=== PATIENT | female | born 1950 | race Caucasian/White ===

== ENCOUNTER 2016-07-05 11:31 | Emergency (ER) | payer MEDICARE, OTHER ==
[~2016-07-05] VITALS: Ht 172.7 cm; Wt 133.4 kg
[~2016-07-05 11:31] MED LIST: ALLO300T PO; AMIT50TA PO; ASPI325T8 PO; BUDE10.2 IH; COLE1TAB2 PO; DICL100G18 TP; DIPH25CA58 PO; DULO60CA6 PO; ESCI20TA PO; FLUT16SP21 NS; FLUT1DIS IH; FURO40TA4 PO; GLIM1TAB2 PO; HYDR-2758 PO; INDO25CA PO; IPRA4AER IH; LISI10TA2 PO; LOPE1TAB4 PO; OMEG1CAP65 PO; OMEP40CA5 PO; OXYC-328 PO; TOPI50TA8 PO; UBID100C26 PO
--- NOTE | 2016-07-05 11:42 | PHYS DOC ---
General Chief Complaint: hip pain Stated Complaint: LEFT HIP PAIN Time Seen by MD: 11:35 Source: patient, old records Exam Limitations: no limitations Problems: History of Present Illness Initial Comments Pt is 65/F to ED with family c/o left hip pain. Pt states she awoke yesterday morning with left hip pain, pt points to L buttock (piriformis) described as 10/10 sharp/stabby with post leg radiation to foot. No new trauma/strenuous, pt has chronic back pain with prior surgeries x 4. No new numbness/weakness/tingling, home percocet didn't help. Onset: yesterday Severity: severe Pain/Injury Location: left hip Method of Injury: unknown Modifying Factors: worse with jarring, worse with movement, improves with pain medication Allergies: Coded Allergies: adhesive (Verified Allergy, Unknown, 05/23/15) iodine (Unverified Allergy, Unknown, Shortness of Air, 01/28/14) Past Medical History Medical History: other (DM, DM neuropathy, IBS, chronic back pain, osteoarthritis) Surgical History: other (back x 3, b/l TKR) Social History Smoker: non-smoker Alcohol: none Drugs: none Review of Systems Constitutional: denies chills, denies fever Respiratory: denies cough, denies shortness of breath Cardiovascular: denies chest pain, denies palpitations Gastrointestinal: denies diarrhea, denies nausea, denies vomiting Genitourinary: denies dysuria, denies frequency, denies hematuria Musculoskeletal: see HPI Psychiatric/Neurological: see HPI Physical Exam General Appearance: mild distress, obese Neck: non-tender, supple Cardiovascular/Respiratory: normal peripheral pulses, no respiratory distress Back: no CVA tenderness, no vertebral tenderness Hips: left hip other (no bony TTP, point tenderness left gluteal/piriformis, no swell/ecchy pelvis stable) Neurologic/Tendon: normal sensation, normal motor functions, normal tendon functions, responds to pain, no evidence tendon injury, other (neg SLR b/l) Psychiatric: alert, oriented x 3 Skin: normal color, warm/dry Orders, Labs, Meds PATIENT: CLYDE AGUILAR ACCOUNT: [id number] : 1950 LOCATION: ER AGE: 65 SEX: F EXAM STATUS: REG ER ORD. PHYSICIAN: MERARY WELLINGTON DO REASON: L hip pain PROCEDURE: HIP LEFT 2V WITH PELVIS EXAM: Pelvis and left hip, 3 views. HISTORY: Pain. COMPARISON: 07/18/2015. FINDINGS: A frontal view of the pelvis and frontal and frog-leg views of the left hip are obtained. There is no fracture, dislocation or subluxation. There is instrumented fusion at the lower lumbar levels. There is severe degenerative endplate remodeling with disc space narrowing at the lumbosacral junction.. IMPRESSION: 1. No acute osseous finding 2. Postoperative and degenerative changes involving the lower lumbar spine. DICTATED AND SIGNED BY: ACACIA PERALTA MD DATE: 07/05/16 1221 CC: VERÓNICA FRANCO; MERARY WELLINGTON DO ~ I discussed tx plan pt expressed agreement/understanding. Departure Time of Disposition: 12:33 Disposition: 01 HOME, SELF-CARE Diagnosis: piriformis syndrome left, chronic pain Condition: GOOD Patient Instructions: Chronic Back Pain, Piriformis Syndrome Additional Instructions: Continue current meds. Activity as tolerated. Heating pad 20 minutes 4-6 times daily followed by gentle stretching. Rx: prednisone 20 #6, percocet 7.5mg #15 Take meds with food. Follow up with your doctor Thursday. Return to ED as needed. MERARY WELLINGTON DO July 05, 2016 11:42
[2016-07-05 11:45] VITALS: BP 155/79
--- NOTE | 2016-07-05 12:25 | RAD ---
EXAM: Pelvis and left hip, 3 views. HISTORY: Pain. COMPARISON: 07/18/2015. FINDINGS: A frontal view of the pelvis and frontal and frog-leg views of the left hip are obtained. There is no fracture, dislocation or subluxation. There is instrumented fusion at the lower lumbar levels. There is severe degenerative endplate remodeling with disc space narrowing at the lumbosacral junction.. IMPRESSION: 1. No acute osseous finding 2. Postoperative and degenerative changes involving the lower lumbar spine.
[2016-07-05] MEDS ORDERED: OXYC-327 PO (12:36)
[2016-07-05] MEDS ORDERED: PRED20TA PO (12:36)
[2016-07-05] MEDS ORDERED: MORPHINE SULFATE 10 MG/ML SYRINGE. SQ ONE (13:00)
== END 2016-07-05 13:05 | disposition home or self-care (01) ==
LOC: ER 11:31
DX: G57.02 Lesion of sciatic nerve, left lower limb (principal); G89.29 Other chronic pain; E11.40 Type 2 diabetes mellitus with diabetic neuropathy, unspecified; K58.9 Irritable bowel syndrome, unspecified; M19.90 Unspecified osteoarthritis, unspecified site; Z88.8 Allergy status to other drugs, medicaments and biological substances; Z91.041 Radiographic dye allergy status
CPT/HCPCS: 73502; 96372; 99284; J2270

== ENCOUNTER 2016-07-13 18:06 | Emergency (ER) | payer MEDICARE, OTHER ==
[~2016-07-13] VITALS: Ht 172.7 cm; Wt 144.0 kg
[~2016-07-13 18:06] MED LIST changes: +OXYC-327 PO; +PRED20TA PO
[2016-07-13 18:10] VITALS: BP 166/80
--- NOTE | 2016-07-13 18:16 | ED.ADGEN ---
Past History Past Medical History: Arthritis, Asthma, Cancer, Constipation, Diabetes, GERD, Hypertension, IBS, Seizure Past Surgical History: Cholecystectomy, Tonsillectomy, Other Alcohol Use: None Drug Use: None Adult General Chief Complaint Chief Complaint Back pain [facility] HPI Patient is a 65 year old should female who presents with back pain. She was seen here on Thursday and was diagnosed with back pain and sent home with prednisone and Percocet. On Thursday she saw [facility] and had a CT scan and an MRI and was diagnosed with sciatica. She is scheduled to go tomorrow for any injection at the pain clinic. She ran out of her Percocet tonight at 4:00 and states that she's taking 1 every 4-6 hours. She states the pains exact same pain that she is slightly worse now. She denies any fevers chills nausea or vomiting. He states the pains in her left hip and radiates down the back of her leg. Made worse with movement and is better when she has her pain meds. She denies any numbness tingling in her legs or weakness, she denies any saddle anesthesia. Review of Systems Review of Systems Constitutional: Denies fever or chills [] Eyes: Denies change in visual acuity, redness, or eye pain [] HENT: Denies nasal congestion or sore throat [] Respiratory: Denies cough or shortness of breath [] Cardiovascular: No additional information not addressed in HPI [] GI: Denies abdominal pain, nausea, vomiting, bloody stools or diarrhea [] : Denies dysuria or hematuria [] Musculoskeletal: Denies back pain or joint pain [] Integument: Denies rash or skin lesions [] Neurologic: Denies headache, focal weakness or sensory changes [] Endocrine: Denies polyuria or polydipsia [] Current Medications Current Medications Current Medications Medications (Trade) Dose Ordered Sig/Jeison Start Time Stop Time Status Last Admin Dose Admin Morphine Sulfate (Morphine 5mg Syringe) 10 mg 1X ONCE 07/13/16 19:00 07/13/16 19:02 DC 07/13/16 19:00 10 MG Allergies Allergies Allergies Coded Allergies Type Severity Reaction Last Updated Verified adhesive Allergy Unknown 05/23/15 Yes iodine Allergy Unknown Shortness of Air 01/28/14 No Physical Exam Physical Exam Constitutional: Well developed, well nourished, no acute distress, non-toxic appearance. [] HENT: Normocephalic, atraumatic, bilateral external ears normal, oropharynx moist, no oral exudates, nose normal. [] Eyes: PERRLA, EOMI, conjunctiva normal, no discharge. [] Neck: Normal range of motion, no tenderness, supple, no stridor. [] Cardiovascular:Heart rate regular rhythm, no murmur [] Lungs & Thorax: Bilateral breath sounds clear to auscultation [] Abdomen: Bowel sounds normal, soft, no tenderness, no masses, no pulsatile masses. [] Skin: Warm, dry, no erythema, no rash. [] Back: No tenderness, no CVA tenderness. Straight leg test positive on the left Extremities: No tenderness, no cyanosis, no clubbing, ROM intact, no edema. [] Neurologic: Alert and oriented X 3, normal motor function, normal sensory function, no focal deficits noted. [] Psychologic: Affect normal, judgement normal, mood normal. [] Current Patient Data Vital Signs Vital Signs Date Time Temp Pulse Resp B/P (MAP) Pulse Ox O2 Delivery O2 Flow Rate FiO2 07/13/16 18:10 98.0 94 20 96 EKG EKG [] Radiology/Procedures Radiology/Procedures [] Course & Med Decision Making Course & Med Decision Making Pertinent Labs and Imaging studies reviewed. (See chart for details) Long conversation was decided that her morphine shot she received last time helped so she was given 10 mg IM morphine she's being discharged with 10 mg Percocets and she is to follow-up tomorrow with her pain management physician. Return precautions given for weakness, numbness, saddle anesthesia or other concerns. She is agreeable Plan B discharged in stable condition. Final Impression Final Impression Chronic back pain Problems: Dragon Disclaimer Dragon Disclaimer This electronic medical record was generated, in whole or in part, using a voice recognition dictation system. GORDO BECKFORD MD Jul 13, 2016 18:15
[2016-07-13] MEDS ORDERED: MORPHINE SULFATE 5 MG/ML SYRINGE. IM ONE (19:00)
[2016-07-13] MEDS ORDERED: OXYC-328 PO (19:17)
== END 2016-07-13 19:22 | disposition home or self-care (01) ==
LOC: ER 18:06
DX: G89.29 Other chronic pain (principal); M54.89 Other dorsalgia; K21.9 Gastro-esophageal reflux disease without esophagitis; K58.9 Irritable bowel syndrome, unspecified; J45.909 Unspecified asthma, uncomplicated; I10 Essential (primary) hypertension; E11.9 Type 2 diabetes mellitus without complications; M19.90 Unspecified osteoarthritis, unspecified site; Z88.8 Allergy status to other drugs, medicaments and biological substances; Z91.041 Radiographic dye allergy status
CPT/HCPCS: 96372; 99283; J2270

== ENCOUNTER → 2016-07-21 | Outpatient (CLI) | payer MEDICARE, OTHER ==
[2016-07-13 18:10] VITALS: BP 166/80
--- NOTE | 2016-07-21 15:42 | RAD ---
Ultrasound of the left breast 07/21/2016 Clinical history: Left breast pain for 3 weeks at the 9:00 position. History of left breast cancer and lumpectomy post radiation therapy in 2016. Technique: A real-time ultrasound examination of the left breast from the 6 to 9:00 position in the area of the patient's pain was performed. Multiple images were obtained. Findings: Comparison is made to the patient's preoperative mammograms from [facility] dated 11/13/2015. Within the left breast at the 9:00 position a slightly complex cyst is seen which measures 4 mm in greatest diameter. No solid mass is seen. Impression: 4 mm slightly complex cyst is seen in the left breast at the 9:00 position. No solid mass is seen. This is considered a BI-RADS Category 2 finding. Clinical correlation is recommended in regards to mammographic follow-up of the patient's known treated breast cancer. At the very least the patient would be due for screening mammography on 11/12/2016.
== END | disposition home or self-care (01) ==
LOC: US 14:27
PROVIDERS: ATTEND Internal Medicine Hematology & Oncology
DX: C50.412 Malignant neoplasm of upper-outer quadrant of left female breast (principal); Z85.3 Personal history of malignant neoplasm of breast
CPT/HCPCS: 76641

== ENCOUNTER 2016-12-06 00:36 | Inpatient (IN) | payer MEDICARE, OTHER ==
[~2016-12-06] VITALS: Ht 172.7 cm; Wt 133.9 kg
[~2016-12-06 00:36] MED LIST changes: -ESCI20TA PO; +ESCITALOPRAM OX20 MG PO
[2016-12-06] MEDS ORDERED: 0.9 % SODIUM CHLORIDE 10 ML DISP.SYRIN. IV PRN (00:45)
[2016-12-06] MEDS ORDERED: HYDROmorphone PF 1 MG/ML DISP.SYRIN IV/SQ PRN (00:45)
--- NOTE | 2016-12-06 00:56 | PHYS DOC ---
Past History Past Medical History: Arthritis, Asthma, Cancer, Constipation, Diabetes, GERD, Hypertension, IBS, Seizure Past Surgical History: Other Alcohol Use: None Drug Use: None Adult General Chief Complaint Chief Complaint: abdominal pain, diarrhea and near syncope [facility] HPI He is a pleasant 66-year-old female with history of diabetes, irritable bowel syndrome, chronic lower back pain who presents with a near-syncopal episode tonight after having multiple episodes of diarrhea for last week. Patient is any history of mucoid nonbloody stool for the last week which she's had multiple episodes over the course of each day with progressive weakness and tiredness. Patient met she's had this problem in the past she's been in the care of her primary care physician who she last saw last week she's not been on any recent antibiotics, she denies any chest pain, shortness of breath when she is having left lower quadrant abdominal pain. It is dull and achy without radiation. It is not worsened by position or movement or bowel movements. She denies any UTI symptoms vaginal bleeding or discharge. She was home alone and tonight she was walking across a room which became increasingly lightheaded and tired and she nearly syncopized sitting on the floor having a bowel movement. Patient was found to her family 20-30 minutes later she was incontinent of stool but denied any neck pain or headache loss of consciousness. Patient's pain is localized in the left lower quadrant described as moderate. Patient denies any sick contacts, travel or recent antibiotics. Review of Systems Review of Systems Constitutional: Subjective fevers and chills Eyes: Denies change in visual acuity, redness, or eye pain [] HENT: Denies nasal congestion or sore throat [] Respiratory: Denies cough or shortness of breath [] Cardiovascular: No additional information not addressed in HPI [] GI: He does have abdominal pain the left lower quadrant with nausea but no vomiting she has diarrhea without blood. : Denies dysuria or hematuria [] Musculoskeletal: sHe complains of chronic lower back pain Integument: Denies rash or skin lesions [] Neurologic: Denies headache, focal weakness or sensory changes does complain of chronic weakness and progressive fatigue[] Endocrine: Denies polyuria or polydipsia [] Allergies Allergies Allergies Coded Allergies Type Severity Reaction Last Updated Verified adhesive Allergy Unknown 05/23/15 Yes iodine Allergy Unknown Shortness of Air 01/28/14 No Physical Exam Physical Exam Constitutional: Well developed, well nourished, no acute distress, non-toxic appearance. [] HENT: Normocephalic, atraumatic, bilateral external ears normal, oropharynx moist, no oral exudates, nose normal. [] Eyes: PERRLA, EOMI, conjunctiva normal, no discharge. [] Neck: Normal range of motion, no tenderness, supple, no stridor. [] Cardiovascular:Heart rate regular rhythm, no murmur [] Lungs & Thorax: Bilateral breath sounds clear to auscultation [] Abdomen: Bowel sounds normal, soft, no tenderness, no masses, no pulsatile masses. [] Skin: Warm, dry, no erythema, no rash. [] Back: No tenderness, no CVA tenderness. [] Extremities: No tenderness, no cyanosis, no clubbing, ROM intact, no edema. [] Neurologic: Alert and oriented X 3, normal motor function, normal sensory function, no focal deficits noted. [] Psychologic: Affect normal, judgement normal, mood normal. [] EKG EKG EKG timed 1:13 AM and 28/09/2016 demonstrates a heart rate of 112 there is a pediatric care as this is sinus tachycardia. There is a normal TN interval 156 wrist with a QTC of 460 WHICH is normal there are no ST segment or T-wave changes consistent with acute coronary ischemia. Radiology/Procedures Radiology/Procedures [] [place] [address] IMAGING REPORT Signed PATIENT: CLYDE AGUILAR ACCOUNT: [id number] : 1950 LOCATION: ER AGE: 66 SEX: F EXAM STATUS: REG ER ORD. PHYSICIAN: YANELY NGUYEN MD REASON: left lower quadrant abdominal pain PROCEDURE: CT ABDOMEN PELVIS WO CONTRAST CT ABDOMEN PELVIS WO CONTRAST dated 12/06/2016 1:05 AM Indication: Abdominal pain, radiating to lower backLLQ abdominal pain radiating to lower back. No prior exams for comparison. Comparison: No comparison is available. Technique: Contiguous axial imaging of the abdomen and pelvis performed without the administration of IV or oral contrast. One or more of the following individualized dose reduction techniques were utilized for this examination: 1. Automated exposure control 2. Adjustment of the mA and/or kV according to patient size 3. Use of iterative reconstruction technique Findings: 3 mm calcific stone at the left UVJ with mild proximal dilation of the left ureter and left pelvicalyceal system. Asymmetric inflammatory stranding in the left perinephric fat. No calcific stone within the substance of either kidney. No right ureteral stone or right hydronephrosis. Liver and spleen are homogeneous. Pancreas unremarkable. Possible small myelolipoma versus lipoma at the right adrenal gland. Gallbladder is surgically absent. Mild prominence of the common bile duct measuring 9 mm diameter. No intrahepatic ductal dilatation. No filling defect is seen. Unopacified GI tract is normal in caliber and contour. No focal bowel wall thickening. No inflammatory stranding in the mesentery. No ascites or lymphadenopathy. Images of pelvis show nondistended urinary bladder. Uterus and adnexa are unremarkable. No free fluid or lymphadenopathy. Bone windows show no acute findings. Multilevel spondylosis. Limited images of lung bases are clear. Heart size within normal limits. No pleural or pericardial effusion. IMPRESSION: 3 mm calcific stone at the left UVJ with mild obstructive uropathy. Mild prominence of the common bile duct without evidence of filling defect or intrahepatic ductal dilatation. This is likely related to age and postcholecystectomy state. Electronically signed by: Ronal Barillas MD (12/06/2016 1:30 AM) [facility] DICTATED AND SIGNED BY: RONAL BARILLAS MD DATE: 12/06/16 0124 CC: YANELY NGUYEN MD; VERÓNICA FRANCO DO ~ Course & Med Decision Making Course & Med Decision Making Pertinent Labs and Imaging studies reviewed. (See chart for details)My syncope differential includes but not limited to: Neurally mediated vasovagal syncope, situational syncope, cardiac sinus syncope , orthostatic hypertension, medications, psychiatric interventions, neurologic syncope, cardiogenic syncopal B, to include organic heart disease congestive heart failure, cardiac dysrhythmia, seizure disorder, stroke or transient ischemic attack, bradycardia dysrhythmias, tachycardia dysrhythmias, PT, V. fib V. fib, cardiac abnormalities like first degree secondary third-degree AV blocks , prolonged QT, hypertrophic Murray myopathy, severe pulmonic stenosis, pulmonary arterial hypertension, atrial myxomas, aortic stenosis, valvular failure, alcohol consumption, adrenal insufficiency, drug effects from things like antidepressants, antihypertensive agents like beta blockers, vasodilators including calcium channel blockers and nitrates, autonomic insufficiency. Impression demonstrates increasing abdominal pain with nausea diarrhea and syncope at home. My concern is this patient's stability and history of diabetes she may be suffering from either irritable bowel or possibly an abscess from diverticulitis. She also mentions a remote history of kidney stones. Patient denies any UTI symptoms vaginal bleeding or discharge but has had urinary issues in the past. Upon arrival she is tachycardic she is physically dry and physical exam she looks. Dehydrated Time is now 1:25 AM patient's tachycardia is improved with fluids still waiting blood work at this time. Time is now 1:[address] scan revealed by me demonstrates evidence of kidney stone in the left ureterovesicular junction. There is some [place] and inflammatory changes around the ureter itself. Patient's pain is improved tachycardia is continue improves well with fluids and concerned given the fact she has diabetes and that she is home alone and she is syncopized home given her debility and dehydration I thought it prudent to admit her to the hospital for the sake of close observation fluid management and a possible testing for stool for infectious etiologies. Entertainment Director note: Dr. Mark Entertainment Director called at of the service 2:00 am Consult called back at Discussed the case I presented and they agreed with admission. Time of acceptance 2:01 [] Dragon Disclaimer Dragon Disclaimer This chart was dictated in whole or in part using Voice Recognition software in a busy, high-work load, and often noisy Emergency Department environment. It may contain unintended and wholly unrecognized errors or omissions. Departure Departure: Impression: Primary Impression: Diarrhea Additional Impressions: Syncope Dehydration Kidney stone on left side Disposition: ADMITTED INPATIENT Admitting Physician: Charmaine Mark Condition: IMPROVED Referrals: VERÓNICA FRANCO DO (PCP) Problem Qualifiers YANELY NGUYEN MD Dec 06, 2016 00:56
[2016-12-06] MEDS ORDERED: IV NORMAL SALINE 1,000ML 1,000 ML IV SCH ×3 (01:00→05:00)
[2016-12-06] MEDS ORDERED: FAMOTIDINE 20 MG/2 ML VIAL IVP ONE (01:15)
[2016-12-06] MEDS ORDERED: ONDANSETRON PF 4 MG/2 ML VIAL. IV ONE (01:15)
[2016-12-06] MEDS ORDERED: LORazepam 2 MG/ML VIAL IV ONE (01:15)
--- NOTE | 2016-12-06 01:34 | RAD ---
CT ABDOMEN PELVIS WO CONTRAST dated 12/06/2016 1:05 AM Indication: Abdominal pain, radiating to lower backLLQ abdominal pain radiating to lower back. No prior exams for comparison. Comparison: No comparison is available. Technique: Contiguous axial imaging of the abdomen and pelvis performed without the administration of IV or oral contrast. One or more of the following individualized dose reduction techniques were utilized for this examination: 1. Automated exposure control 2. Adjustment of the mA and/or kV according to patient size 3. Use of iterative reconstruction technique Findings: 3 mm calcific stone at the left UVJ with mild proximal dilation of the left ureter and left pelvicalyceal system. Asymmetric inflammatory stranding in the left perinephric fat. No calcific stone within the substance of either kidney. No right ureteral stone or right hydronephrosis. Liver and spleen are homogeneous. Pancreas unremarkable. Possible small myelolipoma versus lipoma at the right adrenal gland. Gallbladder is surgically absent. Mild prominence of the common bile duct measuring 9 mm diameter. No intrahepatic ductal dilatation. No filling defect is seen. Unopacified GI tract is normal in caliber and contour. No focal bowel wall thickening. No inflammatory stranding in the mesentery. No ascites or lymphadenopathy. Images of pelvis show nondistended urinary bladder. Uterus and adnexa are unremarkable. No free fluid or lymphadenopathy. Bone windows show no acute findings. Multilevel spondylosis. Limited images of lung bases are clear. Heart size within normal limits. No pleural or pericardial effusion. IMPRESSION: 3 mm calcific stone at the left UVJ with mild obstructive uropathy. Mild prominence of the common bile duct without evidence of filling defect or intrahepatic ductal dilatation. This is likely related to age and postcholecystectomy state. Electronically signed by: Ronal Barillas MD (12/06/2016 1:30 AM) [facility]
[2016-12-06] MEDS ORDERED: HYDROmorphone PF 2 MG/ML VIAL ONE (01:44)
[2016-12-06 02:03] LABS: BASO # 0.1 x10^3/uL (0.0-0.2); BASO % 0 % (0-3); EOS # 0.1 x10^3/uL (0.0-0.7); EOS % 0 % (0-3); HEMATOCRIT 38.7 % (36.0-47.0); HEMOGLOBIN 12.7 g/dL (12.0-15.5); LYMPH # 0.8 x10^3/uL (1.0-4.8); LYMPH % 2 % (24-48); MEAN CORPUSCULAR HEMOGLOBIN 29 pg (25-35); MEAN CORPUSCULAR HGB CONC 33 g/dL (31-37); MEAN CORPUSCULAR VOLUME 90 fL (79-100); MONO # 2.1 x10^3/uL (0.0-1.1); MONO % 6 % (0-9); NEUT # 31.8 x10^3uL (1.8-7.7); NEUT % 91 % (31-73); PLATELET COUNT 298 x10^3/uL (140-400); RED BLOOD COUNT 4.33 x10^6/uL (3.50-5.40)
--- NOTE | 2016-12-06 02:05 | EKG ---
[address] [address] Test Date: 2016-12-06 Test Time: 01:13:28 Pat Name: CLYDE AGUILAR Department: Room: Gender: F [employer] Officer: SANDEEP : 1950 Requested By: YANELY NGUYEN Order Number: [id number] Reading MD: Solo Hutton Measurements Intervals [place] Rate: 112 P: 41 CO: 156 QRS: 56 QRSD: 80 T: 39 QT: 338 QTc: 463 Interpretive Statements SINUS TACHYCARDIA NON-SPECIFIC ST/T CHANGES Electronically Signed On 12-10-2016 8:20:26 CDT by Solo Hutton
[2016-12-06] MEDS ORDERED: ACETAMINOPHEN 325 MG TABLET PO PRN (02:15)
[2016-12-06] MEDS ORDERED: ONDANSETRON PF 4 MG/2 ML VIAL. IV PRN (02:15)
[2016-12-06 02:16] LABS: ALBUMIN 3.3 g/dL (3.4-5.0); CALCIUM 9.4 mg/dL (8.5-10.1); CREATININE 2.3 mg/dL (0.6-1.0); DIRECT BILIRUBIN 0.1 mg/dL (0.0-0.2); GFR 21.2; MAGNESIUM 1.8 mg/dL (1.8-2.4); POTASSIUM 3.6 mmol/L (3.5-5.1); TOTAL BILIRUBIN 0.5 mg/dL (0.2-1.0); TOTAL PROTEIN 7.7 g/dL (6.4-8.2)
[2016-12-06 02:25] LABS: % BANDS 6 % (0-9); % LYMPHS 1 % (24-48); % MONOS 3 % (0-10); % SEGS 90 % (35-66); ANISOCYTOSIS SLIGHT; HYPOCHROMIA SLIGHT; MICROCYTOSIS SLIGHT; PLT ESTIMATE ADEQUATE (ADEQUATE)
[2016-12-06] MEDS ORDERED: CIPROFLOXACIN 400MG PREMIX 200 ML IV ONE (02:30)
[2016-12-06 02:42] LABS: BILIRUBIN,URINE NEG (NEG); CLARITY,URINE HAZY; COLOR,URINE YELLOW; GLUCOSE,URINE NEG (NEG)
[2016-12-06 02:43] LABS: BACTERIA,URINE MANY /HPF (0-FEW); NITRITE,URINE NEG (NEG); SQUAMOUS EPITHELIAL CELL,UR FEW /LPF; UROBILINOGEN,URINE 0.2 mg/dL (0.2 mg/dL)
[2016-12-06 03:50] VITALS: BP 101/67
--- NOTE | 2016-12-06 03:50 | NUR ---
The patient, CLYDE AGUILAR, 66 y/o, F admitted by DAVID DANIEL MD, was given written information regarding hospital policies, unit procedures and contact persons. Patient diagnosis of dehydration, UTI, Kidney stone, and diarrhea. Patient assessed and orders noted. Valuables were checked and left with patient.
[2016-12-06] MEDS ORDERED: IV NORMAL SALINE 1,000ML 1,000 ML IV ONE (04:15)
--- NOTE | 2016-12-06 04:32 | NUR ---
Called Dr. Mark regarding patients positive Severe Sepsis screen. He gave me new orders. Patient placed on Tele. Nursing webbing supervisor aware of positive sepsis screen. Patient stable and resting at this time. Will continue to monitor. Repeat lactic ordered for 0610 AM which is 4 hours after initial 3.7 reading.
[2016-12-06] MEDS ORDERED: DICLOFENAC SODIUM 1% TOPICAL GEL 100GM TUBE. TP PRN (05:00)
[2016-12-06] MEDS ORDERED: FLUTICASONE 50MCG/NASAL SPRAY 16GM BOTTLE. NS PRN (05:00)
[2016-12-06] MEDS ORDERED: ANAS1TAB PO (05:01)
[2016-12-06] MEDS ORDERED: LISI1TAB3 PO (05:01)
[2016-12-06] MEDS ORDERED: LOPERAMIDE 2 MG CAPSULE PO PRN (05:15)
[2016-12-06] MEDS: COLESTIPOL HCL 1 GM TABLET PO SCH (05:38)
[2016-12-06 05:42] VITALS: BP 92/59
[2016-12-06] MEDS: ALBUTEROL SULFATE 2.5 MG/3 ML NEBU. NEB SCH ×4 (05:59→19:38)
[2016-12-06] MEDS: HYDROmorphone PF 2 MG/ML VIAL IV PRN ×2 (06:26→17:30)
--- NOTE | 2016-12-06 06:35 | NUR ---
Put in leonard cath per Dr. Mark's orders for retention and accurate I and O's. Patient tolerated well. Call light within reach.
[2016-12-06] MEDS: IV NORMAL SALINE 1,000ML 1,000 ML IV SCH ×3 (07:00→18:22)
[2016-12-06] MEDS ORDERED: NON FORMULARY ITEM (Budesonide/Formoterol Fumarate (Symbicort 160-4.5 Mcg Inhaler) 1 PUFF) IH SCH (09:00)
[2016-12-06] MEDS: DULoxetine HCL 60 MG CAPSULE.DR PO SCH (09:21)
[2016-12-06] MEDS: PANTOPRAZOLE 40 MG TABLET. PO SCH (09:21)
[2016-12-06] MEDS: TOPIRAMATE 25 MG TABLET. PO SCH ×2 (09:21→20:31)
[2016-12-06] MEDS: BUDESONIDE 0.5 MG/2 ML NEBU NEB SCH ×2 (09:35→19:38)
[2016-12-06] MEDS: UBIDECARENONE 50 MG CAPSULE. PO SCH (10:06)
[2016-12-06 10:51] VITALS: BP 90/60
[2016-12-06 15:15] VITALS: BP 101/67
[2016-12-06] MEDS: CIPROFLOXACIN 200MG PREMIX 100 ML IV SCH (18:22)
--- NOTE | 2016-12-06 18:36 | HP ---
ADMIT DATE: 12/06/2016 HISTORY OF PRESENT ILLNESS: This is a 66-year-old female patient who came to the Emergency Room with a near syncopal episode last night after having multiple episodes of diarrhea for the last 1 week. She apparently has had diarrhea for almost a week now and with multiple episodes over the course of each day with progressive weakness and tiredness. She yesterday started having nausea and vomited multiple times. However, she denied having any recent antibiotic therapy. Denied any chest pain or shortness of breath. She did have left lower quadrant abdominal pain, dull and aching without radiation. She has also chronic low back pain. She was home alone and she was walking across the room when she became increasingly lightheaded and tired, she nearly fell down, sitting on the floor having a bowel movement. The patient was found by her family 20-30 minutes later. She was incontinent of stool, but denied any neck pain, headache, or loss of consciousness. Her pain is mostly localized to her left lower quadrant. Denied any sick contact, travel, or recent antibiotics. She was extensively investigated in the Emergency Room and was found to have marked leukocytosis. Her lactic acid was high at 3.7 and she was also dehydrated. BUN of 41, creatinine 2.3 compared to creatinine about a year ago which was about 1.3. Her urinalysis showed the urine was yellow, hazy with a pH of 5, specific gravity 1.015. There was a trace of protein. Negative for glucose, ketones, blood, nitrite. There was moderate amount of leukocyte esterase with 3-5 rbc's, 11-20 wbc's, many bacteria. Given her diarrhea and pain, she has had a CT scan of the abdomen and pelvis without contrast and it shows that the patient has a 3 mm calcific stone at the left ureterovesical junction with mild proximal dilatation of the left ureter and left pelvicalyceal system, asymmetric inflammatory stranding of the left perinephric fat. No calcific stone within the substance of either kidney. No right ureteral stone, no right hydronephrosis. The liver and spleen are homogeneous. Pancreas is unremarkable, possible small myelolipoma versus lipoma at the right adrenal gland. Gallbladder is surgically absent. Mild prominence of the common bile duct measuring 9 mm. No intrahepatic ductal dilatation, no filling defect is seen. Unopacified GI tract is normal in caliber and contour. No focal bowel wall thickening. No inflammatory stranding in the mesentery. No ascites or lymphadenopathy. Images of the pelvis show nondisplaced urinary bladder. Uterus and adnexa are unremarkable. No free fluid or lymphadenopathy. Bone windows show no acute finding, multilevel spondylosis. She has a limited images of the lung. Lung bases are clear. Heart size is within normal limits. No pericardial effusion with the impressions that the patient has 3 mm calcific stone at the ureterovesical junction with mild obstructive uropathy, mild prominence of the common bile duct without evidence of filling defect or intrahepatic ductal dilatation is likely related to age and post-cholecystectomy state. The patient was started on IV fluid and started also on IV antibiotic as well as Flagyl. PAST MEDICAL HISTORY: Significant for type 2 diabetes, nephrolithiasis. She also has tumors in her throat that she has regular fiberoptic bronchoscopy, morbid obesity, obstructive sleep apnea, on CPAP. She has chronic back pain. She has breast cancer, generalized osteoarthritis, irritable bowel syndrome, seizure disorder. PAST SURGICAL HISTORY: Significant for bilateral total knee arthroplasty, 3 back surgeries, spinal epidural injection, the last one was in September of this year done at [facility]. She had a breast lumpectomy and lymphadenopathy. All the lymph nodes were negative for cancer. She had tonsillectomy, adenoidectomy, cholecystectomy, appendectomy. ALLERGIES: She is allergic to IODINE and ADHESIVE TAPE. She is also allergic to the local anesthetic and she is allergic to BARLEY and TOILET PAPER. MEDICATIONS: She is currently on the following medications: Allopurinol 300 mg 4 times a day, anastrozole 1 mg tablet daily. She is on Symbicort 160/4.5 mcg 1 puff daily, colestipol 1 gram daily, diclofenac sodium 100 mg gel applied topically 4 times a day, diphenhydramine 25 mg at bedtime, duloxetine 60 mg once a day, Flonase 1 spray to each nostril twice a day, glimepiride 1 mg daily, indomethacin 25 mg 3 times a day, lisinopril/hydrochlorothiazide 10/12.5 mg once a day, loperamide simethicone 1 tablet once a day, omeprazole 40 mg twice a day, oxycodone/acetaminophen 10/325 one tablet every 6 hours, topiramate 50 mg twice a day, CoQ10 100 mg once a day. FAMILY HISTORY: She has 1 brother and 5 sisters. Her oldest sister in a house fire. Her father in a motor vehicle accident. Mother of COPD. SOCIAL HISTORY: She is , has 1 daughter. She never smoked, does not drink alcohol, or use any recreational drugs. 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 REVIEW OF SYSTEMS: The patient is blind in her right eye and she has cataract in the left eye. She denied any earache, tinnitus, or sensorineural deafness. Denied any nosebleeds, stuffy nose, or postnasal drip. Denied any sore throat, sore tongue, toothache, hoarseness of voice, or difficulty swallowing. Did have some nausea and vomiting, but denied any hematemesis. She has diarrhea, but denied any melena or hematochezia. Denied any dysuria, frequency, or hematuria. Denied any chest pain, shortness of breath, orthopnea, or paroxysmal nocturnal dyspnea. Denied any cough, phlegm, or hemoptysis. Denied any chills, rigors, or fever. She did have what seemed to be a syncopal episode. PHYSICAL EXAMINATION: GENERAL: On arrival to the Emergency Room, she looked somewhat pale, but no jaundice, cyanosis, or thyromegaly. No jugular venous distention. No limb edema. VITAL SIGNS: Her heart rate was 115, blood pressure was 120/56, temperature was 98, respiratory rate was 20, and oxygen saturation was 95% on room air. HEAD, EYES, EARS, NOSE, AND THROAT: Showed normocephalic, atraumatic. NECK: Supple. HEART: Showed normal first and second heart sounds with no gallop, rub, or murmur. CHEST: Clear to auscultation. No crepitation or rhonchi. ABDOMEN: Distended, soft, nontender. No guarding or rigidity. No organomegaly. Hernial orifices intact. Bowel sounds normal. NEUROLOGIC: She was awake, alert, responding appropriately. All her cranial nerves intact. She moves extremities without difficulty. LABORATORY DATA: Her lab works on arrival showed serum sodium of 140, potassium 3.6, chloride 102, bicarbonate 24, anion gap of 14, BUN 41, creatinine 2.3. Estimated GFR was 21 mL per minute. Her glucose was 179. Calcium was 9.4, lactic acid was 3.7. Serum calcium was 9.4, magnesium was 1.8. Total bilirubin, AST, ALT, alkaline phosphatase were normal. Her total protein was 7.7, albumin 3.3. Her white cell count was 35,000, hemoglobin 12.7, hematocrit 38.7, MCV 90, and platelet count 298,000 with a manual differential showed 91% polymorphs, 2% lymphocytes, and 6% monocytes. Urinalysis showed the urine was yellow, hazy with a pH of 5, specific gravity of 1.015. There was trace of protein. Urine was negative for glucose, ketones, blood, nitrite, and leukocyte esterase. There was moderate amount of leukocyte esterase with 3-5 rbc's, 11-20 wbc's, and many bacteria. CT scan of the abdomen and pelvis without contrast showed that there is a 3 mm calcific stone in the left ureterovesical junction with mild obstructive uropathy, mild prominence of the common bile duct without evidence of filling defect. Intrahepatic ductal dilatation is likely related to age and post-cholecystectomy state. IMPRESSION: In summary, this is a 66-year-old female patient who was admitted with recurrent bouts of diarrhea and 3 episodes of vomiting yesterday. She has what seems to be [id number] kidney disease. She has a 3 mm stone at the left ureterovesical junction with mild proximal dilatation of the left ureter and left pelvicalyceal system. There is asymmetric inflammatory stranding in the left perinephric fat. No calcific stones within the substance of either kidney. There are no right ureteral stones with right hydronephrosis. The patient will be continued on IV fluid, IV antibiotic in the form of ciprofloxacin as well as Flagyl. Blood and urine was sent for culture and sensitivity as well as stool for culture and C. diff toxins. We will repeat all her lab works and perhaps tomorrow we will repeat her CT scan to make sure that the stone has passed and decide on further management accordingly. DAVID DANIEL MD DR: LACY/alberta JOB#: [id number] / [id number]
[2016-12-06 19:25] LABS: CALCIUM 7.6 mg/dL (8.5-10.1); CREATININE 2.2 mg/dL (0.6-1.0); GFR 22.3; POTASSIUM 3.4 mmol/L (3.5-5.1)
[2016-12-06 19:31] VITALS: BP 99/57
[2016-12-06] MEDS: diphenhydrAMINE HCL 25 MG CAPSULE PO SCH (20:31)
[2016-12-06] MEDS: LACTOBACILLUS ACIDOPH & BULGAR 1 TABLET. PO SCH (20:32)
[2016-12-06 22:47] VITALS: BP 120/62
[2016-12-07] MEDS: IV NORMAL SALINE 1,000ML 1,000 ML IV SCH ×3 (00:37→19:00)
[2016-12-07] MEDS: CIPROFLOXACIN 200MG PREMIX 100 ML IV SCH ×2 (05:15→18:33)
[2016-12-07] MEDS: COLESTIPOL HCL 1 GM TABLET PO SCH (05:15)
[2016-12-07 05:31] VITALS: BP 122/59
[2016-12-07] MEDS: ALBUTEROL SULFATE 2.5 MG/3 ML NEBU. NEB SCH ×4 (05:50→21:17)
[2016-12-07 07:33] LABS: BASO # 0.1 x10^3/uL (0.0-0.2); BASO % 0 % (0-3); EOS # 0.3 x10^3/uL (0.0-0.7); EOS % 2 % (0-3); HEMATOCRIT 31.4 % (36.0-47.0); HEMOGLOBIN 10.5 g/dL (12.0-15.5); LYMPH # 0.6 x10^3/uL (1.0-4.8); LYMPH % 4 % (24-48); MEAN CORPUSCULAR HEMOGLOBIN 30 pg (25-35); MEAN CORPUSCULAR HGB CONC 33 g/dL (31-37); MEAN CORPUSCULAR VOLUME 90 fL (79-100); MONO # 0.8 x10^3/uL (0.0-1.1); MONO % 5 % (0-9); NEUT # 12.7 x10^3uL (1.8-7.7); NEUT % 88 % (31-73); PLATELET COUNT 152 x10^3/uL (140-400); RED BLOOD COUNT 3.49 x10^6/uL (3.50-5.40); RED CELL DISTRIBUTION WIDTH 13.8 % (11.5-14.5); WHITE BLOOD COUNT 14.5 x10^3/uL (4.0-11.0)
[2016-12-07 07:45] LABS: ALBUMIN 2.3 g/dL (3.4-5.0); ALBUMIN/GLOBULIN RATIO 0.6 (1.0-1.7); CREATININE 1.9 mg/dL (0.6-1.0); GFR 26.4; POTASSIUM 3.5 mmol/L (3.5-5.1); TOTAL BILIRUBIN 0.3 mg/dL (0.2-1.0); TOTAL PROTEIN 6.2 g/dL (6.4-8.2); URIC ACID 7.7 mg/dL (2.6-6.0)
[2016-12-07] MEDS: PANTOPRAZOLE 40 MG TABLET. PO SCH (08:01)
[2016-12-07] MEDS: DULoxetine HCL 60 MG CAPSULE.DR PO SCH (08:22)
[2016-12-07] MEDS: ANASTROZOLE 1 MG TABLET PO SCH (08:22)
[2016-12-07] MEDS: ALLOPURINOL 300 MG TABLET. PO SCH (08:23)
[2016-12-07] MEDS: LACTOBACILLUS ACIDOPH & BULGAR 1 TABLET. PO SCH ×2 (08:23→20:32)
[2016-12-07] MEDS: TOPIRAMATE 25 MG TABLET. PO SCH ×2 (08:23→20:32)
[2016-12-07] MEDS: UBIDECARENONE 50 MG CAPSULE. PO SCH (08:24)
[2016-12-07] MEDS: HYDROmorphone PF 2 MG/ML VIAL IV PRN ×3 (09:06→18:59)
[2016-12-07] MEDS: BUDESONIDE 0.5 MG/2 ML NEBU NEB SCH ×2 (09:36→21:17)
[2016-12-07 10:20] VITALS: BP 133/54
--- NOTE | 2016-12-07 14:44 | NUR ---
Long IV inserted in PT. 2.25cm. Educated pt and nurse that will not be as easy to see s/s of infiltration. Can draw blood from device. James HART
[2016-12-07 14:56] VITALS: BP 143/74
--- NOTE | 2016-12-07 19:16 | RAD ---
EXAM: Abdomen and pelvis CT without intravenous contrast. HISTORY: Flank pain. TECHNIQUE: Computed tomographic images of the abdomen and pelvis were obtained without contrast. Multiplanar reformatting was performed. *One or more of the following individualized dose reduction techniques were utilized for this examination: 1. Automated exposure control. 2. Adjustment of the mA and/or kV according to patient size. 3. Use of iterative reconstruction technique. COMPARISON: 12/06/2016. FINDINGS: Evaluation of the lower thorax demonstrates increased left lower lobe atelectasis or infiltrate. There is a new trace left pleural effusion. There is right basilar atelectasis or pleural parenchymal scarring. The heart is upper normal in size. No hepatic lesion is seen. The gallbladder is surgically absent. There is biliary ductal dilatation, within limits for reservoir effect status post cholecystectomy. The pancreas, spleen and adrenal glands are unremarkable. There has been interval decrease in the recently demonstrated left obstructive uropathy. The previously demonstrated stone within the ureterovesical junction is no longer seen. There are multiple pelvic fluid levels within the pelvis. No solid or cystic renal lesion is seen. The bladder is empty. There is a Najera catheter and small amount of gas within the bladder due to recent catheterization. No abnormally thickened or dilated loop of bowel is seen. There is a small fat-containing supraumbilical hernia. The uterus and adnexal regions are unremarkable. There is no pathologically enlarged lymph node. There is instrumented posterior spinal fusion and laminectomy decompression at L3-L5. There is grade 1 anterolisthesis at the fused levels. There is slight retrolisthesis at scoliosis at the remainder of the lumbar levels. There is multilevel degenerative change. IMPRESSION: 1. Suspected interval passage of a previously demonstrated stone within the left UVJ, with associated resolution of prior obstructive uropathy. 2. Increase in left lower lobe atelectasis or infiltrate with trace pleural effusion. Electronically signed by: Mis Travis MD (12/07/2016 7:13 PM) [id number]
[2016-12-07 19:28] VITALS: BP 94/63
[2016-12-07] MEDS: diphenhydrAMINE HCL 25 MG CAPSULE PO SCH (20:32)
[2016-12-07 22:55] VITALS: BP 106/56
[2016-12-08] MEDS: COLESTIPOL HCL 1 GM TABLET PO SCH (05:20)
[2016-12-08] MEDS: IV NORMAL SALINE 1,000ML 1,000 ML IV SCH (05:20)
[2016-12-08] MEDS: ALBUTEROL SULFATE 2.5 MG/3 ML NEBU. NEB SCH (05:32)
[2016-12-08 05:45] VITALS: BP 139/75
[2016-12-08] MEDS: CIPROFLOXACIN 200MG PREMIX 100 ML IV SCH ×2 (06:15→18:17)
[2016-12-08 06:46] LABS: HEMATOCRIT 29.8 % (36.0-47.0); HEMOGLOBIN 9.9 g/dL (12.0-15.5); RED BLOOD COUNT 3.29 x10^6/uL (3.50-5.40); RED CELL DISTRIBUTION WIDTH 14.2 % (11.5-14.5); WHITE BLOOD COUNT 10.2 x10^3/uL (4.0-11.0)
--- NOTE | 2016-12-08 06:55 | PN ---
DATE: 12/07/2016 SUBJECTIVE: The patient is resting slightly propped up in bed, in no apparent distress. She is somewhat confused and lethargic. She was pale. No jaundice or cyanosis. No thyromegaly or jugular venous distension. No limb edema. OBJECTIVE: VITAL SIGNS: Her heart rate was 92, blood pressure 143/74, temperature was 98.1, respiratory rate 20, and oxygen saturation was 94% on 2 liters of oxygen by nasal cannula. HEAD, EYES, EARS, NOSE AND THROAT: Showed normocephalic, atraumatic. NECK: Supple. HEART: Showed normal first and second heart sounds with no gallop, rub or murmur. CHEST: Clear to auscultation. No crepitation or rhonchi. ABDOMEN: Distended, soft, nontender. No guarding or rigidity. No organomegaly. Hernial orifices intact. Bowel sounds normal. NEUROLOGIC: She is somewhat lethargic, but arousable, little bit confused, but all cranial nerves intact. She moves extremities without difficulty, although she is mostly bed bound. Her intake over the last 24 hours was 3175, output was . LABORATORY DATA: Showed stool for C. diff was negative. Her white cell count is down to 14,500, hemoglobin 10.5, hematocrit 31.4, MCV 90, and platelet count of 152,000. Her chemistry showed a serum sodium of 138, potassium 3.5, chloride 108, bicarbonate 21, anion gap of 9, BUN of 32, creatinine 1.9, estimated GFR was 26 mL per minute. Her glucose was 117. Uric acid was 7.7. Calcium was 8. Total bilirubin, AST, ALT, alkaline phosphatase were normal. Her magnesium was 1.8. Her total protein was 6.2, albumin 2.3. Urinalysis showed she has moderate amount of leukocyte esterase, 3-5 rbc's, 11-20 wbc's and too many bacteria. Her blood cultures showed growth of gram-negative rods in 1 out of 2 bottles, anaerobic. Her urine culture showed growth of more than 100,000 colony forming units per mL of gram-negative rods. The identification and sensitivity is still pending at the time of this dictation. ASSESSMENT: This is a 66-year-old female patient, who was admitted with recurrent bouts of diarrhea that has been going on for almost a week now. She apparently had syncopal episode and was found on the floor. Evaluation showed that she has: 1. Acute on chronic kidney disease. 2. She was found to have a 3 mm stone at the left ureterovesical junction with mild proximal dilatation of the left ureter and left pelvicalyceal system. There is also symmetric inflammatory stranding of the left perinephric fat, probably consistent with acute pyelonephritis. 3. Other medical problems include type 2 diabetes mellitus, previous history of nephrolithiasis. She said that she has tumor in her throat for which she gets regular fiberoptic bronchoscopy. She has morbid obesity; obstructive sleep apnea, on CPAP; chronic back pain, for which she receives spinal steroid epidural injection at [facility]; breast cancer, status post lumpectomy and lymphadenectomy. She has also generalized osteoarthritis and irritable bowel syndrome. PLAN: My plan is to continue with IV fluid, continue with IV Cipro and IV Levaquin as well as Flagyl and although her stool for C. diff was negative, obviously some other bacteria can cause infectious colitis. We will await the results of her identification and sensitivity of her urine and blood culture. I will repeat her CT scan of the abdomen without contrast to make sure that she passed the stone and decide on further management accordingly. DAVID DANIEL MD DR: LACY/alberta JOB#: [id number] / [id number]
[2016-12-08 07:07] LABS: ALBUMIN 2.2 g/dL (3.4-5.0); ALBUMIN/GLOBULIN RATIO 0.6 (1.0-1.7); CALCIUM 8.2 mg/dL (8.5-10.1); CREATININE 1.7 mg/dL (0.6-1.0); GFR 30.1; POTASSIUM 3.4 mmol/L (3.5-5.1); TOTAL BILIRUBIN 0.2 mg/dL (0.2-1.0); TOTAL PROTEIN 6.1 g/dL (6.4-8.2)
[2016-12-08] MEDS: HYDROmorphone PF 2 MG/ML VIAL IV PRN (09:04)
[2016-12-08] MEDS: TOPIRAMATE 25 MG TABLET. PO SCH ×2 (09:07→20:09)
[2016-12-08] MEDS: DULoxetine HCL 60 MG CAPSULE.DR PO SCH (09:07)
[2016-12-08] MEDS: ALLOPURINOL 300 MG TABLET. PO SCH (09:07)
[2016-12-08] MEDS: UBIDECARENONE 50 MG CAPSULE. PO SCH (09:08)
[2016-12-08] MEDS: LACTOBACILLUS ACIDOPH & BULGAR 1 TABLET. PO SCH ×2 (09:08→20:09)
[2016-12-08] MEDS: PANTOPRAZOLE 40 MG TABLET. PO SCH (09:08)
[2016-12-08] MEDS: ANASTROZOLE 1 MG TABLET PO SCH (09:09)
[2016-12-08] MEDS ORDERED: ALBUTEROL SULFATE 2.5 MG/3 ML NEBU. NEB PRN (10:00)
[2016-12-08 10:25] VITALS: BP 119/60
[2016-12-08] MEDS: IPRATRPIUM/ALBUTEROL 0.5/2.5MG 3 ML NEBU. NEB SCH ×3 (11:14→20:35)
[2016-12-08] MEDS: BUDESONIDE 0.5 MG/2 ML NEBU NEB SCH ×2 (11:14→20:35)
--- NOTE | 2016-12-08 11:50 | RAD ---
Chest, 2 views, 12/08/2016: History: Wheezing The heart size and pulmonary vascularity are normal. There is minimal linear scarring or atelectasis in the left lower chest. A small right suprahilar opacity is probably due to costochondral ossification at the end of the first rib. A small pulmonary nodule cannot be excluded. The lungs are otherwise clear. There is blunting of the posterior costophrenic angle on the left due to the patient's known small left pleural effusion. No right-sided pleural fluid is evident. There is mild spurring the spine. A right shoulder prosthesis is in place. There is a surgical plate and screws in the lower cervical spine. IMPRESSION: 1. Minimal left basilar linear atelectasis and/or scarring. 2. Tiny left pleural effusion. 3. A small right upper chest opacity is probably due to an overlying costochondral ossification. Radiographic follow-up is suggested to exclude an active pulmonary process.
[2016-12-08] MEDS: ENOXAPARIN 40 MG/0.4 ML DISP.SYRIN. SQ SCH ×2 (12:36→20:10)
[2016-12-08 15:01] VITALS: BP 131/77
[2016-12-08 19:12] VITALS: BP 146/81
[2016-12-08] MEDS: diphenhydrAMINE HCL 25 MG CAPSULE PO SCH (20:09)
[2016-12-08] MEDS: HYDROcodone/APAP 10/325 1 TAB TABLET PO PRN (20:09)
[2016-12-08 23:01] VITALS: BP 159/89
--- NOTE | 2016-12-09 03:43 | PN ---
DATE: 12/08/2016 PROBLEMS: 1. Acute on chronic kidney disease. 2. Acute kidney injury secondary to hypoperfusion. 3. Severe protein-calorie malnutrition in the face of morbid obesity. 4. Nephrolithiasis with left stone and has passed. 5. Chronic low back pain. 6. Previous history of chronic use of narcotics. 7. Type 2 diabetes. 8. Gram-negative urinary tract infection. 9. Gram-negative bacteremia in 1 anaerobic blood culture. 10. Morbid obesity. 11. Obstructive sleep apnea. 12. Vomiting and diarrhea, which has essentially resolved. C. diff was negative. 13. Acute gastroenteritis. The patient was seen in her room. She is doing better. She has been much adequately hydrated now, she has had over 7000 mL of fluid. She is receiving Dilaudid IV, had a long discussion with her about her pain. She was previously on Percocet, but has been off that for about 3 months, still having a lot of problems with back pain and she has been wheezing as well. OBJECTIVE: VITAL SIGNS: Blood pressure 139/75, pulse 91, temp 98.3, pulse ox 97% on 2 liters. Intake 1360, output 2325, weight is 297 pounds and that is up 6 pounds since admission. GENERAL: Her color is good. HEENT: Tongue is moist. NECK: Supple. LUNGS: With diffuse wheezes. CARDIOVASCULAR: Regular rhythm and rate. ABDOMEN: Large, obese, nontender. EXTREMITIES: Without pitting edema. LABORATORIES: White blood cell count now at 10.2, hemoglobin 9.9, hematocrit is 29.8 ____ potassium is 3.4, BUN 26, creatinine 1.7 that is improved significantly. Her albumin is 3.3. PLAN: Switch her to DuoNeb and I am going to check a chest x-ray. She needs to get up and get out of bed, PT/OT. Continue with the Cipro IV, discontinued the Flagyl, move toward discharge. JANIS MELTON DO DR: DERIK/alberta JOB#: [id number] / [id number]
[2016-12-09] MEDS: HYDROcodone/APAP 10/325 1 TAB TABLET PO PRN ×2 (04:49→20:19)
[2016-12-09] MEDS: IPRATRPIUM/ALBUTEROL 0.5/2.5MG 3 ML NEBU. NEB SCH ×4 (05:26→21:21)
[2016-12-09] MEDS: COLESTIPOL HCL 1 GM TABLET PO SCH (05:32)
[2016-12-09] MEDS: CIPROFLOXACIN 200MG PREMIX 100 ML IV SCH (05:32)
[2016-12-09 05:40] VITALS: BP 137/79
[2016-12-09 06:44] LABS: BASO # 0.1 x10^3/uL (0.0-0.2); BASO % 1 % (0-3); EOS # 0.7 x10^3/uL (0.0-0.7); EOS % 8 % (0-3); HEMATOCRIT 29.9 % (36.0-47.0); HEMOGLOBIN 9.9 g/dL (12.0-15.5); LYMPH # 1.1 x10^3/uL (1.0-4.8); LYMPH % 12 % (24-48); MEAN CORPUSCULAR HEMOGLOBIN 30 pg (25-35); MEAN CORPUSCULAR HGB CONC 33 g/dL (31-37); MEAN CORPUSCULAR VOLUME 90 fL (79-100); MONO % 11 % (0-9); NEUT # 6.1 x10^3uL (1.8-7.7); NEUT % 69 % (31-73); PLATELET COUNT 177 x10^3/uL (140-400); WHITE BLOOD COUNT 8.9 x10^3/uL (4.0-11.0)
[2016-12-09 06:59] LABS: ALBUMIN 2.3 g/dL (3.4-5.0); ALBUMIN/GLOBULIN RATIO 0.6 (1.0-1.7); CALCIUM 8.5 mg/dL (8.5-10.1); CREATININE 1.6 mg/dL (0.6-1.0); GFR 32.2; MAGNESIUM 1.9 mg/dL (1.8-2.4); POTASSIUM 3.7 mmol/L (3.5-5.1); TOTAL BILIRUBIN 0.2 mg/dL (0.2-1.0); TOTAL PROTEIN 6.3 g/dL (6.4-8.2)
[2016-12-09] MEDS: TOPIRAMATE 25 MG TABLET. PO SCH ×2 (08:15→20:17)
[2016-12-09] MEDS: DULoxetine HCL 60 MG CAPSULE.DR PO SCH (08:15)
[2016-12-09] MEDS: PANTOPRAZOLE 40 MG TABLET. PO SCH (08:16)
[2016-12-09] MEDS: ALLOPURINOL 300 MG TABLET. PO SCH (08:16)
[2016-12-09] MEDS: LACTOBACILLUS ACIDOPH & BULGAR 1 TABLET. PO SCH ×2 (08:16→20:17)
[2016-12-09] MEDS: ANASTROZOLE 1 MG TABLET PO SCH (08:29)
[2016-12-09] MEDS ORDERED: FUROSEMIDE 20 MG/2 ML VIAL IVP ONE ×2 (09:15→16:30)
[2016-12-09] MEDS ORDERED: methylPREDNISolone SOD SUCC PF 125 MG/2 ML VIAL. IV ONE (09:15)
[2016-12-09] MEDS: UBIDECARENONE 50 MG CAPSULE. PO SCH (09:24)
[2016-12-09] MEDS: BUDESONIDE 0.5 MG/2 ML NEBU NEB SCH ×2 (10:00→21:21)
[2016-12-09] MEDS: ENOXAPARIN 40 MG/0.4 ML DISP.SYRIN. SQ SCH ×2 (10:51→20:17)
[2016-12-09 10:59] VITALS: BP 139/65
--- NOTE | 2016-12-09 14:42 | RAD ---
AP and lateral views of the Chest 12/09/2016 11:02 AM Indication: increased wheezing, coughing up green sputum Comparison: Chest radiograph December 08, 2016 Findings: No pneumothorax or pleural effusion is identified. No acute appearing focal infiltrate is seen. The nodular opacity in the right upper chest is identified on prior chest radiograph appears to be the result of arthritis at the articulation of the first rib and sternum. Mild linear areas of scarring appear to be present in the lung bases. Heart size is normal. Lung volumes are normal. Postsurgical changes to the bilateral shoulders noted. Postsurgical changes to the cervical spine noted. An acute osseous abnormality is not identified. Impression: No evidence of acute cardiopulmonary process is identified.
[2016-12-09 15:50] VITALS: BP 173/79
[2016-12-09] MEDS ORDERED: methylPREDNISolone SOD SUCC PF 40 MG/ML VIAL. IV ONE (16:30)
[2016-12-09] MEDS: CIPROFLOXACIN HCL 250 MG TABLET PO SCH (20:17)
[2016-12-09] MEDS: diphenhydrAMINE HCL 25 MG CAPSULE PO SCH (20:17)
[2016-12-09 20:40] VITALS: BP 127/77
[2016-12-09 23:00] VITALS: BP 158/76
--- NOTE | 2016-12-10 03:31 | PN ---
DATE: PROBLEMS: 1. Acute on chronic kidney disease. 2. Acute kidney injury secondary to hypoperfusion. 3. Severe protein-calorie malnutrition with morbid obesity. 4. Nephrolithiasis, left stone has passed. 5. Chronic low back pain. 6. Previous history of chronic use of narcotics. 7. Type 2 diabetes. 8. Gram-negative Escherichia coli urinary tract infection. 9. Escherichia coli bacteremia. 10. Morbid obesity. 11. Obstructive sleep apnea. 12. Vomiting and diarrhea, which has resolved. C. diff negative. 13. Acute gastroenteritis. 14. Wheezing. 15. Deep venous thrombosis prophylaxis, on Lovenox. 16. Hypokalemia. SUBJECTIVE: The patient was seen in her room. She has been slightly short of breath and wheezing. She does have a history of asthma and uses an inhaler. She also reports that over the last month, she has been short of breath with exertion. She did receive some Lasix today because of the large amount of IV fluids she had. She has a blood culture growing out E. coli; however, she did get IV Cipro and it has been switched to p.o. She does not appear to be septic any longer. OBJECTIVE: VITAL SIGNS: Blood pressure is 139/65, pulse 105, respirations 20, pulse ox 94% on room air, varies from 95% on 1 liter. GENERAL: Color is good. HEENT: Her tongue is moist. NECK: Supple. LUNGS: With diffuse inspiratory and expiratory wheezes. CARDIOVASCULAR: Regular rhythm and rate. ABDOMEN: Large and obese. EXTREMITIES: With 1+ edema. LABORATORY DATA: Her BNP was 3370. Chest x-ray was negative. Her BUN is 25, creatinine is 1.6 that is still improving. ASSESSMENT: Fluid overload. PLAN: Give short dose of Lasix, replace her potassium, get an echocardiogram tomorrow. She is on DVT prophylaxis. JANIS MELTON DO DR: DERIK/alberta JOB#: [id number] / [id number]
[2016-12-10] MEDS: IPRATRPIUM/ALBUTEROL 0.5/2.5MG 3 ML NEBU. NEB SCH ×4 (05:00→20:30)
[2016-12-10] MEDS: BUDESONIDE 0.5 MG/2 ML NEBU NEB SCH ×2 (05:01→20:30)
[2016-12-10 05:26] VITALS: BP 163/91
[2016-12-10] MEDS: COLESTIPOL HCL 1 GM TABLET PO SCH (05:51)
[2016-12-10] MEDS: CIPROFLOXACIN HCL 250 MG TABLET PO SCH (05:51)
[2016-12-10 06:16] LABS: BASO % 0 % (0-3); EOS % 0 % (0-3); HEMATOCRIT 30.7 % (36.0-47.0); HEMOGLOBIN 10.3 g/dL (12.0-15.5); LYMPH # 0.8 x10^3/uL (1.0-4.8); LYMPH % 7 % (24-48); MEAN CORPUSCULAR HEMOGLOBIN 30 pg (25-35); MEAN CORPUSCULAR HGB CONC 33 g/dL (31-37); MEAN CORPUSCULAR VOLUME 90 fL (79-100); MONO # 0.6 x10^3/uL (0.0-1.1); MONO % 5 % (0-9); NEUT # 9.4 x10^3uL (1.8-7.7); NEUT % 87 % (31-73); PLATELET COUNT 205 x10^3/uL (140-400); WHITE BLOOD COUNT 10.7 x10^3/uL (4.0-11.0)
[2016-12-10 06:28] LABS: ALBUMIN 2.5 g/dL (3.4-5.0); ALBUMIN/GLOBULIN RATIO 0.6 (1.0-1.7); CALCIUM 8.7 mg/dL (8.5-10.1); CREATININE 1.7 mg/dL (0.6-1.0); GFR 30.1; POTASSIUM 3.8 mmol/L (3.5-5.1); TOTAL BILIRUBIN 0.2 mg/dL (0.2-1.0); TOTAL PROTEIN 6.7 g/dL (6.4-8.2)
[2016-12-10] MEDS: DULoxetine HCL 60 MG CAPSULE.DR PO SCH (08:56)
[2016-12-10] MEDS: LACTOBACILLUS ACIDOPH & BULGAR 1 TABLET. PO SCH ×2 (08:56→19:52)
[2016-12-10] MEDS: UBIDECARENONE 50 MG CAPSULE. PO SCH (08:56)
[2016-12-10] MEDS: ALLOPURINOL 300 MG TABLET. PO SCH (08:56)
[2016-12-10] MEDS: PANTOPRAZOLE 40 MG TABLET. PO SCH (08:56)
[2016-12-10] MEDS: TOPIRAMATE 25 MG TABLET. PO SCH ×2 (08:56→19:52)
[2016-12-10] MEDS: ENOXAPARIN 40 MG/0.4 ML DISP.SYRIN. SQ SCH (08:57)
[2016-12-10] MEDS: ANASTROZOLE 1 MG TABLET PO SCH (09:07)
[2016-12-10] MEDS ORDERED: CIPROFLOXACIN HCL 250 MG TABLET PO SCH (10:30)
[2016-12-10 10:59] VITALS: BP 143/84
[2016-12-10 15:14] VITALS: BP 129/78
[2016-12-10] MEDS ORDERED: CIPR500T94 PO (15:25)
--- NOTE | 2016-12-10 15:33 | PDOC3 ---
Discharge Summary Visit Information Date of Admission: Dec 06, 2016 Date of Discharge: Dec 10, 2016 Final Diagnosis Problems Medical Problems: (1) Dehydration Status: Acute (2) Diarrhea Status: Acute (3) Kidney stone on left side Status: Acute (4) Syncope Status: Acute ronic kidney disease. 2. Acute kidney injury secondary to hypoperfusion. 3. Severe protein-calorie malnutrition with morbid obesity. 4. Nephrolithiasis, left stone has passed. 5. Chronic low back pain. 6. Previous history of chronic use of narcotics. 7. Type 2 diabetes. 8. Gram-negative Escherichia coli urinary tract infection. 9. Escherichia coli bacteremia. 10. Morbid obesity. 11. Obstructive sleep apnea. 12. Vomiting and diarrhea, which has resolved. C. diff negative. 13. Acute gastroenteritis. 14. Wheezing. 15. Deep venous thrombosis prophylaxis, on Lovenox. 16. Hypokalemia Problems: Brief Hospital Course Allergies Allergies Coded Allergies Type Severity Reaction Last Updated Verified iodine Allergy Severe Shortness of Air 12/06/16 No adhesive Allergy Intermediate 12/06/16 Yes Vital Signs Vital Signs Date Time Temp Pulse Resp B/P (MAP) Pulse Ox O2 Delivery O2 Flow Rate FiO2 12/10/16 15:14 98.3 94 20 129/78 (95) 98 Room Air 12/10/16 05:02 1.0 Lab Results Laboratory Tests Test 12/08/16 16:26 12/08/16 21:19 12/09/16 06:06 12/09/16 07:11 Glucose (Fingerstick) 127 mg/dL (70-99) 109 mg/dL (70-99) 106 mg/dL (70-99) White Blood Count 8.9 x10^3/uL (4.0-11.0) Red Blood Count 3.30 x10^6/uL (3.50-5.40) Hemoglobin 9.9 g/dL (12.0-15.5) Hematocrit 29.9 % (36.0-47.0) Mean Corpuscular Volume 90 fL (79-100) Mean Corpuscular Hemoglobin 30 pg (25-35) Mean Corpuscular Hemoglobin Concent 33 g/dL (31-37) Red Cell Distribution Width 14.0 % (11.5-14.5) Platelet Count 177 x10^3/uL (140-400) Neutrophils (%) (Auto) 69 % (31-73) Lymphocytes (%) (Auto) 12 % (24-48) Monocytes (%) (Auto) 11 % (0-9) Eosinophils (%) (Auto) 8 % (0-3) Basophils (%) (Auto) 1 % (0-3) Neutrophils # (Auto) 6.1 x10^3uL (1.8-7.7) Lymphocytes # (Auto) 1.1 x10^3/uL (1.0-4.8) Monocytes # (Auto) 1.0 x10^3/uL (0.0-1.1) Eosinophils # (Auto) 0.7 x10^3/uL (0.0-0.7) Basophils # (Auto) 0.1 x10^3/uL (0.0-0.2) Sodium Level 144 mmol/L (136-145) Potassium Level 3.7 mmol/L (3.5-5.1) Chloride Level 111 mmol/L (98-107) Carbon Dioxide Level 25 mmol/L (21-32) Anion Gap 8 (6-14) Blood Urea Nitrogen 25 mg/dL (7-20) Creatinine 1.6 mg/dL (0.6-1.0) Estimated GFR (Cockcroft-Gault) 32.2 BUN/Creatinine Ratio 16 (6-20) Glucose Level 118 mg/dL (70-99) Calcium Level 8.5 mg/dL (8.5-10.1) Magnesium Level 1.9 mg/dL (1.8-2.4) Total Bilirubin 0.2 mg/dL (0.2-1.0) Aspartate Amino Transf (AST/SGOT) 12 U/L (15-37) Alanine Aminotransferase (ALT/SGPT) 13 U/L (14-59) Alkaline Phosphatase 71 U/L (46-116) JL-Axr-F-Type Natriuretic Peptide 3370 pg/mL (0-124) Total Protein 6.3 g/dL (6.4-8.2) Albumin 2.3 g/dL (3.4-5.0) Albumin/Globulin Ratio 0.6 (1.0-1.7) Test 12/09/16 11:16 12/09/16 16:40 12/09/16 21:29 11/1/17 05:40 Glucose (Fingerstick) 207 mg/dL (70-99) 237 mg/dL (70-99) 213 mg/dL (70-99) White Blood Count 10.7 x10^3/uL (4.0-11.0) Red Blood Count 3.40 x10^6/uL (3.50-5.40) Hemoglobin 10.3 g/dL (12.0-15.5) Hematocrit 30.7 % (36.0-47.0) Mean Corpuscular Volume 90 fL (79-100) Mean Corpuscular Hemoglobin 30 pg (25-35) Mean Corpuscular Hemoglobin Concent 33 g/dL (31-37) Red Cell Distribution Width 14.0 % (11.5-14.5) Platelet Count 205 x10^3/uL (140-400) Neutrophils (%) (Auto) 87 % (31-73) Lymphocytes (%) (Auto) 7 % (24-48) Monocytes (%) (Auto) 5 % (0-9) Eosinophils (%) (Auto) 0 % (0-3) Basophils (%) (Auto) 0 % (0-3) Neutrophils # (Auto) 9.4 x10^3uL (1.8-7.7) Lymphocytes # (Auto) 0.8 x10^3/uL (1.0-4.8) Monocytes # (Auto) 0.6 x10^3/uL (0.0-1.1) Eosinophils # (Auto) 0.0 x10^3/uL (0.0-0.7) Basophils # (Auto) 0.0 x10^3/uL (0.0-0.2) Sodium Level 144 mmol/L (136-145) Potassium Level 3.8 mmol/L (3.5-5.1) Chloride Level 108 mmol/L (98-107) Carbon Dioxide Level 25 mmol/L (21-32) Anion Gap 11 (6-14) Blood Urea Nitrogen 30 mg/dL (7-20) Creatinine 1.7 mg/dL (0.6-1.0) Estimated GFR (Cockcroft-Gault) 30.1 BUN/Creatinine Ratio 18 (6-20) Glucose Level 211 mg/dL (70-99) Calcium Level 8.7 mg/dL (8.5-10.1) Magnesium Level 2.0 mg/dL (1.8-2.4) Total Bilirubin 0.2 mg/dL (0.2-1.0) Aspartate Amino Transf (AST/SGOT) 9 U/L (15-37) Alanine Aminotransferase (ALT/SGPT) 14 U/L (14-59) Alkaline Phosphatase 71 U/L (46-116) Total Protein 6.7 g/dL (6.4-8.2) Albumin 2.5 g/dL (3.4-5.0) Albumin/Globulin Ratio 0.6 (1.0-1.7) Test 12/10/16 07:26 12/10/16 11:19 Glucose (Fingerstick) 180 mg/dL (70-99) 101 mg/dL (70-99) Brief Hospital Course Ms. Irizarry is a 66 old [sex] who presented with [ ] Room with a near syncopal episode last night after having multiple episodes of diarrhea for the last 1 week. She apparently has had diarrhea for almost a week now and with multiple episodes over the course of each day with progressive weakness and tiredness. She yesterday started having nausea and vomited multiple times. However, she denied having any recent antibiotic therapy. Denied any chest pain or shortness of breath. She did have left lower quadrant abdominal pain, dull and aching without radiation. She has also chronic low back pain. She was home alone and she was walking across the room when she became increasingly lightheaded and tired, she nearly fell down, sitting on the floor having a bowel movement. The patient was found by her family 20-30 minutes later. She was incontinent of stool, but denied any neck pain, headache, or loss of consciousness. Her pain is mostly localized to her left lower quadrant. Denied any sick contact, travel, or recent antibiotics. She was extensively investigated in the Emergency Room and was found to have marked leukocytosis. Her lactic acid was high at 3.7 and she was also dehydrated. BUN of 41, creatinine 2.3 compared to creatinine about a year ago which was about 1.3. Her urinalysis showed the urine was yellow, hazy with a pH of 5, specific gravity 1.015. There was a trace of protein. Negative for glucose, ketones, blood, nitrite. There was moderate amount of leukocyte esterase with 3-5 rbc's, 11-20 wbc's, many bacteria. Given her diarrhea and pain, she has had a CT scan of the abdomen and pelvis without contrast and it shows that the patient has a 3 mm calcific stone at the left ureterovesical junction with mild proximal dilatation of the left ureter and left pelvicalyceal system, asymmetric inflammatory stranding of the left perinephric fat. No calcific stone within the substance of either kidney. No right ureteral stone, no right hydronephrosis.SHE WAS TREATED WITH ANTIBIOTICS. SHE HAD A E.COLI UTI AND TWO BLOOD CULTURES POSITIVE FOR GM NEGATIVE BACTERIA. SHE IMPROVED STEADILYOVER THE COURSE OF SEVERAL DAYS BUT DID REQUIRE SOME LASIX FOR TOO MUCH FLUID. AN ECHOCARDIOGRAM WAS PENDING AT THE TIME OF DISCHARGE. Discharge Information Condition at Discharge: Improved Disposition/Orders: D/C to Home Dischare Medications Current Medications Hydromorphone HCl (Dilaudid) 1 mg PRN Q15MIN PRN IV/SQ PAIN GREATER THAN 3/10 Last administered on 12/06/16 02:10; Start 12/06/16 at 00:45; Stop 12/07/16 at 00:44; Status DC Sodium Chloride 1,000 ml @ 1,000 mls/hr Q1H IV Last administered on 02:08; Start 12/06/16 at 01:00; Stop 12/06/16 at 01:59; Status DC Sodium Chloride (Normal Saline Flush) 10 ml QSHIFT PRN IV AFTER MEDS AND BLOOD DRAWS; Start 12/06/16 at 00:45 Ondansetron HCl (Zofran) 4 mg 1X ONCE IV Last administered on 12/06/16 02:09 ; Start 12/06/16 at 01:15; Stop 12/06/16 at 01:16; Status DC Famotidine (Pepcid) 20 mg 1X ONCE IVP Last administered on 12/06/16 02:09; Start 12/06/16 at 01:15; Stop 12/06/16 at 01:16; Status DC Lorazepam (Ativan) 1 mg 1X ONCE IV Last administered on 12/06/16 02:09; Start 12/06/16 at 01:15; Stop 12/06/16 at 01:16; Status DC Hydromorphone HCl (Dilaudid) 2 mg STK-MED ONCE .ROUTE ; Start 12/06/16 at 01:44 ; Stop 12/06/16 at 01:45; Status DC Ondansetron HCl (Zofran) 4 mg PRN Q4HRS PRN IV NAUSEA/VOMITING; Start at 02:15; Stop 12/07/16 at 02:15; Status DC Sodium Chloride 1,000 ml @ 125 mls/hr Q8H IV Last administered on 12/06/16 03:22; Start 12/06/16 at 02:04; Stop 12/06/16 at 04:31; Status DC Acetaminophen (Tylenol) 650 mg PRN Q4HRS PRN PO FEVER Last administered on 10:41; Start 12/06/16 at 02:15; Stop 12/07/16 at 02:15; Status DC Hydromorphone HCl (Dilaudid) 1 mg PRN Q2HR PRN IV SEVERE PAIN Last administered on 12/06/16 17:30; Start 12/06/16 at 02:15; Stop 12/07/16 at 02 :15; Status DC Metronidazole 100 ml @ 200 mls/hr 1X ONCE IV Last administered on 12/06/16 02:30; Start 12/06/16 at 02:30; Stop 12/06/16 at 02:59; Status DC Ciprofloxacin Lactate 200 ml @ 200 mls/hr 1X ONCE IV Last administered on 03:56; Start 12/06/16 at 02:30; Stop 12/06/16 at 03:29; Status DC Sodium Chloride 1,000 ml @ 1,000 mls/hr 1X ONCE IV Last administered on 12/06 04:15; Start 12/06/16 at 04:15; Stop 12/06/16 at 05:15; Status DC Sodium Chloride 1,000 ml @ 500 mls/hr Q2H IV Last administered on 12/06/16 05:38; Start 12/06/16 at 05:00; Stop 12/06/16 at 06:59; Status DC Sodium Chloride 1,000 ml @ 100 mls/hr Q10H IV Last administered on 12/08/16 05:20; Start 12/06/16 at 07:00; Stop 12/08/16 at 09:55; Status DC Metronidazole 100 ml @ 100 mls/hr Q8HRS IV Last administered on 12/08/16 05: 19; Start 12/06/16 at 14:00; Stop 12/08/16 at 09:55; Status DC Ciprofloxacin Lactate 100 ml @ 100 mls/hr [id number] IV Last administered on 05:32; Start 12/06/16 at 18:00; Stop 12/09/16 at 10:58; Status DC Colestipol HCl (Colestid) 1 gm DAILY06 PO Last administered on 12/10/16 05:51 ; Start 12/06/16 at 06:00 Diclofenac Sodium (Voltaren) 1 leo PRN QID PRN TP MUSCLE PAIN; Start 12/06/16 at 05:00 Diphenhydramine HCl (Benadryl) 25 mg QHS PO Last administered on 12/09/16 20: 17; Start 12/06/16 at 21:00 Duloxetine HCl (Cymbalta) 60 mg DAILY PO Last administered on 12/10/16 08:56; Start 12/06/16 at 09:00 Fluticasone Propionate (Flonase) 2 spray PRN DAILY PRN NS ALLERGIES; Start at 05:00 Non-Formulary Medication 1 puff DAILY IH ; Start 12/06/16 at 09:00; Status UNV Loperamide HCl (Imodium) 2 mg 1X PRN PRN PO DIARRHEA; Start 12/06/16 at 05:15 Pantoprazole Sodium (Protonix) 40 mg DAILYAC PO Last administered on 12/10/16 08:56; Start 12/06/16 at 07:30 Topiramate (Topamax) 50 mg BID PO Last administered on 12/10/16 08:56; Start 12/06/16 at 09:00 Coenzyme Q10 (Coenzyme Q10) 100 mg DAILY PO Last administered on 12/10/16 08: 56; Start 12/06/16 at 09:00 Budesonide (Pulmicort) 0.5 mg RTBID NEB Last administered on 12/10/16 05:01; Start 12/06/16 at 08:00 Albuterol Sulfate (Ventolin) 2.5 mg RTQID NEB Last administered on 12/08/16 05:32; Start 12/06/16 at 08:00; Stop 12/08/16 at 09:57; Status DC Lactobacillus Acidophilus (Bacid, Caitlin-Bid) 1 tab BID PO Last administered on 12/10/16 08:56; Start 12/06/16 at 21:00 Allopurinol (Zyloprim) 300 mg DAILY PO Last administered on 12/10/16 08:56; Start 12/07/16 at 09:00 Anastrozole (Arimidex) 1 mg DAILY PO Last administered on 12/10/16 09:07; Start 12/07/16 at 09:00 Hydromorphone HCl (Dilaudid) 1 mg PRN Q2HR PRN IV PAIN Last administered on 09:04; Start 12/07/16 at 09:00 Albuterol Sulfate (Ventolin) 2.5 mg PRN QID PRN NEB WHEEZING; Start 12/08/16 at 10:00 Albuterol/ Ipratropium (Duoneb) 3 ml RTQID NEB Last administered on 12/10/16 11:26; Start 12/08/16 at 12:00 Enoxaparin Sodium (Lovenox) 40 mg Q12H SQ Last administered on 12/10/16 08:57 ; Start 12/08/16 at 10:15 Acetaminophen/ Hydrocodone Bitart (Lortab 10/325) 1 tab PRN Q6HRS PRN PO PAIN Last administered on 12/09/16 20:19; Start 12/08/16 at 13:45 Methylprednisolone Sodium Succinate (SOLU-Medrol 125MG VIAL) 125 mg 1X ONCE IV Last administered on 12/09/16 09:24; Start 12/09/16 at 09:15; Stop at 09:16; Status DC Furosemide (Lasix) 20 mg 1X ONCE IVP Last administered on 12/09/16 09:24; Start 12/09/16 at 09:15; Stop 12/09/16 at 09:16; Status DC Ciprofloxacin (Cipro) 250 mg [id number] PO Last administered on 12/10/16 05:51; Start 12/09/16 at 18:00; Stop 12/10/16 at 09:59; Status DC Furosemide (Lasix) 20 mg 1X ONCE IVP Last administered on 12/09/16 18:37; Start 12/09/16 at 16:30; Stop 12/09/16 at 16:31; Status DC Methylprednisolone Sodium Succinate (SOLU-Medrol 40MG VIAL) 40 mg 1X ONCE IV Last administered on 12/09/16 18:38; Start 12/09/16 at 16:30; Stop 12/09/16 at 16:31; Status DC Ciprofloxacin (Cipro) 500 mg Q12H PO ; Start 12/10/16 at 18:00 Ciprofloxacin (Cipro) 250 mg 1X PO ; Start 12/10/16 at 10:30 Active Scripts Active Percocet 10-325 Mg Tablet (Oxycodone Hcl/Acetaminophen) 1 Each Tablet 1 Tab PO Q6HRS PRN Reported Lisinopril-Hctz 10-12.5 Mg Tab (Lisinopril/Hydrochlorothiazide) 1 Each Tablet 1 Tab PO DAILY Anastrozole 1 Mg Tablet 1 Mg PO DAILY Indomethacin 25 Mg Capsule Unknown Dose PO TID Topiramate 50 Mg Tablet 1 Tab PO BID Cymbalta (Duloxetine Hcl) 60 Mg Capsule.dr 1 Cap PO DAILY Voltaren (Diclofenac Sodium) 100 Gm Gel..gram. 1 Gm TP QID PRN Fluticasone Propionate Nasal [place] (Fluticasone Propionate) 16 Gm [place].susp 2 Spr NS DAILY PRN Symbicort 160-4.5 Mcg Inhaler (Budesonide/Formoterol Fumarate) 10.2 Gm Hfa.aer.ad 1 Puff IH DAILY Coq-10 (Ubidecarenone) 100 Mg Capsule 100 Mg PO DAILY Colestipol Hcl 1 Gm Tablet 1 Gm PO DAILY Imodium Multi-Symptom Rel Cplt (Loperamide Hcl/Simethicone) 1 Each Tablet 1 Each PO 1X Omeprazole 40 Mg Capsule. 40 Mg PO BID Benadryl (Diphenhydramine Hcl) 25 Mg Capsule 25 Mg PO QHS Glimepiride 1 Mg Tablet 1 Mg PO DAILY Allopurinol 300 Mg Tablet 300 Mg PO QID Patient Instructions Patient Instuctions SEE DISCHARGE ON JANIS CELESTIN DO Dec 10, 2016 15:33
--- NOTE | 2016-12-10 17:35 | CARD ---
APPROVED REPORT EXAM: Two-dimensional and M-mode echocardiogram with Doppler and color Doppler. Other Information Quality : FairHR: 93bpm Rhythm : NSR INDICATION Dyspnea on excertion 2D DIMENSIONS Left Atrium(2D)4.2 (1.6-4.0cm)IVSd0.9 (0.7-1.1cm) Aortic Root(2D)2.5 (2.0-3.7cm)LVDd5.7 (3.9-5.9cm) LVOT Diameter2.3 (1.8-2.4cm)PWd0.9 (0.7-1.1cm) LVDs3.5 (2.5-4.0cm)FS (%) 38.6 % SV109.4 mlLVEF(%)68.2 (>50%) Aortic Valve AoV Peak Shaq.192.4cm/sAoV VTI45.2cm AO Peak GR.14.8mmHgLVOT Peak Shaq.142.3cm/s LVOT VTI 31.64cmAO Mean GR.10mmHg ROMERO (VMAX)2.26wv7YOG (VTI)2.83cm2 Mitral Valve MV E Ovdmvvhh466.5cm/sMV E Peak Gr.8mmHg MV DECEL [id number] A Ronutiuv669.4cm/s MV E Mean Gr.4mmHgE/A Ratio0.8 MV A [id number] Pulmonary Valve PV Peak Ywsavqkr080.0cm/sPV Peak Grad.9mmHg Tricuspid Valve TR P. Bugwuark853kx/sRAP TOYDDNRP0hoPa TR Peak Gr.31ibQuZVAG62xuGb Pulmonary Vein S1 Xvldiftc61.5cm/sD2 Fzwzuadb29.6cm/s LEFT VENTRICLE The left ventricle is normal size. There is normal left ventricular wall thickness. The left ventricu lar systolic function is normal and the ejection fraction is within normal range. EF 55% There is nor mal LV segmental wall motion. Tissue Doppler imaging reveals mild left ventricular diastolic dysfunct ion. RIGHT VENTRICLE The right ventricle is normal size. There is normal right ventricular wall thickness. The right ventr icular systolic function is normal. ATRIA The left atrium is mildly dilated. The right atrium size is normal. The interatrial septum is intact with no evidence for an atrial septal defect or patent foramen ovale as noted on 2-D or Doppler imagi ng. AORTIC VALVE Not well visualized. Doppler and Color Flow revealed trace aortic regurgitation. There is no signific ant aortic valvular stenosis. MITRAL VALVE The mitral valve is normal in structure and function. There is no evidence of mitral valve prolapse. There is no mitral valve stenosis. Doppler and Color-flow revealed mild mitral regurgitation. TRICUSPID VALVE The tricuspid valve is normal in structure and function. Doppler and Color Flow revealed mild tricusp id regurgitation. PAP 50mmHg There is no tricuspid valve prolapse or vegetation. There is no tricuspi d valve stenosis. PULMONIC VALVE Doppler and Color Flow revealed no pulmonic valvular regurgitation. There is no pulmonic valvular jacob nosis. GREAT VESSELS The aortic root is normal in size. The ascending aorta is normal in size. The IVC is normal in size a nd collapses >50% with inspiration. PERICARDIAL EFFUSION There is no evidence of significant pericardial effusion. Critical Notification Critical Value: No <Conclusion> The left ventricular systolic function is normal and the ejection fraction is within normal range. EF 55% There is normal LV segmental wall motion. Doppler and Color Flow revealed mild tricuspid regurgitation. PAP 50mmHg
[2016-12-10] MEDS ORDERED: CIPROFLOXACIN HCL 500 MG TABLET PO SCH (18:00)
[2016-12-10 19:23] VITALS: BP 166/74
[2016-12-10] MEDS: diphenhydrAMINE HCL 25 MG CAPSULE PO SCH (19:52)
--- NOTE | 2016-12-10 21:30 | NUR ---
Discharge Note: CLYDE AGIULAR [address] [place] [address] Discharge instructions and discharge home medications reviewed with Patient and a copy given. All questions have been answered and understanding verbalized. The following instructions and handouts were given: Cipro tablets Discontinued lines and drains: Peripheral IV, catheter tip intact. Dressing applied. Patient discharged to Home or Self Care with Family Member via Wheelchair.
== END 2016-12-10 21:30 | disposition home or self-care (01) | DRG 871 ==
LOC: ER 00:36 → 1 SOUTH 02:04
PROVIDERS: ADMIT Internal Medicine; ATTEND Internal Medicine
DX: A41.51 Sepsis due to Escherichia coli [E. coli] (principal); E43 Unspecified severe protein-calorie malnutrition; N17.9 Acute kidney failure, unspecified; E11.22 Type 2 diabetes mellitus with diabetic chronic kidney disease; E86.0 Dehydration; Z68.41 Body mass index [BMI] 40.0-44.9, adult; N39.0 Urinary tract infection, site not specified; N13.9 Obstructive and reflux uropathy, unspecified; B96.20 Unspecified Escherichia coli [E. coli] as the cause of diseases classified elsewhere; E66.01 Morbid (severe) obesity due to excess calories; Z88.8 Allergy status to other drugs, medicaments and biological substances; E87.6 Hypokalemia; E87.70 Fluid overload, unspecified; G40.909 Epilepsy, unspecified, not intractable, without status epilepticus; G47.33 Obstructive sleep apnea (adult) (pediatric); G89.29 Other chronic pain; I12.9 Hypertensive chronic kidney disease with stage 1 through stage 4 chronic kidney disease, or unspecified chronic kidney disease; J45.909 Unspecified asthma, uncomplicated; K21.9 Gastro-esophageal reflux disease without esophagitis; K52.9 Noninfective gastroenteritis and colitis, unspecified; Z96.653 Presence of artificial knee joint, bilateral; M19.90 Unspecified osteoarthritis, unspecified site; N18.9 Chronic kidney disease, unspecified; N20.0 Calculus of kidney; Z79.51 Long term (current) use of inhaled steroids; Z79.811 Long term (current) use of aromatase inhibitors; Z79.84 Long term (current) use of oral hypoglycemic drugs; Z79.891 Long term (current) use of opiate analgesic; Z79.899 Other long term (current) drug therapy; Z82.5 Family history of asthma and other chronic lower respiratory diseases; Z85.3 Personal history of malignant neoplasm of breast; Z87.442 Personal history of urinary calculi; Z90.49 Acquired absence of other specified parts of digestive tract; Z74.01 Bed confinement status
CPT/HCPCS: 36415; 51701; 71020; 74176; 80048; 80053; 80076; 81001; 82553; 82947; 83605; 83690; 83735; 83880; 84443; 84484; 84550; 85007; 85025; 85027; 87040; 87086; 87186; 87205; 87324; 93005; 93306; 94620; 94640; 94760; 96365; 96375; G0238; J0744; J1170; J1650; J2060; J2405; J2920; J2930; J3490; J7613; J7620; J7626; Q0163; S0028; 97110; 97530; 99285-25; J7030

== ENCOUNTER → 2016-12-15 | Outpatient (CLI) | payer MEDICARE, OTHER ==
[2016-12-10 19:23] VITALS: BP 166/74
[~2016-12-15] MED LIST changes: +ANAS1TAB PO; +CIPR500T94 PO; +LISI1TAB3 PO
--- NOTE | 2016-12-15 16:51 | RAD ---
CT of the chest without contrast 12/15/2016 Indication: Abnormal chest radiograph Comparison study: Chest radiograph 12/09/2016. Technique: Multidetector CT imaging of the chest was performed without contrast. Findings: There is no pneumothorax or pleural effusion. No acute appearing infiltrates are identified. No nodules or masses of concern are identified. Calcified granuloma noted in the right lower lobe. There is no nodule corresponding to the right upper chest opacity demonstrated on prior chest radiographs. This likely relates to hypertrophic changes at the articulation of the first rib and sternum. Heart size is normal. No significant pericardial effusion is identified. No mediastinal adenopathy is seen. Small calcified subcarinal and right hilar lymph nodes are seen suggesting prior granulomatous disease. There is a fat-containing lesion involving the right adrenal gland this measures approximately 2.3 cm in diameter and is consistent with an adrenal myelolipoma. No evidence of acute osseous abnormality is identified. Diffuse degenerative changes of the thoracic spine are noted. Impression: No evidence of acute cardiopulmonary process is identified.
== END | disposition home or self-care (01) ==
LOC: CT 13:18
PROVIDERS: ATTEND Internal Medicine
DX: J84.10 Pulmonary fibrosis, unspecified (principal); J98.4 Other disorders of lung; R93.8 Abnormal findings on diagnostic imaging of other specified body structures; M47.894 Other spondylosis, thoracic region; I89.8 Other specified noninfective disorders of lymphatic vessels and lymph nodes
CPT/HCPCS: 71250

== ENCOUNTER 2017-01-21 19:22 | Emergency (ER) | payer MEDICARE, OTHER ==
[~2017-01-21] VITALS: Ht 172.7 cm; Wt 115.7 kg
--- NOTE | 2017-01-21 19:47 | PHYS DOC ---
Past History Past Medical History: Arthritis, Asthma, Cancer, Constipation, Diabetes, Gallstones, GERD, High Cholesterol, Hypertension, IBS, Kidney Stones, Seizure Past Surgical History: Cholecystectomy, Knee Replacement, Other Alcohol Use: None Drug Use: None Adult General Chief Complaint Chief Complaint: HEADACHE HPI HPI Patient is a 66-year-old female presenting to the emergency department for evaluation of low back pain that is a chronic issue however she says it is worse today. She denies any trauma or overuse that she knows of. She can have sciatica going down either leg however today it is going down the left leg. She tried her home Percocet with no relief. She did not try any NSAIDs. She denies any unilateral weakness numbness tingling bowel or bladder incontinence. She was told that she had a kidney stone on the left side and she is worried that this is more of a kidney stone and sciatica. Review of Systems Review of Systems Constitutional: Denies fever or chills [] GI: Denies abdominal pain, nausea, vomiting, bloody stools or diarrhea [] : Denies dysuria or hematuria [] Musculoskeletal: + back pain. No joint pain [] Neurologic: Denies headache, focal weakness or sensory changes [] All other systems were reviewed and found to be within normal limits, except as documented in this note. Allergies Allergies Allergies Coded Allergies Type Severity Reaction Last Updated Verified iodine Allergy Severe Shortness of Air 12/06/16 No adhesive Allergy Intermediate 12/06/16 Yes Physical Exam Physical Exam Constitutional: Well developed, well nourished, no acute distress, non-toxic appearance. [] Cardiovascular:Heart rate regular rhythm, no murmur [] Lungs & Thorax: Bilateral breath sounds clear to auscultation [] Abdomen: Bowel sounds normal, soft, no tenderness, no masses, no pulsatile masses. [] Back: Positive midline and left paraspinal lumbar tenderness, no CVA tenderness. [] Extremities: No tenderness, no cyanosis, no clubbing, ROM intact, no edema. [] Neurologic: Alert and oriented X 3, normal motor function, normal sensory function, no focal deficits noted. [] EKG EKG [] Radiology/Procedures Radiology/Procedures Abdominal and Pelvis CT, Without Contrast: History: Left flank pain. Comparison: December 07, 2016. Procedure: Axial images are obtained of the abdomen and pelvis, without IV or oral contrast. CT Abdomen without Contrast: Findings: Evaluation of solid organs is limited without contrast. Evaluation of stomach and bowel is limited without oral contrast. Liver: Normal. There has been prior cholecystectomy. Prominence of the common bile duct was seen previously and is unchanged. Spleen: Normal. Pancreas: Normal. Adrenal Glands: Normal. Kidneys: Normal. There is no free air or free fluid. There is no lymphadenopathy. There is beam Uribe artifact due to hardware from prior L3-L5 fusion with posterior fusion rods and bilateral pedicle screws. Impression: Please see CT Pelvis without Contrast. End Impression. CT Pelvis without Contrast: Findings: The urinary bladder is collapsed and not well evaluated. There is no free fluid. There is no lymphadenopathy. There is no pericolonic inflammation identified. The appendix is not visualized. Impression: No evidence of urolithiasis or obstructive uropathy. No acute findings. End impression PQRS Compliance Statement: One or more of the following individualized dose reduction techniques were utilized for this examination: 1. Automated exposure control 2. Adjustment of the mA and/or kV according to patient size 3. Use of iterative reconstruction technique Electronically signed by: Verónica Rivera III, MD (01/21/2017 8:59 PM) [facility] DICTATED AND SIGNED BY: VERÓNICA RIVERA III, MD DATE: 01/21/172048 Course & Med Decision Making Course & Med Decision Making Patient with symptoms most consistent with lumbar radiculopathy in my opinion however patient was insisting on the setting a kidney stone. CT negative for acute process. No red flag signs or symptoms necessitating an emergent MRI. Patient was given Dilaudid and Valium and Toradol and her pain was much improved and she was able to ambulate with no difficulty. She has repeat normal neurologic exam and is asking to go home. Patient was told to follow with her primary care provider and/or neurosurgeon for further evaluation and pain control. She was told to take NSAIDs for pain and Percocet for breakthrough pain and come back to the ED with worsening pain weakness incontinence or other general concerns. Patient aware and agreeable with plan for discharge and verbalized understanding of the need for short-term follow-up and strict ED return precautions discussed as above. Dragon Disclaimer Dragon Disclaimer This electronic medical record was generated, in whole or in part, using a voice recognition dictation system. Departure Departure: Impression: Primary Impression: Back pain Additional Impression: Lumbar radiculopathy Disposition: HOME, SELF-CARE Condition: STABLE Referrals: VERÓNICA FRANCO DO (PCP) Patient Instructions: Sciatica Additional Instructions: TAKE 400MG OF IBUPROFEN EVERY 6 HOURS FOR PAIN AND THE PERCOCET FOR BREAKTHROUGH PAIN. YOU NEED TO FOLLOW WITH YOUR PCP FOR YOUR CHRONIC BACK PAIN. Scripts Oxycodone Hcl/Acetaminophen (PERCOCET 5-325 MG TABLET) 1 Each Tablet 1 EACH PO Q6-8HRS Y for PAIN, #10 TAB Prov: CHELITA MCGUIRE DO 01/21/17 Problem Qualifiers Primary Impression: Back pain Back pain location: low back pain Chronicity: acute Back pain laterality: bilateral Sciatica presence: with sciatica Sciatica laterality: sciatica of left side Qualified Codes: M54.42 - Lumbago with sciatica, left side CHELITA MCGUIRE DO Jan 21, 2017 19:47
[2017-01-21] MEDS ORDERED: HYDROmorphone PF 2 MG/ML VIAL IM ONE (20:15)
[2017-01-21] MEDS ORDERED: diazePAM 5 MG TABLET PO ONE (20:15)
[2017-01-21] MEDS ORDERED: DEXAMETHASONE SOD PHOS 10 MG/ML VIAL PO ONE (20:15)
[2017-01-21] MEDS ORDERED: KETOROLAC 60 MG/2 ML VIAL. IM ONE (20:15)
[2017-01-21] MEDS ORDERED: ONDANSETRON ODT 4 MG TAB.RAPDIS PO ONE (20:15)
[2017-01-21] MEDS ORDERED: DEXAMETHASONE 4 MG TABLET PO ONE (20:45)
--- NOTE | 2017-01-21 21:02 | RAD ---
Abdominal and Pelvis CT, Without Contrast: History: Left flank pain. Comparison: December 07, 2016. Procedure: Axial images are obtained of the abdomen and pelvis, without IV or oral contrast. CT Abdomen without Contrast: Findings: Evaluation of solid organs is limited without contrast. Evaluation of stomach and bowel is limited without oral contrast. Liver: Normal. There has been prior cholecystectomy. Prominence of the common bile duct was seen previously and is unchanged. Spleen: Normal. Pancreas: Normal. Adrenal Glands: Normal. Kidneys: Normal. There is no free air or free fluid. There is no lymphadenopathy. There is beam Uribe artifact due to hardware from prior L3-L5 fusion with posterior fusion rods and bilateral pedicle screws. Impression: Please see CT Pelvis without Contrast. End Impression. CT Pelvis without Contrast: Findings: The urinary bladder is collapsed and not well evaluated. There is no free fluid. There is no lymphadenopathy. There is no pericolonic inflammation identified. The appendix is not visualized. Impression: No evidence of urolithiasis or obstructive uropathy. No acute findings. End impression PQRS Compliance Statement: One or more of the following individualized dose reduction techniques were utilized for this examination: 1. Automated exposure control 2. Adjustment of the mA and/or kV according to patient size 3. Use of iterative reconstruction technique Electronically signed by: Elijah Koroma III, MD (01/21/2017 8:59 PM) [facility]
[2017-01-21 22:53] VITALS: BP 105/49
[2017-01-21] MEDS ORDERED: OXYC-323 PO (23:19)
== END 2017-01-21 23:35 | disposition home or self-care (01) ==
LOC: ER 19:22
DX: M54.42 Lumbago with sciatica, left side (principal); M54.16 Radiculopathy, lumbar region; E11.9 Type 2 diabetes mellitus without complications; E78.00 Pure hypercholesterolemia, unspecified; I10 Essential (primary) hypertension; J45.909 Unspecified asthma, uncomplicated; K21.9 Gastro-esophageal reflux disease without esophagitis; K58.9 Irritable bowel syndrome, unspecified; M19.90 Unspecified osteoarthritis, unspecified site; Z87.442 Personal history of urinary calculi; Z90.49 Acquired absence of other specified parts of digestive tract; Z88.8 Allergy status to other drugs, medicaments and biological substances; Z91.041 Radiographic dye allergy status
CPT/HCPCS: 74176; 96372; 99284; J1170; J1885; J8540; Q0162

== ENCOUNTER 2017-04-04 10:32 | Emergency (ER) | payer MEDICARE, OTHER ==
[~2017-04-04] VITALS: Ht 172.7 cm; Wt 123.0 kg
[~2017-04-04 10:32] MED LIST changes: +OXYC-323 PO
--- NOTE | 2017-04-04 11:31 | RAD ---
Pelvis and left hip radiograph 04/04/2019 18-05/29/2017 Indication: Fall with pelvic pain and left hip pain. Comparison: None available. Technique: Frontal view of the pelvis and 2 dedicated views of the left hip are provided. Findings: Posterior lumbar fusion hardware is identified from L3 to L5 with a crossmember at L3. Posterolateral fusion is present with bone graft material. The sacrum is intact. Sacral tony are normal in appearance. Mild degenerative changes of the sacroiliac joints are noted. Iliac bones are intact. Superior and inferior Srinivas rami are intact. The acetabulum appears intact. Left femur: There is mild joint space narrowing of the left femoral acetabular joint. Bone mineralization is within normal limits. There is no disruption of the trabecular meshwork to suggest an acute fracture. Greater and lesser trochanter appear intact. Proximal femur is intact. Impression: No acute fracture or dislocation involving the pelvis and left hip.
--- NOTE | 2017-04-04 12:14 | PHYS DOC ---
Past History Past Medical History: Arthritis, Asthma, Cancer, Constipation, Diabetes, Gallstones, GERD, High Cholesterol, Hypertension, IBS, Kidney Stones, Seizure Past Surgical History: Cholecystectomy, Knee Replacement, Other Alcohol Use: None Drug Use: None Adult General Chief Complaint Chief Complaint: HIP PAIN HPI HPI 66-year-old female patient states she had an accidental fall from a standing position yesterday at home while she was walking to the bathroom and landed on her left hip. Patient complaining of pain in left hip area and states she was intubated most the time since her fall but was able to walk to the bathroom. Patient rated her pain 8/10 and states she took Percocet as her usual home pain medication and doesn't want pain medicine in ER. Patient denies head injury, loss of consciousness, focal neuro deficit, other injuries. Review of Systems Review of Systems Constitutional: Denies fever or chills [] Eyes: Denies change in visual acuity, redness, or eye pain [] HENT: Denies nasal congestion or sore throat [] Respiratory: Denies cough or shortness of breath [] Cardiovascular: No additional information not addressed in HPI [] GI: Denies abdominal pain, nausea, vomiting, bloody stools or diarrhea [] : Denies dysuria or hematuria [] Musculoskeletal: Reports joint pain [] Integument: Denies rash or skin lesions [] Neurologic: Denies headache, focal weakness or sensory changes [] Endocrine: Denies polyuria or polydipsia [] All other systems were reviewed and found to be within normal limits, except as documented in this note. Allergies Allergies Allergies Coded Allergies Type Severity Reaction Last Updated Verified iodine Allergy Severe Shortness of Air 12/06/16 No adhesive Allergy Intermediate 12/06/16 Yes Physical Exam Physical Exam Constitutional: Well developed, well nourished, mild distress, non-toxic appearance, morbidly obese. [] HENT: Normocephalic, atraumatic, bilateral external ears normal, oropharynx moist, no oral exudates, nose normal. [] Eyes: PERRLA, EOMI, conjunctiva normal, no discharge. [] Neck: Normal range of motion, no tenderness, supple, no stridor. [] Cardiovascular:Heart rate regular rhythm, no murmur [] Lungs & Thorax: Bilateral breath sounds clear to auscultation [] Abdomen: Bowel sounds normal, soft, no tenderness, no masses, no pulsatile masses. [] Skin: Warm, dry, no erythema, no rash. [] Back: No tenderness, no CVA tenderness. [] Extremities: Painful range of motion of left hip without deformity or bone tenderness, no cyanosis, no clubbing, ROM intact, no edema. [] Neurologic: Alert and oriented X 3, normal motor function, normal sensory function, no focal deficits noted. [] Psychologic: Affect normal, judgement normal, mood normal. [] EKG EKG [] Radiology/Procedures Radiology/Procedures [] [address] [address] IMAGING REPORT Signed PATIENT: CLYDE AGUILAR ACCOUNT: [id number] : 1950 LOCATION: ER AGE: 66 SEX: F EXAM STATUS: PRE ER ORD. PHYSICIAN: CHANDLER ARTHUR MD REASON: fall PROCEDURE: HIP LEFT 2V WITH PELVIS Pelvis and left hip radiograph 04/04/2019-05/29/2017 Indication: Fall with pelvic pain and left hip pain. Comparison: None available. Technique: Frontal view of the pelvis and 2 dedicated views of the left hip are provided. Findings: Posterior lumbar fusion hardware is identified from L3 to L5 with a crossmember at L3. Posterolateral fusion is present with bone graft material. The sacrum is intact. Sacral tony are normal in appearance. Mild degenerative changes of the sacroiliac joints are noted. Iliac bones are intact. Superior and inferior Srinivas rami are intact. The acetabulum appears intact. Left femur: There is mild joint space narrowing of the left femoral acetabular joint. Bone mineralization is within normal limits. There is no disruption of the trabecular meshwork to suggest an acute fracture. Greater and lesser trochanter appear intact. Proximal femur is intact. Impression: No acute fracture or dislocation involving the pelvis and left hip. Course & Med Decision Making Course & Med Decision Making Pertinent Imaging studies reviewed. (See chart for details) Evaluation of patient in ER showed 66-year-old female patient with a fall yesterday and complaining of pain in left hip area. Patient had no deformity hip area and 6 x-ray was unremarkable. Patient has pain medication at home. Patient instructed to apply ice on the affected area. discharge: I've spoken with the patient and/or caregivers. I've explained the patient's condition, diagnosis and treatment plan based on information available to me at this time. I've answered the patient's and/or caregivers questions and addressed any concerns. The patient and/or caregivers have a good understanding the patient's diagnosis, condition and treatment plan as can be expected at this point. Vital signs have been stabilized. The patient's condition is stable for discharge from the emergency department. The patient will pursue further outpatient evaluation with her primary care provider or other designated consulting physician as outlined in the discharge instructions. Patient and/or caregivers are agreeable to this plan of care and follow-up instructions have been explained in detail. The patient and/or caregivers have received these instructions in written format and expressed understanding of these discharge instructions. The patient and her caregivers are aware that if any significant change in condition or worsening of symptoms should prompt him to immediately return to this of the closest emergency department. If an emergent department is not readily available I would encourage him to call 911. Dragon Disclaimer Dragon Disclaimer This electronic medical record was generated, in whole or in part, using a voice recognition dictation system. Departure Departure: Impression: Primary Impression: Muscle strain of left hip Additional Impression: Fall at home Disposition: HOME, SELF-CARE (At 1236) Condition: STABLE Referrals: VERÓNICA FRANCO DO (PCP) Patient Instructions: Fall Prevention and Home Safety, Muscle Strain Additional Instructions: Continue current pain medication Apply ice on the affected area Follow-up with your primary care physician in 3-5 days Return to ER if not getting better Problem Qualifiers CHANDLER ARTHUR MD Apr 04, 2017 12:14
[2017-04-04 14:40] VITALS: BP 125/56
== END 2017-04-04 14:40 | disposition home or self-care (01) ==
LOC: ER 10:32
DX: S76.012A Strain of muscle, fascia and tendon of left hip, initial encounter (principal); E11.9 Type 2 diabetes mellitus without complications; J45.909 Unspecified asthma, uncomplicated; K21.9 Gastro-esophageal reflux disease without esophagitis; E78.00 Pure hypercholesterolemia, unspecified; I10 Essential (primary) hypertension; K58.9 Irritable bowel syndrome, unspecified; Z87.442 Personal history of urinary calculi; Z88.8 Allergy status to other drugs, medicaments and biological substances; Z91.041 Radiographic dye allergy status; W19.XXXA Unspecified fall, initial encounter; Y93.01 Activity, walking, marching and hiking; Y99.8 Other external cause status; Y92.098 Other place in other non-institutional residence as the place of occurrence of the external cause
CPT/HCPCS: 73502; 99284

== ENCOUNTER 2017-11-05 09:08 | Emergency (ER) | payer MEDICARE, OTHER ==
[~2017-11-05] VITALS: Ht 172.7 cm; Wt 126.1 kg
[~2017-11-05 09:08] MED LIST changes: -INDO25CA PO; +INDO25CA5 PO
[2017-11-05 09:35] VITALS: BP 137/64
[2017-11-05] MEDS ORDERED: HYDROcodone/APAP 10/325 1 TAB TABLET PO ONE (10:00)
--- NOTE | 2017-11-05 10:09 | RAD ---
Examination: 2 views of the right hip with pelvis HISTORY: History of right hip pain, fall COMPARISON: 04/04/2017 FINDINGS: The bilateral femoral head is within the acetabulum. There is moderate joint space loss identified in the bilateral hip joint likely degeneration. There is no obvious acute fracture or dislocation visualized. Lower lumbar hardware identified. IMPRESSION: 1. No acute osseous findings. 2. Moderate degenerative changes bilateral hip joints. Electronically signed by: Enrike Buckley MD (11/05/2017 10:05 AM) [id number]
[2017-11-05] MEDS ORDERED: TRAM50TA PO (10:14)
--- NOTE | 2017-11-05 14:12 | ED.ADGEN ---
Past History Past Medical History: CAD, Cancer, Diabetes, GERD, High Cholesterol, Hypertension Past Surgical History: Cancer Surgery Alcohol Use: None Drug Use: None Adult General Chief Complaint Chief Complaint Right hip pain, tenderness HPI HPI Patient is a 67-year-old female who presents with right hip pain, tenderness after twisting back yesterday. No midline back pain, tenderness swelling. No motor weakness or loss of sensation. No other acute symptoms. [] Review of Systems Review of Systems Review symptoms symptoms as per history of present illness All other systems were reviewed and found to be within normal limits, except as documented in this note. Current Medications Current Medications Current Medications Medications (Trade) Dose Ordered Sig/Jeison Start Time Stop Time Status Last Admin Dose Admin Acetaminophen/ Hydrocodone Bitart (Lortab 10) 1 tab 1X ONCE 11/05/17 10:00 11/05/17 10:01 DC 11/05/17 09:46 1 TAB Allergies Allergies Allergies Coded Allergies Type Severity Reaction Last Updated Verified iodine Allergy Severe Shortness of Air 12/06/16 No adhesive Allergy Intermediate 12/06/16 Yes Physical Exam Physical Exam Constitutional: Well developed, well nourished, no acute distress, non-toxic appearance. [] HENT: Normocephalic, atraumatic, bilateral external ears normal, oropharynx moist, no oral exudates, nose normal. [] Eyes: PERRLA, EOMI, conjunctiva normal, no discharge. [] Neck: Normal range of motion, no tenderness, supple, no stridor. [] Cardiovascular:Heart rate regular rhythm, no murmur [] Lungs & Thorax: Bilateral breath sounds clear to auscultation [] Abdomen: Bowel sounds normal, soft, no tenderness. [] Skin: Warm, dry, no erythema, no rash. [] Back: No tenderness. [] Extremities: Right lower extremity/hip, lateral hip pain pain, tenderness no shortening or rotation or deformity.. [] Neurologic: Alert and oriented, normal motor function, normal sensory function, no focal deficits noted. [] Psychologic: Affect normal, judgement normal, mood normal. [] Current Patient Data Vital Signs Vital Signs Date Time Temp Pulse Resp B/P (MAP) Pulse Ox O2 Delivery O2 Flow Rate FiO2 11/05/17 09:46 16 99 11/05/17 09:35 96 EKG EKG [] Radiology/Procedures Radiology/Procedures [Pelvis/right hip: No acute findings per radiology.] Course & Med Decision Making Course & Med Decision Making Pertinent Labs and Imaging studies reviewed. (See chart for details) [Right hip pain/tenderness.] Final Impression Final Impression [1. Right hip injury Dragon Disclaimer Dragon Disclaimer This electronic medical record was generated, in whole or in part, using a voice recognition dictation system. KEYONA NINO DO Nov 05, 2017 14:12
== END 2017-11-05 10:34 | disposition home or self-care (01) ==
LOC: ER 09:08
DX: S79.911A Unspecified injury of right hip, initial encounter (principal); I25.10 Atherosclerotic heart disease of native coronary artery without angina pectoris; E11.9 Type 2 diabetes mellitus without complications; K21.9 Gastro-esophageal reflux disease without esophagitis; E78.00 Pure hypercholesterolemia, unspecified; I10 Essential (primary) hypertension; Z91.041 Radiographic dye allergy status; Z88.8 Allergy status to other drugs, medicaments and biological substances; X50.1XXA Overexertion from prolonged static or awkward postures, initial encounter; Y93.89 Activity, other specified; Y92.89 Other specified places as the place of occurrence of the external cause; Y99.8 Other external cause status
CPT/HCPCS: 73502; 99284

== ENCOUNTER 2018-02-24 14:50 | Inpatient (IN) | payer MEDICARE, OTHER ==
[~2018-02-24] VITALS: Ht 172.7 cm; Wt 131.1 kg
[~2018-02-24 14:50] MED LIST changes: +HYDR-2155 PO; -HYDR-2758 PO; -OXYC-323 PO; -OXYC-327 PO; -OXYC-328 PO; +OXYC1TAB15 PO; +OXYC1TAB19 PO; +OXYC1TAB22 PO; +TRAM50TA PO
--- NOTE | 2018-02-24 15:11 | EKG ---
[address] [address] Test Date: 2018-02-24 Test Time: 15:03:42 Pat Name: CLYDE AGUILAR Department: Room: Gender: F [employer]: : 1950 Requested By: KEYONA MELENDEZ Order Number: [id number] Reading MD: Measurements Intervals [place] Rate: 95 P: 90 PA: 170 QRS: 55 QRSD: 76 T: 38 QT: 330 QTc: 418 Interpretive Statements SINUS RHYTHM QRS(T) CONTOUR ABNORMALITY CONSIDER ANTEROSEPTAL MYOCARDIAL DAMAGE POSSIBLY ABNORMAL ECG RI6.01 Unconfirmed report No previous ECG available for comparison
--- NOTE | 2018-02-24 15:27 | RAD ---
CT HEAD INDICATION: HYPOTENSION. SLURRED SPEECH TIMES 15 MINUTES, COMPARISON: 05/23/2015 Exposure: One or more of the following individualized dose reduction techniques were utilized for this examination: 1. Automated exposure control 2. Adjustment of the mA and/or kV according to patient size 3. Use of iterative reconstruction technique TECHNIQUE: 5 mm contiguous axial images were obtained from the skull base to the vertex in both bone and soft tissue algorithm. FINDINGS: No abnormal attenuation within the brain parenchyma. No evidence of acute intracranial hemorrhage. No extra-axial fluid collections. No mass effect or midline shift. Ventricular size is appropriate. Basal cisterns are patent. No fractures identified.St-white differentiation is preserved.Globes and orbits are within normal limits. Paranasal sinuses and mastoid air cells are clear. IMPRESSION: No acute intracranial findings. Electronically signed by: Enrike Buckley MD (02/24/2018 3:23 PM) [id number]
--- NOTE | 2018-02-24 15:29 | RAD ---
Chest, PA and Lateral: Technique: PA and lateral views of the chest were obtained. History: Hypotension, slurred speech. Comparison: 12/09/2016. Findings: The heart and pulmonary vasculature appear within normal limits. The lungs are clear. The pleural margins are clear. Anterior cervical fusion hardware identified. Bilateral shoulder prosthesis is identified. Impression: No acute chest process is seen. Electronically signed by: Enrike Buckley MD (02/24/2018 3:25 PM) [facility]
[2018-02-24 15:39] LABS: BASO % 0 % (0-3); EOS # 0.5 x10^3/uL (0.0-0.7); EOS % 3 % (0-3); HEMATOCRIT 39.4 % (36.0-47.0); HEMOGLOBIN 12.9 g/dL (12.0-15.5); LYMPH % 20 % (24-48); MEAN CORPUSCULAR HEMOGLOBIN 28 pg (25-35); MEAN CORPUSCULAR HGB CONC 33 g/dL (31-37); MEAN CORPUSCULAR VOLUME 87 fL (79-100); MONO # 1.1 x10^3/uL (0.0-1.1); MONO % 7 % (0-9); NEUT # 10.1 x10^3uL (1.8-7.7); NEUT % 69 % (31-73); PLATELET COUNT 372 x10^3/uL (140-400); RED BLOOD COUNT 4.55 x10^6/uL (3.50-5.40); RED CELL DISTRIBUTION WIDTH 15.7 % (11.5-14.5); WHITE BLOOD COUNT 14.7 x10^3/uL (4.0-11.0)
[2018-02-24 15:54] LABS: ALBUMIN 3.6 g/dL (3.4-5.0); ALBUMIN/GLOBULIN RATIO 0.9 (1.0-1.7); CALCIUM 9.1 mg/dL (8.5-10.1); GFR 24.9; POTASSIUM 4.2 mmol/L (3.5-5.1); TOTAL BILIRUBIN 0.2 mg/dL (0.2-1.0); TOTAL PROTEIN 7.6 g/dL (6.4-8.2)
[2018-02-24 15:56] LABS: BARBITURATES NEG (NEG); BENZODIAZEPINES NEG (NEG); CANNABINOIDS NEG (NEG); COCAINE NEG (NEG); METHADONE NEG (NEG); OPIATES NEG (NEG); PHENCYCLIDINE NEG (NEG)
[2018-02-24 15:58] LABS: AMPHETAMINE/METHAMPHETAMINE NEG (NEG)
[2018-02-24 16:01] LABS: BILIRUBIN,URINE NEG (NEG); CLARITY,URINE CLOUDY; COLOR,URINE YELLOW; GLUCOSE,URINE NEG (NEG); NITRITE,URINE NEG (NEG); RBC,URINE 0 /HPF (0-2); UROBILINOGEN,URINE 0.2 mg/dL (0.2 mg/dL)
[2018-02-24 16:02] LABS: BACTERIA,URINE MANY /HPF (0-FEW); SQUAMOUS EPITHELIAL CELL,UR MANY /LPF; WBC,URINE 20-40 /HPF (0-4)
--- NOTE | 2018-02-24 16:18 | PHYS DOC ---
Past History Past Medical History: Arthritis, Asthma, CAD, Cancer, Diabetes, GERD, High Cholesterol, Hypertension Past Surgical History: Appendectomy, Cancer Surgery, Cholecystectomy, Tonsillectomy, Other Alcohol Use: None Drug Use: None Adult General Chief Complaint Chief Complaint: HYPOTENSION HPI HPI 67-year-old female presents with episode of inability to speak and uncontrolled right arm movements. The patient was home around 2:15 PM when she began to have sporadic right arm movements. Her arm wanted to abduct and she was not attempting to lift it. This was quickly followed by inability to express words she kept saying "Mar" over and over again while she was attempting to [place]. Her daughter came back and room and noticed both of these things. She called 911 immediately. The patient was still having this episode when paramedics arrived the episode spontaneously resolved while she was in transport to Hospital total times thought to be less than 30 minutes the patient has not had an episode like this in the past. She is currently feeling completely normal. She denies recent illness, fever, or chills. 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 This was a few years ago. Review of Systems Review of Systems Constitutional: Denies fever or chills [] Eyes: Denies change in visual acuity, redness, or eye pain [] HENT: Denies nasal congestion or sore throat [] Respiratory: Denies cough or shortness of breath [] Cardiovascular: No additional information not addressed in HPI [] GI: Denies abdominal pain, nausea, vomiting, bloody stools or diarrhea [] : Denies dysuria or hematuria [] Musculoskeletal: Denies back pain or joint pain [] Integument: Denies rash or skin lesions [] Neurologic: Involuntary movements, speech difficulty[] Endocrine: Denies polyuria or polydipsia [] All other systems were reviewed and found to be within normal limits, except as documented in this note. Allergies Allergies Allergies Coded Allergies Type Severity Reaction Last Updated Verified iodine Allergy Severe Shortness of Air 02/24/18 No adhesive Allergy Intermediate 02/24/18 Yes Uncoded Allergies Type Severity Reaction Last Updated Verified IV DYE Allergy Unknown 02/24/18 Physical Exam Physical Exam Constitutional: Well developed, obese, well nourished, no acute distress, non- toxic appearance. [] HENT: Normocephalic, atraumatic, bilateral external ears normal, oropharynx moist, no oral exudates, nose normal. [] Eyes: Right pupil 2 mm, left pupil 4 mm. Patient states this is chronic from previous aneurysm., EOMI, conjunctiva normal, no discharge. [] Neck: Normal range of motion, no tenderness, supple, no stridor. [] Cardiovascular:Heart rate regular rhythm, no murmur [] Lungs & Thorax: Bilateral breath sounds clear to auscultation [] Abdomen: Bowel sounds normal, soft, no tenderness, no masses, no pulsatile masses. [] Skin: Warm, dry, no erythema, no rash. [] Back: No tenderness, no CVA tenderness. [] Extremities: No tenderness, no cyanosis, no clubbing, ROM intact, no edema. [] Neurologic: Alert and oriented X 3, normal motor function, normal sensory function, no focal deficits noted. [] Psychologic: Affect normal, judgement normal, mood normal. [] Current Patient Data Vital Signs Vital Signs Date Time Temp Pulse Resp B/P (MAP) Pulse Ox O2 Delivery O2 Flow Rate FiO2 02/24/18 15:54 93 18 134/55 (81) 94 Room Air 02/24/18 14:50 98.1 Lab Results Laboratory Tests Test 02/24/18 15:24 02/24/18 15:31 White Blood Count 14.7 x10^3/uL (4.0-11.0) H Red Blood Count 4.55 x10^6/uL (3.50-5.40) Hemoglobin 12.9 g/dL (12.0-15.5) Hematocrit 39.4 % (36.0-47.0) Mean Corpuscular Volume 87 fL (79-100) Mean Corpuscular Hemoglobin 28 pg (25-35) Mean Corpuscular Hemoglobin Concent 33 g/dL (31-37) Red Cell Distribution Width 15.7 % (11.5-14.5) H Platelet Count 372 x10^3/uL (140-400) Neutrophils (%) (Auto) 69 % (31-73) Lymphocytes (%) (Auto) 20 % (24-48) L Monocytes (%) (Auto) 7 % (0-9) Eosinophils (%) (Auto) 3 % (0-3) Basophils (%) (Auto) 0 % (0-3) Neutrophils # (Auto) 10.1 x10^3uL (1.8-7.7) H Lymphocytes # (Auto) 3.0 x10^3/uL (1.0-4.8) Monocytes # (Auto) 1.1 x10^3/uL (0.0-1.1) Eosinophils # (Auto) 0.5 x10^3/uL (0.0-0.7) Basophils # (Auto) 0.0 x10^3/uL (0.0-0.2) Sodium Level 142 mmol/L (136-145) Potassium Level 4.2 mmol/L (3.5-5.1) Chloride Level 105 mmol/L (98-107) Carbon Dioxide Level 26 mmol/L (21-32) Anion Gap 11 (6-14) Blood Urea Nitrogen 39 mg/dL (7-20) H Creatinine 2.0 mg/dL (0.6-1.0) H Estimated GFR (Cockcroft-Gault) 24.9 BUN/Creatinine Ratio 20 (6-20) Glucose Level 114 mg/dL (70-99) H Calcium Level 9.1 mg/dL (8.5-10.1) Total Bilirubin 0.2 mg/dL (0.2-1.0) Aspartate Amino Transferase (AST) 15 U/L (15-37) Alanine Aminotransferase (ALT) 18 U/L (14-59) Alkaline Phosphatase 113 U/L (46-116) Troponin I Quantitative < 0.017 ng/mL (0-0.055) Total Protein 7.6 g/dL (6.4-8.2) Albumin 3.6 g/dL (3.4-5.0) Albumin/Globulin Ratio 0.9 (1.0-1.7) L Urine Collection Type Unknown Urine Color Yellow Urine Clarity Cloudy Urine pH 5.0 Urine Specific [place] 1.025 Urine Protein Neg (NEG-TRACE) Urine Glucose (UA) Neg mg/dL (NEG) Urine Ketones (Stick) Trace mg/dL (NEG) Urine Blood Neg (NEG) Urine Nitrite Neg (NEG) Urine Bilirubin Neg (NEG) Urine Urobilinogen Dipstick 0.2 mg/dL (0.2 mg/dL) Urine Leukocyte Esterase Mod (NEG) Urine RBC 0 /HPF (0-2) Urine WBC 20-40 /HPF (0-4) Urine Squamous Epithelial Cells Many /LPF Urine Bacteria Many /HPF (0-FEW) Urine Mucus Slight /LPF Urine Opiates Screen Neg (NEG) Urine Methadone Screen Neg (NEG) Urine Barbiturates Neg (NEG) Urine Phencyclidine Screen Neg (NEG) Urine Amphetamine/Methamphetamine Neg (NEG) Urine Benzodiazepines Screen Neg (NEG) Urine Cocaine Screen Neg (NEG) Urine Cannabinoids Screen Neg (NEG) Urine Ethyl Alcohol Neg (NEG) EKG EKG Sinus rhythm, rate 95, normal axis, no ST elevations or depressions.[] Radiology/Procedures Radiology/Procedures [] Impressions: CT HEAD INDICATION: HYPOTENSION. SLURRED SPEECH TIMES 15 MINUTES, COMPARISON: 05/23/2015 Exposure: One or more of the following individualized dose reduction techniques were utilized for this examination: 1. Automated exposure control 2. Adjustment of the mA and/or kV according to patient size 3. Use of iterative reconstruction technique TECHNIQUE: 5 mm contiguous axial images were obtained from the skull base to the vertex in both bone and soft tissue algorithm. FINDINGS: No abnormal attenuation within the brain parenchyma. No evidence of acute intracranial hemorrhage. No extra-axial fluid collections. No mass effect or midline shift. Ventricular size is appropriate. Basal cisterns are patent. No fractures identified.St-white differentiation is preserved.Globes and orbits are within normal limits. Paranasal sinuses and mastoid air cells are clear. IMPRESSION: No acute intracranial findings. Electronically signed by: Enrike Hahn MD (02/24/2018 3:23 PM) [place] [id number] Chest, PA and Lateral: Technique: PA and lateral views of the chest were obtained. History: Hypotension, slurred speech. Comparison: 12/09/2016. Findings: The heart and pulmonary vasculature appear within normal limits. The lungs are clear. The pleural margins are clear. Anterior cervical fusion hardware identified. Bilateral shoulder prosthesis is identified. Impression: No acute chest process is seen. Electronically signed by: Enrike Hahn MD (02/24/2018 3:25 PM) [place] [id number] DICTATED AND SIGNED BY: ENRIKE HAHN MD DATE: 02/24/18 1523 CC: KEYONA MELENDEZ DO; WENDI ROBISON MD Course & Med Decision Making Course & Med Decision Making Pertinent Labs and Imaging studies reviewed. (See chart for details) The patient first arrived her blood pressure was all over the place. She had readings that were normal. Reading that was hypotensive at 76/52. Since that time, she has had several blood pressures in the normal range. The patient's head CT is negative for acute findings. Her chest x-rays negative. Her EKG is unremarkable. The patient's labs are significant for a creatinine of 2.0. Review of her history shows creatinine from 1.7-2.3. She has slight elevated white count of 14. The patient does have evidence of UTI. I will treat this with Rocephin. Her episode of difficulty with speech and uncontrolled arm movement appears to be a TIA. I discussed the case with hospitalist, Dr. Mark and he has accepted the patient for admission. The patient has agreed with admission. [] Dragon Disclaimer Dragon Disclaimer This electronic medical record was generated, in whole or in part, using a voice recognition dictation system. Departure Departure: Impression: Primary Impression: TIA (transient ischemic attack) Additional Impression: UTI (urinary tract infection) Disposition: ADMITTED INPATIENT Admitting Physician: Charmaine Mark Condition: STABLE Referrals: WENDI ROBISON MD (PCP) Problem Qualifiers Additional Impression: UTI (urinary tract infection) Urinary tract infection type: acute cystitis Hematuria presence: without hematuria Qualified Codes: N30.00 - Acute cystitis without hematuria KEYONA MELENDEZ DO Feb 24, 2018 16:18
[2018-02-24] MEDS ORDERED: IV NORMAL SALINE 100ML 100 ML ONE (16:32)
[2018-02-24 17:29] VITALS: BP 98/63
[2018-02-24] MEDS ORDERED: ATOR40TA59 PO (17:42)
[2018-02-24] MEDS ORDERED: GABA600T2 PO (17:44)
[2018-02-24] MEDS ORDERED: CALC500T54 PO (17:45)
[2018-02-24] MEDS ORDERED: FEXO60TA25 PO (17:45)
[2018-02-24] MEDS ORDERED: LORazepam 2 MG/ML VIAL ONE (18:21)
[2018-02-24 19:46] VITALS: BP 99/58
[2018-02-24 23:47] VITALS: BP 101/65
[2018-02-25] MEDS ORDERED: traMADol 50 MG TABLET PO PRN (00:30)
[2018-02-25 05:56] VITALS: BP 144/63
[2018-02-25] MEDS ORDERED: CIPROFLOXACIN HCL 500 MG PO SCH (10:30)
[2018-02-25] MEDS ORDERED: oxyCODONE/APAP 10/325 1 TAB TABLET PO PRN (10:30)
[2018-02-25] MEDS ORDERED: DICLOFENAC SODIUM 1% TOPICAL GEL 100GM TUBE. TP PRN (10:30)
[2018-02-25] MEDS ORDERED: oxyCODONE/APAP 5/325 1 TAB TABLET PO PRN (10:45)
[2018-02-25 10:49] VITALS: BP 115/62
[2018-02-25] MEDS: ALBUTEROL SULFATE 2.5 MG/3 ML NEBU. NEB SCH ×3 (12:00→20:18)
[2018-02-25] MEDS: UBIDECARENONE 50 MG CAPSULE. PO SCH (12:55)
[2018-02-25] MEDS: COLESTIPOL HCL 1 GM TABLET PO SCH (12:55)
[2018-02-25] MEDS: TOPIRAMATE 25 MG TABLET. PO SCH ×2 (14:00→21:31)
--- NOTE | 2018-02-25 15:41 | CONS ---
DATE OF CONSULTATION: 02/25/2018 NEUROLOGY CONSULTATION REFERRING PHYSICIAN: Dr. Mark. REASON FOR CONSULTATION: Rule out seizure. HISTORY OF PRESENT ILLNESS: This is a 67-year-old right-handed female who was admitted through Emergency Room after she presented with a sudden onset of recurrent episodes described as not feeling good and having uncontrolled movement of the right arm with difficulty speaking. According to her daughter, the patient was in her daughter's office when she had the first episode. She described a sudden onset of "not feeling well and strange feeling of the right upper extremity associated with confusion and difficulty to speak." The patient continued to have difficulty to form words and she was unable to pronounce the daughter's name. Instead of saying Paulina, she said Mar. She was somewhat confused. The episode lasted between 30-60 minutes. Subsequently, EMS was activated and transferred the patient to Emergency Room when she was found to be alert and have no difficulty speaking. The daughter stated the patient did have jerking movements of the right upper extremity during the episode and sometimes jerks over the left upper extremity as well. She did not bite her tongue nor did she have bowel or bladder incontinence. The patient stated she had possible seizure-like activities 6 years ago where she was evaluated in the Emergency Room at [facility]. Subsequently, she was transferred to [facility] for further evaluation where brain MRI and EEG were performed, but they were nonconclusive except for possible TIA or stroke in the right eye. According to the patient, she started experiencing impaired vision of the right eye, required 2 surgeries and subsequently she lost her vision completely. Currently, the patient denies headaches. Since admission, the patient had another episode on the floor described as a sudden onset of jerking movements of the right upper extremity that lasted 2 minutes followed by jerking movements of the entire bodies. The patient was slightly confused, but she recalled the events. Dr. Mark was called and a loading dose of generic Keppra of 1 mg was given intravenously. Since yesterday, the patient has not had any recurrent jerking movements or seizure-like activities. She was maintained on Keppra 500 mg twice daily. She was maintained on Keppra 500 mg p.o. twice daily. Currently, the patient complains of intermittent numbness and paresthesia of the feet and she related that to the diabetic neuropathy and sometimes she complains of intermittent numbness and paresthesia of the left fourth and fifth fingers and she related that to previous left ulnar nerve decompression in the forearm. She denies chest pain, shortness of breath or palpitation, dysarthria, dysphagia, or vertigo. Initial nonenhanced head CT scan revealed no evidence of acute intracranial process. PAST MEDICAL HISTORY: Significant for gout, chronic radicular lower back pain, bilateral shoulder pain, bilateral numbness and paresthesia of the hands, hypertension, hyperlipidemia, neck pain, asthma, COPD, irritable bowel syndrome, sleep apnea, GERD, urinary incontinence, arthritis, diabetes mellitus, cataract, peripheral neuropathy, skin cancer, breast cancer and kidney stone. PAST SURGICAL HISTORY: Significant for tonsillectomy, adenoidectomy, lumpectomy, multiple lumbosacral spine surgeries, bilateral shoulder surgery for rotator cuff repair, left ulnar nerve decompression in the forearm, bilateral carpal tunnel release, and cataract extraction. SOCIAL HISTORY: The patient is single. She lives at home independently. She denies smoking, alcohol drinking, or illicit drug use. FAMILY HISTORY: Noncontributory. CURRENT MEDICATIONS: Microzide 12.5 mg daily, lisinopril 10 mg p.o. daily, Amaryl 1 mg p.o. daily, Flonase 2 nasal spray daily, Zyrtec 10 mg p.o. daily, Cymbalta 60 mg p.o. daily, Arimidex 1 mg daily, allopurinol 300 mg p.o. daily, Os-Francis with calcium 750 mg p.o. daily, Protonix 40 mg p.o. daily, gabapentin 300 mg b.i.d., Lipitor 40 mg at bedtime, Benadryl 25 mg at bedtime, Pulmicort 0.5 nebulizer b.i.d., topiramate 50 mg t.i.d., albuterol inhaler, Colestid 1 gram daily, oxycodone/acetaminophen 10/325 mg 1 tablet p.o. q.6 hours p.r.n. for pain, Voltaren gel q.i.d., levetiracetam 500 mg b.i.d., tramadol 50 mg q.6 hours p.r.n. for pain. ALLERGIES: IODINATED CONTRAST, IV DYE, ADHESIVE, and IODINE. REVIEW OF SYSTEMS: A 10-point review of system was performed and as mentioned above in the history of present illness. PHYSICAL EXAMINATION: GENERAL: Obese white female, not in acute distress. She weighs 285.4 pounds. VITAL SIGNS: Blood pressure 115/62, respiratory rate 20, pulse is 88 and regular, temperature is 98, oxygen saturation is 92% on room air. HEENT: Normocephalic, atraumatic, otherwise unremarkable. NECK: Supple. Negative for carotid bruit, lymphadenopathy, JVD, or thyromegaly. LUNGS: Diminished breath sounds, but no rales or wheezing. CARDIOVASCULAR: Regular rate and rhythm, normal S1, S2. ABDOMEN: Soft. Bowel sounds positive. EXTREMITIES: Negative for cyanosis, clubbing or pitting edema. NEUROLOGIC: 1. MENTAL STATUS: The patient is alert and oriented x 3. The speech is fluent. There is no language dysfunction. Memory, judgment, and abstract thinking are normal. The patient denies hallucination or delusion. 2. CRANIAL NERVES: Visual trujillo are full. The pupils are reactive to light and accommodation. The extraocular movements are intact. The patient has complete vision loss on the right side. There is no facial motor or sensory deficit. Hearing is intact bilaterally. The palate is elevated symmetrically. Sternocleidomastoid muscles are powerful bilaterally. The patient shrugs her shoulders symmetrically, protrudes her tongue in the midline without fasciculation or atrophy. 3. MOTOR EXAMINATION: No focal muscle bulk was seen. The tone is normal. The strength is 4/5 throughout. 4. SENSORY EXAMINATION: Revealed diminished pinprick and light touch senses in the stocking distributions and diminished pinprick and light touch senses in patchy distributions in distal upper extremities. Deep tendon reflexes were symmetric and hypoactive with absent Achilles responses. Gait not tested. LABORATORY DATA: CBC revealed white blood cells of 14.7 thousand, hemoglobin 12.9, hematocrit 39.4, platelet count 372,000. Chemistry revealed sodium of 142, potassium 4.2, chloride 105, CO2 26, BUN 39, creatinine 2, glucose is 114, calcium 9.1. Liver enzymes are normal. Troponin level is normal. Urinalysis is consistent with urinary tract infections with moderate urinary leukocyte esterase with white blood cells of 20-40 and many bacteria. Urine drug screen is negative - nursing. Chest x-ray revealed no evidence of acute cardiopulmonary process. A nonenhanced head CT scan revealed no acute intracranial findings. IMPRESSION: 1. 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 - subsided by Ativan and Keppra. 2. Multiple medical problems include diabetes mellitus, hypertension, hyperlipidemia, gastroesophageal reflux disease, coronary artery disease, chronic lower back pain, renal insufficiency, and peripheral neuropathy and urinary tract infections. RECOMMENDATIONS: 1. Continue with Keppra 500 mg b.i.d. 2. Electroencephalogram. If necessary, the test can be done on an outpatient basis. 3. Continue with current home medication and current management initiated by Dr. Mark. 4. Physical therapy evaluation. 5. We will obtain the result of brain MRI done at [place]. M Gene LOBO MD DR: CLIFTON/alberta JOB#: [id number] / [id number]
[2018-02-25 15:45] VITALS: BP 142/60
--- NOTE | 2018-02-25 15:53 | RAD ---
VQ Scan: Clinical History: shortness of breath. Technique: 20 mCi i of xenon-133 was administered as an aerosol and spot views were obtained on a gamma camera for a Nuclear Medicine ventilation examination. 5.5 mCi of Tc 99m MAA was administered intravenously and spot views were obtained on the gamma camera for a Nuclear Medicine perfusion examination. Static images were reviewed as a V/Q scan in order to exclude pulmonary embolism. Findings: There is mild retention of the radiotracer in the bilateral lungs on the washout phase images of the ventilation scan. Perfusion images demonstrate no evidence of fall ventilation perfusion mismatch. There is some diffuse nonsegmental decreased perfusion identified in the posterior left lung but no segmental mismatches identified.. IMPRESSION: Low probability for pulmonary embolism. If clinical suspicion persists , consider ultrasound bilateral lower extremity venous duplex. Electronically signed by: Enrike Buckley MD (02/25/2018 3:49 PM) [facility]
[2018-02-25 19:40] VITALS: BP 114/73
[2018-02-25] MEDS: BUDESONIDE 0.5 MG/2 ML NEBU NEB SCH (20:18)
[2018-02-25] MEDS ORDERED: ATORVASTATIN CALCIUM 20 MG TABLET PO SCH (21:00)
[2018-02-25] MEDS ORDERED: diphenhydrAMINE HCL 25 MG CAPSULE PO SCH (21:00)
[2018-02-25] MEDS: PANTOPRAZOLE 40 MG TABLET. PO SCH (21:30)
[2018-02-25] MEDS: GABAPENTIN 300 MG CAPSULE. PO SCH (21:30)
--- NOTE | 2018-02-25 23:27 | HP ---
ADMIT DATE: 02/24/2018 HISTORY OF PRESENT ILLNESS: A 67-year-old female came in through the Emergency Room. The patient was having trouble with speech, sporadic right arm movement, unable to move it in any meaningful or definitive way. The patient was brought in through the Emergency Room for possibly having a TIA or stroke in evolution. The patient apparently while here in the Emergency Room began to have a grand mal seizure. She was treated appropriately there and stabilized there as well. The patient was admitted for this TIA as well as the new onset of seizure activity for a neuro consult and make further evaluation on her on these matters. PAST MEDICAL HISTORY: Tonsillectomy, adenoidectomy, seizures, peripheral neuropathy, coronary artery disease, hypertension, COPD, asthma, sleep apnea, irritable bowel, GERD, breast cancer, lumpectomy; left breast, kidney stones, incontinence, degenerative arthritis, back pain, diabetes, anemia. PAST SURGICAL HISTORY: She has had left shoulder repair for rotator cuff surgeries. 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 FAMILY HISTORY: Basically noncontributory. SOCIAL HISTORY: The patient denies smoking, alcohol or drug abuse. MEDICATIONS: Lisinopril/HCTZ 10/12.5 daily, glimepiride 1 mg daily, Prilosec 40, Symbicort inhaler, topiramate 50, anastrozole 1 mg daily, gabapentin 300 mg 1 cap b.i.d., atorvastatin 40 mg a day, Cymbalta 60 mg a day, calcium, indomethacin 25 t.i.d. p.r.n., Dinah-D. ALLERGIES: IODINE, POSSIBLE ISOPROPYL ALCOHOL, MONISTAT AND VERY SENSITIVE TO ADHESIVES. REVIEW OF SYSTEMS: The patient presently denies any headaches, visual changes, blurred vision, double vision, pretty much her speech has recovered by the time she was reexamined. She denies abdominal pain, nausea, vomiting, hematochezia or hematemesis and neurologically intact at the present time. PHYSICAL EXAMINATION: VITAL SIGNS: Blood pressure 140/60, respiratory rate 20, afebrile. NEUROLOGIC: The patient is alert and oriented. Speech is fluent, spontaneous. The patient is able to move all extremities well. Normal reflexes, somewhat brisk. Negative Babinski. LUNGS: Diminished, but clear. CARDIOVASCULAR: Regular sinus rhythm, S1, S2. ABDOMEN: Soft, nontender. No rebounding, no guarding. Positive bowel sounds. No hepatosplenomegaly. EXTREMITIES: No clubbing, cyanosis or edema. NEUROLOGICAL: The patient was in a good mood and actually recovered from her seizure activity when first initialized. The patient will be reviewed by Dr. Bucio, Neurology. IMPRESSION: Right focal motor seizure disorder, type 2 diabetes, hypertension, hyperlipidemia, urinary tract infection, gastroesophageal reflux disease, coronary artery disease, chronic lower back pain, renal insufficiency, peripheral neuropathy. We will continue on home medications. She has been started on anti-seizure medication of Keppra. PLAN: Continue to monitor the patient, accordingly make further evaluation on her as indicated per those results. WENDI ROBISON MD DR: FAUZIA/alberta JOB#: [id number] / [id number]
[2018-02-26] MEDS: ALBUTEROL SULFATE 2.5 MG/3 ML NEBU. NEB SCH ×2 (05:07→09:31)
[2018-02-26 05:11] VITALS: BP 120/66
[2018-02-26 06:40] LABS: BASO # 0.1 x10^3/uL (0.0-0.2); BASO % 1 % (0-3); EOS # 0.6 x10^3/uL (0.0-0.7); EOS % 6 % (0-3); HEMATOCRIT 35.6 % (36.0-47.0); HEMOGLOBIN 11.5 g/dL (12.0-15.5); LYMPH # 3.4 x10^3/uL (1.0-4.8); LYMPH % 34 % (24-48); MEAN CORPUSCULAR HEMOGLOBIN 28 pg (25-35); MEAN CORPUSCULAR HGB CONC 32 g/dL (31-37); MEAN CORPUSCULAR VOLUME 87 fL (79-100); MONO # 0.8 x10^3/uL (0.0-1.1); MONO % 8 % (0-9); NEUT # 5.2 x10^3uL (1.8-7.7); NEUT % 51 % (31-73); PLATELET COUNT 286 x10^3/uL (140-400); RED BLOOD COUNT 4.09 x10^6/uL (3.50-5.40); RED CELL DISTRIBUTION WIDTH 15.6 % (11.5-14.5); WHITE BLOOD COUNT 10.2 x10^3/uL (4.0-11.0)
[2018-02-26 06:48] LABS: CREATININE 1.5 mg/dL (0.6-1.0); GFR 34.6
[2018-02-26] MEDS: BUDESONIDE 0.5 MG/2 ML NEBU NEB SCH (08:00)
[2018-02-26] MEDS ORDERED: CALCIUM CARBONATE 500 MG TABLET PO SCH (08:00)
[2018-02-26] MEDS ORDERED: ANASTROZOLE 1 MG TABLET PO SCH (09:00)
[2018-02-26] MEDS ORDERED: DULoxetine HCL 60 MG CAPSULE.DR PO SCH (09:00)
[2018-02-26] MEDS ORDERED: CETIRIZINE HCL 10 MG TABLET PO SCH (09:00)
[2018-02-26] MEDS ORDERED: ALLOPURINOL 300 MG TABLET. PO SCH (09:00)
[2018-02-26] MEDS ORDERED: FLUTICASONE 50MCG/NASAL SPRAY 16GM BOTTLE. NS SCH (09:00)
[2018-02-26] MEDS ORDERED: GLIMEPIRIDE 2 MG TABLET PO SCH (09:00)
[2018-02-26] MEDS ORDERED: NON FORMULARY ITEM (Budesonide/Formoterol Fumarate (Symbicort 160-4.5 Mcg Inhaler) 1 PUFF) IH SCH (09:00)
[2018-02-26] MEDS ORDERED: LISINOPRIL 10 MG TABLET PO SCH (09:00)
[2018-02-26] MEDS ORDERED: hydroCHLOROthiazide 12.5 MG CAPSULE PO SCH (09:00)
[2018-02-26] MEDS: UBIDECARENONE 50 MG CAPSULE. PO SCH (10:20)
[2018-02-26] MEDS: TOPIRAMATE 25 MG TABLET. PO SCH (10:20)
[2018-02-26] MEDS: COLESTIPOL HCL 1 GM TABLET PO SCH (10:20)
[2018-02-26] MEDS: GABAPENTIN 300 MG CAPSULE. PO SCH (10:22)
[2018-02-26] MEDS: PANTOPRAZOLE 40 MG TABLET. PO SCH (10:26)
[2018-02-26 10:29] VITALS: BP 103/64
--- NOTE | 2018-02-26 11:06 | PN ---
DATE: SUBJECTIVE: A 67-year-old female in with new onset of seizure activity as well as possible TIA. The patient's V/Q negative for pulmonary emboli. The patient's white count down to 10 from 14; hemoglobin slightly low, and blood sugars are under better control. The patient had looks like a urinary stenosis, otherwise she continue to make good progress. Creatinine is down. Final culture reports on urine pending. OBJECTIVE: VITAL SIGNS: Blood pressure 120/66, respiratory rate 20, pulse 84 and afebrile. GENERAL: The patient is alert and oriented. Speech fluent and spontaneous, appropriate. Cranial nerves 2-12 grossly intact. LUNGS: Clear. CARDIOVASCULAR: Regular sinus rhythm, S1, S2. ABDOMEN: Soft, nontender. EXTREMITIES: No clubbing, cyanosis or edema. IMPRESSION: Right foot focal motor seizure disorder, new onset, type 2 diabetes, hypertension, hyperlipidemia, urinary tract infection, and peripheral neuropathy. The patient continues on Keppra. Dr. Bucio to review the patient. WENDI ROBISON MD DR: FAUZIA/alberta JOB#: [id number] / [id number]
--- NOTE | 2018-02-26 11:08 | PN ---
DATE: 02/26/2018 SUBJECTIVE: The patient denies any new medical or neurological complaints. She denies headaches, chest pain, shortness of breath or palpitation, dysarthria or dysphagia. OBJECTIVE: GENERAL: Obese female, not in acute distress. VITAL SIGNS: Blood pressure 120/66, respiratory rate 20, pulse is 84 and regular, temperature 97.8, oxygen saturation is 95% on room air. HEENT: Normocephalic, atraumatic, otherwise unremarkable. NECK: Supple. Negative for carotid bruit, lymphadenopathy or thyromegaly. LUNGS: Clear to A and P. CARDIOVASCULAR: Regular rhythm. Normal S1, S2. There is no S3, S4, or murmurs. ABDOMEN: Soft. Bowel sounds positive. EXTREMITIES: Negative for cyanosis, clubbing, or pitting edema. NEUROLOGICAL EXAM: Normal mental status. She denies hallucination or delusion. Cranial nerves are intact except for right vision loss. Motor Examination: No focal muscle bulk was seen. The tone is normal. The strength is 4/5 throughout. Sensory examination revealed diminished pinprick and light touch senses in stocking distributions bilaterally. Deep tendon reflexes were symmetric and hypoactive with absent Achilles responses. Gait not tested. LABORATORY DATA: CBC revealed white blood cells of 10.2 thousand, hemoglobin 11.5, hematocrit 35.6, platelet count 286,000. Chemistry revealed sodium of 142, potassium 4, chloride 106, CO2 of 28, BUN 31, creatinine 1.5, glucose 130, calcium is 9. IMPRESSION: 1. Recurrent right focal motor seizure activities - no recurrence on Keppra. 2. Complete right vision loss. 3. Multiple medical problems includes hypertension, hyperlipidemia, diabetes mellitus, gastroesophageal reflux disease, coronary artery disease, chronic low back pain, peripheral neuropathy, renal insufficiency, and urinary tract infections. RECOMMENDATIONS: 1. Continue with Keppra b.i.d. 2. We will obtain CT angio of the neck and head. 3. Physical therapy as tolerated. M Gene LOBO MD DR: CLIFTON/alberta JOB#: [id number] / [id number]
[2018-02-26] MEDS ORDERED: LEVE100S18 PEG ×2 (12:09→12:15)
[2018-02-26] MEDS ORDERED: NITR100C62 PO (12:09)
--- NOTE | 2018-02-26 12:45 | RAD ---
Carotid ultrasound, 02/26/2018: HISTORY: Syncope Duplex evaluation of the carotid arteries and neck was performed including grayscale, color-flow and spectral Doppler analysis. There is mild calcific plaquing at the left carotid bifurcation. The peak systolic velocity in the left internal carotid artery is 152 cm/s with an end-diastolic velocity of 40 cm/s and an internal carotid to common carotid artery ratio of 1.7. The peak systolic velocity suggests narrowing in the 50-70 percent diameter range while the internal carotid to common carotid artery ratio suggest a lesser degree of narrowing. Correlation with the color images suggests that the narrowing is in the 0-50 percent diameter range. There is mild intimal thickening and smooth plaquing at the right carotid bifurcation. The peak systolic velocity in the right internal carotid artery is 138 cm/s with an end-diastolic velocity of 41 cm/s and an internal carotid to common carotid artery ratio of 1.6. The color images do not suggest high-grade stenosis. Antegrade flow is present in both vertebral arteries in the neck. IMPRESSION: Mild atherosclerotic plaquing at both carotid bifurcations with underlying luminal narrowing in the 0-50 percent diameter range bilaterally. Note: Stenosis calculations for CT, MRA and conventional angiography are based upon determination of the distal ICA diameter in accordance with the NASCET methodology. Stenosis calculations for Doppler studies are derived from validated velocity criteria which are known to correlate with NASCET methodology of determining stenosis. Electronically signed by: Desmond Pérez MD (02/26/2018 12:41 PM) [facility]
[2018-02-26] MEDS ORDERED: LACTOBACILLUS RHAMNOSUS GG 1 CAPSULE. PO SCH (21:00)
--- NOTE | 2018-03-03 18:45 | DS ---
DATE OF DISCHARGE: 02/26/2018 HOSPITAL COURSE: The patient is a 67-year-old female, who came in through the Emergency Room. She was having some change in mental status as well as problems with her speech. She also had some discomfort going down her right arm and of movement. As a result of this, the patient was admitted to the hospital. She was seen by Dr. Bucio. She was having a right focal motor seizure disorder. She also had a history of type 2 diabetes, morbid obesity. The patient was started on Keppra. She made good progress during the rest of her hospitalization. She was stabilized. Her initial white count was over 14,000 came down to range. Hemoglobin and hematocrit are slightly low at 11.5 and 35. Blood sugars were also a little bit on the high side as well and showed some tubular stasis. In any case, the patient received PT, OT. She was discharged home. See EMRAD. She will be on a diabetic-low carb diet. IMPRESSION: Right focal motor seizure disorder, type 2 diabetes, hypertension, hyperlipidemia, obesity, urinary tract infection, gastroesophageal reflux disease, coronary artery disease, chronic lower back pain, renal insufficiency, chronic kidney disease stage 3, tubular stasis, peripheral neuropathy. DISCHARGE INSTRUCTIONS: The patient to continue Keppra as an outpatient. Continue to monitor her blood sugars and she will return to clinic for followup as indicated. WENDI ROBISON MD DR: FAUZIA/alberta JOB#: [id number] / [id number]
== END 2018-02-26 13:24 | disposition home health service (06) | DRG 100 ==
LOC: ER 14:54 → 1 SOUTH 16:30
PROVIDERS: ADMIT Family Medicine; ATTEND Family Medicine
DX: G40.409 Other generalized epilepsy and epileptic syndromes, not intractable, without status epilepticus (principal); N17.0 Acute kidney failure with tubular necrosis; G45.9 Transient cerebral ischemic attack, unspecified; N39.0 Urinary tract infection, site not specified; E11.42 Type 2 diabetes mellitus with diabetic polyneuropathy; E78.00 Pure hypercholesterolemia, unspecified; E78.5 Hyperlipidemia, unspecified; G47.30 Sleep apnea, unspecified; G89.29 Other chronic pain; H54.61 Unqualified visual loss, right eye, normal vision left eye; I10 Essential (primary) hypertension; I25.10 Atherosclerotic heart disease of native coronary artery without angina pectoris; J44.9 Chronic obstructive pulmonary disease, unspecified; Z96.611 Presence of right artificial shoulder joint; K21.9 Gastro-esophageal reflux disease without esophagitis; M19.90 Unspecified osteoarthritis, unspecified site; K58.9 Irritable bowel syndrome, unspecified; Z96.612 Presence of left artificial shoulder joint; M1A.9XX0 Chronic gout, unspecified, without tophus (tophi); N28.9 Disorder of kidney and ureter, unspecified; Z85.3 Personal history of malignant neoplasm of breast; Z85.828 Personal history of other malignant neoplasm of skin; Z87.442 Personal history of urinary calculi; Z90.49 Acquired absence of other specified parts of digestive tract; N18.3 Chronic kidney disease, stage 3 (moderate); I12.9 Hypertensive chronic kidney disease with stage 1 through stage 4 chronic kidney disease, or unspecified chronic kidney disease; E11.22 Type 2 diabetes mellitus with diabetic chronic kidney disease; E66.9 Obesity, unspecified; M54.5 Low back pain
CPT/HCPCS: 36415; 70450; 71046; 78582; 80048; 80053; 80307; 81001; 82947; 84484; 85025; 85379; 87086; 93005; 93880; 94640; 96365; 96374; A9540; A9558; J0696; J1953; J2060; J7613; J7626; Q0163; 97116; 99285-25

== ENCOUNTER 2018-02-28 11:07 | Inpatient (IN) | payer MEDICARE, OTHER ==
[~2018-02-28] VITALS: Ht 172.7 cm; Wt 129.5 kg
[~2018-02-28 11:07] MED LIST changes: +ATOR40TA59 PO; +CALC500T54 PO; +FEXO60TA25 PO; +GABA600T2 PO; +LEVE100S18 PEG; +NITR100C62 PO
[2018-02-28 11:45] LABS: BASO # 0.1 x10^3/uL (0.0-0.2); BASO % 1 % (0-3); EOS # 0.6 x10^3/uL (0.0-0.7); EOS % 6 % (0-3); HEMATOCRIT 39.8 % (36.0-47.0); HEMOGLOBIN 12.6 g/dL (12.0-15.5); LYMPH # 2.2 x10^3/uL (1.0-4.8); LYMPH % 20 % (24-48); MEAN CORPUSCULAR HEMOGLOBIN 28 pg (25-35); MEAN CORPUSCULAR HGB CONC 32 g/dL (31-37); MEAN CORPUSCULAR VOLUME 88 fL (79-100); MONO # 0.6 x10^3/uL (0.0-1.1); MONO % 6 % (0-9); NEUT # 7.5 x10^3uL (1.8-7.7); NEUT % 68 % (31-73); PLATELET COUNT 336 x10^3/uL (140-400); RED BLOOD COUNT 4.52 x10^6/uL (3.50-5.40)
[2018-02-28] MEDS ORDERED: IV NORMAL SALINE 1,000ML 1,000 ML IV ONE (11:45)
--- NOTE | 2018-02-28 11:47 | PHYS DOC ---
Past History Past Medical History: Arthritis, Asthma, CAD, Cancer, Diabetes, GERD, High Cholesterol, Hypertension Past Surgical History: Appendectomy, Cancer Surgery, Cholecystectomy, Tonsillectomy, Other Alcohol Use: None Drug Use: None Adult General Chief Complaint Chief Complaint: HEADACHE HPI HPI 67-year-old female returns emergency room with headache and altered mental status. The patient states that earlier today she was confused about which day it was. She ended up taking her nighttime medications instead of her morning medications. When she realized that she took her morning medications and forgot to take out the duplicate medicines. She is more alert at this time and states that she took a double dose of her omeprazole and her antibiotic. The patient was recently discharged from this facility 2 days ago for TIA and UTI. Patient states that she was feeling well yesterday, but woke up this morning with a frontal headache and this altered mental status. She tells me that she felt like she was wobbly walking around. She denies fever or chills. Review of Systems Review of Systems Constitutional: Denies fever or chills [] Eyes: Denies change in visual acuity, redness, or eye pain [] HENT: Denies nasal congestion or sore throat [] Respiratory: Denies cough or shortness of breath [] Cardiovascular: No additional information not addressed in HPI [] GI: Denies abdominal pain, nausea, vomiting, bloody stools or diarrhea [] : Denies dysuria or hematuria [] Musculoskeletal: Denies back pain or joint pain [] Integument: Denies rash or skin lesions [] Neurologic: Frontal headache. Denies focal weakness or sensory changes [] Endocrine: Denies polyuria or polydipsia [] All other systems were reviewed and found to be within normal limits, except as documented in this note. Current Medications Current Medications Current Medications Medications (Trade) Dose Ordered Sig/Jeison Start Time Stop Time Status Last Admin Dose Admin Sodium Chloride 1,000 ml @ 1,000 mls/hr 1X ONCE 02/28/18 11:45 02/28/18 12:44 Allergies Allergies Allergies Coded Allergies Type Severity Reaction Last Updated Verified Iodinated Contrast- Oral and IV Dye Allergy Severe 02/28/18 Yes iodine Allergy Severe Shortness of Air 02/28/18 No adhesive Allergy Intermediate 02/28/18 Yes Physical Exam Physical Exam Constitutional: Well developed, obese, well nourished, no acute distress, non- toxic appearance. [] HENT: Normocephalic, atraumatic, bilateral external ears normal, oropharynx moist, no oral exudates, nose normal. [] Eyes: Uneven pupils at baseline due to right eye blindness, EOMI, conjunctiva normal, no discharge. [] Neck: Normal range of motion, no tenderness, supple, no stridor. [] Cardiovascular:Heart rate regular rhythm, no murmur [] Lungs & Thorax: Bilateral breath sounds clear to auscultation [] Abdomen: Bowel sounds normal, soft, no tenderness, no masses, no pulsatile masses. [] Skin: Warm, dry, no erythema, no rash. [] Back: No tenderness, no CVA tenderness. [] Extremities: No tenderness, no cyanosis, no clubbing, ROM intact, no edema. [] Neurologic: Alert and oriented X 3, normal motor function, normal sensory function, no focal deficits noted. [] Psychologic: Affect normal, judgement normal, mood normal. [] Current Patient Data Vital Signs Vital Signs Date Time Temp Pulse Resp B/P (MAP) Pulse Ox O2 Delivery O2 Flow Rate FiO2 02/28/18 11:08 97.9 91 24 98 Room Air EKG EKG [] Radiology/Procedures Radiology/Procedures [] Impressions: Exam performed: CT scan of the head without contrast. Date of Service: 02/28/2018. Comparison: CT head without contrast from 02/24/2018. Clinical History: Altered mental status, headache and light sensitivity. Technique: Helical acquisitions are obtained from the foramen magnum to the vertex without intravenous administration of contrast. Findings: The ventricles are midline without evidence of dilatation. Normal merchant-white differentiation is maintained. There is no extra axial fluid collection, intraparenchymal hemorrhage or mass lesion. The visualized portions of the orbits, paranasal sinuses and the mastoid air cells appear clear. The calvarium is intact. Impression: 1. No acute intracranial process detected. RS Compliance Statement: One or more of the following individualized dose reduction techniques were utilized for this examination: 1. Automated exposure control 2. Adjustment of the mA and/or kV according to patient size 3. Use of iterative reconstruction technique Electronically signed by: Kylie Lang MD (02/28/2018 12:04 PM) [facility] DICTATED AND SIGNED BY: KYLIE LANG MD DATE: 02/28/18 1202 CC: KEYONA MELENDEZ DO; WENDI ROBISON MD Course & Med Decision Making Course & Med Decision Making Pertinent Labs and Imaging studies reviewed. (See chart for details) The patient's daughter also accompanies her and confirms that when she went over to ache some food to her mother this morning she was acting unusual and didn't seem to be confused about things such as the day of the week and was not she take her medications. She was complaining of headache at that time also. The patient did call her PCP, Dr. Robison and he recommended she come to the emergency room. The patient's head CT is negative for acute findings. Her labs are significant for an elevated BUN and creatinine, but this appears to be consistent with her previous records. Urinalysis is pending. Urinalysis still shows small leukocyte esterase, few bacteria. The patient had a further episode in the emergency room where she had some right arm twitching and was not responsive to questions. This lasted about 2 minutes. When the patient became responsive, she appeared disoriented and confused for a few minutes similar to a post ictal state. Her episode ceased prior to the administration of Ativan. We did not give it because she appeared to be improving rapidly. I discussed the patient with Dr. Bucio and he requested a Keppra level. I discussed the patient with Dr. Robison and he has accepted the patient for admission and further management. The patient is in agreement with admission. [] Dragon Disclaimer Dragon Disclaimer This electronic medical record was generated, in whole or in part, using a voice recognition dictation system. Departure Departure: Impression: Primary Impression: Seizure Additional Impression: Altered mental status, unspecified Disposition: 09 ADMITTED INPATIENT Admitting Physician: Wendi Robison Condition: STABLE Referrals: WENDI ROBISON MD (PCP) Problem Qualifiers Additional Impression: Altered mental status, unspecified Altered mental status type: disorientation Qualified Codes: R41.0 - Disorientation, unspecified KEYONA MELENDEZ DO Feb 28, 2018 11:47
[2018-02-28 11:51] LABS: ALBUMIN 3.5 g/dL (3.4-5.0); ALBUMIN/GLOBULIN RATIO 0.7 (1.0-1.7); CALCIUM 9.2 mg/dL (8.5-10.1); CREATININE 1.7 mg/dL (0.6-1.0); POTASSIUM 3.9 mmol/L (3.5-5.1); TOTAL BILIRUBIN 0.3 mg/dL (0.2-1.0); TOTAL PROTEIN 8.3 g/dL (6.4-8.2)
--- NOTE | 2018-02-28 12:08 | RAD ---
Exam performed: CT scan of the head without contrast. Date of Service: 02/28/2018. Comparison: CT head without contrast from 02/24/2018. Clinical History: Altered mental status, headache and light sensitivity. Technique: Helical acquisitions are obtained from the foramen magnum to the vertex without intravenous administration of contrast. Findings: The ventricles are midline without evidence of dilatation. Normal merchant-white differentiation is maintained. There is no extra axial fluid collection, intraparenchymal hemorrhage or mass lesion. The visualized portions of the orbits, paranasal sinuses and the mastoid air cells appear clear. The calvarium is intact. Impression: 1. No acute intracranial process detected. PQRS Compliance Statement: One or more of the following individualized dose reduction techniques were utilized for this examination: 1. Automated exposure control 2. Adjustment of the mA and/or kV according to patient size 3. Use of iterative reconstruction technique Electronically signed by: Kylie Lang MD (02/28/2018 12:04 PM) [facility]
[2018-02-28 13:43] LABS: BACTERIA,URINE FEW /HPF (0-FEW); BILIRUBIN,URINE NEG (NEG); CLARITY,URINE HAZY; COLOR,URINE YELLOW; GLUCOSE,URINE NEG (NEG); NITRITE,URINE NEG (NEG); RBC,URINE 0 /HPF (0-2); SQUAMOUS EPITHELIAL CELL,UR MANY /LPF; UROBILINOGEN,URINE 0.2 mg/dL (0.2 mg/dL)
[2018-02-28] MEDS ORDERED: LORazepam 2 MG/ML VIAL IV ONE (14:00)
[2018-02-28] MEDS ORDERED: ONDANSETRON PF 4 MG/2 ML VIAL. IV PRN (14:45)
[2018-02-28 15:57] VITALS: BP 162/77
[2018-02-28] MEDS ORDERED: DICLOFENAC SODIUM 1% TOPICAL GEL 100GM TUBE. TP PRN (18:00)
[2018-02-28] MEDS ORDERED: oxyCODONE/APAP 10/325 1 TAB TABLET PO PRN (18:00)
[2018-02-28] MEDS ORDERED: oxyCODONE/APAP 5/325 1 TAB TABLET PO PRN (18:00)
[2018-02-28] MEDS ORDERED: FLUTICASONE 50MCG/NASAL SPRAY 16GM BOTTLE. NS PRN (19:00)
[2018-02-28 20:01] VITALS: BP 123/71
[2018-02-28] MEDS: TOPIRAMATE 25 MG TABLET. PO SCH (20:03)
[2018-02-28] MEDS: GABAPENTIN 300 MG CAPSULE. PO SCH (20:03)
[2018-02-28] MEDS: diphenhydrAMINE HCL 25 MG CAPSULE PO SCH (20:03)
[2018-02-28] MEDS: levETIRAcetam 500 MG TABLET PO SCH (20:03)
[2018-02-28] MEDS: NITROFURANTOIN MONOHYD/M-CRYST 100 MG CAPSULE. PO SCH (20:03)
[2018-02-28] MEDS: traMADol 50 MG TABLET PO PRN (20:07)
[2018-02-28] MEDS: ALBUTEROL SULFATE 2.5 MG/3 ML NEBU. NEB SCH (20:29)
[2018-02-28] MEDS: BUDESONIDE 0.5 MG/2 ML NEBU NEB SCH (20:29)
[2018-02-28 22:46] VITALS: BP 111/54
[2018-03-01 05:19] VITALS: BP 119/72
[2018-03-01] MEDS: ALBUTEROL SULFATE 2.5 MG/3 ML NEBU. NEB SCH ×4 (05:38→20:14)
[2018-03-01] MEDS: levETIRAcetam 500 MG TABLET PO SCH ×2 (09:07→22:05)
[2018-03-01] MEDS: NITROFURANTOIN MONOHYD/M-CRYST 100 MG CAPSULE. PO SCH ×2 (09:07→22:05)
[2018-03-01] MEDS: PANTOPRAZOLE 40 MG TABLET. PO SCH (09:07)
[2018-03-01] MEDS: GABAPENTIN 300 MG CAPSULE. PO SCH ×2 (09:07→22:05)
[2018-03-01] MEDS: ANASTROZOLE 1 MG TABLET PO SCH (09:08)
[2018-03-01] MEDS: TOPIRAMATE 25 MG TABLET. PO SCH ×3 (09:08→22:05)
[2018-03-01] MEDS: COLESTIPOL HCL 1 GM TABLET PO SCH (09:08)
[2018-03-01] MEDS: UBIDECARENONE 50 MG CAPSULE. PO SCH (09:08)
[2018-03-01] MEDS: CALCIUM CARBONATE 500 MG TABLET PO SCH (09:14)
[2018-03-01] MEDS: GLIMEPIRIDE 2 MG TABLET PO SCH (09:14)
[2018-03-01] MEDS: ATORVASTATIN CALCIUM 20 MG TABLET PO SCH (09:14)
[2018-03-01] MEDS: ALLOPURINOL 300 MG TABLET. PO SCH (09:15)
[2018-03-01] MEDS: DULoxetine HCL 60 MG CAPSULE.DR PO SCH (09:15)
[2018-03-01] MEDS: LISINOPRIL 10 MG TABLET PO SCH (09:15)
[2018-03-01] MEDS: CETIRIZINE HCL 10 MG TABLET PO SCH (09:15)
[2018-03-01] MEDS: hydroCHLOROthiazide 12.5 MG CAPSULE PO SCH (09:15)
[2018-03-01] MEDS: BUDESONIDE 0.5 MG/2 ML NEBU NEB SCH ×2 (09:30→20:14)
--- NOTE | 2018-03-01 10:34 | HP ---
ADMIT DATE: 02/28/2018 HISTORY OF PRESENT ILLNESS: A 67-year-old female came in through the Emergency Room. The daughter noted the patient has been having altered mental status, confusion and apparently kind of loses temporary consciousness. The patient was noted that when she came into the Emergency Room, she was stable. While she was there, actually had one of these episodes, where she came markedly confused and disoriented. The patient has recently had possible TIAs and UTIs. She was feeling well day before yesterday, but woke up this morning with a frontal headache and feeling wobbly and markedly confused and disoriented. PAST MEDICAL HISTORY: Cataracts, tonsillectomy, adenoidectomy, neurological surgeries, sleep apnea, irritable bowel syndrome, GERD, lumpectomy, kidney stones, incontinence, arthritis, diabetes, anemia, skin cancer. IMMUNIZATIONS: Influenza and pneumococcal vaccinations are up-to-date. FAMILY HISTORY: No pertinent family history. ALLERGIES: IODINE CONTRAST, ORAL AND IVP DYE, ADHESIVES. MEDICATIONS: See MRAD in the chart, been fully demonstrated there. SOCIAL HISTORY: The patient denies any smoking, alcohol or drug use. REVIEW OF SYSTEMS: The patient denies chest pain, shortness of breath, has these intermittent spells where she becomes markedly confused, disoriented, but presently is feeling fairly good at the present time. PHYSICAL EXAMINATION: GENERAL: Alert and oriented, presently 120/70. VITAL SIGNS: Respiratory rate 20, pulse 80, afebrile. HEENT: The patient's head was atraumatic, normocephalic. Eyes: PERRLA without jaundice. Mouth and throat were normal. NECK: Supple, without JVD or thyromegaly. LUNGS: Clear to auscultation. CARDIOVASCULAR: Regular sinus rhythm. ABDOMEN: Soft, nontender, no rebound or guarding. Positive bowel sounds, no hepatosplenomegaly was noted. EXTREMITIES: No clubbing, cyanosis or edema. NEUROLOGIC: The patient was alert and oriented x 3 at the present time, moving all extremities well. No neurological deficits noted anywhere. LABORATORY DATA: Basically stable on her CBC. Chemistries were stable except for chronic kidney disease at 1.7 and her blood sugars slightly elevated. PLAN: We will continue to monitor the patient accordingly and make further evaluation on her as indicated. IMPRESSION: Possible petit mal or absence mal seizures. We will have Dr. Bucio, neurologist consulted and make further evaluation on her as indicated. WENDI ROBISON MD DR: FAUZIA/alberta JOB#: [id number] / [id number]
[2018-03-01 11:20] VITALS: BP 119/72
[2018-03-01 15:15] VITALS: BP 121/73
[2018-03-01 19:51] VITALS: BP 109/61
[2018-03-01] MEDS: diphenhydrAMINE HCL 25 MG CAPSULE PO SCH (22:05)
[2018-03-01 23:14] VITALS: BP 126/65
[2018-03-02 05:10] VITALS: BP 121/75
[2018-03-02] MEDS: ALBUTEROL SULFATE 2.5 MG/3 ML NEBU. NEB SCH ×4 (05:35→19:42)
[2018-03-02] MEDS: LISINOPRIL 10 MG TABLET PO SCH (07:34)
[2018-03-02] MEDS: NITROFURANTOIN MONOHYD/M-CRYST 100 MG CAPSULE. PO SCH ×2 (07:35→20:36)
[2018-03-02] MEDS: GLIMEPIRIDE 2 MG TABLET PO SCH (07:35)
[2018-03-02] MEDS: ATORVASTATIN CALCIUM 20 MG TABLET PO SCH (07:35)
[2018-03-02] MEDS: hydroCHLOROthiazide 12.5 MG CAPSULE PO SCH (07:35)
[2018-03-02] MEDS: TOPIRAMATE 25 MG TABLET. PO SCH ×3 (07:35→20:36)
[2018-03-02] MEDS: CALCIUM CARBONATE 500 MG TABLET PO SCH (07:36)
[2018-03-02] MEDS: ALLOPURINOL 300 MG TABLET. PO SCH (07:36)
[2018-03-02] MEDS: levETIRAcetam 500 MG TABLET PO SCH ×2 (07:36→20:37)
[2018-03-02] MEDS: GABAPENTIN 300 MG CAPSULE. PO SCH ×2 (07:36→20:36)
[2018-03-02] MEDS: DULoxetine HCL 60 MG CAPSULE.DR PO SCH (07:36)
[2018-03-02] MEDS: CETIRIZINE HCL 10 MG TABLET PO SCH (07:36)
[2018-03-02] MEDS: PANTOPRAZOLE 40 MG TABLET. PO SCH (07:36)
[2018-03-02] MEDS: UBIDECARENONE 50 MG CAPSULE. PO SCH (07:37)
[2018-03-02] MEDS: ANASTROZOLE 1 MG TABLET PO SCH (07:42)
[2018-03-02] MEDS: BUDESONIDE 0.5 MG/2 ML NEBU NEB SCH ×3 (08:00→19:42)
[2018-03-02] MEDS: COLESTIPOL HCL 1 GM TABLET PO SCH (08:43)
[2018-03-02 11:07] VITALS: BP 110/69
[2018-03-02 16:00] VITALS: BP 90/55
[2018-03-02] MEDS: diphenhydrAMINE HCL 25 MG CAPSULE PO SCH (20:36)
[2018-03-02] MEDS: traMADol 50 MG TABLET PO PRN (20:37)
[2018-03-02 21:07] VITALS: BP 97/60
--- NOTE | 2018-03-02 21:49 | PN ---
DATE: 03/02/2018 SUBJECTIVE: The patient is a 67-year-old female who came in with a change in mental status, possible seizure activity. The patient is being evaluated and monitored for this and we will make further evaluation on her as indicated. Having Neurology reviewed the patient, we are still waiting for her drug level for her Keppra before making other final decisions on her as indicated. OBJECTIVE: VITAL SIGNS: The patient's blood pressures 100/55, respiration 18, pulse 83, afebrile. GENERAL: The patient is alert and oriented. LUNGS: Diminished, but clear. CARDIOVASCULAR: Stable. ABDOMEN: Soft. NEUROLOGIC: Intact. IMPRESSION: Therefore, petit mal or possible absent mal small seizures. Waiting for the Keppra level to be evaluated for further evaluation on her. WENDI ROBISON MD DR: FAUZIA/alberta JOB#: [id number] / [id number]
[2018-03-02 23:12] VITALS: BP 105/67
[2018-03-03] MEDS: ALBUTEROL SULFATE 2.5 MG/3 ML NEBU. NEB SCH ×4 (05:17→20:06)
[2018-03-03 05:36] VITALS: BP 117/75
[2018-03-03] MEDS: LISINOPRIL 10 MG TABLET PO SCH (08:59)
[2018-03-03] MEDS: hydroCHLOROthiazide 12.5 MG CAPSULE PO SCH (08:59)
[2018-03-03] MEDS: CALCIUM CARBONATE 500 MG TABLET PO SCH (09:00)
[2018-03-03] MEDS: DULoxetine HCL 60 MG CAPSULE.DR PO SCH (09:00)
[2018-03-03] MEDS: levETIRAcetam 500 MG TABLET PO SCH ×2 (09:00→20:14)
[2018-03-03] MEDS: GABAPENTIN 300 MG CAPSULE. PO SCH ×2 (09:00→20:14)
[2018-03-03] MEDS: ALLOPURINOL 300 MG TABLET. PO SCH (09:00)
[2018-03-03] MEDS: ATORVASTATIN CALCIUM 20 MG TABLET PO SCH (09:00)
[2018-03-03] MEDS: GLIMEPIRIDE 2 MG TABLET PO SCH (09:00)
[2018-03-03] MEDS: PANTOPRAZOLE 40 MG TABLET. PO SCH (09:00)
[2018-03-03] MEDS: NITROFURANTOIN MONOHYD/M-CRYST 100 MG CAPSULE. PO SCH ×2 (09:00→20:14)
[2018-03-03] MEDS: CETIRIZINE HCL 10 MG TABLET PO SCH (09:00)
[2018-03-03] MEDS: TOPIRAMATE 25 MG TABLET. PO SCH ×3 (09:01→20:14)
[2018-03-03] MEDS: UBIDECARENONE 50 MG CAPSULE. PO SCH (09:01)
[2018-03-03] MEDS: ANASTROZOLE 1 MG TABLET PO SCH (09:08)
[2018-03-03] MEDS: COLESTIPOL HCL 1 GM TABLET PO SCH (09:12)
[2018-03-03] MEDS ORDERED: levETIRAcetam 500 MG TABLET PO ONE (10:15)
[2018-03-03 11:00] VITALS: BP 131/78
[2018-03-03 14:00] VITALS: BP 110/65
[2018-03-03] MEDS: traMADol 50 MG TABLET PO PRN ×2 (14:13→20:15)
[2018-03-03 19:41] VITALS: BP 121/73
--- NOTE | 2018-03-03 20:01 | PN ---
DATE: 03/02/2018 SUBJECTIVE: The patient denies any new medical or neurological complaints. She has not had any recurrent seizures since admission. OBJECTIVE: GENERAL: Obese female, not in acute distress. VITAL SIGNS: Blood pressure is 97/60, respiratory rate 22, pulse is 88 and regular, temperature 98.1, oxygen saturation 91% on room air. HEENT: Normocephalic, atraumatic, otherwise unremarkable. NECK: Supple. Negative for carotid bruit, lymphadenopathy or thyromegaly. LUNGS: Clear to A and P. CARDIOVASCULAR: Regular rate and rhythm. Normal S1, S2. ABDOMEN: Soft. Bowel sounds positive. EXTREMITIES: Negative for cyanosis, clubbing or pitting edema. NEUROLOGIC: Mental status: 1. The patient is alert and oriented x 3. Speech is fluent. There is no language dysfunction, otherwise unremarkable. 2. Cranial nerves are intact except for complete right vision loss. No focal motor or sensory deficit. 3. Deep tendon reflexes are symmetric and hypoactive with absent Achilles responses. Gait not tested. The coordination is normal. IMPRESSION: 1. Recurrent episode of brief confusion, rule out seizure. However, the patient has not had any episodes since admission. 2. Multiple medical problems include hypertension, coronary artery disease, hyperlipidemia, diabetes mellitus, obesity, obstructive sleep apnea, gastroesophageal reflux disease, renal insufficiency and urinary tract infections. RECOMMENDATIONS: 1. Await for Keppra level. 2. Should the patient have another seizure-like activity we will increase Keppra to 1000 twice daily. Otherwise, continue with current management initiated by Dr. Tejada. M Gene LOBO MD DR: CLIFTON/[place]ta JOB#: [id number] / [id number]
--- NOTE | 2018-03-03 20:04 | PN ---
DATE: 03/03/2018 SUBJECTIVE: The patient had a brief episode of seizure activity, described as generalized tonic-clonic, involving the upper extremities, lasted approximately 45 seconds. The patient did not recall the event, but she was confused postictally. She denies tongue biting or urinary or bowel incontinence. Currently, she denies any other neuro or medical complaints. OBJECTIVE: GENERAL: Obese female, not in acute distress. VITAL SIGNS: Afebrile, blood pressure 117/75, respiratory rate 22, pulse is 79, temperature 97.5, oxygen saturation 94% on room air. HEENT: Normocephalic, atraumatic, otherwise unremarkable. NECK: Supple. Negative for carotid bruit, lymphadenopathy or thyromegaly. LUNGS: Clear to A and P. CARDIOVASCULAR: Regular rate and rhythm. Normal S1, S2. ABDOMEN: Soft. Bowel sounds positive. EXTREMITIES: Negative for cyanosis, clubbing or pitting edema. NEUROLOGIC: Mental Status: The patient is alert and oriented x 3. Speech is fluent. There is no language dysfunction. Cranial nerves are intact except for the right complete vision loss. Motor Examination: No focal muscle bulk was seen. The tone is normal. The strength is 5/5 throughout. Sensory examination revealed diminished pinprick and light touch senses in patchy distributions in the lower extremities. Deep tendon reflexes were symmetric and hypoactive with absent Achilles responses. Gait not tested. IMPRESSION: 1. Breakthrough seizure of unknown etiology. 2. Multiple medical problems that include coronary artery disease, hypertension, hyperlipidemia, diabetes mellitus, gastroesophageal reflux disease, peripheral neuropathy in the lower extremities and urinary tract infections, chronic lower back pain. RECOMMENDATIONS: 1. Increase Keppra to 1000 mg b.i.d. 2. Follow up on an outpatient basis with EEG. 3. Continue with current management initiated by Dr. Tejada. M Gene LOBO MD DR: CLIFTON/alberta JOB#: [id number] / [id number]
[2018-03-03] MEDS: BUDESONIDE 0.5 MG/2 ML NEBU NEB SCH (20:06)
[2018-03-03] MEDS: diphenhydrAMINE HCL 25 MG CAPSULE PO SCH (20:14)
--- NOTE | 2018-03-03 20:24 | CONS ---
DATE OF CONSULTATION: 03/01/2018 NEUROLOGY CONSULTATION REASON FOR CONSULTATION: Mental status changes. HISTORY OF PRESENT ILLNESS: This is a 67-year-old right-handed female, who was admitted through Emergency Room after she presented with recurrent episodes of ''mental status changes and confusion.'' Apparently, the patient stated that she did have a brief loss of consciousness. She did not recall the event. In the Emergency Room, the patient was stable, but she was noted to have one episode of brief confusion and over there, she became confused and disoriented. The ER physician called me and discussed the case. It was recommended to admit the patient for observation. The patient has been discharged recently from [facility] and she was diagnosed with possible right focal seizure activities. She was placed on Keppra 500 mg twice a day and she did not have any seizure afterwards. Workup for TIA was also performed and the patient had a carotid Doppler study, which did not show significant stenosis of internal carotid arteries. The patient was placed on aspirin 81 mg daily. I was called by ER physicians on admission on 02/28/2018 and recommended to admit the patient for observation and check Keppra level. During interview, the patient denies any headaches, visual disturbances, nausea, vomiting, chest pain, shortness of breath or palpitation. She stated she is back to normal baseline. PAST MEDICAL HISTORY: Past medical history is significant for diabetes mellitus, peripheral neuropathy in the lower extremities, arthritis, kidney stones, gastroesophageal reflux disease, irritable bowel syndrome, obstructive sleep apnea, urinary tract infections, chronic lower back pain, skin cancer, history of asthma, chronic obstructive pulmonary disease, breast cancer and kidney stone, complete right vision loss. PAST SURGICAL HISTORY: Past surgical history is significant for tonsillectomy, adenoidectomy, lumpectomy, bilateral shoulder surgeries for rotator cuff repair, decompression of the left ulnar nerve in the forearm and bilateral carpal tunnel release and cataract extraction, right eye surgeries. SOCIAL HISTORY: The patient lives at home independently. She denies smoking, alcohol drinking or illicit drug use. CURRENT MEDICATIONS: See MRD. ALLERGIES: IODINATED CONTRAST, ORAL IV DYE, ADHESIVE and IODINE. REVIEW OF SYSTEMS: A 10-point review of system was performed as mentioned above in the history of present illness. PHYSICAL EXAMINATION: GENERAL: Obese female, not in acute distress. VITAL SIGNS: Blood pressure 126/65, respiratory rate 18, pulse is 81, temperature is 98.3, oxygen saturation 93% on room air. HEENT: Normocephalic, atraumatic, otherwise unremarkable. NECK: Supple. Negative for carotid bruit, lymphadenopathy or thyromegaly. LUNGS: Clear to A and P. CARDIOVASCULAR: Regular rate and rhythm. Normal S1, S2. There is no S3, S4 or murmur. ABDOMEN: Soft. Bowel sounds positive. No palpable mass, organomegaly or tenderness. EXTREMITIES: Negative for cyanosis, clubbing, pitting edema. NEUROLOGICAL EXAM: MENTAL STATUS: The patient is alert and oriented x 3. The speech is fluent. There is no language dysfunction. Memory, judgment, and abstracting thinking are normal. The patient denies hallucination or delusion. CRANIAL NERVES: The pupils are equal and reactive to light. The extraocular movements are intact. There is no nystagmus. Complete loss of vision of the right eye. There is no facial motor or sensory deficit. Hearing is intact bilaterally. The palate is elevated symmetrically. Sternocleidomastoid muscles are powerful bilaterally. The patient shrugs her shoulders symmetrically and protrudes her tongue in the midline without fasciculation or atrophy. MOTOR EXAMINATION: No focal muscle bulk was seen. The tone is normal. The strength is 5/5 throughout. SENSORY EXAMINATION: Revealed diminished pinprick on light touch senses in patchy distributions in bilateral lower extremities. Deep tendon reflexes were symmetric and hypoactive with absent Achilles responses. Gait not tested at this time. LABORATORY DATA: From 02/28/2018 revealed CBC of 11,000, hemoglobin 12.6, hematocrit 39.8, platelet count 336,000. Chemistry: Glucose of 123. Urinalysis from 02/28/2018 revealed small urinary leukocyte esterase with white blood cells of 5-10 and few bacteria. IMPRESSION: 1. Recurrent spells of rule out seizure; however, the patient has been on Keppra 500 mg twice daily. 2. Multiple medical problems include diabetes mellitus, hypertension, hyperlipidemia, gastroesophageal reflux disease, coronary artery disease, chronic low back pain, renal insufficiency, peripheral neuropathy and urinary tract infections. RECOMMENDATION: 1. Continue with Keppra 500 mg twice a day. If she has a witnessed seizure reyes while she is in the hospital, we will increase Keppra to 500 mg twice daily. However, we are waiting for Keppra level since admission. 2. Continue with current management initiated by Dr. Tejada along with home medications. 3. The patient has been scheduled for an EEG to be done on outpatient basis. M Gene LOBO MD DR: CLIFTON/alberta JOB#: [id number] / [id number]
--- NOTE | 2018-03-03 22:13 | PN ---
DATE: SUBJECTIVE: The patient had another seizure this morning that was witnessed, I believe, by Dr. Bucio who increased her Keppra levels and will continue to be monitored carefully on that increase. OBJECTIVE: VITAL SIGNS: Blood pressure 130/78, respiratory rate 22, pulse 87, afebrile. GENERAL: The patient is alert and oriented. LUNGS: Diminished, but clear. CARDIOVASCULAR: Regular sinus rhythm. ABDOMEN: Soft, nontender, no rebound or guarding. Positive bowel sounds. IMPRESSION: New onset of seizure activity. Controlling medications are being adjusted accordingly. WENDI ROBISON MD DR: FAUZIA/[place] JOB#: [id number] / [id number]
[2018-03-03 23:47] VITALS: BP 113/69
[2018-03-04] MEDS: ALBUTEROL SULFATE 2.5 MG/3 ML NEBU. NEB SCH ×2 (04:59→09:21)
[2018-03-04 05:59] VITALS: BP 122/75
[2018-03-04] MEDS: hydroCHLOROthiazide 12.5 MG CAPSULE PO SCH (08:33)
[2018-03-04] MEDS: LISINOPRIL 10 MG TABLET PO SCH (08:33)
[2018-03-04] MEDS: ALLOPURINOL 300 MG TABLET. PO SCH (08:34)
[2018-03-04] MEDS: COLESTIPOL HCL 1 GM TABLET PO SCH (08:34)
[2018-03-04] MEDS: DULoxetine HCL 60 MG CAPSULE.DR PO SCH (08:34)
[2018-03-04] MEDS: CETIRIZINE HCL 10 MG TABLET PO SCH (08:34)
[2018-03-04] MEDS: TOPIRAMATE 25 MG TABLET. PO SCH (08:34)
[2018-03-04] MEDS: levETIRAcetam 500 MG TABLET PO SCH (08:35)
[2018-03-04] MEDS: ATORVASTATIN CALCIUM 20 MG TABLET PO SCH (08:35)
[2018-03-04] MEDS: CALCIUM CARBONATE 500 MG TABLET PO SCH (08:36)
[2018-03-04] MEDS: GABAPENTIN 300 MG CAPSULE. PO SCH (08:36)
[2018-03-04] MEDS: GLIMEPIRIDE 2 MG TABLET PO SCH (08:36)
[2018-03-04] MEDS: PANTOPRAZOLE 40 MG TABLET. PO SCH (08:37)
[2018-03-04] MEDS: UBIDECARENONE 50 MG CAPSULE. PO SCH (08:37)
[2018-03-04] MEDS: ANASTROZOLE 1 MG TABLET PO SCH (08:38)
[2018-03-04] MEDS: NITROFURANTOIN MONOHYD/M-CRYST 100 MG CAPSULE. PO SCH (08:41)
[2018-03-04] MEDS: BUDESONIDE 0.5 MG/2 ML NEBU NEB SCH (09:21)
[2018-03-04] MEDS ORDERED: LEVE500T56 PO (10:38)
[2018-03-04 11:18] VITALS: BP 114/64
--- NOTE | 2018-03-04 11:38 | PN ---
DATE: 03/04/2018 REFERRING PHYSICIAN: Dr. Jose Raul Tejada. SUBJECTIVE: The patient denies any new medical or neurological complaints. She has not had any seizures since increase in her Keppra to 1000 twice a day. OBJECTIVE: GENERAL: Obese female, not in acute distress. VITAL SIGNS: Blood pressure 122/75, respiratory rate 18, pulse is 83 and regular, temperature 97.6, oxygen saturation 93% on room air. HEENT: Normocephalic, atraumatic, otherwise unremarkable. NECK: Supple. Negative for carotid bruit, lymphadenopathy or thyromegaly. LUNGS: Clear to A and P. CARDIOVASCULAR: Regular rhythm, normal S1, S2. There is no S3, S4 or murmur. ABDOMEN: Soft. Bowel sounds positive. EXTREMITIES: Negative for cyanosis, clubbing or pitting edema. NEUROLOGICAL EXAM: Mental Status: The patient is alert and oriented x 3. Speech is fluent. There is no language dysfunction. Cranial nerves are intact except for the right complete vision loss. Motor Examination: No focal muscle bulk was seen. The tone is normal. The strength is 5/5 throughout. Sensory examination revealed diminished pinprick and light touch senses in the patchy distribution in both distal lower extremities. Deep tendon reflexes were symmetric and hypoactive with absent Achilles responses. Gait not tested. IMPRESSION: 1. Breakthrough seizure, no recurrence since increase in Keppra to 1000 b.i.d. etiology is uncertain. 2. Multiple medical problems that include obesity, obstructive sleep apnea, coronary artery disease, diabetes mellitus, peripheral neuropathy in the lower extremities, chronic lower back pain, GERD and urinary tract infections. RECOMMENDATIONS: 1. Continue with current management as initiated by Dr. Tejada. 2. We will continue with Keppra 1000 mg twice daily. 3. We will arrange for EEG tomorrow on an outpatient basis if the patient is going to be discharged today. M Gene LOBO MD DR: CLIFTON/alberta JOB#: [id number] / [id number]
== END 2018-03-04 11:40 | disposition home health service (06) | DRG 101 ==
LOC: ER 11:07 → 1 SOUTH 15:00
PROVIDERS: ADMIT Family Medicine; ATTEND Family Medicine
DX: G40.409 Other generalized epilepsy and epileptic syndromes, not intractable, without status epilepticus (principal); Z68.41 Body mass index [BMI] 40.0-44.9, adult; E11.42 Type 2 diabetes mellitus with diabetic polyneuropathy; E66.9 Obesity, unspecified; E78.00 Pure hypercholesterolemia, unspecified; E78.5 Hyperlipidemia, unspecified; G47.33 Obstructive sleep apnea (adult) (pediatric); G89.29 Other chronic pain; I10 Essential (primary) hypertension; I25.10 Atherosclerotic heart disease of native coronary artery without angina pectoris; J44.9 Chronic obstructive pulmonary disease, unspecified; K21.9 Gastro-esophageal reflux disease without esophagitis; K58.9 Irritable bowel syndrome, unspecified; N28.9 Disorder of kidney and ureter, unspecified; Z85.828 Personal history of other malignant neoplasm of skin; Z86.73 Personal history of transient ischemic attack (TIA), and cerebral infarction without residual deficits; Z87.442 Personal history of urinary calculi; Z90.49 Acquired absence of other specified parts of digestive tract; M19.90 Unspecified osteoarthritis, unspecified site
CPT/HCPCS: 36415; 70450; 80053; 80177; 81001; 82947; 85025; 87086; 94640; 96360; 96361; J7613; J7626; Q0163; 99285-25; J7030

== ENCOUNTER 2018-07-15 13:26 | Inpatient (IN) | payer MEDICARE, OTHER ==
[~2018-07-15] VITALS: Ht 172.7 cm; Wt 127.9 kg
[~2018-07-15 13:26] MED LIST changes: -GABA600T2 PO; +GABA600T7 PO; +LEVE500T56 PO
[2018-07-15] MEDS ORDERED: IV NORMAL SALINE 1,000ML 1,000 ML IV SCH (13:37)
--- NOTE | 2018-07-15 13:43 | PHYS DOC ---
Past History Past Medical History: Arthritis, Asthma, CAD, Cancer, Diabetes, GERD, High Cholesterol, Hypertension Past Surgical History: Appendectomy, Cancer Surgery, Cholecystectomy, Tonsillectomy, Other Alcohol Use: None Drug Use: None NIH Stroke Scale: NIH Stroke Scale Response (Comments) Value Level of Consciousness: 0 Alert/Responsive 0 LOC Questions: 0 Answers both correctly 0 LOC Commands: 0 Performs both tasks 0 Best Gaze: 0 Normal 0 Visual: 0 No visual loss 0 Facial Palsy: 0 Normal, symmetrical 0 Motor - Left Arm 0 No drift 0 Motor - Right Arm 0 No drift 0 Motor - Left Leg 1 Drift but can hold 1 Motor: Right Leg 1 Drift but can hold 1 Limb Ataxia: 0 Absent 0 Sensory: 1 Mid to moderate loss (chroinc, not new finding) 1 Best Language: 0 Normal 0 Dysathria: 0 Normal 0 Extinction and Inattention: 0 Normal 0 Total 3 Adult General Chief Complaint Chief Complaint: NEURO SYMPTOMS/DEFICITS HPI HPI Patient is a 67-year-old female, with numerous past medical problems, who presents to the emergency department for evaluation. The patient states that she began feeling somewhat off balance yesterday, and her daughter noticed that she had some mild confusion yesterday which seemed more pronounced today. The patient was also noticed by family members to be off balance, and appeared to be walking towards the left when she attempted to ambulate. The patient's daughter also thought that her speech was slightly slurred, and she had a right lower mouth droop, although this is not obviously apparent on exam. 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 She also denies any new sensory changes, but does have a history of peripheral neuropathy and decreased peripheral sensation. There are no alleviating or exacerbating factors to the patient's symptoms otherwise. Review of Systems Review of Systems Constitutional: Denies fever or chills [] Eyes: Denies change in visual acuity, redness, or eye pain [] HENT: Denies nasal congestion or sore throat [] Respiratory: Denies cough or shortness of breath [] Cardiovascular: The patient denies any shortness of breath, chest pain, palpitations, or orthopnea [] GI: Denies abdominal pain, nausea, vomiting, bloody stools or diarrhea [] : Denies dysuria or hematuria [] Musculoskeletal: Denies back pain or joint pain [] Integument: Denies rash or skin lesions [] Neurologic: Denies headache, sensory changes. Denies dizziness but reports being off balance with ambulation. No recent seizures. [] Endocrine: Denies polyuria or polydipsia [] All other systems were reviewed and found to be within normal limits, except as documented in this note. Allergies Allergies Allergies Coded Allergies Type Severity Reaction Last Updated Verified Iodinated Contrast- Oral and IV Dye Allergy Severe 02/28/18 Yes iodine Allergy Severe Shortness of Air 02/28/18 No adhesive Allergy Intermediate 02/28/18 Yes Physical Exam Physical Exam PHYSICAL EXAM: CONSTITUTIONAL: Well developed, well nourished HEAD: normocephalic, atraumatic EENT: PRRL, EOMI. there is decreased vision sensation in the right eye, visual trujillo on the left eye are intact by confrontation, the right eye is untestable due to blindness, Conjunctivae normal color, sclerae non-icteric; moist mucous membranes. NECK: Supple, non-tender; no meningismus. LUNGS: Lungs CTA, breathing even and unlabored. Normal air movement. HEART: Regular rate and rhythm, no murmur CHEST: No deformity; non-tender ABDOMEN: The abdomen is soft, and non-tender, no masses or bruits. EXTREM: Normal ROM; no deformity, no calf tenderness. Normal pulses palpable in all extremities. There is no pedal edema. SKIN: No rash; no diaphoresis NEURO: Alert; normal speech and cognition; CN's grossly intact; [id number]-[id number] and heel beltrán testing are normal. There is weakness of the lower extremities bilaterally, symmetrical, without focal weakness. There is a baseline tremor at rest with the upper extremities held in extension. There is no obvious speech deficit, there is no obvious facial droop on exam that I am aware of although the patient's daughter thinks there might be a right lower facial droop. BACK: No CVA TTP. Current Patient Data Vital Signs Vital Signs Date Time Temp Pulse Resp B/P (MAP) Pulse Ox O2 Delivery O2 Flow Rate FiO2 07/15/18 13:38 97.8 94 18 118/75 (89) 94 Room Air EKG EKG [] Radiology/Procedures Radiology/Procedures [PROCEDURE: CT HEAD WO CONTRAST EXAM: CT HEAD WITHOUT CONTRAST. HISTORY: Altered mental status, speech difficulty. TECHNIQUE: Computed tomography of the head was performed without intravenous contrast. COMPARISON: 02/28/2018. FINDINGS: There is no intracranial hemorrhage. Hypoattenuation within the periventricular white matter indicates mild chronic microangiopathic change. The ventricles are normal in size and position. The visualized paranasal sinuses appear clear. There are changes of right cataract surgery. The temporal bones are unremarkable. The calvarium reveals no suspicious lesions. Note is made of hyperostosis frontalis interna. IMPRESSION: 1. No acute intracranial findings. MRI is more sensitive for acute ischemia if there is persistent concern. ] PROCEDURE: PORTABLE CHEST 1V EXAM: CHEST 1 VIEW. HISTORY: Right weakness, altered mental status. COMPARISON: 02/24/2018. FINDINGS: A frontal view of the chest is obtained. There are no confluent infiltrates. There is no pneumothorax or pleural effusion. The heart is not enlarged. Bilateral reverse total shoulder arthroplasties are noted. There are surgical clips in the left axilla or breast. Anterior cervical discectomy and fusion changes are partially visualized. IMPRESSION: 1. No confluent infiltrates. Course & Med Decision Making Course & Med Decision Making Pertinent Labs and Imaging studies reviewed. (See chart for details) []3:55 PM: The patient's condition remains stable. I spoke with the hospitalist, who accepted the patient to the hospital for further evaluation and treatment. I have been spending the past hour trying to get a hold of the patient's neurologist, whom she saw today prior to coming to the emergency department, but have been unable to receive a call back. The exact etiology of the patient's symptoms is not clear at this time. Also a small ischemic stroke was on the differential, this is not felt to be highly likely, but given the time course of symptoms, beginning yesterday, the patient is not a candidate for any intervention at this time, other than medication adjustment, and further risk factor modification Dragon Disclaimer Dragon Disclaimer This electronic medical record was generated, in whole or in part, using a voice recognition dictation system. Departure Departure: Impression: Primary Impression: Dizziness Additional Impressions: Gait instability Difficulty with speech Disposition: ADMITTED INPATIENT Admitting Physician: Jose Raul Robison Condition: STABLE Referrals: JOSE RAUL ROBISON MD (PCP) Problem Qualifiers CHELITA LOPEZ MD Jul 15, 2018 13:43
[2018-07-15 14:12] LABS: BASO # 0.1 x10^3/uL (0.0-0.2); BASO % 1 % (0-3); EOS # 0.8 x10^3/uL (0.0-0.7); EOS % 6 % (0-3); HEMATOCRIT 36.4 % (36.0-47.0); HEMOGLOBIN 11.7 g/dL (12.0-15.5); LYMPH # 2.9 x10^3/uL (1.0-4.8); LYMPH % 22 % (24-48); MEAN CORPUSCULAR HEMOGLOBIN 29 pg (25-35); MEAN CORPUSCULAR HGB CONC 32 g/dL (31-37); MEAN CORPUSCULAR VOLUME 89 fL (79-100); MONO # 1.1 x10^3/uL (0.0-1.1); MONO % 8 % (0-9); NEUT # 8.1 x10^3uL (1.8-7.7); NEUT % 62 % (31-73); PLATELET COUNT 269 x10^3/uL (140-400); RED BLOOD COUNT 4.09 x10^6/uL (3.50-5.40); RED CELL DISTRIBUTION WIDTH 15.5 % (11.5-14.5); WHITE BLOOD COUNT 12.9 x10^3/uL (4.0-11.0)
[2018-07-15 14:33] LABS: ALBUMIN 3.6 g/dL (3.4-5.0); ALBUMIN/GLOBULIN RATIO 0.9 (1.0-1.7); CALCIUM 9.2 mg/dL (8.5-10.1); CREATININE 1.7 mg/dL (0.6-1.0); POTASSIUM 3.9 mmol/L (3.5-5.1); TOTAL BILIRUBIN 0.3 mg/dL (0.2-1.0); TOTAL PROTEIN 7.5 g/dL (6.4-8.2)
--- NOTE | 2018-07-15 14:48 | RAD ---
EXAM: CHEST 1 VIEW. HISTORY: Right weakness, altered mental status. COMPARISON: 02/24/2018. FINDINGS: A frontal view of the chest is obtained. There are no confluent infiltrates. There is no pneumothorax or pleural effusion. The heart is not enlarged. Bilateral reverse total shoulder arthroplasties are noted. There are surgical clips in the left axilla or breast. Anterior cervical discectomy and fusion changes are partially visualized. IMPRESSION: 1. No confluent infiltrates. Electronically signed by: Deangelo Regalado MD (07/15/2018 2:45 PM) [facility]
--- NOTE | 2018-07-15 14:50 | RAD ---
EXAM: CT HEAD WITHOUT CONTRAST. HISTORY: Altered mental status, speech difficulty. TECHNIQUE: Computed tomography of the head was performed without intravenous contrast. COMPARISON: 02/28/2018. FINDINGS: There is no intracranial hemorrhage. Hypoattenuation within the periventricular white matter indicates mild chronic microangiopathic change. The ventricles are normal in size and position. The visualized paranasal sinuses appear clear. There are changes of right cataract surgery. The temporal bones are unremarkable. The calvarium reveals no suspicious lesions. Note is made of hyperostosis frontalis interna. IMPRESSION: 1. No acute intracranial findings. MRI is more sensitive for acute ischemia if there is persistent concern. *One or more of the following individualized dose reduction techniques were utilized for this examination: 1. Automated exposure control. 2. Adjustment of the mA and/or kV according to patient size. 3. Use of iterative reconstruction technique. Electronically signed by: Deangelo Regalado MD (07/15/2018 2:47 PM) [facility]
[2018-07-15] MEDS ORDERED: ASPI-630 PO (17:12)
[2018-07-15] MEDS ORDERED: COLE1TAB2 PO (17:12)
[2018-07-15] MEDS ORDERED: CYCL-331 PO (17:12)
[2018-07-15] MEDS ORDERED: NAPR-514 PO (17:12)
[2018-07-15] MEDS ORDERED: PRED5DRO16 EACHEYE (17:12)
[2018-07-15 17:36] VITALS: BP 141/83
[2018-07-15] MEDS ORDERED: oxyCODONE/APAP 10/325 1 TAB TABLET PO PRN (18:15)
--- NOTE | 2018-07-15 18:20 | NUR ---
NURSING NOTE ADMIT PT DIRECT ADMIT FROM ED VIA EMS AT 1745 TO ROOM 109 FOR DX OF GAIT INSTABILITY, DIFF SPEECH, DIZZINESS. PT DAUGHTER STATES THIS AM WAS GOING TO GO SEE DR LOBO, PT WAS LEANING TO THE RIGHT, RIGHT SIDE OF LIP WAS DROOPING, AND NOTICED SOME SLURRED SPEECH. DR LOBO INFORMED THEM TO GO TO ER. UPON ASSESSMENT, NO DIFF SWALLOWING PER MASSAY SWALLOW EVAL, PT TOLERATED DINNER FINE, NO COUGHING, NO CHOKING, PT STATES NO DIFFICULTY. PT SMILE SYMMETRICAL, TEST DRILLER SYMMETRICAL. PT BLIND IN RIGHT EYE, NO PUPIL ACTIVITY NOTED WHEN ASSESSING. PT HAS YEAST UNDER LEFT LOWER ABD SKIN FOLD. HAILEY BOSS.
--- NOTE | 2018-07-15 18:23 | NUR ---
NURSING NOTE CONSULT NEUROLOGY PAGED DR LOBO [id number]. WAITING FOR RETURN CALL. HAILEY BOSS.
[2018-07-15] MEDS ORDERED: ALLO300T PO (18:32)
[2018-07-15] MEDS: ALBUTEROL SULFATE 2.5 MG/3 ML NEBU. NEB SCH (19:33)
[2018-07-15] MEDS: BUDESONIDE 0.5 MG/2 ML NEBU NEB SCH (19:33)
[2018-07-15] MEDS: prednisoLONE ACETATE 1% OPHTH SUSPENSION 5ML BOTTLE. OU SCH (20:41)
[2018-07-15] MEDS: TOPIRAMATE 25 MG TABLET. PO SCH (20:42)
[2018-07-15] MEDS: NYSTATIN TOPICAL POWDER 15GM BOTTLE. TP SCH (20:42)
[2018-07-15] MEDS: levETIRAcetam 500 MG TABLET PO SCH (20:43)
[2018-07-15] MEDS: PANTOPRAZOLE 40 MG TABLET. PO SCH (20:43)
[2018-07-15] MEDS: CYCLOBENZAPRINE 10 MG TABLET. PO SCH (20:43)
[2018-07-15] MEDS: diphenhydrAMINE HCL 25 MG CAPSULE PO SCH (20:43)
[2018-07-15] MEDS ORDERED: GABA-586 PO (20:47)
[2018-07-15] MEDS: GABAPENTIN 300 MG CAPSULE. PO SCH (20:59)
[2018-07-15] MEDS ORDERED: LEVETIRACETAM 500 MG PEG SCH (21:00)
[2018-07-15] MEDS ORDERED: NON FORMULARY ITEM (Naproxen 1 TAB) PO SCH (21:00)
[2018-07-15] MEDS ORDERED: GABAPENTIN 300 MG CAPSULE. PO SCH (21:00)
[2018-07-15 21:55] LABS: BILIRUBIN,URINE NEG (NEG); CLARITY,URINE HAZY; COLOR,URINE YELLOW; GLUCOSE,URINE NEG (NEG)
[2018-07-15 21:56] LABS: BACTERIA,URINE 0 /HPF (0-FEW); NITRITE,URINE NEG (NEG); RBC,URINE 0 /HPF (0-2); SQUAMOUS EPITHELIAL CELL,UR OCC /LPF; UROBILINOGEN,URINE 0.2 mg/dL (0.2 mg/dL)
[2018-07-15 23:27] VITALS: BP 116/73
[2018-07-16] MEDS: ALBUTEROL SULFATE 2.5 MG/3 ML NEBU. NEB SCH ×4 (04:52→20:51)
[2018-07-16 05:16] VITALS: BP 99/65
[2018-07-16] MEDS: prednisoLONE ACETATE 1% OPHTH SUSPENSION 5ML BOTTLE. OU SCH ×4 (08:51→21:00)
[2018-07-16] MEDS: FLUTICASONE 50MCG/NASAL SPRAY 16GM BOTTLE. NS PRN (08:51)
[2018-07-16] MEDS: ANASTROZOLE 1 MG TABLET PO SCH (08:52)
[2018-07-16] MEDS: DULoxetine HCL 60 MG CAPSULE.DR PO SCH (08:53)
[2018-07-16] MEDS: ASPIRIN 81 MG TAB.CHEW PO SCH (08:53)
[2018-07-16] MEDS: ATORVASTATIN CALCIUM 20 MG TABLET PO SCH (08:53)
[2018-07-16] MEDS: levETIRAcetam 500 MG TABLET PO SCH ×2 (08:53→21:02)
[2018-07-16] MEDS: CYCLOBENZAPRINE 10 MG TABLET. PO SCH ×3 (08:53→21:01)
[2018-07-16] MEDS: TOPIRAMATE 25 MG TABLET. PO SCH ×2 (08:53→21:02)
[2018-07-16] MEDS: PANTOPRAZOLE 40 MG TABLET. PO SCH ×2 (08:54→21:02)
[2018-07-16] MEDS: LISINOPRIL 10 MG TABLET PO SCH (08:54)
[2018-07-16] MEDS: GLIMEPIRIDE 2 MG TABLET PO SCH (08:54)
[2018-07-16] MEDS: hydroCHLOROthiazide 12.5 MG CAPSULE PO SCH (08:54)
[2018-07-16] MEDS: GABAPENTIN 300 MG CAPSULE. PO SCH ×3 (08:55→21:02)
[2018-07-16] MEDS: NYSTATIN TOPICAL POWDER 15GM BOTTLE. TP SCH ×2 (08:55→21:03)
[2018-07-16] MEDS: COLESTIPOL HCL 1 GM TABLET PO SCH (08:56)
[2018-07-16] MEDS ORDERED: COLESTIPOL HCL 1 GM TABLET PO SCH ×2 (09:00)
[2018-07-16] MEDS ORDERED: NON FORMULARY ITEM (Budesonide/Formoterol Fumarate (Symbicort 160-4.5 Mcg Inhaler) 1 PUFF) IH SCH (09:00)
--- NOTE | 2018-07-16 09:58 | CONS ---
DATE OF CONSULTATION: 07/16/2018 NEUROLOGIC CONSULTATION REFERRING PHYSICIAN: Jose Raul Tejada MD. REASON FOR CONSULTATION: Severe dizziness and unsteadiness. HISTORY OF PRESENT ILLNESS: This is a 67-year-old right-handed female who was admitted through Emergency Room yesterday after she presented with 1-2 days history of progressive dizziness, unsteady gait, slurred speech, and brief confusions. The patient stated she has had generalized weakness, but more prominent in the last few days to the point she is unable to bear weight and walk normally. The patient was found by her daughter to have tendency to veer to the left side and increased risk of falling. She has not had any fall. The patient stated her right lower extremity has been weaker for the last month or so. Currently, she denies headaches or new visual disturbances. She denies chest pain, shortness of breath, palpitation, dysarthria, or dysphagia. On arrival to Emergency Room, the patient was found to be alert and oriented, but continues to have weakness of the right side. She is not found to have any facial asymmetry as she had it yesterday. Initial nonenhanced head CT scan revealed no evidence of acute intracranial process. Chest x-ray revealed no evidence of infiltrates or acute cardiopulmonary process. PAST MEDICAL HISTORY: Quite extensive include seizure disorder, the last seizure was in 02/2018; coronary artery disease, obstructive sleep apnea, irritable bowel syndrome, GERD, urinary incontinence, arthritis, chronic neck and lower back pain, peripheral neuropathy and diabetes mellitus. Complete blindness of the right eye due to macular degeneration and postoperative changes, hypertension, hyperlipidemia PAST SURGICAL HISTORY: Significant for tonsillectomy, adenoidectomy, five lumbosacral spine surgery with fusion, status post anterior cervical spine fusion and status post bilateral shoulder conversion, left breast lumpectomy for breast cancer. SOCIAL HISTORY: The patient denies smoking, alcohol drinking, or illicit drug use. CURRENT HOME MEDICATIONS: Colestid 1 gram daily. gabapentin 300 mg b.i.d., hydrochlorothiazide 12.5 mg daily, lisinopril 10 mg daily, glimepiride 1 mg daily, Flonase nasal spray, Cymbalta 60 mg daily, Lipitor 40 mg daily, aspirin 81 mg daily, anastrozole 1 mg daily, gabapentin 600 mg at bedtime, topiramate 50 mg b.i.d., pantoprazole 40 mg b.i.d., levetiracetam 1000 mg b.i.d., cyclobenzaprine 10 mg t.i.d., Benadryl 25 mg at bedtime, albuterol nebulizer p.r.n., oxycodone 10/325 mg q. 6 hours p.r.n. ALLERGIES: IODINATED CONTRAST AND ORAL AND IV DYE, ADHESIVE AND IODINE. REVIEW OF SYSTEMS: A 10-point review of system was performed as mentioned above in the history of present illness. PHYSICAL EXAMINATION: GENERAL: Obese female, not in acute distress. She weighs 127.9 pounds. VITAL SIGNS: Blood pressure 99/65, respiratory rate 14, pulse is 90 and regular, temperature 97.4, oxygen saturation 96% on room air. HEENT: Normocephalic, atraumatic, otherwise unremarkable. NECK: Supple. Negative for carotid bruit, lymphadenopathy, or thyromegaly. LUNGS: Clear to A and P. CARDIOVASCULAR: Regular rhythm, normal S1, S2. ABDOMEN: Soft. Bowel sounds positive. EXTREMITIES: Negative for cyanosis, clubbing, edema. NEUROLOGIC: Mental status: The patient is alert and oriented x 3. Speech is fluent. There is no language dysfunction. Memory, judgment, and abstract thinking are fair. The patient denies hallucination or delusion. CRANIAL NERVES: Visual trujillo are full. The extraocular movements are intact. There is no nystagmus. The patient has complete blindness of right eye. There is no facial motor or sensory deficit. Hearing is intact bilaterally. The palate is elevated symmetrically. Sternocleidomastoid muscles are powerful bilaterally. The patient shrugs her shoulders symmetrically and protrudes her tongue in the midline without fasciculation or atrophy. MOTOR: No focal muscle bulk was seen. The tone is normal. The strength is 4/5 in the right lower extremity and 5/5 throughout. Sensory examination revealed diminished pinprick and light touch in stocking distributions. Deep tendon reflexes were symmetric and hypoactive with absent Achilles responses. Gait not tested at this time. LABORATORY DATA: CBC revealed white blood cells of 12,900, hemoglobin 11.7, hematocrit 36.4, platelet count 269,000. Chemistry revealed sodium of 143, potassium 3.9, chloride 108, CO2 22, BUN 35, creatinine 1.7, glucose 82, calcium 9.2. Troponin level is normal and the liver enzymes are not elevated. Urinalysis negative for urinary tract infections. IMPRESSION: 1. One-two days history of unsteady stand along with dizziness without focal neurological deficit and negative head CT scan for acute intracranial process. Etiology is uncertain, probably multifactorial including dehydration, chronic lower back pain, peripheral neuropathy; however, small ischemic cerebral or cerebellar infarct could not be ruled out at this time. The patient cannot have a brain MRI due to multiple metal presence in her system at this time due to previous cervical and lumbosacral spine surgery and bilateral shoulder surgeries. 2. Multiple medical problems including hypertension, hyperlipidemia, diabetes mellitus, seizure disorder, gastroesophageal reflux disease, obstructive sleep apnea, and urinary incontinence. RECOMMENDATIONS: 1. Physical therapy evaluation. 2. Continue with current management. M Gene LOBO MD DR: CLIFTON/[place]ta JOB#: [id number] / [id number]
[2018-07-16] MEDS: BUDESONIDE 0.5 MG/2 ML NEBU NEB SCH ×2 (10:35→20:51)
[2018-07-16 11:33] VITALS: BP 110/69
--- NOTE | 2018-07-16 14:33 | HP ---
ADMIT DATE: 07/15/2018 HISTORY OF PRESENT ILLNESS: A 67-year-old female came in through the Emergency Room with dysarthria. The patient was having trouble finding her words and her mild confusion as well as had unable to pronounce her words. The patient was off balance and the like she was seen by Dr. Bucio her neurologist who emergently sent her over to the Emergency Room. The patient was admitted for further evaluation and treatment of a possible TIA. PAST MEDICAL HISTORY: Seizure disorder, last seizure in February 2018, CAD, MEMO, IBS, urinary incontinence, arthritis, chronic lower back pain, peripheral neuropathy. 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 SOCIAL HISTORY: The patient denies smoking, alcohol or drug use. FAMILY HISTORY: Noncontributory. ALLERGIES: ORAL AND IVP DYE, ADHESIVE, IODINE. MEDICATIONS: The chart include Benadryl 25, anastrozole 1 mg daily, cyclobenzaprine 10 mg daily, colestipol, hydrochloride 1 gram 3 times a day, Lipitor 40, lisinopril/HCTZ 10/12.5, aspirin 81, indomethacin 25, Percocet p.r.n. 10/325, gabapentin 300 mg b.i.d., Keppra 100 mg per mL, 500 mg daily, Keppra 500 mg b.i.d., topiramate 50 mg for headaches, duloxetine 60 mg daily, budesonide formoterol 1 puff daily, fluticasone proprionate 16 grams spray suspension, prednisone acetate, Prilosec 40, glimepiride 1 mg, allopurinol 300 mg. REVIEW OF SYSTEMS: The patient presently denies any headaches, visual change, blurred vision, double vision. Denies any abdominal pain. Denies chest pain, shortness breath, abdominal pain. Denies any melena, hematochezia, or hematemesis and neurologically intact. PHYSICAL EXAMINATION: GENERAL: Pleasant white female, morbidly obese. VITAL SIGNS: Blood pressure 110/70. However, when she first came in blood pressure is 109/53, respiratory rate 18, pulse 94, afebrile, oxygen saturation was only 90%. HEENT: The patient's head was atraumatic, normocephalic. Eyes: PERRLA without jaundice. Mouth and throat were normal. NECK: Supple, without JVD, carotid bruits or thyromegaly. LUNGS: Diminished throughout. CARDIOVASCULAR: Regular sinus rhythm, S1, S2, without murmur, rub, thrill, or extra heart sounds. ABDOMEN: The patient's abdomen is soft, nontender, no rebounding or guarding. Positive bowel sounds, no hepatosplenomegaly was noted. EXTREMITIES: No clubbing, cyanosis, nor edema. NEUROLOGIC: The patient was alert and oriented x 3. LABORATORY DATA: White count 12, hemoglobin , blood sugar 82. IMPRESSION: The patient will be admitted for observation for further evaluation of her Transient ischemic attack versus stroke in evolution. Consult with Dr. Bucio multiple medical problems including essential hypertension, morbid obesity, type 2 diabetes, seizure disorder, GERD, obstructive sleep apnea, urinary incontinence, neuropathy, peripheral. PLAN: Continue with PT, OT and make further evaluation on her as indicated. WENDI ROBISON MD DR: FAUZIA/[place] JOB#: [id number] / [id number]
[2018-07-16 15:20] VITALS: BP 103/62
[2018-07-16 19:14] VITALS: BP 116/61
[2018-07-16] MEDS: diphenhydrAMINE HCL 25 MG CAPSULE PO SCH (21:01)
[2018-07-16 23:18] VITALS: BP 125/57
[2018-07-17] MEDS: BUDESONIDE 0.5 MG/2 ML NEBU NEB SCH (04:42)
[2018-07-17] MEDS: ALBUTEROL SULFATE 2.5 MG/3 ML NEBU. NEB SCH (04:42)
[2018-07-17 05:45] VITALS: BP 112/58
[2018-07-17] MEDS: NYSTATIN TOPICAL POWDER 15GM BOTTLE. TP SCH (09:00)
[2018-07-17] MEDS: prednisoLONE ACETATE 1% OPHTH SUSPENSION 5ML BOTTLE. OU SCH (09:14)
[2018-07-17] MEDS: DULoxetine HCL 60 MG CAPSULE.DR PO SCH (09:14)
[2018-07-17] MEDS: FLUTICASONE 50MCG/NASAL SPRAY 16GM BOTTLE. NS PRN (09:14)
[2018-07-17] MEDS: hydroCHLOROthiazide 12.5 MG CAPSULE PO SCH (09:14)
[2018-07-17] MEDS: PANTOPRAZOLE 40 MG TABLET. PO SCH (09:14)
[2018-07-17] MEDS: levETIRAcetam 500 MG TABLET PO SCH (09:14)
[2018-07-17] MEDS: ATORVASTATIN CALCIUM 20 MG TABLET PO SCH (09:14)
[2018-07-17 09:15] VITALS: BP 112/58
[2018-07-17] MEDS: TOPIRAMATE 25 MG TABLET. PO SCH (09:15)
[2018-07-17] MEDS: COLESTIPOL HCL 1 GM TABLET PO SCH (09:15)
[2018-07-17] MEDS: GLIMEPIRIDE 2 MG TABLET PO SCH (09:15)
[2018-07-17] MEDS: LISINOPRIL 10 MG TABLET PO SCH (09:15)
[2018-07-17] MEDS: ASPIRIN 81 MG TAB.CHEW PO SCH (09:16)
[2018-07-17] MEDS: GABAPENTIN 300 MG CAPSULE. PO SCH (09:16)
[2018-07-17] MEDS: CYCLOBENZAPRINE 10 MG TABLET. PO SCH (09:16)
[2018-07-17] MEDS: ANASTROZOLE 1 MG TABLET PO SCH (09:20)
--- NOTE | 2018-07-17 10:09 | DS ---
DATE OF DISCHARGE: HOSPITAL COURSE: A 67-year-old female and with what appeared to be possible TIA versus stroke. The patient was seen by Dr. Bucio earlier in the day, sent to the Emergency Room. She was admitted for further evaluation. The ER doctor apparently noted low blood pressure and low sugar, some altered mental status, elevated white count. Uric acid was elevated. The patient will be here discharged home. She made good progress. Her speech cleared. Her mentation cleared. She was alert and oriented x 3. Speech is fluent, spontaneous, appropriate and basically baseline. The patient did have elevated triglycerides and creatinine was elevated with a GFR of 30. In any case, she did have an elevated D-dimer; however, she did have a recent V/Q scan that was negative for PE and because of her renal function, we can do a CTA, but since it was fairly on a V/Q scan, there was no need to repeat it. The patient denied any chest pain, shortness of breath. The patient was ambulatory, had been in bed for less than a day before she was able to move around completely. IMPRESSION: Change in mental status, possible transient ischemic attack, type 2 diabetes, seizure disorder, gastroesophageal reflux disease, obstructive sleep apnea, urinary incontinence, neuropathy and peripheral neuropathy, morbid obesity, anemia, hypertriglyceridemia, chronic kidney disease stage 4. WENDI ROBISON MD DR: FAUZIA/[place] JOB#: [id number] / [id number]
--- NOTE | 2018-07-17 10:13 | NUR ---
Patient D/C home with self care. Tele monitor removed. IV D/C'd. Patient is stable at time of D/C. Patient is escorted off unit at time of D/C.
== END 2018-07-17 10:13 | disposition home or self-care (01) | DRG 69 ==
LOC: ER 13:26 → 1 SOUTH 16:00
PROVIDERS: ADMIT Family Medicine; ATTEND Family Medicine
PROC: 5A09357 Assistance with Respiratory Ventilation, Less than 24 Consecutive Hours, Continuous Positive Airway Pressure (ICD-10-PCS; principal; 2018-07-15)
PROC: 5A09357 Assistance with Respiratory Ventilation, Less than 24 Consecutive Hours, Continuous Positive Airway Pressure (ICD-10-PCS; 2018-07-16)
PROC: 5A09357 Assistance with Respiratory Ventilation, Less than 24 Consecutive Hours, Continuous Positive Airway Pressure (ICD-10-PCS; 2018-07-17)
DX: G45.9 Transient cerebral ischemic attack, unspecified (principal); Z68.41 Body mass index [BMI] 40.0-44.9, adult; N18.4 Chronic kidney disease, stage 4 (severe); E11.42 Type 2 diabetes mellitus with diabetic polyneuropathy; E66.01 Morbid (severe) obesity due to excess calories; E78.00 Pure hypercholesterolemia, unspecified; E78.1 Pure hyperglyceridemia; E78.5 Hyperlipidemia, unspecified; E86.0 Dehydration; G40.909 Epilepsy, unspecified, not intractable, without status epilepticus; G47.33 Obstructive sleep apnea (adult) (pediatric); G89.29 Other chronic pain; H35.30 Unspecified macular degeneration; M19.90 Unspecified osteoarthritis, unspecified site; I25.10 Atherosclerotic heart disease of native coronary artery without angina pectoris; J45.909 Unspecified asthma, uncomplicated; I12.9 Hypertensive chronic kidney disease with stage 1 through stage 4 chronic kidney disease, or unspecified chronic kidney disease; E11.22 Type 2 diabetes mellitus with diabetic chronic kidney disease; K21.9 Gastro-esophageal reflux disease without esophagitis; D64.9 Anemia, unspecified; K58.9 Irritable bowel syndrome, unspecified; R32 Unspecified urinary incontinence; Z79.811 Long term (current) use of aromatase inhibitors; Z79.82 Long term (current) use of aspirin; Z79.84 Long term (current) use of oral hypoglycemic drugs; Z79.899 Other long term (current) drug therapy; Z85.3 Personal history of malignant neoplasm of breast; Z90.49 Acquired absence of other specified parts of digestive tract; Z98.1 Arthrodesis status; Z88.8 Allergy status to other drugs, medicaments and biological substances; Z91.048 Other nonmedicinal substance allergy status; Z79.4 Long term (current) use of insulin
CPT/HCPCS: 36415; 70450; 71045; 80053; 80061; 80177; 81001; 82947; 83735; 83880; 84484; 85025; 85379; 85610; 85730; 87086; 94640; 96360; 96361; J7613; J7626; Q0163; 99285-25; J7030

== ENCOUNTER → 2018-09-21 | Day surgery (SDC) | payer MEDICARE, OTHER ==
[~2018-09-21] MED LIST changes: +ALBU2.5V8 INH; +ALBUTEROL SULFATE 2.5 MG/3 ML NEBU. NEB PRN; +ASPI-630 PO; +ATROPINE 0.5 MG/5 ML DISP.SYRIN. IV PRN; +AZEL137S3 NS; +CYCL-331 PO; +FEXO180T81 PO; +GABA-586 PO; +IPRA4AER INH; +IV RINGERS SOLUTION,LACTATED 1,000 ML IV SCH; +LIDOCAINE 2% 20 ML VIAL. ONE; +MELO7.5T29 PO; +NALOXONE 0.4 MG/ML VIAL. IV PRN; +NAPR-514 PO; +ONDANSETRON PF 4 MG/2 ML VIAL. IV PRN; +PRED5DRO16 EACHEYE; +PROPOFOL 10,000 MCG/ML (20ML) VIAL IV ONE; +diphenhydrAMINE 50 MG/ML VIAL IV PRN
[2018-09-21 09:56] VITALS: BP 105/40
== END ==
LOC: SURG 07:30
PROVIDERS: ATTEND Internal Medicine Gastroenterology
DX: D12.2 Benign neoplasm of ascending colon (principal); I10 Essential (primary) hypertension; E11.9 Type 2 diabetes mellitus without complications; J44.9 Chronic obstructive pulmonary disease, unspecified; K21.9 Gastro-esophageal reflux disease without esophagitis; K64.8 Other hemorrhoids; Z88.8 Allergy status to other drugs, medicaments and biological substances; Z91.041 Radiographic dye allergy status; Z86.010 Personal history of colon polyps; Z98.890 Other specified postprocedural states; Z79.84 Long term (current) use of oral hypoglycemic drugs
CPT/HCPCS: 45380; 82947; J2704; J7120; J2001

== ENCOUNTER 2018-09-26 13:55 | Emergency (ER) | payer MEDICARE, OTHER ==
[~2018-09-26 13:55] MED LIST changes: -ALBUTEROL SULFATE 2.5 MG/3 ML NEBU. NEB PRN; -ATROPINE 0.5 MG/5 ML DISP.SYRIN. IV PRN; -IV RINGERS SOLUTION,LACTATED 1,000 ML IV SCH; -LIDOCAINE 2% 20 ML VIAL. ONE; -MELO7.5T29 PO; -NALOXONE 0.4 MG/ML VIAL. IV PRN; -ONDANSETRON PF 4 MG/2 ML VIAL. IV PRN; -PROPOFOL 10,000 MCG/ML (20ML) VIAL IV ONE; -diphenhydrAMINE 50 MG/ML VIAL IV PRN
[2018-09-26 14:14] VITALS: BP 140/86
[2018-09-26] MEDS ORDERED: IV NORMAL SALINE 1,000ML 1,000 ML IV SCH (14:36)
[2018-09-26] MEDS ORDERED: KETOROLAC 30 MG/ML VIAL. IV ONE (14:45)
--- NOTE | 2018-09-26 14:45 | PHYS DOC ---
Past History Past Medical History: Cancer, GERD, High Cholesterol, Hypertension, Kidney Stones, Migraines, Seizure Past Surgical History: Cholecystectomy, Knee Replacement Alcohol Use: None Drug Use: None Adult General Chief Complaint Chief Complaint: GROIN PAIN HPI HPI Patient is a 68-year-old female presents with left-sided back and flank pain that radiates into her left lower quadrant. She has had similar pain with kidney stones as well as with back issues. She also had a colonoscopy 2 days ago with 2 biopsies taken. Denies any blood in the stool. No nausea or vomiting. No dysur ia. No hematuria. Nothing seems to make the discomfort better or worse. Pain is sharp in nature. Moderate to severe in intensity.[] Review of Systems Review of Systems Constitutional: Denies fever or chills [] Eyes: Denies change in visual acuity, redness, or eye pain [] HENT: Denies nasal congestion or sore throat [] Respiratory: Denies cough or shortness of breath [] Cardiovascular: Chest pain or palpitations[] GI: See history of present illness[] : Denies dysuria or hematuria [] Musculoskeletal: Denies back pain or joint pain [] Integument: Denies rash or skin lesions [] Neurologic: Denies headache, focal weakness or sensory changes [] Endocrine: Denies polyuria or polydipsia [] All other systems were reviewed and found to be within normal limits, except as documented in this note. Allergies Allergies Allergies Coded Allergies Type Severity Reaction Last Updated Verified Iodinated Contrast- Oral and IV Dye Allergy Severe 02/28/18 Yes iodine Allergy Severe Shortness of Air 02/28/18 No adhesive Allergy Intermediate 02/28/18 Yes Physical Exam Physical Exam Constitutional: Well developed, well nourished, mild discomfort, non-toxic appearance. [] HENT: Normocephalic, atraumatic, bilateral external ears normal, oropharynx moist, no oral exudates, nose normal. [] Eyes: PERRLA, EOMI, conjunctiva normal, no discharge. [] Neck: Normal range of motion, no tenderness, supple, no stridor. [] Cardiovascular:Heart rate regular rhythm, no murmur [] Lungs & Thorax: Bilateral breath sounds clear to auscultation [] Abdomen: Bowel sounds normal, soft, no tenderness, no masses, no pulsatile masses. [] Skin: Warm, dry, no erythema, no rash. [] Back: No tenderness, no CVA tenderness. [] Extremities: No tenderness, no cyanosis, no clubbing, ROM intact, no edema. [] Neurologic: Alert and oriented X 3, normal motor function, normal sensory function, no focal deficits noted. [] Psychologic: Affect normal, judgement normal, mood normal. [] Current Patient Data Vital Signs Vital Signs Date Time Temp Pulse Resp B/P (MAP) Pulse Ox O2 Delivery O2 Flow Rate FiO2 09/26/18 14:14 85 18 95 Room Air EKG EKG [] Radiology/Procedures Radiology/Procedures PROCEDURE: CT ABDOMEN PELVIS WO CONTRAST CT abdomen and pelvis without contrast 09/26/2018. Reason for exam: Left-sided back and flank pain. Helical noncontrast images were performed. Sagittal and coronal reconstructions were obtained. Exposure: One or more of the following individualized dose reduction techniques were utilized for this examination: 1. Automated exposure control 2. Adjustment of the mA and/or kV according to patient size 3. Use of iterative reconstruction technique. Comparison is made with a study of 01/21/2017. FINDINGS: The lung bases are clear. The liver and spleen are homogeneous in density and normal in configuration. Evaluation of the solid organs is limited without IV contrast. The kidneys show no apparent mass or obstruction. There may be a tiny calculus in the upper left kidney. There is likely a myelolipoma in the right adrenal gland. The adrenal glands otherwise appear normal. No pancreatic abnormality is seen. There is no apparent retroperitoneal or mesenteric adenopathy. No abdominal mass or inflammatory process is seen. Images through the pelvis show no apparent distal ureteral stone or obstruction. The bladder was not well-distended, but appears normal. No pelvic or inguinal adenopathy is seen. The uterus and adnexal areas appear normal for age. There is no separate pelvic mass or inflammatory process. IMPRESSION: No apparent acute abnormality.[] Course & Med Decision Making Course & Med Decision Making Pertinent Labs and Imaging studies reviewed. (See chart for details) ED course: Patient arrived, was placed in bed, and tolerated exam well. IV access was established and she was given IV fluids as well as pain medicines. She was transported to and from radiology with any consultations. She had improvement in her discomfort with the pain medicines. Findings were discussed with the patient who voiced understanding. All questions were answered. She was discharged in improved condition. Medical decision making: There is no evidence of kidney stone, kidney infection, obstruction, or perforation. Her renal function is decreased from her usual baseline, this may be due to dehydration with her recent colonoscopy. She did receive IV fluids in the emergency department and will have her follow-up with her primary care doctor for reevaluation of this in the next several days. Will prescribe low-dose NSAIDs to help with the discomfort since this seems to have helped her in the emergency department. Patient is anemic however this appears to be a long-term issue where her levels have been lower than the 10 point hemoglobin today.[] Dragon Disclaimer Dragon Disclaimer This electronic medical record was generated, in whole or in part, using a voice recognition dictation system. Departure Departure: Impression: Primary Impression: Back pain Additional Impression: Renal insufficiency Disposition: HOME, SELF-CARE Condition: STABLE Referrals: WENDI ROBISON MD (PCP) Follow-up in 2 days Patient Instructions: Chronic Renal Insufficiency, Flank Pain Additional Instructions: Drink plenty of fluids. Follow-up with your regular doctor in 2 days. Take medication as prescribed. Return to the ER if worsening pain or any other concerns. Scripts Tramadol Hcl (TRAMADOL HCL) 50 Mg Tablet 50 MG PO PRN Q6HRS PRN for PAIN, #20 TAB Prov: IDA CAMERON DO 09/26/18 Meloxicam (MELOXICAM) 7.5 Mg Tablet 7.5 MG PO DAILY for PAIN, #20 TAB Prov: IDA CAMERON DO 09/26/18 Problem Qualifiers Primary Impression: Back pain Back pain location: low back pain Chronicity: unspecified Back pain laterality: left Sciatica presence: without sciatica Qualified Codes: M54.5 - Low back pain IDA CAMERON DO Sep 26, 2018 14:45
--- NOTE | 2018-09-26 15:26 | RAD ---
CT abdomen and pelvis without contrast 09/26/2018. Reason for exam: Left-sided back and flank pain. Helical noncontrast images were performed. Sagittal and coronal reconstructions were obtained. Exposure: One or more of the following individualized dose reduction techniques were utilized for this examination: 1. Automated exposure control 2. Adjustment of the mA and/or kV according to patient size 3. Use of iterative reconstruction technique. Comparison is made with a study of 01/21/2017. FINDINGS: The lung bases are clear. The liver and spleen are homogeneous in density and normal in configuration. Evaluation of the solid organs is limited without IV contrast. The kidneys show no apparent mass or obstruction. There may be a tiny calculus in the upper left kidney. There is likely a myelolipoma in the right adrenal gland. The adrenal glands otherwise appear normal. No pancreatic abnormality is seen. There is no apparent retroperitoneal or mesenteric adenopathy. No abdominal mass or inflammatory process is seen. Images through the pelvis show no apparent distal ureteral stone or obstruction. The bladder was not well-distended, but appears normal. No pelvic or inguinal adenopathy is seen. The uterus and adnexal areas appear normal for age. There is no separate pelvic mass or inflammatory process. IMPRESSION: No apparent acute abnormality. Electronically signed by: Donte Louis Jr., MD (09/26/2018 3:23 PM) [facility]
[2018-09-26 15:50] LABS: BASO # 0.1 x10^3/uL (0.0-0.2); BASO % 1 % (0-3); EOS # 0.7 x10^3/uL (0.0-0.7); EOS % 7 % (0-3); HEMATOCRIT 31.8 % (36.0-47.0); HEMOGLOBIN 10.4 g/dL (12.0-15.5); LYMPH # 2.4 x10^3/uL (1.0-4.8); LYMPH % 24 % (24-48); MEAN CORPUSCULAR HEMOGLOBIN 30 pg (25-35); MEAN CORPUSCULAR HGB CONC 33 g/dL (31-37); MEAN CORPUSCULAR VOLUME 92 fL (79-100); MONO # 0.7 x10^3/uL (0.0-1.1); MONO % 7 % (0-9); NEUT # 6.4 x10^3uL (1.8-7.7); NEUT % 62 % (31-73); PLATELET COUNT 258 x10^3/uL (140-400); RED BLOOD COUNT 3.47 x10^6/uL (3.50-5.40); RED CELL DISTRIBUTION WIDTH 15.5 % (11.5-14.5); WHITE BLOOD COUNT 10.3 x10^3/uL (4.0-11.0)
[2018-09-26 15:59] LABS: ALBUMIN 3.3 g/dL (3.4-5.0); ALBUMIN/GLOBULIN RATIO 0.9 (1.0-1.7); ALK PHOS 114 U/L (46-116); ALT (SGPT) 11 U/L (14-59); ANION GAP 7 (6-14); AST (SGOT) < 5 U/L (15-37); BLOOD UREA NITROGEN 41 mg/dL (7-20); BUN/CREATININE RATIO 20 (6-20); CALCIUM 8.7 mg/dL (8.5-10.1); CARBON DIOXIDE 25 mmol/L (21-32); CHLORIDE 111 mmol/L (98-107); CREATININE 2.1 mg/dL (0.6-1.0); GFR 23.4; GLUCOSE 104 mg/dL (70-99); LIPASE 179 U/L (73-393); POTASSIUM 4.2 mmol/L (3.5-5.1); SODIUM 143 mmol/L (136-145); TOTAL BILIRUBIN 0.2 mg/dL (0.2-1.0); TOTAL PROTEIN 7.1 g/dL (6.4-8.2)
[2018-09-26 16:01] LABS: BILIRUBIN,URINE NEG (NEG); CLARITY,URINE CLEAR; COLOR,URINE YELLOW; GLUCOSE,URINE NEG (NEG); NITRITE,URINE NEG (NEG); UROBILINOGEN,URINE 0.2 mg/dL (0.2 mg/dL)
[2018-09-26 16:02] LABS: BACTERIA,URINE FEW /HPF (0-FEW); RBC,URINE 0 /HPF (0-2); SQUAMOUS EPITHELIAL CELL,UR MOD /LPF; WBC,URINE OCC /HPF (0-4)
[2018-09-26] MEDS ORDERED: MELO7.5T29 PO (16:20)
[2018-09-26] MEDS ORDERED: TRAM50TA PO (16:20)
== END 2018-09-26 16:34 | disposition home or self-care (01) ==
LOC: ER 13:55
DX: N28.9 Disorder of kidney and ureter, unspecified (principal); M54.5 Low back pain; K21.9 Gastro-esophageal reflux disease without esophagitis; E78.00 Pure hypercholesterolemia, unspecified; I10 Essential (primary) hypertension; G43.909 Migraine, unspecified, not intractable, without status migrainosus; Z87.442 Personal history of urinary calculi; Z90.49 Acquired absence of other specified parts of digestive tract; Z91.041 Radiographic dye allergy status; Z88.8 Allergy status to other drugs, medicaments and biological substances
CPT/HCPCS: 36415; 74176; 80053; 81001; 83690; 85025; 96374; 99285; J1885; J7030

== ENCOUNTER 2019-01-05 09:32 | Emergency (ER) | payer MEDICARE, OTHER ==
[~2019-01-05] VITALS: Ht 172.7 cm; Wt 128.6 kg
[~2019-01-05 09:32] MED LIST changes: -GLIM1TAB2 PO; +GLIM1TAB3 PO; +INDO25CA21 PO; -INDO25CA5 PO; +LISI1TAB23 PO; -LISI1TAB3 PO; +MELO7.5T29 PO; +OMEP40CA45 PO; -OMEP40CA5 PO
--- NOTE | 2019-01-05 10:12 | PHYS DOC ---
Past History Past Medical History: Cancer, GERD, High Cholesterol, Hypertension, Kidney Stones, Migraines, Seizure Past Surgical History: Cervical Fusion, Cholecystectomy, Knee Replacement, Other Additional Past Surgical Histo: back surgery with hardware, bilateral shoulder with hardware, bilateral ank Alcohol Use: None Drug Use: None Adult General Chief Complaint Chief Complaint: BACK PAIN OR INJURY [facility] Patient is a 68-year-old female who presents with complaint of left-sided lower back pain/flank pain that started about a week ago. Patient rates pain as moderate and states the pain is worsened with movement. She states that she gets some relief when she lies still. She does indicate that she has a history of a number of kidney stones in the past but has also had low back surgeries. She states that she has a difficult time differentiating between the pain caused from the back surgeries and that caused by kidney stones. She denies any chest pain or shortness breath. She also denies any fever.[] Review of Systems Review of Systems Constitutional: Denies fever or chills [] Respiratory: Denies cough or shortness of breath [] Cardiovascular: No additional information not addressed in HPI [] GI: Denies abdominal pain, nausea, vomiting or diarrhea [] : Denies dysuria or hematuria [] Musculoskeletal: Complains of left lower back/flank pain [] Integument: Denies rash or skin lesions [] Neurologic: Denies headache, focal weakness or sensory changes [] All other systems were reviewed and found to be within normal limits, except as documented in this note. Allergies Allergies Allergies Coded Allergies Type Severity Reaction Last Updated Verified Iodinated Contrast- Oral and IV Dye Allergy Severe 02/28/18 Yes iodine Allergy Severe Shortness of Air 02/28/18 No adhesive Allergy Intermediate 02/28/18 Yes Physical Exam Physical Exam Constitutional: Well developed, well nourished, no acute distress, non-toxic appearance. [] HENT: Normocephalic, atraumatic, bilateral external ears normal, oropharynx moist, no oral exudates, nose normal. [] Eyes: PERRLA, EOMI, conjunctiva normal, no discharge. [] Neck: Normal range of motion, no tenderness, supple, no stridor. [] Cardiovascular: Regular rate and rhythm[] Lungs & Thorax: Bilateral breath sounds clear to auscultation [] Abdomen: Bowel sounds normal, soft, no tenderness. [] Skin: Warm, dry, no erythema, no rash. [] Back: There is tenderness to palpation primarily around the left sacral sulcus. [] Extremities: No tenderness, no cyanosis, no clubbing, ROM intact. [] Neurologic: Alert and oriented X 3, no focal deficits noted. [] Current Patient Data Vital Signs Vital Signs Date Time Temp Pulse Resp B/P (MAP) Pulse Ox O2 Delivery O2 Flow Rate FiO2 01/05/19 09:43 98.2 77 18 99 Room Air EKG EKG [] Radiology/Procedures Radiology/Procedures [] Impressions: PROCEDURE: CT ABDOMEN PELVIS WO CONTRAST EXAM: CT Abdomen and Pelvis without IV contrast CLINICAL HISTORY: Left flank pain. COMPARISON: 09/26/2018, 01/21/2017 TECHNIQUE: Helical CT of the abdomen and pelvis without intravenous contrast. Axial, coronal and sagittal reformatted images were generated. PQRS compliance statement - One or more of the following individualized dose reduction techniques were utilized for this study: 1. Automated exposure control 2. Adjustment of the mA and/or kV according to patient size 3. Use of iterative reconstruction technique FINDINGS: Lack of intravenous contrast limits evaluation of solid organs, vasculature, and lymph nodes. Lower chest: Linear opacities in the lower lobes and lingula likely scarring/atelectasis. Abdomen and Pelvis: No focal liver lesion. Liver is enlarged. Cholecystectomy clips are seen. No biliary ductal dilatation. Pancreas is unremarkable. Fat-containing right adrenal lesion likely represents adrenal myelolipoma measuring 2.1 cm. Left adrenal gland is unremarkable. No renal tract calculus. Within the constraints of this noncontrast examination, no definite renal lesion is seen. No hydronephrosis or hydroureter. Bladder is unremarkable. Moderate colonic stool content. No small or large bowel dilatation. No evidence for bowel obstruction. No abdominal or pelvic lymphadenopathy. No abdominal or pelvic ascites. Bones: Multilevel degenerative changes of the spine are seen. Posterolateral spinal fusion changes are seen from L3-L5. SI joint degenerative changes are also seen. IMPRESSION: 1. No renal tract calculus. 2. No bowel obstruction. 3. Hepatomegaly. 4. Fat-containing right adrenal lesion likely represents myolipoma, stable. Electronically signed by: Harpal Gonzáles MD (01/05/2019 11:14 AM) [id number] DICTATED AND SIGNED BY: HARPAL GONZÁLES MD DATE: 01/05/19 1114 Course & Med Decision Making Course & Med Decision Making Pertinent Labs and Imaging studies reviewed. (See chart for details) [] Dragon Disclaimer Dragon Disclaimer This electronic medical record was generated, in whole or in part, using a voice recognition dictation system. Departure Departure: Impression: Primary Impression: Acute exacerbation of chronic low back pain Disposition: HOME, SELF-CARE Condition: STABLE Referrals: WENDI ROBISON MD (PCP) Patient Instructions: Chronic Back Pain Scripts Orphenadrine Citrate (ORPHENADRINE CITRATE) 100 Mg Tablet.er 1 TAB PO BID PRN for MUSCLE SPASMS, #14 TAB Prov: ELADIO STEVE Jr. DO 01/05/19 Diclofenac Sodium (DICLOFENAC SODIUM) 50 Mg Tablet.dr 1 TAB PO BID PRN for PAIN, #20 TAB Prov: ELADIO STEVE Jr. DO 01/05/19 ELADIO STEVE Jr. DO Jan 05, 2019 10:12
[2019-01-05] MEDS ORDERED: MORPHINE SULFATE 10 MG/ML SYRINGE. IM ONE (10:15)
[2019-01-05] MEDS ORDERED: ONDANSETRON ODT 4 MG TAB.RAPDIS PO ONE (10:15)
[2019-01-05] MEDS ORDERED: ORPHENADRINE CITRATE 60 MG/2 ML VIAL. IM ONE (10:15)
--- NOTE | 2019-01-05 11:16 | RAD ---
EXAM: CT Abdomen and Pelvis without IV contrast CLINICAL HISTORY: Left flank pain. COMPARISON: 09/26/2018, 01/21/2017 TECHNIQUE: Helical CT of the abdomen and pelvis without intravenous contrast. Axial, coronal and sagittal reformatted images were generated. PQRS compliance statement - One or more of the following individualized dose reduction techniques were utilized for this study: 1. Automated exposure control 2. Adjustment of the mA and/or kV according to patient size 3. Use of iterative reconstruction technique FINDINGS: Lack of intravenous contrast limits evaluation of solid organs, vasculature, and lymph nodes. Lower chest: Linear opacities in the lower lobes and lingula likely scarring/atelectasis. Abdomen and Pelvis: No focal liver lesion. Liver is enlarged. Cholecystectomy clips are seen. No biliary ductal dilatation. Pancreas is unremarkable. Fat-containing right adrenal lesion likely represents adrenal myelolipoma measuring 2.1 cm. Left adrenal gland is unremarkable. No renal tract calculus. Within the constraints of this noncontrast examination, no definite renal lesion is seen. No hydronephrosis or hydroureter. Bladder is unremarkable. Moderate colonic stool content. No small or large bowel dilatation. No evidence for bowel obstruction. No abdominal or pelvic lymphadenopathy. No abdominal or pelvic ascites. Bones: Multilevel degenerative changes of the spine are seen. Posterolateral spinal fusion changes are seen from L3-L5. SI joint degenerative changes are also seen. IMPRESSION: 1. No renal tract calculus. 2. No bowel obstruction. 3. Hepatomegaly. 4. Fat-containing right adrenal lesion likely represents myolipoma, stable. Electronically signed by: Harpal Gonzáles MD (01/05/2019 11:14 AM) [id number]
[2019-01-05 11:39] LABS: CLARITY,URINE CLOUDY; COLOR,URINE YELLOW
[2019-01-05 11:40] LABS: BACTERIA,URINE MOD /HPF (0-FEW); BILIRUBIN,URINE NEG (NEG); GLUCOSE,URINE NEG (NEG); HYALINE CASTS, URINE FEW /HPF; NITRITE,URINE NEG (NEG); SQUAMOUS EPITHELIAL CELL,UR MANY /LPF; UROBILINOGEN,URINE 0.2 mg/dL (0.2 mg/dL)
[2019-01-05] MEDS ORDERED: ORPH-16 PO (11:56)
[2019-01-05] MEDS ORDERED: DICL50TA4 PO (11:56)
[2019-01-05 12:05] VITALS: BP 132/56
== END 2019-01-05 12:05 | disposition home or self-care (01) ==
LOC: ER 09:32
DX: G89.29 Other chronic pain (principal); M54.5 Low back pain; K21.9 Gastro-esophageal reflux disease without esophagitis; E78.00 Pure hypercholesterolemia, unspecified; G43.909 Migraine, unspecified, not intractable, without status migrainosus; Z87.442 Personal history of urinary calculi; Z90.49 Acquired absence of other specified parts of digestive tract; Z91.041 Radiographic dye allergy status; Z88.8 Allergy status to other drugs, medicaments and biological substances
CPT/HCPCS: 74176; 81001; 87086; 96372; 99285; J2270; J2360; Q0162

== ENCOUNTER → 2019-01-31 | Outpatient (CLI) | payer MEDICARE, OTHER ==
[2019-01-05 12:05] VITALS: BP 132/56
[~2019-01-31] MED LIST changes: +DICL50TA4 PO; +ORPH-16 PO
--- NOTE | 2019-01-31 16:52 | RAD ---
Examination: CT of the abdomen pelvis without contrast HISTORY: History of left lower quadrant abdominal pain, hemorrhage COMPARISON: 01/05/2019 TECHNIQUE: Axial CT images of the abdomen pelvis were performed without contrast. Coronal and sagittal reformats were performed. Exposure: One or more of the following individualized dose reduction techniques were utilized for this examination: 1. Automated exposure control 2. Adjustment of the mA and/or kV according to patient size 3. Use of iterative reconstruction technique FINDINGS: The bibasilar lungs are clear. No evidence of free air identified in the abdomen. The evaluation of the solid organs is limited due to lack of IV contrast. The evaluation of bowel is limited due to lack of oral contrast. The visualized noncontrasted liver, spleen, left adrenal grossly appears unremarkable. Fat containing density identified in the right adrenal is similar to prior exam. The stomach is mildly distended. The visualized pancreas grossly appears unremarkable. Cholecystectomy changes are identified. The small bowel is nondilated. Feces and gas noted in the colon. The distal portion of the rectum and anus would not internal images. Few sigmoid colon diverticulosis. Urinary bladder is mildly distended. No evidence of intrarenal collecting system calculi or hydronephrosis. Lumbar hardware identified at L3, L4, L5 vertebral levels. Moderate to severe degenerative changes thoracolumbar spine. IMPRESSION: 1. No acute intra-abdominal findings. 2. The anus, distal rectum are not included on the images Electronically signed by: Enrike Buckley MD (01/31/2019 4:49 PM) [id number]
== END | disposition home or self-care (01) ==
LOC: CT 16:10
PROVIDERS: ATTEND Family Medicine
DX: K57.30 Diverticulosis of large intestine without perforation or abscess without bleeding (principal); N32.89 Other specified disorders of bladder; M47.815 Spondylosis without myelopathy or radiculopathy, thoracolumbar region; N18.4 Chronic kidney disease, stage 4 (severe); K62.5 Hemorrhage of anus and rectum; Z90.49 Acquired absence of other specified parts of digestive tract
CPT/HCPCS: 74176

== ENCOUNTER → 2019-04-15 | Outpatient (CLI) | payer MEDICARE, OTHER ==
[~2019-04-15] MED LIST changes: -GLIM1TAB3 PO; +GLIM1TAB7 PO
[2019-04-15 16:00] LABS: ALBUMIN 3.5 g/dL (3.4-5.0); CALCIUM 8.7 mg/dL (8.5-10.1); CREATININE 1.5 mg/dL (0.6-1.0); GFR 34.5; PHOSPHORUS 2.5 mg/dL (2.6-4.7); URIC ACID 4.7 mg/dL (2.6-6.0)
[2019-04-16 08:07] LABS: MICROALB RD UR 8.7 ug/mL (Not Estab.)
== END ==
LOC: LAB 14:57
PROVIDERS: ATTEND Internal Medicine Nephrology
DX: C50.112 Malignant neoplasm of central portion of left female breast (principal); E11.22 Type 2 diabetes mellitus with diabetic chronic kidney disease; I12.9 Hypertensive chronic kidney disease with stage 1 through stage 4 chronic kidney disease, or unspecified chronic kidney disease; N18.3 Chronic kidney disease, stage 3 (moderate); N17.9 Acute kidney failure, unspecified; Z68.41 Body mass index [BMI] 40.0-44.9, adult
CPT/HCPCS: 36415; 80069; 82043; 82570; 84550

== ENCOUNTER 2019-12-19 14:18 | Emergency (ER) | payer MEDICARE, OTHER ==
[~2019-12-19] VITALS: Ht 172.7 cm; Wt 139.0 kg
--- NOTE | 2019-12-19 15:41 | PHYS DOC ---
Past History Past Medical History: Asthma, COPD, Diabetes, GERD, Seizure, Other Additional Past Medical Histor: MEMO, NEUROPATHY (MARGY COLE APRN) Past Surgical History: Knee Replacement, Other Additional Past Surgical Histo: SHOULDER SURGERY X 5, PLATES IN NECK, SPINAL CORD SURGERY (MARGY COLE APRN) Alcohol Use: None Drug Use: None (MARGY COLE APRN) Adult General Chief Complaint Chief Complaint: DIARRHEA HPI HPI Patient is a 69 year old female who presents with complaints of diarrhea over the past 3 days. Patient states that over the past 3 days she knows she gets some slight lower abdomen cramping and immediately has diarrhea which relieves her cramping. Patient states that this has been going on for 3 days. Patient states she has had 5 watery brown stools today. Patient denies seeing any blood in her stool. Patient states that her last normal BM was 4 days ago. Patient also states that she is due for her 600 mg of gabapentin and 50 mg of topiramate. Patient states that currently she has no pain to her abdomen and no discomfort to her abdomen, however states that when she does have some slight cramping she knows she needs to get to the bathroom because a diarrhea stool becoming soon. Patient states that there is only a moderate amount coming out. Patient denies any recent fever or chills, visual changes, nasal congestion cough or shortness of breath. Patient denies chest pain, swelling of her extremities, problems urinating, vaginal discharge, STI concerns, back pain, joint pain, or skin rashes. Patient states she denies any headaches, focal weaknesses, or sensory changes that are outside of her baseline. Patient's states she does not have any increased urination or increased thirst, denies swollen glands, depressions, anxieties, homicidal or suicidal ideations. Patient states that she was tested for the COVID-19 virus and she has negative, patient states she has no symptoms related to the COVID-19 virus other than diarrhea and does not wish to be tested for the COVID-19 virus today. (MARGY COLE APRN) Review of Systems Review of Systems Constitutional: Denies fever or chills Eyes: Denies change in visual acuity, redness, or eye pain HENT: Denies nasal congestion or sore throat Respiratory: Denies cough or shortness of breath Cardiovascular: Denies chest pains, edema, or swelling of her extremities. GI: Denies, nausea, vomiting, bloody stools complains of intermittent low abdomen cramping followed by a diarrhea episode. : Denies dysuria or hematuria [] Musculoskeletal: Denies back pain or joint pain [] Integument: Denies rash or skin lesions [] Neurologic: Denies headache, focal weakness or sensory changes [] Endocrine: Denies polyuria or polydipsia Psychiatric: Patient denies homicidal or suicidal ideations, patient denies recent depressions or anxieties. All other systems were reviewed and found to be within normal limits, except as documented in this note. (MARGY COLE APRN) Allergies Allergies Allergies Coded Allergies Type Severity Reaction Last Updated Verified Iodinated Contrast Media Allergy Severe 02/28/18 Yes iodine Allergy Severe Shortness of Air 02/28/18 No adhesive Allergy Intermediate 02/28/18 Yes (MARGY COLE APRN) Physical Exam Physical Exam Constitutional: Well developed, well nourished, no acute distress, non-toxic appearance. [] HENT: Normocephalic, atraumatic, bilateral external ears normal, oropharynx moist, no oral exudates, nose normal. [] Eyes: PERRLA, EOMI, conjunctiva normal, no discharge. [] Neck: Normal range of motion, no tenderness, supple, no stridor. [] Cardiovascular:Heart rate regular rhythm, no murmur [] Lungs & Thorax: Bilateral breath sounds clear to auscultation [] Abdomen: Bowel sounds normal, soft, no tenderness, no masses, no pulsatile masses. [] Skin: Warm, dry, no erythema, no rash. [] Back: No tenderness, no CVA tenderness. [] Extremities: No tenderness, no cyanosis, no clubbing, ROM intact, no edema. [] Neurologic: Alert and oriented X 3, normal motor function, normal sensory function, no focal deficits noted. [] Psychologic: Affect normal, judgement normal, mood normal. [] (MARGY COLE APRN) Current Patient Data Vital Signs Laboratory Tests Test 12/19/19 16:05 White Blood Count 12.0 x10^3/uL Red Blood Count 3.65 x10^6/uL Hemoglobin 10.7 g/dL Hematocrit 34.4 % Mean Corpuscular Volume 94 fL Mean Corpuscular Hemoglobin 29 pg Mean Corpuscular Hemoglobin Concent 31 g/dL Red Cell Distribution Width 15.5 % Platelet Count 275 x10^3/uL Neutrophils (%) (Auto) 71 % Lymphocytes (%) (Auto) 17 % Monocytes (%) (Auto) 7 % Eosinophils (%) (Auto) 5 % Basophils (%) (Auto) 1 % Neutrophils # (Auto) 8.5 x10^3uL Lymphocytes # (Auto) 2.0 x10^3/uL Monocytes # (Auto) 0.8 x10^3/uL Eosinophils # (Auto) 0.6 x10^3/uL Basophils # (Auto) 0.1 x10^3/uL Sodium Level 140 mmol/L Potassium Level 4.7 mmol/L Chloride Level 107 mmol/L Carbon Dioxide Level 27 mmol/L Anion Gap 6 Blood Urea Nitrogen 30 mg/dL Creatinine 1.5 mg/dL Estimated GFR (Cockcroft-Gault) 34.4 BUN/Creatinine Ratio 20 Glucose Level 107 mg/dL Calcium Level 9.6 mg/dL Total Bilirubin 0.1 mg/dL Aspartate Amino Transf (AST/SGOT) 14 U/L Alanine Aminotransferase (ALT/SGPT) 15 U/L Alkaline Phosphatase 95 U/L Total Protein 7.5 g/dL Albumin 3.4 g/dL Albumin/Globulin Ratio 0.8 Current Medications Medications (Trade) Dose Ordered Sig/Jeison Route PRN Reason Start Time Stop Time Status Last Admin Dose Admin Fentanyl Citrate (Fentanyl 2ml Vial) 50 mcg 1X ONCE IVP 12/19/19 15:45 12/19/19 15:50 DC 12/19/19 16:04 Topiramate (Topamax) 50 mg 1X ONCE PO 12/19/19 15:45 12/19/19 15:50 DC 12/19/19 15:57 Gabapentin (Neurontin) 600 mg 1X ONCE PO 12/19/19 15:45 12/19/19 15:50 DC 12/19/19 15:57 Sodium Chloride 1,000 ml @ 1,000 mls/hr 1X ONCE IV 12/19/19 16:00 12/19/19 16:59 DC 12/19/19 16:04 Vital Signs Date Time Temp Pulse Resp B/P (MAP) Pulse Ox O2 Delivery O2 Flow Rate FiO2 12/19/19 14:46 97.5 82 18 147/45 (79) 94 Room Air (MARGY COLE APRN) EKG EKG [] (MARGY COLE APRN) Radiology/Procedures Radiology/Procedures [] (MARGY COLE APRN) Heart Score Risk Factors: Risk Factors: DM, Current or recent (<one month) smoker, HTN, HLP, family history of CAD, obesity. Risk Scores: Risk Factors: DM, Current or recent (<one month) smoker, HTN, HLP, family history of CAD, obesity. (MARGY COLE APRN) Course & Med Decision Making Course & Med Decision Making Pertinent Labs and Imaging studies reviewed. (See chart for details) 69-year-old female reports emergency department with complaints of diarrhea over the past 3 days. Patient states that she gets some slight cramping in her low abdomen and then a stool comes. Patient reports she had 3 bouts of diarrhea today reporting that it was brown and watery, a moderate amount. Patient denies seeing any blood in her stools. Physical examination was equivocal, the patient's vital signs were stable, labs were ordered, 50 mcg of fentanyl was given related to patient states she starting to feel some slight cramping return. A liter of normal saline was given. Labs were equivocal, her white blood cell count was 12.0. Upon reexamination the patient felt much better, st ated she was pain-free. Patient did not have any diarrhea episodes during her ER stay. The the patient's primary physician is Dr. Robison, Dr. Lamar was consulted and case was reviewed with him, Dr. Lamar recommended that she not be started on any antibiotics at this time and to have her see him in his office either tomorrow or the next morning. Discussed with patient Dr. Robison's recommendations, patient will be given a prescription for Imodium for her diarrhea episodes, patient gave verbal understanding of discharge instructions, follow-up with Dr. Robison instructions, return to ER concerns, had no further questions or concerns, patient discharged home without incident. (MARGY COLE APRN) Course & Med Decision Making I have reviewed the PA/BOARD CERTIFIED BEHAVIORAL ANALYST's note and plan of care. I was available for consultation as needed during the patient's visit in the emergency department. I agree with the clinical impression, plan, and disposition. Patient's primary care physician contacted, patient will be able to be seen within upcoming 72 hours which I feel is appropriate. No recurrence of diarrhea this visit, low suspicion for C. difficile or other concerning conditions at this time Patient has good home support, she is hemodynamically stable and nontoxic- appearing, I feel she is stable for DC home with continued supportive care advised (THERESE DE LA O DO) Dragon Disclaimer Dragon Disclaimer This electronic medical record was generated, in whole or in part, using a voice recognition dictation system. (MARGY COLE APRN) Departure Departure: Impression: Primary Impression: Diarrhea Disposition: DC HOME SELF CARE/HOMELESS Condition: STABLE Referrals: WENDI ROBISON MD (PCP) Patient Instructions: Diarrhea Additional Instructions: Take Imodium for your diarrhea as directed, I spoke with Dr. Robison on the phone and he wants to see you early this week if you are not feeling better soon. Return to the emergency department for worsening symptoms or further concerns. Scripts Loperamide HCl (Imodium A-D) 2 Mg Capsule 2 MG PO DIRECTED for DIARRHEA, #10 CAP TAKE 2 TABLETS NOW, THE ONE TABLET BY MOUTH AFTER EACH DIARRHEA STOOL, MAXIMUM OF 4 TABLETS IN 24 HOURS. Prov: MARGY COLE APRN 12/19/19 Problem Qualifiers Primary Impression: Diarrhea Diarrhea type: unspecified type Qualified Codes: R19.7 - Diarrhea, unspecified MARGY COLE APRN Dec 19, 2019 15:41 THERESE DE LA O DO Dec 20, 2019 06:36
[2019-12-19] MEDS ORDERED: TOPIRAMATE 25 MG TABLET. PO ONE (15:45)
[2019-12-19] MEDS ORDERED: GABAPENTIN 100 MG CAPSULE. PO ONE (15:45)
[2019-12-19] MEDS ORDERED: IV NORMAL SALINE 1,000ML 1,000 ML IV ONE (16:00)
[2019-12-19 16:19] LABS: BASO # 0.1 x10^3/uL (0.0-0.2); BASO % 1 % (0-3); EOS # 0.6 x10^3/uL (0.0-0.7); EOS % 5 % (0-3); HEMATOCRIT 34.4 % (36.0-47.0); HEMOGLOBIN 10.7 g/dL (12.0-15.5); LYMPH % 17 % (24-48); MEAN CORPUSCULAR HEMOGLOBIN 29 pg (25-35); MEAN CORPUSCULAR HGB CONC 31 g/dL (31-37); MEAN CORPUSCULAR VOLUME 94 fL (79-100); MONO # 0.8 x10^3/uL (0.0-1.1); MONO % 7 % (0-9); NEUT # 8.5 x10^3uL (1.8-7.7); NEUT % 71 % (31-73); PLATELET COUNT 275 x10^3/uL (140-400); RED BLOOD COUNT 3.65 x10^6/uL (3.50-5.40); RED CELL DISTRIBUTION WIDTH 15.5 % (11.5-14.5)
[2019-12-19 16:31] LABS: CALCIUM 9.6 mg/dL (8.5-10.1); CREATININE 1.5 mg/dL (0.6-1.0); GFR 34.4; POTASSIUM 4.7 mmol/L (3.5-5.1)
[2019-12-19 16:36] LABS: ALBUMIN 3.4 g/dL (3.4-5.0); ALBUMIN/GLOBULIN RATIO 0.8 (1.0-1.7); TOTAL BILIRUBIN 0.1 mg/dL (0.2-1.0); TOTAL PROTEIN 7.5 g/dL (6.4-8.2)
[2019-12-19 17:15] VITALS: BP 132/65
[2019-12-19] MEDS ORDERED: LOPE-101 PO (17:26)
== END 2019-12-19 17:36 | disposition home or self-care (01) ==
LOC: ER 14:18
DX: R19.7 Diarrhea, unspecified (principal); R10.30 Lower abdominal pain, unspecified; J44.9 Chronic obstructive pulmonary disease, unspecified; K21.9 Gastro-esophageal reflux disease without esophagitis; E11.40 Type 2 diabetes mellitus with diabetic neuropathy, unspecified; Z88.8 Allergy status to other drugs, medicaments and biological substances
CPT/HCPCS: 36415; 80053; 85025; 96361; 96374; 99283; J3010; J7030

== ENCOUNTER 2019-12-23 11:37 | Emergency (ER) | payer MEDICARE, OTHER ==
[~2019-12-23] VITALS: Ht 172.7 cm; Wt 140.0 kg
[~2019-12-23 11:37] MED LIST changes: +LOPE-101 PO
[2019-12-23] MEDS ORDERED: IV NORMAL SALINE 500ML 500 ML IV ONE (12:00)
--- NOTE | 2019-12-23 12:01 | PHYS DOC ---
Past History Past Medical History: Asthma, COPD, Diabetes, GERD, Seizure, Other Additional Past Medical Histor: MEMO, NEUROPATHY Past Surgical History: Knee Replacement, Other Additional Past Surgical Histo: SHOULDER SURGERY X 5, PLATES IN NECK, SPINAL CORD SURGERY Alcohol Use: None Drug Use: None General Adult EDM: Chief Complaint: MECHANICAL FALL HPI: HPI: Patient is a 60 has active was on the commode and went to stand up and fell forward, does not remember the fall but does not think she hit her head. She hit her left upper arm or shoulder on the door frame. Unable to get up afterwards. Was seen here 2 days ago for weakness and diarrhea. Patient has had very little p.o. intake in the past 5 days. She is unsure if she had a syncopal episode or if it was mechanical in nature, patient states she has been moving and has lots of boxes coming from the floor. Review of Systems: Review of Systems: Constitutional: Denies fever or chills Eyes: Denies change in visual acuity HENT: Denies nasal congestion or sore throat Respiratory: Denies cough or shortness of breath Cardiovascular: Denies chest pain or edema GI: Denies abdominal pain, nausea, vomiting, bloody stools or diarrhea : Denies dysuria Musculoskeletal: Denies back pain or joint pain, complaining of pain to left upper arm Integument: Denies rash Neurologic: Denies headache, focal weakness or sensory changes Endocrine: Denies polyuria or polydipsia Lymphatic: Denies swollen glands Psychiatric: Denies depression or anxiety Current Medications: Current Meds: Current Medications Medications (Trade) Dose Ordered Sig/Jeison Start Time Stop Time Status Last Admin Dose Admin Fentanyl Citrate (Fentanyl 2ml Vial) 75 mcg 1X ONCE 12/23/19 12:00 12/23/19 12:01 Sodium Chloride 500 ml @ 0 mls/hr 1X ONCE 12/23/19 12:00 12/23/19 12:01 Allergies: Allergies: Allergies Coded Allergies Type Severity Reaction Last Updated Verified Iodinated Contrast Media Allergy Severe 12/23/19 Yes iodine Allergy Severe Shortness of Air 12/23/19 No adhesive Allergy Intermediate 12/23/19 Yes Physical Exam: PE: Constitutional: Well developed, well nourished, moderate acute distress, non- toxic appearance. [] HENT: Normocephalic, atraumatic, bilateral external ears normal, oropharynx moist, no oral exudates, nose normal. [] Eyes: PERRLA, EOMI, conjunctiva normal, no discharge. [] Neck: Normal range of motion, no tenderness, supple, no stridor. [] No C-spine tenderness Cardiovascular:Heart rate regular rhythm, no murmur [] Lungs & Thorax: Bilateral breath sounds clear to auscultation [] Abdomen: Bowel sounds normal, soft, no tenderness, no masses, no pulsatile masses. [] Skin: Warm, dry, no erythema, no rash. [] Back: No tenderness, no CVA tenderness. [] Extremities: No tenderness, no cyanosis, no clubbing, ROM intact, no edema. [] Tenderness and swelling over left dorsal upper arm Neurologic: Alert and oriented X 3, normal motor function, normal sensory function, no focal deficits noted. [] Psychologic: Affect normal, judgement normal, mood normal. [] Current Patient Data: Vital Signs: Vital Signs Date Time Temp Pulse Resp B/P (MAP) Pulse Ox O2 Delivery O2 Flow Rate FiO2 12/23/19 11:37 98.1 66 16 155/58 (90) 91 Room Air EKG: EKG: [] Radiology/Procedures: Radiology/Procedures: EXAM: HUMERUS LEFT 12/23/2019 11:46 AM CLINICAL INDICATION:Fall COMPARISON:None TECHNIQUE:2 views of the left humerus FINDINGS:There is a reverse left total shoulder prosthesis. No evidence of loosening of the humeral component. No acute fracture or dislocation of the humerus. IMPRESSION:No acute osseous abnormality of the humerus. Reverse left total shoulder prosthesis noted. [] Exam: Left shoulder 3 views INDICATION: Fall TECHNIQUE: Frontal view of the left shoulder with internal and external rotation and transscapular Y views Comparisons: None FINDINGS: There is a reverse left shoulder arthroplasty which appears well seated and well aligned. No acute fractures identified. Soft tissues are unremarkable. Joint spaces are well-maintained. IMPRESSION: Left shoulder arthroplasty without acute fractures seen. Heart Score: Risk Factors: Risk Factors: DM, Current or recent (<one month) smoker, HTN, HLP, family history of CAD, obesity. Risk Scores: Score 0 - 3: 2.5% MACE over next 6 weeks - Discharge Home Score 4 - 6: 20.3% MACE over next 6 weeks - Admit for Clinical Observation Score 7 - 10: 72.7% MACE over next 6 weeks - Early Invasive Strategies Course & Med Decision Making: Course & Med Decision Making Pertinent Labs and Imaging studies reviewed. (See chart for details) No acute fracture on finding humerus shoulder but patient still complaining of pain, like to be admitted. Discussed there is no indication for admission there was a fracture. Placed in a sling instructed to use ice and rest. Has a history orthopedic surgeon already and will follow up with him in the morning. Monitor corrections for possible widening of the AC space and will treat accordingly [] Dragon Disclaimer: Dragnellie Disclaimer: This electronic medical record was generated, in whole or in part, using a voice recognition dictation system. Departure Departure: Impression: Primary Impression: Fall Additional Impression: Injury of left shoulder Disposition: 01 DC HOME SELF CARE/HOMELESS Referrals: WENDI ROBISON MD (PCP) [facility] Patient Instructions: RICE - Routine Care for Injuries, [id number] Scripts Hydrocodone Bit/Acetaminophen (NORCO 5-325 TABLET) 1 Each Tablet 1 TAB PO PRN Q6HRS PRN for PAIN for 4 Days, #15 TAB 0 Refills Prov: KURTIS HAMEED MD 12/23/19 KURTIS HAMEED MD Dec 23, 2019 12:01
[2019-12-23 12:38] LABS: CREATININE 1.8 mg/dL (0.6-1.0); GFR 27.9; POTASSIUM 4.1 mmol/L (3.5-5.1)
[2019-12-23 12:44] LABS: BASO # 0.1 x10^3/uL (0.0-0.2); BASO % 1 % (0-3); EOS # 0.6 x10^3/uL (0.0-0.7); EOS % 6 % (0-3); HEMATOCRIT 34.5 % (36.0-47.0); LYMPH # 1.3 x10^3/uL (1.0-4.8); LYMPH % 14 % (24-48); MEAN CORPUSCULAR HEMOGLOBIN 30 pg (25-35); MEAN CORPUSCULAR HGB CONC 32 g/dL (31-37); MEAN CORPUSCULAR VOLUME 94 fL (79-100); MONO # 0.6 x10^3/uL (0.0-1.1); MONO % 7 % (0-9); NEUT # 6.8 x10^3uL (1.8-7.7); NEUT % 73 % (31-73); PLATELET COUNT 263 x10^3/uL (140-400); RED BLOOD COUNT 3.66 x10^6/uL (3.50-5.40); RED CELL DISTRIBUTION WIDTH 15.6 % (11.5-14.5); WHITE BLOOD COUNT 9.3 x10^3/uL (4.0-11.0)
[2019-12-23 12:53] LABS: ALBUMIN 3.7 g/dL (3.4-5.0); ALBUMIN/GLOBULIN RATIO 1.1 (1.0-1.7); TOTAL BILIRUBIN 0.3 mg/dL (0.2-1.0)
--- NOTE | 2019-12-23 14:27 | RAD ---
EXAM: HUMERUS LEFT 12/23/2019 11:46 AM CLINICAL INDICATION:Fall COMPARISON:None TECHNIQUE:2 views of the left humerus FINDINGS:There is a reverse left total shoulder prosthesis. No evidence of loosening of the humeral component. No acute fracture or dislocation of the humerus. IMPRESSION:No acute osseous abnormality of the humerus. Reverse left total shoulder prosthesis noted. Electronically signed by: Tika Leon MD (12/23/2019 2:24 PM) [id number]
[2019-12-23] MEDS ORDERED: HYDROmorphone PF 1 MG/ML DISP.SYRIN IVP ONE (15:00)
[2019-12-23 17:00] VITALS: BP 119/72
--- NOTE | 2019-12-23 17:28 | RAD ---
Exam: Left shoulder 3 views INDICATION: Fall TECHNIQUE: Frontal view of the left shoulder with internal and external rotation and transscapular Y views Comparisons: None FINDINGS: There is a reverse left shoulder arthroplasty which appears well seated and well aligned. No acute fractures identified. Soft tissues are unremarkable. Joint spaces are well-maintained. IMPRESSION: Left shoulder arthroplasty without acute fractures seen. Electronically signed by: Dashawn Moreno MD (12/23/2019 5:25 PM) [id number]
[2019-12-23] MEDS ORDERED: HYDR-3165 PO (17:53)
== END 2019-12-23 18:05 | disposition home or self-care (01) ==
LOC: ER 11:37
DX: S49.92XA Unspecified injury of left shoulder and upper arm, initial encounter (principal); R53.1 Weakness; R19.7 Diarrhea, unspecified; J44.9 Chronic obstructive pulmonary disease, unspecified; K21.9 Gastro-esophageal reflux disease without esophagitis; E11.40 Type 2 diabetes mellitus with diabetic neuropathy, unspecified; Z88.8 Allergy status to other drugs, medicaments and biological substances; W18.39XA Other fall on same level, initial encounter; Y93.89 Activity, other specified; Y92.89 Other specified places as the place of occurrence of the external cause; Y99.8 Other external cause status
CPT/HCPCS: 36415; 73030; 73060; 80053; 83880; 84484; 85025; 96361; 96374; 96375; 99285; J1170; J3010; J7040

== ENCOUNTER 2020-01-29 15:39 | Inpatient (IN) | payer MEDICARE, OTHER ==
[~2020-01-29] VITALS: Ht 172.7 cm; Wt 145.8 kg
[~2020-01-29 15:39] MED LIST changes: +HYDR-3165 PO; +LISI10TA16 PO; -LISI10TA2 PO; -OMEP40CA45 PO; +OMEP40CA7 PO
--- NOTE | 2020-01-29 15:50 | PHYS DOC ---
Past History Past Medical History: Asthma, COPD, Diabetes, GERD, Seizure, Other Additional Past Medical Histor: MEMO, NEUROPATHY Past Surgical History: Knee Replacement, Other Additional Past Surgical Histo: SHOULDER SURGERY X 5, PLATES IN NECK, SPINAL CORD SURGERY Alcohol Use: None Drug Use: None Adult General Chief Complaint Chief Complaint: NEURO SYMPTOMS/DEFICITS HPI HPI Patient is a 69-year-old female who presents via EMS for slurred speech. Patient was at home and approximately 50 minutes prior to arrival at roughly 1450 hrs. patient exhibited slurred speech which was abnormal to her noticed by family members. They were concerned and subsequently called EMS for evaluation and transport to our facility. On arrival, patient was found to be hypoxic, 85% on room air. Patient typically does not required continuous supplemental oxygen but does admit using supplemental oxygen via CPAP when sleeping at night. Pat ient denies any major changes in health recently, no fever, no COVID-19 contact, no recent travel, no recent changes in baseline health, no medication changes. Denies any headache, vision changes, chest pain, shortness of breath, abdominal pain, nausea vomit diarrhea, urinary symptoms, no changes in motor or sensory function, no neurologic abnormalities. Of note, patient has known torn left bicep and rotator cuff and has left upper extremity motor weakness which is at baseline per patient Later in patient visit, family member provided additional history to nursing staff. They clarified that last known normal was actually yesterday evening. Patient was not with family members at all today, was with a friend who after prolonged time spent with patient was concern for ongoing dysarthria and was the one who ultimately called for EMS to come out and evaluate patient. Still, no known trauma or other concerning signs or symptoms Review of Systems Review of Systems Fourteen body systems of review of systems have been reviewed. See HPI for pertinent positives and negative responses, other reyes all other systems are negative, non-pertinent or non-contributory Allergies Allergies Allergies Coded Allergies Type Severity Reaction Last Updated Verified Iodinated Contrast Media Allergy Severe 12/23/19 Yes iodine Allergy Severe Shortness of Air 12/23/19 No adhesive Allergy Intermediate 12/23/19 Yes Physical Exam Physical Exam General: Appears well, non toxic, and comfortable. Morbidly obese Skin: Warm, dry. Normal for ethnicity. HEENT: Atraumatic. PERRLA. EOMI. Dry mucous membranes. Supplemental oxygen via nasal cannula in place Neck: Trachea midline. Normal ROM. Respiratory: Normal WOB. No tachypnea. Coarse breath sounds that are diminished in bilateral lungs due to body habitus, no obvious rhonchi or rails Cardiovascular: Regular rate and rhythm. Normal peripheral perfusion. No edema. Abdomen: Soft. Non tender. No distension. Back: Normal ROM. Musculoskeletal: No swelling. Chronic deformity to left upper extremity consistent with torn left bicep Neuro: Alert and oriented x 4. MAEE. GCS 15. Normal FNF. Negative pronator drift. Normal heel to beltrán. Normal Sanchez. CN II-XII intact. Normal strength and sensation. Slurred speech with onset 50 minutes prior to arrival, not normal per patient nor family who called EMS. Downward going toes bilaterally Psych: Normal affect and mood. Current Patient Data Vital Signs Vital Signs Date Time Temp Pulse Resp B/P (MAP) Pulse Ox O2 Delivery O2 Flow Rate FiO2 01/29/20 15:40 98.0 87 20 148/64 (92) 85 Room Air Lab Results Laboratory Tests Test 01/29/20 15:54 01/29/20 16:01 01/29/20 16:36 White Blood Count 18.2 x10^3/uL (4.0-11.0) Red Blood Count 3.76 x10^6/uL (3.50-5.40) Hemoglobin 11.0 g/dL (12.0-15.5) Hematocrit 35.5 % (36.0-47.0) Mean Corpuscular Volume 95 fL (79-100) Mean Corpuscular Hemoglobin 29 pg (25-35) Mean Corpuscular Hemoglobin Concent 31 g/dL (31-37) Red Cell Distribution Width 15.5 % (11.5-14.5) Platelet Count 282 x10^3/uL (140-400) Neutrophils (%) (Auto) 87 % (31-73) Lymphocytes (%) (Auto) 7 % (24-48) Monocytes (%) (Auto) 5 % (0-9) Eosinophils (%) (Auto) 1 % (0-3) Basophils (%) (Auto) 1 % (0-3) Neutrophils # (Auto) 15.8 x10^3uL (1.8-7.7) Lymphocytes # (Auto) 1.2 x10^3/uL (1.0-4.8) Monocytes # (Auto) 0.9 x10^3/uL (0.0-1.1) Eosinophils # (Auto) 0.1 x10^3/uL (0.0-0.7) Basophils # (Auto) 0.1 x10^3/uL (0.0-0.2) Segmented Neutrophils % 79 % (35-66) Band Neutrophils % 7 % (0-9) Lymphocytes % 6 % (24-48) Monocytes % 6 % (0-10) Basophils % 1 % (0-3) Other Cells % 1 % (0-0) Toxic Granulation Present Toxic Vacuolation Present Platelet Estimate Adequate (ADEQUATE) Large Platelets Occ Polychromasia Present Prothrombin Time 11.1 SEC (9.4-11.4) Prothromb Time International Ratio 1.1 (0.9-1.1) Activated Partial Thromboplast Time 28 SEC (23-33) Sodium Level 142 mmol/L (136-145) Potassium Level 4.5 mmol/L (3.5-5.1) Chloride Level 108 mmol/L (98-107) Carbon Dioxide Level 25 mmol/L (21-32) Anion Gap 9 (6-14) Blood Urea Nitrogen 44 mg/dL (7-20) Creatinine 2.5 mg/dL (0.6-1.0) Estimated GFR (Cockcroft-Gault) 19.1 BUN/Creatinine Ratio 18 (6-20) Glucose Level 176 mg/dL (70-99) Lactic Acid Level 2.9 mmol/L (0.4-2.0) Calcium Level 9.9 mg/dL (8.5-10.1) Total Bilirubin 0.3 mg/dL (0.2-1.0) Aspartate Amino Transf (AST/SGOT) 42 U/L (15-37) Alanine Aminotransferase (ALT/SGPT) 20 U/L (14-59) Alkaline Phosphatase 117 U/L (46-116) Troponin I Quantitative < 0.017 ng/mL (0-0.055) Total Protein 7.9 g/dL (6.4-8.2) Albumin 3.5 g/dL (3.4-5.0) Albumin/Globulin Ratio 0.8 (1.0-1.7) Bedside Venous pH 7.20 (7.32-7.42) Bedside Venous pCO2 58 mmHg (41-51) Bedside Venous pO2 47 mmHg (20-40) Venous Blood HCO3 23 mmol/L (24-28) POC Venous O2 Saturation (Lanre) 72 % Bedside FiO2 100 Urine Collection Type Unknown Urine Color Keren Urine Clarity Hazy Urine pH 5.0 Urine Specific Flora 1.025 Urine Protein Neg (NEG-TRACE) Urine Glucose (UA) Neg mg/dL (NEG) Urine Ketones (Stick) Neg mg/dL (NEG) Urine Blood Neg (NEG) Urine Nitrite Neg (NEG) Urine Bilirubin Neg (NEG) Urine Urobilinogen Dipstick 0.2 mg/dL (0.2 mg/dL) Urine Leukocyte Esterase Neg (NEG) Urine RBC 1-2 /HPF (0-2) Urine WBC 1-4 /HPF (0-4) Urine Squamous Epithelial Cells Occ /LPF Urine Amorphous Sediment Present /HPF Urine Bacteria Few /HPF (0-FEW) Urine Opiates Screen Pos (NEG) Urine Methadone Screen Neg (NEG) Urine Barbiturates Neg (NEG) Urine Phencyclidine Screen Neg (NEG) Urine Amphetamine/Methamphetamine Neg (NEG) Urine Benzodiazepines Screen Neg (NEG) Urine Cocaine Screen Neg (NEG) Urine Cannabinoids Screen Neg (NEG) Urine Ethyl Alcohol Neg (NEG) EKG EKG EKG ordered and interpreted by myself at 1557 hrs. as sinus rhythm at 79 bpm, unremarkable intervals, no axis deviation, no ischemic findings, no STEMI Radiology/Procedures Radiology/Procedures EXAM: CT Head without IV contrast INDICATION: Reason: SLURRED SPEECH / Spl. Instructions: / History: TECHNIQUE: Multi-detector row CT images were obtained of the head without the use of IV contrast. All CT scans performed at this facility utilize dose optimization techniques as appropriate to the exam, including the following: Automated exposure control and adjustment of the mA and/or KV according to p atient size (this includes techniques or standardized protocols for targeted exams where dose is indication/reason for exam). COMPARISON: Noncontrast head CT 07/15/2018 FINDINGS: BRAIN PARENCHYMA: No evidence of acute intraparenchymal hemorrhage or infarct. Mild generalized parenchymal volume loss and white matter low density compatible chronic ischemic microvascular change is present. VENTRICLES & EXTRA-AXIAL SPACES: Ventricles are within normal limits. Basilar cisterns are patent. No pathologic extra-axial fluid collection or mass. ORBITS: Orbital contents are unremarkable. SINUSES: Visualized paranasal sinuses and mastoid air cells are clear. OSSEOUS & SOFT TISSUES: Calvarium and skull base are intact. IMPRESSION: No evidence for acute intracranial process. Exam: Chest one view INDICATION: Code stroke TECHNIQUE: Frontal view of the chest Comparisons: None FINDINGS: The cardiomediastinal silhouette and pulmonary vessels are within normal limits. Hazy opacity at the lungs bilaterally. No pleural effusion. IMPRESSION: Findings likely related to mild pulmonary edema. Electronically signed by: Dashawn Moreno MD (01/29/2020 5:26 PM) [facility] Heart Score HEART Score for Chest Pain: HEART Score for Chest Pain Response (Comments) Value History Slighlty/Non-Suspicious 0 ECG Normal 0 Age > 65 2 Risk Factors >3 Risk Factors or Hx CAD 2 Troponin < Normal Limit 0 Total 4 Risk Factors: Risk Factors: DM, Current or recent (<one month) smoker, HTN, HLP, family history of CAD, obesity. Risk Scores: Risk Factors: DM, Current or recent (<one month) smoker, HTN, HLP, family history of CAD, obesity. Course & Med Decision Making Course & Med Decision Making Pertinent Labs and Imaging studies reviewed. (See chart for details) Discussed most likely diagnosis with patient of dysarthria of unknown cause, pulmonary edema which is likely causing patient's acute respiratory failure, and seizure that was observed while in ER and responded to 2 mg IV Ativan Given that patient is continuing to require supplemental oxygen in fact that she lives home alone, patient will require admission for further medical management and likely discussion about placement for higher acuity of care on discharge home Dr. Bucio, neurology, contacted and case discussed. No indication for TPA. No indication for MRI at present. Patient well-known to neurologist,he sees her in outpatient setting. He recommended admission for continued neuro checks, seizure precautions and he will see her in the morning Patient's primary care physician who will also serve as hospitalist at [facility] called and case discussed, he agreed to admission for further inpatient medical care and rehabilitation with placement as indicated Patient and family member present were updated on proposed plan of care and they were amenable. All questions and concerns addressed prior to ER transport to [facility] for further inpatient management Critical Care Time This patient required critical care. Due to the fact that the patient required a significant amount of one on one physician - patient contact time, ordering and review of studies, arranging urgent treatment with development of a management plan, evaluation of patients response to treatment with frequent reassessments, and discussions with other providers this patient required critical care time in excess of 30 minutes. Critical care time was indicated due to the inherent instability and/or potential for instability in this patient. The critical care time that is allocated to this patient is above and beyond any time spent on any other billable procedures performed on this patient. Dragon Disclaimer Dragon Disclaimer This electronic medical record was generated, in whole or in part, using a voice recognition dictation system. NIH Stroke Scale: NIH Stroke Scale Response (Comments) Value Level of Consciousness: 0 Alert/Responsive 0 LOC Questions: 0 Answers both correctly 0 LOC Commands: 0 Performs both tasks 0 Best Gaze: 0 Normal 0 Visual: 0 No visual loss 0 Facial Palsy: 0 Normal, symmetrical 0 Motor - Left Arm 2 Some effort 2 Motor - Right Arm 0 No drift 0 Motor - Left Leg 0 No drift 0 Motor: Right Leg 0 No drift 0 Limb Ataxia: 0 Absent 0 Sensory: 0 No loss 0 Best Language: 0 Normal 0 Dysathria: 1 Mild to moderate 1 Extinction and Inattention: 0 Normal 0 Total 3 Departure Departure: Impression: Primary Impression: Dysarthria Additional Impressions: Acute respiratory failure with hypoxia and hypercapnia Seizure Disposition: 01 DC HOME SELF CARE/HOMELESS Admitting Physician: Jose Raul Robison Condition: STABLE Referrals: JOSE RAUL ROBISON MD (PCP) Problem Qualifiers THERESE DE LA O DO Jan 29, 2020 15:50
[2020-01-29 16:15] LABS: BASO # 0.1 x10^3/uL (0.0-0.2); BASO % 1 % (0-3); EOS # 0.1 x10^3/uL (0.0-0.7); EOS % 1 % (0-3); HEMATOCRIT 35.5 % (36.0-47.0); LYMPH # 1.2 x10^3/uL (1.0-4.8); LYMPH % 7 % (24-48); MEAN CORPUSCULAR HEMOGLOBIN 29 pg (25-35); MEAN CORPUSCULAR HGB CONC 31 g/dL (31-37); MEAN CORPUSCULAR VOLUME 95 fL (79-100); MONO # 0.9 x10^3/uL (0.0-1.1); MONO % 5 % (0-9); NEUT # 15.8 x10^3uL (1.8-7.7); NEUT % 87 % (31-73); PLATELET COUNT 282 x10^3/uL (140-400); RED BLOOD COUNT 3.76 x10^6/uL (3.50-5.40); RED CELL DISTRIBUTION WIDTH 15.5 % (11.5-14.5); WHITE BLOOD COUNT 18.2 x10^3/uL (4.0-11.0)
[2020-01-29] MEDS ORDERED: IV NORMAL SALINE 1,000ML 1,000 ML IV ONE (16:15)
--- NOTE | 2020-01-29 16:16 | RAD ---
EXAM: CT Head without IV contrast INDICATION: Reason: SLURRED SPEECH / Spl. Instructions: / History: TECHNIQUE: Multi-detector row CT images were obtained of the head without the use of IV contrast. All CT scans performed at this facility utilize dose optimization techniques as appropriate to the exam, including the following: Automated exposure control and adjustment of the mA and/or KV according to patient size (this includes techniques or standardized protocols for targeted exams where dose is ind ication/reason for exam). COMPARISON: Noncontrast head CT 07/15/2018 FINDINGS: BRAIN PARENCHYMA: No evidence of acute intraparenchymal hemorrhage or infarct. Mild generalized paren chymal volume loss and white matter low density compatible chronic ischemic microvascular change is p resent. VENTRICLES & EXTRA-AXIAL SPACES: Ventricles are within normal limits. Basilar cisterns are patent. N o pathologic extra-axial fluid collection or mass. ORBITS: Orbital contents are unremarkable. SINUSES: Visualized paranasal sinuses and mastoid air cells are clear. OSSEOUS & SOFT TISSUES: Calvarium and skull base are intact. IMPRESSION: No evidence for acute intracranial process. FOR INTERNAL CODING PURPOSES Critical result: Findings discussed with Leighton Mederos at 01/29/2020 4:14 PM. RESULT CODE: (C) Electronically signed by: Celia Coleman MD (01/29/2020 4:14 PM) [id number]
[2020-01-29 16:23] LABS: CALCIUM 9.9 mg/dL (8.5-10.1); CREATININE 2.5 mg/dL (0.6-1.0); GFR 19.1; POTASSIUM 4.5 mmol/L (3.5-5.1)
--- NOTE | 2020-01-29 16:24 | EKG ---
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
[2020-01-29 16:30] LABS: ALBUMIN 3.5 g/dL (3.4-5.0); ALBUMIN/GLOBULIN RATIO 0.8 (1.0-1.7); TOTAL BILIRUBIN 0.3 mg/dL (0.2-1.0); TOTAL PROTEIN 7.9 g/dL (6.4-8.2)
[2020-01-29 17:06] LABS: BACTERIA,URINE FEW /HPF (0-FEW); BILIRUBIN,URINE NEG (NEG); CLARITY,URINE HAZY; COLOR,URINE AMBER; GLUCOSE,URINE NEG (NEG); NITRITE,URINE NEG (NEG); UROBILINOGEN,URINE 0.2 mg/dL (0.2 mg/dL)
[2020-01-29 17:07] LABS: AMORPHOUS SEDIMENT,UR PRESENT /HPF; SQUAMOUS EPITHELIAL CELL,UR OCC /LPF
[2020-01-29 17:09] LABS: AMPHETAMINE/METHAMPHETAMINE NEG (NEG); BARBITURATES NEG (NEG); BENZODIAZEPINES NEG (NEG); CANNABINOIDS NEG (NEG); COCAINE NEG (NEG); METHADONE NEG (NEG); OPIATES POS (NEG); PHENCYCLIDINE NEG (NEG)
[2020-01-29 17:18] LABS: % BANDS 7 % (0-9); % BASOS 1 % (0-3); % LYMPHS 6 % (24-48); % MONOS 6 % (0-10); % OTHERS 1 % (0-0); % SEGS 79 % (35-66); PLT ESTIMATE ADEQUATE (ADEQUATE); POLYCHROMASIA PRESENT
[2020-01-29 17:19] LABS: TOXIC GRANULATION PRESENT; TOXIC VACUOLATION PRESENT
--- NOTE | 2020-01-29 17:28 | RAD ---
Exam: Chest one view INDICATION: Code stroke TECHNIQUE: Frontal view of the chest Comparisons: None FINDINGS: The cardiomediastinal silhouette and pulmonary vessels are within normal limits. Hazy opacity at the lungs bilaterally. No pleural effusion. IMPRESSION: Findings likely related to mild pulmonary edema. Electronically signed by: Dashawn Moreno MD (01/29/2020 5:26 PM) [facility]
[2020-01-29 18:46] VITALS: BP 102/67
[2020-01-29] MEDS ORDERED: LOPERAMIDE 2 MG CAPSULE PO PRN (19:15)
[2020-01-29] MEDS ORDERED: NON FORMULARY ITEM (Diclofenac Sodium 1 TAB) PO PRN (19:15)
[2020-01-29] MEDS ORDERED: HYDROcodone/APAP 5/325MG 1 TAB TABLET PO PRN (19:15)
[2020-01-29] MEDS ORDERED: ALBUTEROL SULFATE 2.5 MG/3 ML NEBU. INH PRN (19:15)
[2020-01-29] MEDS ORDERED: traMADol 50 MG TABLET PO PRN (19:15)
[2020-01-29] MEDS ORDERED: FLUTICASONE 50MCG/NASAL SPRAY 16GM BOTTLE. NS PRN (19:15)
[2020-01-29] MEDS ORDERED: GABAPENTIN 300 MG CAPSULE. PO SCH (21:00)
[2020-01-29] MEDS ORDERED: CYCLOBENZAPRINE 10 MG TABLET. PO SCH (21:00)
[2020-01-29] MEDS: diphenhydrAMINE HCL 25 MG CAPSULE PO SCH (21:00)
[2020-01-29] MEDS ORDERED: TOPIRAMATE PO SCH (21:00)
[2020-01-29] MEDS ORDERED: NON FORMULARY ITEM (Ipratropium/Albuterol Sulfate (Combivent Respimat Inhal) 2 PUFF) INH SCH (21:00)
[2020-01-29] MEDS: AZELASTINE NASAL SPRAY 30ML BOTTLE. NS SCH (21:00)
[2020-01-29] MEDS ORDERED: CYCLOBENZAPRINE 10 MG TABLET. PO PRN (21:15)
[2020-01-29] MEDS: ATORVASTATIN CALCIUM 20 MG TABLET PO SCH (22:00)
[2020-01-29] MEDS ORDERED: oxyCODONE/APAP 10/325 1 TAB TABLET PO PRN (22:15)
[2020-01-29] MEDS ORDERED: GABA-586 PO (22:39)
[2020-01-29] MEDS ORDERED: CALC-495 PO (22:39)
[2020-01-29] MEDS ORDERED: OXYC1TAB22 PO (22:39)
[2020-01-29] MEDS ORDERED: CETIRIZINE HCL 10 MG TABLET PO PRN (22:45)
[2020-01-30 00:09] VITALS: BP 102/53
[2020-01-30 05:40] VITALS: BP 145/49
[2020-01-30 07:04] LABS: BASO # 0.1 x10^3/uL (0.0-0.2); BASO % 1 % (0-3); EOS # 0.5 x10^3/uL (0.0-0.7); EOS % 4 % (0-3); HEMOGLOBIN 9.8 g/dL (12.0-15.5); LYMPH # 1.6 x10^3/uL (1.0-4.8); LYMPH % 11 % (24-48); MEAN CORPUSCULAR HEMOGLOBIN 29 pg (25-35); MEAN CORPUSCULAR HGB CONC 31 g/dL (31-37); MEAN CORPUSCULAR VOLUME 94 fL (79-100); MONO # 0.8 x10^3/uL (0.0-1.1); MONO % 6 % (0-9); NEUT % 78 % (31-73); PLATELET COUNT 261 x10^3/uL (140-400); RED BLOOD COUNT 3.39 x10^6/uL (3.50-5.40); RED CELL DISTRIBUTION WIDTH 15.6 % (11.5-14.5)
[2020-01-30 07:18] LABS: CALCIUM 8.6 mg/dL (8.5-10.1); CREATININE 1.9 mg/dL (0.6-1.0); GFR 26.2; POTASSIUM 4.4 mmol/L (3.5-5.1)
[2020-01-30] MEDS: BUDESONIDE 0.5 MG/2 ML NEBU NEB SCH ×2 (08:00→20:00)
[2020-01-30] MEDS: IPRATRPIUM/ALBUTEROL 0.5/2.5MG 3 ML NEBU. NEB SCH ×4 (08:00→20:00)
[2020-01-30] MEDS ORDERED: CETIRIZINE HCL 10 MG TABLET PO SCH (09:00)
[2020-01-30] MEDS ORDERED: NON FORMULARY ITEM (Budesonide/Formoterol Fumarate (Symbicort 160-4.5 Mcg Inhaler) 1 PUFF) IH SCH (09:00)
[2020-01-30] MEDS ORDERED: NON FORMULARY ITEM (Lisinopril/Hydrochlorothiazide (Lisinopril-Hctz 10-12.5 Mg Tab) 1 TAB) PO SCH (09:00)
[2020-01-30] MEDS ORDERED: MELOXICAM 7.5 MG TABLET PO SCH (09:00)
[2020-01-30] MEDS: AZELASTINE NASAL SPRAY 30ML BOTTLE. NS SCH ×2 (09:10→21:00)
[2020-01-30] MEDS: ASPIRIN CHEWABLE 81 MG TABLET. PO SCH (09:10)
[2020-01-30] MEDS: PANTOPRAZOLE 40 MG TABLET. PO SCH (09:10)
[2020-01-30] MEDS: GLIMEPIRIDE 2 MG TABLET PO SCH (09:10)
[2020-01-30] MEDS: CALCIUM CARB/VIT D3 500/200 TABLET PO SCH (09:10)
[2020-01-30] MEDS: hydroCHLOROthiazide 12.5 MG CAPSULE PO SCH (09:11)
[2020-01-30] MEDS: ALLOPURINOL 300 MG TABLET. PO SCH (09:11)
[2020-01-30] MEDS: NAPROXEN 500 MG TABLET PO SCH ×2 (09:11→21:47)
[2020-01-30] MEDS: LISINOPRIL 10 MG TABLET PO SCH (09:11)
[2020-01-30] MEDS: TOPIRAMATE 25 MG TABLET. PO SCH ×3 (09:12→21:48)
[2020-01-30] MEDS: GABAPENTIN 300 MG CAPSULE. PO SCH ×2 (09:12→21:47)
[2020-01-30] MEDS: DULoxetine HCL 60 MG CAPSULE.DR PO SCH (09:12)
[2020-01-30] MEDS: ANASTROZOLE 1 MG TABLET PO SCH (09:13)
--- NOTE | 2020-01-30 11:26 | CONS ---
DATE OF CONSULTATION: NEUROLOGY CONSULTATION REFERRING PHYSICIAN: Dr. Jose Raul Tejada REASON FOR CONSULTATION: Rule out TIA versus seizure. HISTORY OF PRESENT ILLNESS: This is a 69-year-old right-handed female who is known to me because of having seizure disorder of unknown etiology, was admitted through Emergency Room after she presented with chief complaint of slurred speech and weakness of the left upper extremity. The patient arrived to Emergency Room at 02:50 p.m. The symptoms started approximately at 2:00 p.m. She was found to have hypoxia at 85%. The patient was witnessed jerking movements of the left upper extremity. Initial nonenhanced head CT scan revealed no evidence of acute intracranial process. The patient was given 2 mg of Ativan in the ER. The patient stated her speech has improved and almost back to normal. She denies headaches, visual disturbances, nausea, vomiting, chest pain, shortness of breath or palpitations; however, she uses oxygen supplement through CPAP at night for sleep apnea. The patient is known to me because of seizure disorder and she has been on Keppra at 1000 mg twice daily. The patient denies diplopia; however, she would have intermittent dysarthria. She also complains of pain and weakness of the left upper extremity and she related that to rotator cuff tear and decreased range of motions due to left biceps drawn as well. She denies fever or COVID-19 contact. She denies any other medical problems. PAST MEDICAL HISTORY: Significant for obesity, asthma, COPD, diabetes mellitus, GERD, seizure disorder of unknown etiology, obstructive sleep apnea, and peripheral neuropathy in the lower extremities, blindness of the right eye, hypertension, hyperlipidemia. PAST SURGICAL HISTORY: Status post knee replacements, shoulder surgery x 5 and cervical spine surgery, left breast cancer required lumpectomy, history of hip fracture and left knee replacement, tonsillectomy, adenoidectomy, lumbosacral spine surgery with fusion, anterior cervical spine fusion, status post bilateral shoulder conversion and left breast lumpectomy for breast cancer. SOCIAL HISTORY: The patient denies smoking, alcohol drinking, or illicit drug use. FAMILY HISTORY: Noncontributory. CURRENT MEDICATIONS: Albuterol inhaler and nebulizer, Zyloprim, aspirin, Lipitor, Pulmicort, cetirizine, Cymbalta, gabapentin, glyburide, Amaryl, hydrochlorothiazide, levetiracetam, lisinopril, naproxen, oxycodone/acetaminophen, Protonix, topiramate. ALLERGIES: IODINATED CONTRAST MEDIA, ADHESIVE, IODINE. REVIEW OF SYSTEMS: A 14-point review of system was performed as mentioned above in history of present illness. PHYSICAL EXAMINATION: GENERAL: Obese female, not in acute distress. She weighs 145.8 kilos. VITAL SIGNS: Blood pressure 145/49, respiratory rate 20, pulse is 89 and regular, oxygen saturation is 95% on 3 liters by nasal cannula. HEENT: Normocephalic, atraumatic, otherwise unremarkable. NECK: Supple, negative for carotid bruit, lymphadenopathy or thyromegaly. LUNGS: Clear to A and P. CARDIOVASCULAR: Regular rate and rhythm, normal S1, S2. There is no S3, S4 or murmur. ABDOMEN: Soft. Bowel sounds positive. EXTREMITIES: Negative for cyanosis, clubbing or edema. NEUROLOGICAL: The patient is alert and oriented x 2. Speech is fluent with intermittent dysarthria. There is no language dysfunction. Memory, judgment, and abstracting thinking are fair. The patient denies hallucination or delusion. CRANIAL NERVES: The patient has blindness of the right eye; however, the visual trujillo appeared to be intact. There is no nystagmus. There is no facial motor or sensory deficit. Hearing is intact bilaterally. The palate is elevated symmetrically. Sternocleidomastoid muscles are powerful bilaterally. The patient shrugs her shoulders, more prominent on the right side. The palate is elevated symmetrically. I have mentioned that. The patient protrudes her tongue in the midline without fasciculation or atrophy. MOTOR EXAMINATION: Decreased range of motions of the left upper extremity secondary to previous surgeries and rotator cuff tear. There is no muscle wasting. The strength was 4/5 in the left upper extremity and 5/5 throughout. SENSORY EXAMINATION: Revealed diminished pinprick and light touch senses in stocking distributions. Deep tendon reflexes were symmetric and hypoactive with absent Achilles responses bilaterally. Gait not tested at this time. DIAGNOSTIC DATA: An initial nonenhanced head CT scan revealed no acute intracranial process; however, chronic small vessel ischemic changes were also noted. Chest x-ray consistent with mild pulmonary edema. LABORATORY DATA: CBC revealed white blood cells of 14,000; hemoglobin 9.8; hematocrit 32; platelet count 261,000. Chemistry revealed sodium of 141, potassium 4.4, chloride 108, CO2 of 24, BUN 45, creatinine 1.9 and glucose 145. Urinalysis, no evidence of urinary tract infections. Urine drug screen is positive for opiate. Coagulation is normal. IMPRESSION: 1. Dysarthria - improved. No evidence of focal motor or sensory deficit with negative nonenhanced head CT scan for acute intracranial changes. 2. History of seizure disorder. 3. Multiple medical problems include diabetes mellitus, hypertension, hyperlipidemia, morbid obesity, obstructive sleep apnea, gastroesophageal reflux disease, peripheral neuropathy in the lower extremities, renal insufficiency/renal failure, decreased range of motions of the left upper extremity secondary to rotator cuff tear and postoperative changes. RECOMMENDATIONS: 1. Continue with current medical care initiated by Dr. Tejada. 2. We will continue with seizure management with levetiracetam - Keppra. 3. Physical therapy evaluation. M Gene LOBO MD DR: CLIFTON/[place] JOB#: [id number] / [id number]
[2020-01-30 12:10] VITALS: BP 107/72
[2020-01-30 14:51] VITALS: BP 121/50
--- NOTE | 2020-01-30 15:31 | HP ---
ADMIT DATE: 01/29/2020 HISTORY OF PRESENT ILLNESS: A 69-year-old female came in through the Emergency Room with slurred speech, apparently occurred at home approximately 50 minutes before her arrival here at the Emergency Room. The patient did note with slurred speech there in the Emergency Room itself she was somewhat hypoxic with 85% oxygen saturation and typically this is not her case. She does have a CPAP at night, but this was something new. The patient denied other changes in her health ____. She denied chest pain, shortness of breath, abdominal pain, nausea, vomiting or diarrhea. The patient in turn was admitted because of the slurred speech and the possibility of a possible stroke in evolution. The patient has a long history of seizure activity and the like. PAST MEDICAL HISTORY: Very extensive including blind in the right eye, cataract, tonsillectomy, adenoidectomy seizure activity, peripheral neuropathy, neurological surgeries or spinal circulation surgery with plates in her neck, coronary artery disease, hypertension, hypercholesterolemia, COPD, asthma, sleep apnea, irritable bowel syndrome, GERD, breast cancer, lumpectomy, kidney stones, cancer of the left breast, UTIs, stress incontinence, degenerative arthritis, surgeries on her left shoulder, surgery for joint replacement, knee replacement, fractures of the hip, back pain, diabetes, anemia, skin cancer. IMMUNIZATIONS: Vaccinations for influenza and pneumococcal are up-to-date. FAMILY HISTORY: Noncontributory. ALLERGIES: IODINE CONTRAST MEDIA, ADHESIVE MATERIALS. HOME MEDICATIONS: Include that of Benadryl, Dinah, anastrozole 1 mg daily for breast cancer, Combivent, Lipitor 40, lisinopril, aspirin, naproxen 500, oxycodone, Percocet 10/325, gabapentin 600 t.i.d., Keppra 1000 b.i.d., ____ 1 p.o. t.i.d., Cymbalta 1 capsule daily, calcium carbonate, budesonide formoterol or Symbicort, Astelin nasal spray, fluticasone, propionic acid, Prilosec 40, glimepiride 1 mg, allopurinol 300 mg daily. SOCIAL HISTORY: No smoking, alcohol or drug use. Full code. REVIEW OF SYSTEMS: Outside of this blurred vision and slurred speech, the patient denied any headaches, visual changes, blurred vision, double vision. Denied as otherwise noted normally. The patient denied chest pain or shortness of breath. Denied nausea, vomiting, abdominal pain. Denied any melena, hematochezia, hematemesis. Neurologically intact. PHYSICAL EXAMINATION: GENERAL: The patient on exam is an ill-appearing white female. VITAL SIGNS: Blood pressure 148/50, respiratory rate 15, pulse 85, oxygen saturation on 15 liters nonrebreather at that time was at 100%, but came down to 3 liters on nasal cannula. HEENT: The patient's head was atraumatic, normocephalic. Eyes: PERRLA without jaundice. The mouth and throat were normal. LUNGS: Diminished, some crackles noted in the bases. CARDIOVASCULAR: Regular sinus rhythm, S1, S2. ABDOMEN: Soft, protuberant, nontender. EXTREMITIES: No clubbing, cyanosis; +1 to +2 pitting edema. Pulses noted distally. NEUROLOGIC: Alert. The patient otherwise is resting fairly comfortably. Legs were basically without clubbing or cyanosis, +1 to +2 pitting edema. Neurologically as noted, the patient's speech slightly slurred. Otherwise, moving all extremities well. DIAGNOSTIC DATA: CT of the head was unremarkable. Chest x-ray showed pulmonary edema. LABORATORY DATA: White count 14,000, hemoglobin 9.8. Chemistry revealed sodium of 141, creatinine 1.9, glucose 145. IMPRESSION AND PLAN: Dysarthria, improved. No evidence of focal motor or sensory deficit. History of seizure disorder, multiple medical problems, possible heart failure, type 2 diabetes, morbid obesity, hypertension, hyperlipidemia, obstructive sleep apnea, gastroesophageal reflux disease, peripheral neuropathy of the lower extremities, renal insufficiency, renal failure, decreased range of motion of the left upper extremity secondary to surgery on the left shoulder. The patient continued to be monitored. Dr. Bucio will be consulted and adjusted on her seizure medication, Physical therapy also to evaluate and continue with current medical ____ care. We will probably try to diurese her and make further evaluation on her. Interesting enough, her white count was elevated at 18,000, came down to 14,000; hemoglobin dropped from 11 to 9. The patient is still somewhat dehydrated. D-dimer positive, probably end up doing a V/Q scan and make further evaluation on her as indicated. The complexity of this individual is noted. WENDI ROBISON MD DR: T[place] JOB#: [id number] / [id number]
--- NOTE | 2020-01-30 18:24 | RAD ---
Perfusion lung scan 01/30/2020 CLINICAL HISTORY: Shortness of breath. TECHNIQUE: After the intravenous administration of 5.5 mCi of Technetium 99m MAA, perfusion images of both lungs were obtained using the gamma camera. FINDINGS: Comparison is made to portable chest radiograph performed on 01/29/2020. This demonstrates mild cardiomegaly. Mild congestive changes are seen involving both lungs. Homogeneous distribution of the radionuclide throughout both lungs is seen on the perfusion images. N o perfusion defect is seen. IMPRESSION: No perfusion defect is seen. Electronically signed by: Albert Beck MD (01/30/2020 6:21 PM) [id number]
[2020-01-30 20:08] LABS: BILIRUBIN,URINE NEG (NEG); CLARITY,URINE CLEAR; COLOR,URINE YELLOW; GLUCOSE,URINE NEG (NEG)
[2020-01-30 20:09] LABS: BACTERIA,URINE 0 /HPF (0-FEW); NITRITE,URINE NEG (NEG); RBC,URINE OCC /HPF (0-2); SQUAMOUS EPITHELIAL CELL,UR MOD /LPF; UROBILINOGEN,URINE 0.2 mg/dL (0.2 mg/dL)
[2020-01-30 20:20] VITALS: BP 116/55
[2020-01-30] MEDS: ATORVASTATIN CALCIUM 20 MG TABLET PO SCH (21:47)
[2020-01-30] MEDS: diphenhydrAMINE HCL 25 MG CAPSULE PO SCH (21:48)
[2020-01-30] MEDS: LACTOBACILLUS RHAMNOSUS GG 1 CAPSULE. PO SCH (21:48)
[2020-01-30 23:58] VITALS: BP 134/58
[2020-01-31 05:51] VITALS: BP 134/48
[2020-01-31] MEDS: IPRATRPIUM/ALBUTEROL 0.5/2.5MG 3 ML NEBU. NEB SCH ×4 (05:58→20:15)
[2020-01-31 06:45] LABS: CALCIUM 8.5 mg/dL (8.5-10.1); CREATININE 1.6 mg/dL (0.6-1.0)
[2020-01-31 06:50] LABS: BASO # 0.1 x10^3/uL (0.0-0.2); BASO % 1 % (0-3); EOS # 0.8 x10^3/uL (0.0-0.7); EOS % 9 % (0-3); HEMATOCRIT 28.4 % (36.0-47.0); LYMPH # 2.9 x10^3/uL (1.0-4.8); LYMPH % 30 % (24-48); MEAN CORPUSCULAR HEMOGLOBIN 30 pg (25-35); MEAN CORPUSCULAR HGB CONC 32 g/dL (31-37); MEAN CORPUSCULAR VOLUME 94 fL (79-100); MONO % 10 % (0-9); NEUT # 4.8 x10^3uL (1.8-7.7); NEUT % 50 % (31-73); PLATELET COUNT 215 x10^3/uL (140-400); RED BLOOD COUNT 3.02 x10^6/uL (3.50-5.40); RED CELL DISTRIBUTION WIDTH 15.2 % (11.5-14.5); WHITE BLOOD COUNT 9.6 x10^3/uL (4.0-11.0)
[2020-01-31] MEDS: AZELASTINE NASAL SPRAY 30ML BOTTLE. NS SCH ×2 (09:04→20:39)
[2020-01-31] MEDS: ALLOPURINOL 300 MG TABLET. PO SCH (09:04)
[2020-01-31] MEDS: hydroCHLOROthiazide 12.5 MG CAPSULE PO SCH (09:04)
[2020-01-31] MEDS: LACTOBACILLUS RHAMNOSUS GG 1 CAPSULE. PO SCH ×2 (09:04→20:39)
[2020-01-31] MEDS: LISINOPRIL 10 MG TABLET PO SCH (09:04)
[2020-01-31] MEDS: GABAPENTIN 300 MG CAPSULE. PO SCH ×2 (09:05→20:38)
[2020-01-31] MEDS: CALCIUM CARB/VIT D3 500/200 TABLET PO SCH (09:05)
[2020-01-31] MEDS: GLIMEPIRIDE 2 MG TABLET PO SCH (09:05)
[2020-01-31] MEDS: ASPIRIN CHEWABLE 81 MG TABLET. PO SCH (09:06)
[2020-01-31] MEDS: NAPROXEN 500 MG TABLET PO SCH ×2 (09:06→20:39)
[2020-01-31] MEDS: PANTOPRAZOLE 40 MG TABLET. PO SCH (09:06)
[2020-01-31] MEDS: DULoxetine HCL 60 MG CAPSULE.DR PO SCH (09:06)
[2020-01-31] MEDS: TOPIRAMATE 25 MG TABLET. PO SCH ×3 (09:06→20:38)
[2020-01-31] MEDS: ANASTROZOLE 1 MG TABLET PO SCH (09:07)
--- NOTE | 2020-01-31 09:44 | PN ---
DATE: SUBJECTIVE: The patient denies any new medical or neurological complaints. The patient denies any recurrent seizures since admission. OBJECTIVE: GENERAL: Obese female, not in acute distress. VITAL SIGNS: Blood pressure 134/48, respiratory rate 20, pulse is 71, temperature 97.8, oxygen saturation 99% on 2 liters by nasal cannula. HEENT: Normocephalic, atraumatic, otherwise unremarkable. NECK: Supple. Negative for carotid bruit, lymphadenopathy or thyromegaly. LUNGS: Clear to A and P. CARDIOVASCULAR: Regular rate and rhythm, normal S1, S2. There is no S3, S4 or murmur. ABDOMEN: Soft. Bowel sounds positive. EXTREMITIES: Negative for cyanosis, clubbing, or pitting edema. NEUROLOGICAL EXAM: Mental Status: The patient is alert and oriented x 3. Speech is fluent. There is no language dysfunction. Memory, judgment, and abstracting thinking are fair. The patient denies hallucination or delusion. Cranial nerves are intact except for blindness of right eye secondary to previous macular degeneration and postoperative changes. Motor examination: No focal muscle bulk was seen. The tone is normal. The strength is 4/5 throughout. Sensory examination revealed diminished pinprick and light touch senses in patchy distributions and in the stocking distributions. Deep tendon reflexes were symmetric with absent Achilles responses. Gait and coordination: The patient uses a walker for ambulation. LABORATORY DATA: CBC revealed white blood cells of 9.6 thousand, hemoglobin 9, hematocrit 28.4, and platelet count 215,000. Chemistry revealed sodium of 142, potassium 4, chloride 109, CO2 of 29, BUN 38, creatinine 1.6, and glucose 97, calcium 8.5. Coronavirus PCR is negative, not detected. V/Q is negative for pulmonary embolism or defect. IMPRESSION: 1. Dysarthria -- improved. 2. Seizure disorder, stable on medication. 3. Multiple medical problems include morbid obesity, obstructive sleep apnea, anemia, dehydration versus renal insufficiency, diabetes mellitus, hypertension, hyperlipidemia, and peripheral neuropathy in the lower extremities. RECOMMENDATIONS: 1. Continue with current management. The patient is neurologically stable. The patient should continue with current anticonvulsant -- Keppra 1000 mg b.i.d. M Gene LOBO MD DR: CLIFTON/[place] JOB#: [id number] / [id number]
[2020-01-31 10:42] VITALS: BP 142/48
[2020-01-31] MEDS: BUDESONIDE 0.5 MG/2 ML NEBU NEB SCH ×2 (10:51→20:15)
[2020-01-31] MEDS ORDERED: BENZONATATE 100 MG CAPSULE. PO PRN (13:00)
[2020-01-31 15:05] VITALS: BP 111/53
[2020-01-31] MEDS ORDERED: IPRATRPIUM/ALBUTEROL 0.5/2.5MG 3 ML NEBU. NEB SCH (16:00)
[2020-01-31 19:25] VITALS: BP 133/53
--- NOTE | 2020-01-31 20:21 | PN ---
DATE: SUBJECTIVE: A 69-year-old female came in with some dysarthria, possible TIAs, been having cough, congestion and some shortness of breath. The patient says she feels a little better today. She has not had any more of these TIA-like episode. OBJECTIVE: VITAL SIGNS: Blood pressure 110/50, respiratory rate 20, pulse 83. GENERAL: Afebrile. The patient has been seen by Dr. Bucio. The patient did show some hazy opacities, which I think are related more to an infectious process than of an edema is noted by the radiologist simply because she did have a white count of over 18,000 and has come down to 9.6 on her antibiotics. Her blood gases were all secured probably of venous tap. Her BUN and creatinine have shown improvement, so she was extremely dehydrated. She is iron deficient with an iron level of 44, otherwise alert and oriented, little bit more strong today. The patient also has a cough. LUNGS: Diminished, poor movement of air, but clear than they have been. CARDIOVASCULAR: Regular sinus rhythm. ABDOMEN: Soft, protuberant. EXTREMITIES: No clubbing, cyanosis or edema. NEUROLOGIC: Alert and oriented. Speech is fluent, spontaneous, appropriate. Cranial nerves 2-12 grossly intact. IMPRESSION: Pneumonia, leukocytosis, anemia iron deficient, transient ischemic attack-like symptoms, morbid obesity. PLAN: Continue to monitor and hopefully ready for discharge here. WENDI ROBISON MD DR: FAUZIA/[place] JOB#: [id number] / [id number]
[2020-01-31] MEDS: diphenhydrAMINE HCL 25 MG CAPSULE PO SCH (20:38)
[2020-01-31] MEDS: ATORVASTATIN CALCIUM 20 MG TABLET PO SCH (20:39)
[2020-02-01] MEDS: IPRATRPIUM/ALBUTEROL 0.5/2.5MG 3 ML NEBU. NEB SCH ×2 (05:08→10:18)
[2020-02-01 06:13] VITALS: BP 152/58
[2020-02-01] MEDS: AZELASTINE NASAL SPRAY 30ML BOTTLE. NS SCH (08:24)
[2020-02-01] MEDS: ANASTROZOLE 1 MG TABLET PO SCH (08:25)
[2020-02-01] MEDS: ALLOPURINOL 300 MG TABLET. PO SCH (08:26)
[2020-02-01] MEDS: LACTOBACILLUS RHAMNOSUS GG 1 CAPSULE. PO SCH (08:26)
[2020-02-01] MEDS: PANTOPRAZOLE 40 MG TABLET. PO SCH (08:26)
[2020-02-01] MEDS: GLIMEPIRIDE 2 MG TABLET PO SCH (08:26)
[2020-02-01] MEDS: DULoxetine HCL 60 MG CAPSULE.DR PO SCH (08:26)
[2020-02-01] MEDS: ASPIRIN CHEWABLE 81 MG TABLET. PO SCH (08:26)
[2020-02-01] MEDS: NAPROXEN 500 MG TABLET PO SCH (08:27)
[2020-02-01] MEDS: TOPIRAMATE 25 MG TABLET. PO SCH (08:27)
[2020-02-01] MEDS: GABAPENTIN 300 MG CAPSULE. PO SCH (08:27)
[2020-02-01] MEDS: hydroCHLOROthiazide 12.5 MG CAPSULE PO SCH (08:27)
[2020-02-01] MEDS: CALCIUM CARB/VIT D3 500/200 TABLET PO SCH (08:27)
[2020-02-01 08:28] VITALS: BP 152/58
[2020-02-01] MEDS: LISINOPRIL 10 MG TABLET PO SCH (08:28)
--- NOTE | 2020-02-01 09:09 | DISCH ---
HOME HEALTH DISCHARGE/MEDS DISCHARGE INFORMATION: Discharge Date: Feb 01, 2020 Final Diagnosis: Problems Medical Problems: (1) Acute respiratory failure with hypoxia and hypercapnia Status: Acute (2) Dysarthria Status: Acute Condition on Discharge: Stable CODE STATUS: Code Status: Full HOME HEALTH: Face to Face: I certify this patient is under my care and that I, or a nurse practitioner or physician's promotions assistant working with me, had a face to face encounter that meets the physician face to face encounter requirements with this patient on 02/01/2020. Medical Condition(s): CHF, DM, HTN, Pneumonia Custodial For: Assess Cardiopulm Status, Assess & Educate Safety, Diabetic Care, Medication Management Physical Therapy For: Evalulation/Treatment Occupational Therapy For: Evaluation/Treatment Homebound Status Met By: Poor coordination w/ amb., Unsteady balance w/ amb,, Extreme weakness w/ amb. POST DISCHARGE ORDERS: Activity Instructions for Disc: Activity as tolerated Weight Bearing Status after Di: No restrictions DIET AFTER DISCHARGE: ADA CERTIFICATION STATEMENT: Certification Statement: Based on the above finding, I certify that this patient is confined to the home and needs intermittent [facility] care, physical therapy and/or speech therapy, or continues to need occupational therapy.~ This patient is under my care, and I have initiated the establishment of the plan of care.~ This patient will be followed by myself or a community physician who will periodically review the plan of care. DISCHARGE MEDICATIONS: Home Meds Active Scripts Levetiracetam (KEPPRA) 500 Mg Tablet, 1000 MG PO BID for seizures for 30 Days, #120 TAB 6 Refills Prov:WENDI ROBISON MD 03/04/18 Reported Medications Oxycodone Hcl/Acetaminophen (PERCOCET 10-325 MG TABLET ) 1 Each Tablet, 1 TAB PO PRN Q4-6HRS PRN for PAIN MDD 6 Tablet(s), TAB 01/29/20 Calcium Carbonate/Vitamin D3 (Calcium 600 + Vit D 800 Tab) 1 Each Tablet, 1 TAB PO DAILY for supplement for 30 Days, #30 TAB 0 Refills 01/29/20 Gabapentin (GABAPENTIN ) 300 Mg Capsule, 600 MG PO TID for NEUROGENIC PAIN, CAP 01/29/20 Ipratropium/Albuterol Sulfate (COMBIVENT RESPIMAT INHAL) 4 Gm Aer.w.adap, 2 PUFF INH QID for unknown, INHALER 09/10/18 Fexofenadine Hcl (BRYSON ALLERGY) 180 Mg Tablet, 1 TAB PO DAILY PRN for ALLERGIES, #30 TAB 2 Refills 09/10/18 Topiramate (TOPIRAMATE) 50 Mg Tablet, 1 TAB PO TID for unknown, #60 TAB 1 Refill 09/10/18 Naproxen (NAPROXEN) 500 Mg Tablet, 1 TAB PO BID for unknown, #60 TAB 1 Refill 09/10/18 Azelastine Hcl (AZELASTINE HCL) 137 Mcg/0.137 Ml [place].pump, 1 SPR NS BID for unknown, #90 ML 3 Refills 09/10/18 Allopurinol (ALLOPURINOL) 300 Mg Tablet, 1 TAB PO DAILY for ., #30 TAB 5 Refills 07/15/18 Aspirin (ASPIRIN) 81 Mg Tab.chew, 81 MG PO DAILY for ., TAB 07/15/18 Atorvastatin Calcium (ATORVASTATIN CALCIUM) 40 Mg Tablet, 1 TAB PO DAILY for CHOLESTEROL LAST DOSE GIVEN: DATE: YESTERDAY TIME: AT BEDTIME NEXT DOSE DUE: DATE: TODAY TIME: AT BEDTIME 02/24/18 Lisinopril/Hydrochlorothiazide (LISINOPRIL-HCTZ 10-12.5 MG TAB) 1 Each Tablet, 1 TAB PO DAILY for HYPERTENSION LAST DOSE GIVEN: DATE: TODAY TIME: AM NEXT DOSE DUE: DATE: TOMORROW TIME: AM 12/06/16 Anastrozole (ANASTROZOLE) 1 Mg Tablet, 1 MG PO DAILY for BREAST CANCER LAST DOSE GIVEN: DATE: TODAY TIME: AM NEXT DOSE DUE: DATE: TOMORROW TIME: AM 12/06/16 Duloxetine Hcl (CYMBALTA) 60 Mg Capsule.dr, 1 CAP PO DAILY for DEPRESSION LAST DOSE GIVEN: DATE: TODAY TIME: AM NEXT DOSE DUE: DATE: TOMORROW TIME: AM 12/19/15 Fluticasone Propionate (FLUTICASONE PROPIONATE NASAL SPRAY) 16 Gm [place].susp, 2 SPR NS BID for allergy LAST DOSE GIVEN: DATE: TODAY TIME: AM NEXT DOSE DUE: DATE: TOMORROW TIME: IF NEEDED 12/19/15 Budesonide/Formoterol Fumarate (SYMBICORT 160-4.5 MCG INHALER) 10.2 Gm Hfa.aer.ad, 1 PUFF IH BID for SHORTNESS OF AIR SUBSTITUTED FOR BREATHING TREATMENTS NEXT DOSE DUE: DATE: TOMORROW TIME: AM 12/19/15 Omeprazole (OMEPRAZOLE) 40 Mg Capsule.dr, 40 MG PO BID for PREVENT HEARTBURN SUBSTITUTED FOR PANTOPRAZOLE NEXT DOSE DUE: DATE: TOMORROW TIME: AM DATE: TODAY TIME: PM 05/23/15 Diphenhydramine Hcl (BENADRYL) 25 Mg Capsule, 25 MG PO QHS for SLEEP AIDE LAST DOSE GIVEN: DATE: YESTERDAY TIME: AT BEDTIME NEXT DOSE DUE: DATE: TODAY TIME: AT BEDTIME 05/23/15 Glimepiride (GLIMEPIRIDE) 1 Mg Tablet, 1 MG PO DAILY for DIABETES LAST DOSE GIVEN: DATE: TODAY TIME: AM NEXT DOSE DUE: DATE: TOMORROW TIME: AM 05/23/15 Discontinued Reported Medications Albuterol Sulfate (PROAIR HFA INHALER) 8.5 Gm Hfa.aer.ad, 2 PUFF INH PRN Q6HRS PRN for SHORTNESS OF BREATH, INHALER 0 Refills 09/10/18 Topiramate (TOPIRAMATE) 50 Mg Tablet, 1 TAB PO BID for PREVENT HEADACHES LAST DOSE GIVEN: DATE: TODAY TIME: AM NEXT DOSE DUE: DATE: TODAY TIME: AFTERNOON 12/19/15 Discontinued Scripts Oxycodone Hcl/Acetaminophen (PERCOCET 10-325 MG TABLET ) 1 Each Tablet, 1 TAB PO Q6HRS PRN for PAIN, #15 TAB Prov:GORDO BECKFORD MD 07/13/16 WENDI ROBISON MD Feb 01, 2020 09:09
[2020-02-01] MEDS ORDERED: DOXY100C2 PO (09:49)
--- NOTE | 2020-02-01 10:09 | PN ---
DATE: SUBJECTIVE: The patient complains of intermittent tremor of the upper extremity and shortness of breath. OBJECTIVE: GENERAL: Obese female, not in acute distress. VITAL SIGNS: Blood pressure 152/58, respiratory rate 20, pulse 80 and regular, temperature 97.8, oxygen saturation 98% on 2 liters by nasal cannula. HEENT: Normocephalic, atraumatic, otherwise unremarkable. NECK: Supple. Negative for carotid bruit, lymphadenopathy or thyromegaly. LUNGS: Clear to A and P. CARDIOVASCULAR: Regular rate and rhythm, normal S1, S2. ABDOMEN: Soft. EXTREMITIES: Negative for cyanosis, clubbing or pitting edema. NEUROLOGICAL EXAM: Mental Status: The patient is alert and oriented x 3. Speech is fluent. There is no language dysfunction. Cranial nerves are intact except for the blindness, right eye. Motor examination: No focal muscle bulk was seen. The tone is normal. The strength is 4/5 throughout. Sensory examination revealed diminished pinprick and light touch senses in patchy distributions in distal lower extremities. Deep tendon reflexes were symmetric and hypoactive with absent Achilles responses. Gait not tested. IMPRESSION: 1. Leukocytosis -- resolved, probably secondary to pneumonia. 2. Multiple medical problems include iron deficiency anemia, obstructive sleep apnea, hypertension, hyperlipidemia, morbid obesity, osteoarthritis, peripheral neuropathy in the lower extremities, diabetes mellitus, and seizure disorder. RECOMMENDATIONS: Continue with current management. The patient is neurologically stable. M Gene LOBO MD DR: CLIFT[place] JOB#: [id number] / [id number]
[2020-02-01] MEDS: BUDESONIDE 0.5 MG/2 ML NEBU NEB SCH (10:18)
--- NOTE | 2020-02-28 19:03 | DS ---
DATE OF DISCHARGE: 02/01/2020 HOSPITAL COURSE: A 69-year-old female who came into the Emergency Room with slurred speech. The patient was seen in the ER. She was somewhat hypoxic with an oxygen saturation of 85%. The patient does have CPAP at night, but this was an acute hypoxic event. The patient has past medical history of blindness in her eye, seizure activity and peripheral neuropathy. The patient was admitted for her dysarthria, which improved with oxygenation and the like. She was also seen in consultation with noted neurologist, Dr. Bucio, who gave his expert opinion on her. She did have seizure-like activity, which was also an indication for her admission and she was stabilized on medication per Dr. Bucio's timely consultation. The patient made good progress. She received physical and occupational therapy. It was also noted she had pneumonia, leukocytosis as well and treated with IV antibiotic therapy. Her imaging studies showed that her V/Q scan was negative for PE. Chest x-ray as noted demonstrated mild pulmonary edema, but because of the elevated white count of 18,000 and her hypoxia, it was more likely that the patient had some form of a pneumonic process. The patient received IV antibiotic therapy and made good progress during the rest of her hospitalization. The patient's last BUN and creatinine were 38 and 1.6. Sodium 142 and potassium 4.0. White count 9.6, hemoglobin 9 and hematocrit 28. Serology: COVID-19 negative. Blood cultures were negative. The patient's blood gases showed some respiratory acidosis, but overall, the patient made excellent progress during the rest of her hospitalization and was discharged home. DISCHARGE DIAGNOSES: Included that of pneumonia of unknown etiology, leukocytosis, anemia, iron deficiency, transient ischemic attack like syndrome, dysarthria, morbid obesity, history of seizure activity, history of blindness in the left eye, neuropathy, respiratory acidosis, acute respiratory failure, seizure disorder, obstructive sleep apnea, dehydration, type 2 diabetes, hyperlipidemia, peripheral neuropathy. PLAN: The patient will be on a diabetic heart healthy diet, decreased activity. Return to clinic for followup in 7-10 days or sooner as needed. No complications were noted and the patient made excellent recovery. WENDI ROBISON MD DR: FAUZIA/alberta JOB#: [id number] / [id number]
== END 2020-02-01 13:30 | disposition home or self-care (01) | DRG 177 ==
LOC: ER 15:39 → 1 SOUTH 16:41
PROVIDERS: ADMIT Family Medicine; ATTEND Family Medicine
DX: J15.6 Pneumonia due to other Gram-negative bacteria (principal); J96.01 Acute respiratory failure with hypoxia; J96.02 Acute respiratory failure with hypercapnia; N17.0 Acute kidney failure with tubular necrosis; J81.1 Chronic pulmonary edema; Z68.42 Body mass index [BMI] 45.0-49.9, adult; J15.9 Unspecified bacterial pneumonia; G40.909 Epilepsy, unspecified, not intractable, without status epilepticus; D50.9 Iron deficiency anemia, unspecified; D72.829 Elevated white blood cell count, unspecified; E11.42 Type 2 diabetes mellitus with diabetic polyneuropathy; E66.01 Morbid (severe) obesity due to excess calories; E78.00 Pure hypercholesterolemia, unspecified; E78.5 Hyperlipidemia, unspecified; E86.0 Dehydration; G47.33 Obstructive sleep apnea (adult) (pediatric); H54.61 Unqualified visual loss, right eye, normal vision left eye; I10 Essential (primary) hypertension; I25.10 Atherosclerotic heart disease of native coronary artery without angina pectoris; J44.9 Chronic obstructive pulmonary disease, unspecified; K21.9 Gastro-esophageal reflux disease without esophagitis; M19.90 Unspecified osteoarthritis, unspecified site; M75.100 Unspecified rotator cuff tear or rupture of unspecified shoulder, not specified as traumatic; Z85.3 Personal history of malignant neoplasm of breast; Z85.828 Personal history of other malignant neoplasm of skin; Z87.442 Personal history of urinary calculi; Z87.81 Personal history of (healed) traumatic fracture; Z96.652 Presence of left artificial knee joint; Z98.1 Arthrodesis status; E66.9 Obesity, unspecified; G62.9 Polyneuropathy, unspecified; H26.9 Unspecified cataract; Z20.828 Contact with and (suspected) exposure to other viral communicable diseases
CPT/HCPCS: 36415; 70450; 71045; 78580; 80048; 80053; 80177; 80307; 81001; 82803; 83540; 83550; 83605; 83880; 84145; 84484; 85007; 85025; 85379; 85610; 85730; 87040; 87086; 93005; 94640; 96361; 96374; 99291; A9540; J0696; J1953; J1956; J2060; Q0163; U0003; 97110; 97116; 97530; J7030

== ENCOUNTER 2020-02-05 12:18 | Observation (INO) | payer MEDICARE, OTHER ==
[~2020-02-05] VITALS: Ht 172.7 cm; Wt 145.8 kg
[~2020-02-05 12:18] MED LIST changes: +CALC-495 PO; +DOXY100C2 PO; -LISI10TA16 PO; +LISI10TA2 PO; +OMEP40CA45 PO; -OMEP40CA7 PO
[2020-02-05 13:17] LABS: BASO % 0 % (0-3); EOS # 0.7 x10^3/uL (0.0-0.7); EOS % 7 % (0-3); HEMATOCRIT 30.8 % (36.0-47.0); HEMOGLOBIN 9.7 g/dL (12.0-15.5); LYMPH # 3.1 x10^3/uL (1.0-4.8); LYMPH % 28 % (24-48); MEAN CORPUSCULAR HEMOGLOBIN 29 pg (25-35); MEAN CORPUSCULAR HGB CONC 31 g/dL (31-37); MEAN CORPUSCULAR VOLUME 93 fL (79-100); MONO # 0.9 x10^3/uL (0.0-1.1); MONO % 8 % (0-9); NEUT # 6.2 x10^3uL (1.8-7.7); NEUT % 57 % (31-73); PLATELET COUNT 270 x10^3/uL (140-400); RED BLOOD COUNT 3.31 x10^6/uL (3.50-5.40); RED CELL DISTRIBUTION WIDTH 15.6 % (11.5-14.5); WHITE BLOOD COUNT 10.9 x10^3/uL (4.0-11.0)
[2020-02-05 13:27] LABS: CALCIUM 8.6 mg/dL (8.5-10.1); CREATININE 1.6 mg/dL (0.6-1.0); POTASSIUM 3.8 mmol/L (3.5-5.1)
--- NOTE | 2020-02-05 13:38 | RAD ---
Exam performed: 2 views of the chest. Indication: Reason: SHORT OF BREATH / Spl. Instructions: / History: Date of Service: 02/05/2020 12:50 PM . Comparison : One view chest from January 29, 2020 Findings: PA and lateral radiographs of the chest reveal a normal cardiomediastinal contour. The lungs are vero r. No pleural fluid is seen. Bilateral shoulder arthroplasty. Impression: No acute cardiopulmonary process seen. Electronically signed by: Kylie Lang MD (02/05/2020 1:35 PM) [id number]
[2020-02-05 13:42] LABS: % BANDS 6 % (0-9); % EOS 6 % (0-5); % LYMPHS 35 % (24-48); % MONOS 3 % (0-10); % MYELOS 1 % (0-0); % SEGS 49 % (35-66); ALBUMIN 3.3 g/dL (3.4-5.0); ALBUMIN/GLOBULIN RATIO 0.9 (1.0-1.7); TOTAL BILIRUBIN 0.2 mg/dL (0.2-1.0); TOTAL PROTEIN 7.1 g/dL (6.4-8.2)
--- NOTE | 2020-02-05 13:42 | PHYS DOC ---
Past History Past Medical History: Asthma, Cancer, COPD, Diabetes, GERD, High Cholesterol, Hypertension, Seizure, Other Additional Past Medical Histor: MEMO, NEUROPATHY Past Surgical History: Knee Replacement, Other Additional Past Surgical Histo: SHOULDER SURGERY X 5, PLATES IN NECK, SPINAL CORD SURGERY Alcohol Use: None Drug Use: None Adult General Chief Complaint Chief Complaint: SHORTNESS OF BREATH HPI HPI Patient is a 69-year-old female presents emergency department complaining of decreased saturation at home and increased shortness of breath with exertion and moving around such as going to the bathroom or getting up to go to bed for the past day. Patient states she was released from [facility] on the with a diagnosis of pneumonia to take oral antibiotic doxycycline at home. Patient states that she became increasingly short of breath while at home and has decided to come back in for reevaluation. Patient reports she was admitted on 29 January 2020 for seizure-like activity. Patient denies chest pain, denies abdominal pain, denies nausea, vomiting, diarrhea, skin rashes. Patient denies recent fever or chills. Patient was admitted to the hospital on 1219 for dysarthria and acute respiratory failure with hypoxia and hypercapnia under Dr. Lamar. Was discharged home on February 02, 2020. Review of Systems Review of Systems 14 body systems of review of systems have been reviewed. See HPI for pertinent positives and negative responses, otherwise all other systems are negative, nonpertinent or noncontributory. Current Medications Current Medications Keppra 1000 mg p.o. twice daily, Percocet 103 25 every 4-6 hours as needed pain, calcium carbonate/vitamin D3 tablet daily, gabapentin 600 mg p.o. 3 times daily, Combivent inhaler 2 puffs 4 times daily, 180 mg Dinah daily, topiramate 50 mg daily, naproxen 500 mg tablet daily, azelastine 137 mcg spray per nostril twice daily, allopurinol 300 mg p.o. daily, 81 mg ASA daily, atorvastatin 40 mg daily, lisinoprilhydrochlorothiazide 10-12.5 mg daily, NS Durezol 1 mg p.o. daily, Cymbalta 60 mg p.o. daily, Flonase nasal spray 2 puffs each nostril twice daily, Symbicort 160-4.5 mcg inhaler 1 puff twice daily, omeprazole 40 mg p.o. twice daily, Benadryl 25 mg nightly for sleep, glipizide 1 mg p.o. daily. Allergies Allergies Allergies Coded Allergies Type Severity Reaction Last Updated Verified Iodinated Contrast Media Allergy Severe 12/23/19 Yes iodine Allergy Severe Shortness of Air 12/23/19 No adhesive Allergy Intermediate 12/23/19 Yes Physical Exam Physical Exam Constitutional: Well developed, well nourished, no acute distress, non-toxic appearance. Obese female in no acute apparent distress during physical exam however when patient was being transferred from triage area to bed patient was then marked respiratory distress. Initial O2 sat was 85% room air sat, patient does report being on 2 L of O2 which 2 L was placed on patient for completion of triage process at bedside HENT: Normocephalic, atraumatic, bilateral external ears normal, oropharynx moist, no oral exudates, nose normal. Eyes: PERRLA, EOMI, conjunctiva normal, no discharge. Neck: Normal range of motion, no tenderness, supple, no stridor. Cardiovascular:Heart rate regular rhythm, no murmur Lungs & Thorax: Bilateral breath sounds clear to auscultation, diminished at bases, no adventitious lung sounds appreciated Abdomen: Bowel sounds normal, soft, no tenderness, no masses, no pulsatile masses. Skin: Warm, dry, no erythema, no rash. Back: No tenderness, no CVA tenderness. Extremities: No tenderness, no cyanosis, no clubbing, ROM intact, no edema. Neurologic: Alert and oriented X 3, normal motor function, normal sensory function, no focal deficits noted. Psychologic: Affect normal, judgement normal, mood normal. Current Patient Data Lab Results Laboratory Tests Test 02/05/20 13:04 02/05/20 14:14 02/05/20 15:22 White Blood Count 10.9 x10^3/uL Red Blood Count 3.31 x10^6/uL Hemoglobin 9.7 g/dL Hematocrit 30.8 % Mean Corpuscular Volume 93 fL Mean Corpuscular Hemoglobin 29 pg Mean Corpuscular Hemoglobin Concent 31 g/dL Red Cell Distribution Width 15.6 % Platelet Count 270 x10^3/uL Neutrophils (%) (Auto) 57 % Lymphocytes (%) (Auto) 28 % Monocytes (%) (Auto) 8 % Eosinophils (%) (Auto) 7 % Basophils (%) (Auto) 0 % Neutrophils # (Auto) 6.2 x10^3uL Lymphocytes # (Auto) 3.1 x10^3/uL Monocytes # (Auto) 0.9 x10^3/uL Eosinophils # (Auto) 0.7 x10^3/uL Basophils # (Auto) 0.0 x10^3/uL Segmented Neutrophils % 49 % Band Neutrophils % 6 % Lymphocytes % 35 % Monocytes % 3 % Eosinophils % 6 % Myelocytes % 1 % Platelet Estimate Adequate Sodium Level 142 mmol/L Potassium Level 3.8 mmol/L Chloride Level 107 mmol/L Carbon Dioxide Level 24 mmol/L Anion Gap 11 Blood Urea Nitrogen 40 mg/dL Creatinine 1.6 mg/dL Estimated GFR (Cockcroft-Gault) 32.0 BUN/Creatinine Ratio 25 Glucose Level 86 mg/dL Calcium Level 8.6 mg/dL Total Bilirubin 0.2 mg/dL Aspartate Amino Transf (AST/SGOT) 18 U/L Alanine Aminotransferase (ALT/SGPT) 16 U/L Alkaline Phosphatase 100 U/L Creatine Kinase 106 U/L Creatine Kinase MB (Mass) 1.4 ng/mL Creatine Kinase MB Relative Index 1.3 % Troponin I Quantitative < 0.017 ng/mL LT-Ixg-L-Type Natriuretic Peptide 160 pg/mL Total Protein 7.1 g/dL Albumin 3.3 g/dL Albumin/Globulin Ratio 0.9 D-Dimer (Nohemy) 1.43 mg/L Blood Gas pH 7.27 Blood Gas PCO2 57 mmHg Blood Gas PO2 108 mmHg Blood Gas HCO3 27 mmol/L Arterial Bld O2 Saturation (Calc) 97 % FiO2 28 % Laboratory Tests Test 02/05/20 13:04 White Blood Count 10.9 x10^3/uL (4.0-11.0) Red Blood Count 3.31 x10^6/uL (3.50-5.40) L Hemoglobin 9.7 g/dL (12.0-15.5) L Hematocrit 30.8 % (36.0-47.0) L Mean Corpuscular Volume 93 fL (79-100) Mean Corpuscular Hemoglobin 29 pg (25-35) Mean Corpuscular Hemoglobin Concent 31 g/dL (31-37) Red Cell Distribution Width 15.6 % (11.5-14.5) H Platelet Count 270 x10^3/uL (140-400) Neutrophils (%) (Auto) 57 % (31-73) Lymphocytes (%) (Auto) 28 % (24-48) Monocytes (%) (Auto) 8 % (0-9) Eosinophils (%) (Auto) 7 % (0-3) H Basophils (%) (Auto) 0 % (0-3) Neutrophils # (Auto) 6.2 x10^3uL (1.8-7.7) Lymphocytes # (Auto) 3.1 x10^3/uL (1.0-4.8) Monocytes # (Auto) 0.9 x10^3/uL (0.0-1.1) Eosinophils # (Auto) 0.7 x10^3/uL (0.0-0.7) Basophils # (Auto) 0.0 x10^3/uL (0.0-0.2) Platelet Estimate Pending Sodium Level 142 mmol/L (136-145) Potassium Level 3.8 mmol/L (3.5-5.1) Chloride Level 107 mmol/L (98-107) Carbon Dioxide Level 24 mmol/L (21-32) Anion Gap 11 (6-14) Blood Urea Nitrogen 40 mg/dL (7-20) H Creatinine 1.6 mg/dL (0.6-1.0) H Estimated GFR (Cockcroft-Gault) 32.0 BUN/Creatinine Ratio 25 (6-20) H Glucose Level 86 mg/dL (70-99) Calcium Level 8.6 mg/dL (8.5-10.1) Total Bilirubin Pending Aspartate Amino Transferase (AST) Pending Alanine Aminotransferase (ALT) Pending Alkaline Phosphatase Pending Creatine Kinase Pending Creatine Kinase MB (Mass) Pending Creatine Kinase MB Relative Index Pending Troponin I Quantitative < 0.017 ng/mL (0-0.055) Total Protein Pending Albumin Pending Albumin/Globulin Ratio Pending EKG EKG EKG performed at 1246 by house radiology staff shows normal sinus rhythm at a rate of 76 bpm, HI interval 0.106, QTc interval 0.441, no acute STEMI, no ACS, no acute ischemia noted, EKG interpreted by ED attending physician Dr. Poole. Radiology/Procedures Radiology/Procedures STATUS: REG ER ORD. PHYSICIAN: MARGY COLE APRN REASON: SHORT OF BREATH PROCEDURE: CHEST PA & LATERAL Exam performed: 2 views of the chest. Indication: Reason: SHORT OF BREATH / Spl. Instructions: / History: Date of Service: 02/05/2020 12:50 PM . Comparison : One view chest from January 29, 2020 Findings: PA and lateral radiographs of the chest reveal a normal cardiomediastinal contour. The lungs are clear. No pleural fluid is seen. Bilateral shoulder arthroplasty. Impression: No acute cardiopulmonary process seen. Electronically signed by: Kylie Lang MD (02/05/2020 1:35 PM) [id number] DICTATED AND SIGNED BY: KYLIE LANG MD DATE: 02/05/20 1333 CC: MARGY COLE APRN; WENDI ROBISON MD ~MTH0 0 Heart Score Risk Factors: Risk Factors: DM, Current or recent (<one month) smoker, HTN, HLP, family history of CAD, obesity. Risk Scores: Risk Factors: DM, Current or recent (<one month) smoker, HTN, HLP, family history of CAD, obesity. Course & Med Decision Making Course & Med Decision Making Pertinent Labs and Imaging studies reviewed. (See chart for details) 69-year-old female returns emergency department after being released from inpatient care from [facility] on 02 February 2020. Patient reports increase dyspnea and low O2 sat at home over the past day. Patient was being trialed at home for outpatient therapy status post pneumonia. Patient was taking doxycycline regimen for an antibiotic. Patient's O2 sat upon arrival and during initial triage process was 85%. Patient was placed on 2 L of O2 for the remainder of her triage process. Patient initially was in respiratory distress however quickly recovered to a normal state and was no longer in any distress. Patient's O2 sat raised to 98%. Trialed patient on room air patient's O2 sat decreased from 90% down to 91%. Patient did not have any changes in respiratory status during this trial. Patient was placed back on 2 L of O2. Discussed case and reviewed ER work-up data with inpatient Dr. Robison who agreed to admit patient back in the hospital under observation status. Discussed admission under observation back to hospital with patient who was amenable to this plan. Patient will be admitted with diagnosis of hypoxia, dyspnea on exertion. An ABG was drawn by house respiratory therapist. Values reviewed. Patient's O2 will be reduced from 2 L down to 1 L per nasal cannula. Patient moving to inpatient unit at this time Dragon Disclaimer Dragon Disclaimer This electronic medical record was generated, in whole or in part, using a voice recognition dictation system. Departure Departure: Impression: Primary Impression: Hypoxia Additional Impression: Dyspnea on exertion Disposition: 09 ADMITTED INPT THIS HOSP Admitting Physician: Wendi Robison (TO MED/SURG UNIT OBSERVATION STATUS) Condition: GUARDED Referrals: WENDI ROBISON MD (PCP) Problem Qualifiers MARGY COLE DISPENSARY CLERK Feb 05, 2020 13:42
[2020-02-05 13:43] LABS: PLT ESTIMATE ADEQUATE (ADEQUATE)
[2020-02-05 16:21] LABS: BGAS PH 7.27 (7.35-7.45)
--- NOTE | 2020-02-05 16:36 | NUR ---
PT ARRIVED TO UNIT VIA EMS PT IS PLEASANT AND COOPERATIVE. PATIENT IS OFFERED FOOD AND DRINK AND ACCEPTS. PT REPORTS NO SOB AT THIS TIME. PT IS RESTING N BED AT THIS TIME WILL CONTINUE TO MONITOR.
[2020-02-05] MEDS ORDERED: oxyCODONE/APAP 10/325 1 TAB TABLET PO PRN (18:00)
[2020-02-05] MEDS ORDERED: CETIRIZINE HCL 10 MG TABLET PO PRN (18:15)
[2020-02-05 19:00] VITALS: BP 117/60
--- NOTE | 2020-02-05 19:02 | HP ---
ADMIT DATE: 02/05/2020 HISTORY OF PRESENT ILLNESS: A 69-year-old female who came in with hypoxia, marked dyspnea, was seen in the Emergency Room and was admitted with hypoxia and dyspnea on exertion, apparently desaturated down to 85% with minimal exertion. The patient denied chest pain. Apparently was unable due to the holiday to get her nebulizer and was only using oral inhalers. The patient was admitted for further evaluation, observation for her oxygen saturation dropping down to 85% and exacerbation of her COPD, which was unstable. PAST MEDICAL HISTORY: Blind in the right eye, cataracts, tonsillectomy, adenoidectomy, neurological disorder, peripheral neuropathy, neurological surgery, spinal cord surgery with plates in the neck, cardiac disorders, hypercholesterolemia, respiratory disorders, sleep apnea, irritable bowel, GERD, lumpectomy, kidney stones, urinary tract infection, incontinence, musculoskeletal disorders, arthritis, orthopedic surgery, multiple left shoulder surgeries, biopsy of the left breast lumpectomy, joint replacement knees, endocrine disorders of diabetes, medical symptoms of neuropathy, anemia, skin cancer, pneumonia and influenza up-to-date. FAMILY HISTORY: Unremarkable. ALLERGIES: IODINE, ADHESIVE. SOCIAL HISTORY: No smoking, alcohol or drug use and is a full code. MEDICATIONS: The patient's medications were reconciled as they were previously and there has been no change there including Benadryl, Dinah, doxycycline, anastrozole for her breast cancer, Lipitor, lisinopril, hydrochlorothiazide, aspirin, naproxen, Percocet 10/325, gabapentin 600 t.i.d., Keppra, ____, Cymbalta, calcium carbonate, fluticasone and glyburide for her diabetes. REVIEW OF SYSTEMS: Increased shortness of breath exacerbated with any type of exertion, but on the other hand, she denies any chest pain, headaches, visual changes, blurred vision, double vision. Denies any paresis or paralysis anywhere at the present time. PHYSICAL EXAMINATION: GENERAL: This is a very pleasant white female, moderate amount of distress from exertion. VITAL SIGNS: Blood pressure 106/70, respiratory rate 30, pulse 75, afebrile, room air at 88% with exertion, drops down in the low 80s. HEENT: The patient's head was atraumatic, normocephalic. Eyes: PERRLA without jaundice. Mouth and throat were normal. NECK: Supple, without JVD, carotid bruits nor thyromegaly. LUNGS: The patient's lungs were diminished throughout, poor movement of the air, but basically clear. CARDIOVASCULAR: Regular sinus rhythm, S1, S2. ABDOMEN: Soft, nontender. No rebound or guarding. Positive bowel sounds, no hepatosplenomegaly. EXTREMITIES: No clubbing, cyanosis, nor edema. NEUROLOGIC: Intact. LABORATORY DATA: The patient's blood count 10, hemoglobin 9.7 and hematocrit 30. The patient's chemistries, 142, 3.8, BUN and creatinine 40 and 1.6. BNP of 160, albumin slightly low, moderate protein deficiency. The patient's D-dimer was elevated, but it was elevated last time from her falls and she had a V/Q scan within the last week and that was negative. We will continue to monitor and put her on some steroids, give her breathing treatments per nebulizer since she was COVID negative and we will continue to monitor her accordingly. WENDI ROBISON MD DR: FAUZIA/alberta JOB#: [id number] / [id number]
[2020-02-05] MEDS ORDERED: ATORVASTATIN CALCIUM 20 MG TABLET PO SCH (21:00)
[2020-02-05] MEDS ORDERED: diphenhydrAMINE HCL 25 MG CAPSULE PO SCH (21:00)
[2020-02-05] MEDS: FLUTICASONE 50MCG/NASAL SPRAY 16GM BOTTLE. NS SCH (21:00)
[2020-02-05] MEDS: TOPIRAMATE 25 MG TABLET. PO SCH (22:13)
[2020-02-05] MEDS: BUDESONIDE 0.5 MG/2 ML NEBU NEB SCH ×2 (22:13→22:22)
[2020-02-05] MEDS: IPRATRPIUM/ALBUTEROL 0.5/2.5MG 3 ML NEBU. NEB SCH ×2 (22:13→22:22)
[2020-02-05] MEDS: DOXYCYCLINE HYCLATE 100 MG TABLET PO SCH (22:13)
[2020-02-05] MEDS: AZELASTINE NASAL SPRAY 30ML BOTTLE. NS SCH (22:14)
[2020-02-05] MEDS: GABAPENTIN 300 MG CAPSULE. PO SCH (22:14)
[2020-02-05] MEDS: levETIRAcetam 500 MG TABLET PO SCH (22:14)
[2020-02-05] MEDS: methylPREDNISolone SOD SUCC PF 40 MG/ML VIAL. IV SCH (22:15)
[2020-02-05 23:00] VITALS: BP 133/65
[2020-02-06 03:00] VITALS: BP 94/74
[2020-02-06] MEDS: IPRATRPIUM/ALBUTEROL 0.5/2.5MG 3 ML NEBU. NEB SCH (05:00)
[2020-02-06 07:00] VITALS: BP 119/58
[2020-02-06] MEDS ORDERED: PANTOPRAZOLE 40 MG TABLET. PO SCH (07:30)
[2020-02-06] MEDS: DOXYCYCLINE HYCLATE 100 MG TABLET PO SCH (08:00)
[2020-02-06] MEDS: GABAPENTIN 300 MG CAPSULE. PO SCH (08:00)
[2020-02-06] MEDS: TOPIRAMATE 25 MG TABLET. PO SCH (08:00)
[2020-02-06] MEDS: levETIRAcetam 500 MG TABLET PO SCH (08:02)
[2020-02-06] MEDS: methylPREDNISolone SOD SUCC PF 40 MG/ML VIAL. IV SCH (08:03)
[2020-02-06] MEDS: FLUTICASONE 50MCG/NASAL SPRAY 16GM BOTTLE. NS SCH (08:03)
[2020-02-06] MEDS: AZELASTINE NASAL SPRAY 30ML BOTTLE. NS SCH (08:03)
[2020-02-06] MEDS: hydroCHLOROthiazide 12.5 MG CAPSULE PO SCH ×2 (08:07→08:33)
[2020-02-06 08:32] VITALS: BP 119/58
[2020-02-06] MEDS ORDERED: LISINOPRIL 10 MG TABLET PO SCH (09:00)
[2020-02-06] MEDS ORDERED: ALLOPURINOL 300 MG TABLET. PO SCH (09:00)
[2020-02-06] MEDS ORDERED: ANASTROZOLE 1 MG TABLET PO SCH (09:00)
[2020-02-06] MEDS ORDERED: DULoxetine HCL 60 MG CAPSULE.DR PO SCH (09:00)
[2020-02-06] MEDS ORDERED: NON FORMULARY ITEM (Lisinopril/Hydrochlorothiazide (Lisinopril-Hctz 10-12.5 Mg Tab) 1 TAB) PO SCH (09:00)
[2020-02-06] MEDS ORDERED: ASPIRIN CHEWABLE 81 MG TABLET. PO SCH (09:00)
[2020-02-06] MEDS ORDERED: IPRATRPIUM/ALBUTEROL 0.5/2.5MG 3 ML NEBU. NEB SCH (09:30)
--- NOTE | 2020-02-06 10:02 | EKG ---
[address] [address] Test Date: 2020-02-05 Test Time: 12:46:08 Pat Name: CLYDE AGUILAR Department: Room: Gender: F Senior Data Architect: JASPAL : 1950 Requested By: MARGY COLE Order Number: [id number] Reading MD: Measurements Intervals [place] Rate: 76 P: 27 CO: 192 QRS: 18 QRSD: 82 T: 29 QT: 388 QTc: 441 Interpretive Statements SINUS RHYTHM R-S TRANSITION ZONE IN V LEADS DISPLACED TO THE LEFT OTHERWISE NORMAL ECG RI6.02 No previous ECG available for comparison
[2020-02-06] MEDS ORDERED: IPRA3AMP29 NEB (10:10)
--- NOTE | 2020-02-06 10:12 | DISCH ---
HOME HEALTH DISCHARGE/MEDS DISCHARGE INFORMATION: Discharge Date: Feb 06, 2020 Final Diagnosis: Problems Medical Problems: (1) Dyspnea on exertion Status: Acute (2) Hypoxia Status: Acute Condition on Discharge: Stable CODE STATUS: Code Status: Full HOME HEALTH: Face to Face: I certify this patient is under my care and that I, or a nurse practitioner or physician's assistant clinical nurse manager working with me, had a face to face encounter that meets the physician face to face encounter requirements with this patient on 02/06/2020. Medical Condition(s): COPD, Pneumonia Senior Care For: Assess Cardiopulm Status, Assess & Educate Safety, Assess/Skilled Observatio, Medication Management, Pain Management Homebound Status Met By: Extreme weakness w/ amb., Fatigue w/ amb. POST DISCHARGE ORDERS: Activity Instructions for Disc: Activity as tolerated Weight Bearing Status after Di: No restrictions DIET AFTER DISCHARGE: Regular CERTIFICATION STATEMENT: Certification Statement: Based on the above finding, I certify that this patient is confined to the home and needs intermittent longterm care, physical therapy and/or speech therapy, or continues to need occupational therapy.~ This patient is under my care, and I have initiated the establishment of the plan of care.~ This patient will be followed by myself or a community physician who will periodically review the plan of care. DISCHARGE MEDICATIONS: Home Meds Active Scripts Doxycycline Hyclate (DOXYCYCLINE HYCLATE) 100 Mg Capsule, 1 CAP PO BID for infection, #14 CAP Prov:WENDI ROBISON MD 02/01/20 Levetiracetam (KEPPRA) 500 Mg Tablet, 1000 MG PO BID for seizures for 30 Days, #120 TAB 6 Refills Prov:WENDI ROBISON MD 03/04/18 Reported Medications Oxycodone Hcl/Acetaminophen (PERCOCET 10-325 MG TABLET ) 1 Each Tablet, 1 TAB PO PRN Q4-6HRS PRN for PAIN MDD 6 Tablet(s) NOT GIVEN TODAY NEXT DOSE DUE: DATE: TODAY TIME: IF AND WHEN NEEDED 01/29/20 Calcium Carbonate/Vitamin D3 (Calcium 600 + Vit D 800 Tab) 1 Each Tablet, 1 TAB PO DAILY for SUPPLEMENT LAST DOSE GIVEN: DATE: TODAY TIME: AM NEXT DOSE DUE: DATE: TOMORROW TIME: AM 01/29/20 Gabapentin (GABAPENTIN ) 300 Mg Capsule, 600 MG PO TID for NEUROGENIC PAIN LAST DOSE GIVEN: DATE: TODAY TIME: AM NEXT DOSE DUE: DATE: TODAY TIME: AFTERNOON 01/29/20 Fexofenadine Hcl (BRYSON ALLERGY) 180 Mg Tablet, 1 TAB PO DAILY PRN for ALLERGIES LAST DOSE GIVEN: DATE: TODAY TIME: AM NEXT DOSE DUE: DATE: TOMORROW TIME:AM 09/10/18 Topiramate (TOPIRAMATE) 50 Mg Tablet, 1 TAB PO TID for SEIZURES LAST DOSE GIVEN: DATE: TIME: AM NEXT DOSE DUE: DATE: TODAY TIME: AFTERNOON 09/10/18 Naproxen (NAPROXEN) 500 Mg Tablet, 1 TAB PO BID for CHRONIC PAIN LAST DOSE GIVEN: DATE: TIME: AM NEXT DOSE DUE: DATE: TODAY TIME: PM 09/10/18 Azelastine Hcl (AZELASTINE HCL) 137 Mcg/0.137 Ml Loa.pump, 1 SPR NS BID for SINUS CONGESTION LAST DOSE GIVEN: DATE: TIME: AM NEXT DOSE DUE: DATE: TODAY TIME: PM 09/10/18 Allopurinol (ALLOPURINOL) 300 Mg Tablet, 1 TAB PO DAILY for GOUT PAIN LAST DOSE GIVEN: DATE: TODAY TIME: AM NEXT DOSE DUE: DATE: TOMORROW TIME: AM 07/15/18 Aspirin (ASPIRIN) 81 Mg Tab.chew, 81 MG PO DAILY for HEART HEALTH LAST DOSE GIVEN: DATE: TIME: AM NEXT DOSE DUE: DATE: TOMORROW TIME: AM 07/15/18 Atorvastatin Calcium (ATORVASTATIN CALCIUM) 40 Mg Tablet, 1 TAB PO DAILY for CHOLESTEROL LAST DOSE GIVEN: DATE: TER TIME: AT BEDTIME NEXT DOSE DUE: DATE: TODAY TIME: AT BEDTIME 02/24/18 Lisinopril/Hydrochlorothiazide (LISINOPRIL-HCTZ 10-12.5 MG TAB) 1 Each Tablet, 1 TAB PO DAILY for HIGH BLOOD PRESSURE LAST DOSE GIVEN: DATE: TODAY TIME: AM NEXT DOSE DUE: DATE: TOMORROW TIME: AM 12/06/16 Anastrozole (ANASTROZOLE) 1 Mg Tablet, 1 MG PO DAILY for BREAST CANCER LAST DOSE GIVEN: DATE: TIME: AM NEXT DOSE DUE: DATE: TOMORROW TIME: AM 12/06/16 Duloxetine Hcl (CYMBALTA) 60 Mg Capsule.dr, 1 CAP PO DAILY for DEPRESSION LAST DOSE GIVEN: DATE: TODAY TIME: AM NEXT DOSE DUE: DATE: TOMORROW TIME: AM 12/19/15 Fluticasone Propionate (FLUTICASONE PROPIONATE NASAL SPRAY) 16 Gm Loa.susp, 2 SPR NS BID for ALLERGIES LAST DOSE GIVEN: DATE: TODAY TIME: AM NEXT DOSE DUE: DATE: TODAY TIME: PM 12/19/15 Budesonide/Formoterol Fumarate (SYMBICORT 160-4.5 MCG INHALER) 10.2 Gm Hfa.aer.ad, 1 PUFF IH BID for SHORTNESS OF AIR SUBSTITUTED FOR BREATHING TREATMENTS NEXT DOSE DUE: DATE: TODAY TIME: PM 12/19/15 Omeprazole (OMEPRAZOLE) 40 Mg Capsule.dr, 40 MG PO BID for PREVENT HEARTBURN SUBSTITUTED FOR PANTOPRAZOLE LAST DOSE DUE: DATE: TODAY TIME: AM NEXT DOSE DUE: DATE: TODAY TIME: PM 05/23/15 Diphenhydramine Hcl (BENADRYL) 25 Mg Capsule, 25 MG PO QHS for SLEEP AIDE LAST DOSE GIVEN: DATE: YESTERDAY TIME: AT BEDTIME NEXT DOSE DUE: DATE: TODAY TIME: AT BEDTIME 05/23/15 Glimepiride (GLIMEPIRIDE) 1 Mg Tablet, 1 MG PO DAILY for DIABETES LAST DOSE GIVEN: DATE: TODAY TIME: AM NEXT DOSE DUE: DATE: TOMORROW TIME: AM 05/23/15 Discontinued Reported Medications Ipratropium/Albuterol Sulfate (COMBIVENT RESPIMAT INHAL) 4 Gm Aer.w.adap, 2 PUFF INH QID for SHORTNESS OF BREATH NOT GIVEN IN THE HOSPITAL NEXT DOSE DUE: DATE: TODAY TIME: EARLY AFTERNOON 09/10/18 WENDI ROBISON MD Feb 06, 2020 10:12
--- NOTE | 2020-02-06 11:32 | DISCH ---
HOME HEALTH DISCHARGE/MEDS DISCHARGE INFORMATION: Discharge Date: Feb 06, 2020 Final Diagnosis: Problems Medical Problems: (1) Dyspnea on exertion Status: Acute (2) Hypoxia Status: Acute Condition on Discharge: Stable CODE STATUS: Code Status: Full HOME HEALTH: Face to Face: I certify this patient is under my care and that I, or a nurse practitioner or physician's assistant research scientist working with me, had a face to face encounter that meets the physician face to face encounter requirements with this patient on [Date]. Medical Condition(s): COPD, Falls, HTN Fci For: Assess Cardiopulm Status, Assess & Educate Safety, Assess/Skilled Observatio, Medication Management, Pain Management Physical Therapy For: Evalulation/Treatment Occupational Therapy For: Evaluation/Treatment CERTIFICATION STATEMENT: Certification Statement: Based on the above finding, I certify that this patient is confined to the home and needs intermittent usp care, physical therapy and/or speech therapy, or continues to need occupational therapy.~ This patient is under my care, and I have initiated the establishment of the plan of care.~ This patient will be followed by myself or a community physician who will periodically review the plan of care. DISCHARGE MEDICATIONS: Home Meds Active Scripts Ipratropium/Albuterol Sulfate (DUONEB 0.5-3(2.5) MG/3 ML) 3 Ml Ampul.neb, 3 ML NEB RTQID for shortness of breath, #120 EACH 3 Refills Prov:WENDI ROBISON MD 02/06/20 Doxycycline Hyclate (DOXYCYCLINE HYCLATE) 100 Mg Capsule, 1 CAP PO BID for infection, #14 CAP Prov:WENDI ROBISON MD 02/01/20 Levetiracetam (KEPPRA) 500 Mg Tablet, 1000 MG PO BID for seizures for 30 Days, #120 TAB 6 Refills Prov:WEDNI ROBISON MD 03/04/18 Reported Medications Oxycodone Hcl/Acetaminophen (PERCOCET 10-325 MG TABLET ) 1 Each Tablet, 1 TAB PO PRN Q4-6HRS PRN for PAIN MDD 6 Tablet(s) NOT GIVEN TODAY NEXT DOSE DUE: DATE: TODAY TIME: IF AND WHEN NEEDED 01/29/20 Calcium Carbonate/Vitamin D3 (Calcium 600 + Vit D 800 Tab) 1 Each Tablet, 1 TAB PO DAILY for SUPPLEMENT LAST DOSE GIVEN: DATE: TODAY TIME: AM NEXT DOSE DUE: DATE: TOMORROW TIME: AM 01/29/20 Gabapentin (GABAPENTIN ) 300 Mg Capsule, 600 MG PO TID for NEUROGENIC PAIN LAST DOSE GIVEN: DATE: TODAY TIME: AM NEXT DOSE DUE: DATE: TODAY TIME: AFTERNOON 01/29/20 Fexofenadine Hcl (BRYSON ALLERGY) 180 Mg Tablet, 1 TAB PO DAILY PRN for ALLERGIES LAST DOSE GIVEN: DATE: TODAY TIME: AM NEXT DOSE DUE: DATE: TOMORROW TIME:AM 09/10/18 Topiramate (TOPIRAMATE) 50 Mg Tablet, 1 TAB PO TID for SEIZURES LAST DOSE GIVEN: DATE: TODAY TIME: AM NEXT DOSE DUE: DATE: TODAY TIME: AFTERNOON 09/10/18 Naproxen (NAPROXEN) 500 Mg Tablet, 1 TAB PO BID for CHRONIC PAIN LAST DOSE GIVEN: DATE: TIME: AM NEXT DOSE DUE: DATE: TODAY TIME: PM 09/10/18 Azelastine Hcl (AZELASTINE HCL) 137 Mcg/0.137 Ml [place].pump, 1 SPR NS BID for SINUS CONGESTION LAST DOSE GIVEN: DATE: TODAY TIME: AM NEXT DOSE DUE: DATE: TODAY TIME: PM 09/10/18 Allopurinol (ALLOPURINOL) 300 Mg Tablet, 1 TAB PO DAILY for GOUT PAIN LAST DOSE GIVEN: DATE: TIME: AM NEXT DOSE DUE: DATE: TOMORROW TIME: AM 07/15/18 Aspirin (ASPIRIN) 81 Mg Tab.chew, 81 MG PO DAILY for HEART HEALTH LAST DOSE GIVEN: DATE: TIME: AM NEXT DOSE DUE: DATE: TOMORROW TIME: AM 07/15/18 Atorvastatin Calcium (ATORVASTATIN CALCIUM) 40 Mg Tablet, 1 TAB PO DAILY for CHOLESTEROL LAST DOSE GIVEN: DATE: YESTERDAY TIME: AT BEDTIME NEXT DOSE DUE: DATE: TODAY TIME: AT BEDTIME 02/24/18 Lisinopril/Hydrochlorothiazide (LISINOPRIL-HCTZ 10-12.5 MG TAB) 1 Each Tablet, 1 TAB PO DAILY for HIGH BLOOD PRESSURE LAST DOSE GIVEN: DATE: TODAY TIME: AM NEXT DOSE DUE: DATE: TOMORROW TIME: AM 12/06/16 Anastrozole (ANASTROZOLE) 1 Mg Tablet, 1 MG PO DAILY for BREAST CANCER LAST DOSE GIVEN: DATE: TODAY TIME: AM NEXT DOSE DUE: DATE: TOMORROW TIME: AM 10/28/17 Duloxetine Hcl (CYMBALTA) 60 Mg Capsule.dr, 1 CAP PO DAILY for DEPRESSION LAST DOSE GIVEN: DATE: TODAY TIME: AM NEXT DOSE DUE: DATE: TOMORROW TIME: AM 12/19/15 Fluticasone Propionate (FLUTICASONE PROPIONATE NASAL SPRAY) 16 Gm [place].susp, 2 SPR NS BID for ALLERGIES LAST DOSE GIVEN: DATE: TODAY TIME: AM NEXT DOSE DUE: DATE: TODAY TIME: PM 12/19/15 Budesonide/Formoterol Fumarate (SYMBICORT 160-4.5 MCG INHALER) 10.2 Gm Hfa.aer.ad, 1 PUFF IH BID for SHORTNESS OF AIR SUBSTITUTED FOR BREATHING TREATMENTS NEXT DOSE DUE: DATE: TODAY TIME: PM 12/19/15 Omeprazole (OMEPRAZOLE) 40 Mg Capsule.dr, 40 MG PO BID for PREVENT HEARTBURN SUBSTITUTED FOR PANTOPRAZOLE LAST DOSE DUE: DATE: TODAY TIME: AM NEXT DOSE DUE: DATE: TODAY TIME: PM 05/23/15 Diphenhydramine Hcl (BENADRYL) 25 Mg Capsule, 25 MG PO QHS for SLEEP AIDE LAST DOSE GIVEN: DATE: YESTERDAY TIME: AT BEDTIME NEXT DOSE DUE: DATE: TODAY TIME: AT BEDTIME 05/23/15 Glimepiride (GLIMEPIRIDE) 1 Mg Tablet, 1 MG PO DAILY for DIABETES LAST DOSE GIVEN: DATE: TODAY TIME: AM NEXT DOSE DUE: DATE: TOMORROW TIME: AM 05/23/15 Discontinued Reported Medications Ipratropium/Albuterol Sulfate (COMBIVENT RESPIMAT INHAL) 4 Gm Aer.w.adap, 2 PUFF INH QID for SHORTNESS OF BREATH NOT GIVEN IN THE HOSPITAL NEXT DOSE DUE: DATE: TODAY TIME: EARLY AFTERNOON 09/10/18 WENDI ROBISON MD Feb 06, 2020 11:32
--- NOTE | 2020-02-06 12:11 | NUR ---
PT IS DISCHARGED HOME WITH HOME HEALTH AND O2. PATIENTS IV IS REMOVED AND PT HAS ALL BELONGINGS AT TIME OF DISCHARGE. PT IS STABLE AT TIME OF DC. PT IS W/C'D OFF OF UNIT ACCOMPANIED BY STAFF.
== END 2020-02-06 11:35 | disposition home or self-care (01) ==
LOC: ER 12:18 → ICU 15:30
PROVIDERS: ADMIT Family Medicine; ATTEND Family Medicine
DX: R09.02 Hypoxemia (principal); R06.00 Dyspnea, unspecified; H54.61 Unqualified visual loss, right eye, normal vision left eye; E78.00 Pure hypercholesterolemia, unspecified; J44.1 Chronic obstructive pulmonary disease with (acute) exacerbation; J18.9 Pneumonia, unspecified organism; I10 Essential (primary) hypertension; E11.42 Type 2 diabetes mellitus with diabetic polyneuropathy; J44.0 Chronic obstructive pulmonary disease with (acute) lower respiratory infection; G47.33 Obstructive sleep apnea (adult) (pediatric); K58.9 Irritable bowel syndrome, unspecified; K21.9 Gastro-esophageal reflux disease without esophagitis; M19.90 Unspecified osteoarthritis, unspecified site; Z87.442 Personal history of urinary calculi; Z96.659 Presence of unspecified artificial knee joint; Z87.440 Personal history of urinary (tract) infections; Z98.49 Cataract extraction status, unspecified eye; Z90.49 Acquired absence of other specified parts of digestive tract; Z85.9 Personal history of malignant neoplasm, unspecified; Z79.82 Long term (current) use of aspirin; Z98.890 Other specified postprocedural states
CPT/HCPCS: 36415; 71046; 80053; 82553; 82803; 82947; 83880; 84484; 85007; 85025; 85379; 93005; 94640; 96374; 96376; 99285; G0378; J2920; Q0163; G0379

== ENCOUNTER 2020-02-08 21:54 | Emergency (ER) | payer MEDICARE, OTHER ==
[~2020-02-08] VITALS: Ht 167.6 cm; Wt 145.8 kg
[~2020-02-08 21:54] MED LIST changes: +IPRA3AMP29 NEB
[2020-02-08] MEDS ORDERED: ACETAMINOPHEN 325 MG TABLET PO ONE (22:15)
[2020-02-08 22:22] VITALS: BP 162/60
--- NOTE | 2020-02-08 23:06 | PHYS DOC ---
Past History Past Medical History: Asthma, Cancer, COPD, Diabetes, GERD, High Cholesterol, Hypertension, Seizure, Other Additional Past Medical Histor: MEMO, NEUROPATHY Past Surgical History: Knee Replacement, Other Additional Past Surgical Histo: SHOULDER SURGERY X 5, PLATES IN NECK, SPINAL CORD SURGERY Alcohol Use: None Drug Use: None Adult General Chief Complaint Chief Complaint: SHORTNESS OF BREATH HPI HPI Patient is a 69-year-old female presenting for hypoxic reading at home. This was observed approximately 4 hours prior to arrival. Patient was seated in recliner not doing any physical activity when she routinely checked her pulse oximeter, she reports " I have had readings all over the place but it is usually in the 80s or 90s", states at that time she had a reading of 81%. Patient immediately called her primary care physician and talk to nurse who advised she seek care at local ER. On arrival, patient having no complaints. Patient accurately recalls complicated recent medical history significant for numerous ER visits and hospitalizations. She was recently discharged from [facility] for pneumonia and on current antibiotic therapy. She also has history of using supplemental oxygen at nighttime but has been using this /, she has been on 2 L via nasal cannula since hospital discharge. Patient also admitting to tension-like headache. States she has not taken anything for pain because she did not want to mask any symptoms that might help us during our evaluation. Denies this being the worst headache of her life, no vision changes. She states she has had no fever, no lightheadedness or dizziness, no falls, no chest pain, no productive cough or wheezing, no respiratory distress, no abdominal pain, urinary symptoms, changes in motor or sensory function or other neurologic deficits. Review of Systems Review of Systems Fourteen body systems of review of systems have been reviewed. See HPI for pertinent positives and negative responses, other reyes all other systems are negative, non-pertinent or non-contributory Current Medications Current Medications Current Medications Medications (Trade) Dose Ordered Sig/Jeison Start Time Stop Time Status Last Admin Dose Admin Acetaminophen (Tylenol) 650 mg 1X ONCE 02/08/20 22:15 02/08/20 22:40 DC 02/08/20 22:48 650 MG Allergies Allergies Allergies Coded Allergies Type Severity Reaction Last Updated Verified Iodinated Contrast Media Allergy Severe 12/23/19 Yes iodine Allergy Severe Shortness of Air 12/23/19 No adhesive Allergy Intermediate 12/23/19 Yes Physical Exam Physical Exam Constitutional: Well developed, well nourished, no acute distress, non-toxic appearance. HENT: Normocephalic, atraumatic, bilateral external ears normal, oropharynx moist, no oral exudates, nose normal. Eyes: PERRLA, EOMI, conjunctiva normal, no discharge. Neck: Normal range of motion, no tenderness, supple, no stridor. Cardiovascular: Heart rate regular, sinus rhythm, no murmurs rubs or gallops Lungs & Thorax: Bilateral breath sounds clear to auscultation Abdomen: Bowel sounds normal, soft, no tenderness, no masses, no pulsatile masses. Nonsurgical abdomen, no peritoneal signs Skin: Warm, dry, no erythema, no rash. Back: No tenderness, no CVA tenderness. Extremities: No tenderness, no cyanosis, no clubbing, ROM intact, no edema. Neurologic: Alert and oriented X 3, cranial nerves II through XII unremarkable, normal motor & sensory function, no focal deficits noted. Psychologic: Anxious affect, judgement normal, mood normal. Current Patient Data Vital Signs Vital Signs Date Time Temp Pulse Resp B/P (MAP) Pulse Ox O2 Delivery O2 Flow Rate FiO2 02/08/20 22:22 97.9 81 18 162/60 (94) 100 Nasal Cannula 2.0 EKG EKG [] Radiology/Procedures Radiology/Procedures [] Heart Score HEART Score for Chest Pain: HEART Score for Chest Pain Response (Comments) Value History Slighlty/Non-Suspicious 0 Age > 65 2 Risk Factors >3 Risk Factors or Hx CAD 2 Total 4 Risk Factors: Risk Factors: DM, Current or recent (<one month) smoker, HTN, HLP, family history of CAD, obesity. Risk Scores: Risk Factors: DM, Current or recent (<one month) smoker, HTN, HLP, family history of CAD, obesity. Course & Med Decision Making Course & Med Decision Making I discussed most likely diagnosis of transient hypoxic readings while at home. I question if these were true hypoxic readings or if patient was reading her heart rate as several times throughout ER visit, patient was concerned about hypoxic readings showing me the heart rate on the monitor instead of pulse o ximetry reading. She is on appropriate therapy for her pneumonia, has good family support at home and has oxygen and other ancillary services such as home health. I called her primary care physician and discussed case. We discussed recent hospitalizations. I discussed patient had been hemodynamically stable throughout entirety of ER visit and asymptomatic after Tylenol administration improved patient's presenting headache. Joint decision to defer work-up in ER setting. PCP advised patient call his office first thing tomorrow morning to schedule outpatient follow-up for repeat evaluation. I disclosed this conversation with patient at length, she felt comfortable being discharged back home with current plan of care that included extremely close outpatient follow- up with continued use of supplemental oxygen and prescribed medications that include antibiotics for pneumonia. Strict return precautions were also discussed at length with good understanding by patient. Patient voiced understanding and agreement with the plan. Patient knows to come back for repeat evaluation if concerning signs or symptoms present prior to outpatient follow-up. Hemodynamically stable, ambulatory and well-appearing at time of disposition. Dragon Disclaimer Dragon Disclaimer This electronic medical record was generated, in whole or in part, using a voice recognition dictation system. Departure Departure: Impression: Primary Impression: Pneumonia Additional Impressions: Headache Anxiety about health Disposition: 01 DC HOME SELF CARE/HOMELESS Condition: GOOD Referrals: WENDI ROBISON MD (PCP) Patient Instructions: Shortness of Breath Additional Instructions: You were seen for a hypoxic reading while at home. Please continue your current medication regimen for symptom control and if prescribed any medications during your recent hospitalization, take them as prescribed until completion or your primary doctor changes your medications. It will be important that you follow up with your primary doctor/showroom sales assistant after this ED visit. As discussed, I called your primary care physician this evening and he advised you to call him first thing in the morning to discuss next steps of care and when to follow-up in outpatient setting. Return to the ED if you develop worsening cough, shortness of breath, fever > 101, chest pain, or any other new or concerning symptoms. It was a pleasure to take care of you and I wish you the best going forward Problem Qualifiers THERESE DE LA O DO Feb 08, 2020 23:06
== END 2020-02-08 23:17 | disposition home or self-care (01) ==
LOC: ER 21:54
DX: J18.9 Pneumonia, unspecified organism (principal); F41.9 Anxiety disorder, unspecified; R51.9 Headache, unspecified; J44.9 Chronic obstructive pulmonary disease, unspecified; E11.9 Type 2 diabetes mellitus without complications; K21.9 Gastro-esophageal reflux disease without esophagitis; E78.00 Pure hypercholesterolemia, unspecified; I10 Essential (primary) hypertension; Z88.8 Allergy status to other drugs, medicaments and biological substances
CPT/HCPCS: 99284

== ENCOUNTER 2020-02-13 13:47 | Inpatient (IN) | payer MEDICARE, OTHER ==
[~2020-02-13] VITALS: Ht 167.6 cm; Wt 145.0 kg
--- NOTE | 2020-02-13 14:35 | EKG ---
[address] [address] Test Date: 2020-02-13 Test Time: 14:21:25 Pat Name: CLYDE AGUILAR Department: Room: Gender: F Nursing Service Director: JIMMY : 1950 Requested By: BILL AMOR Order Number: [id number] Reading MD: Franky Norwood Measurements Intervals [place] Rate: 62 P: 36 IA: 180 QRS: 28 QRSD: 80 T: 28 QT: 434 QTc: 443 Interpretive Statements SINUS RHYTHM NORMAL ECG RI6.02 Compared to ECG 02/05/2020 12:46:08 No significant changes Electronically Signed On 02-14-2020 13:36:40 WOOD CAULKER by Franky Norwood
--- NOTE | 2020-02-13 14:43 | PHYS DOC ---
Past History Past Medical History: Asthma, Cancer, COPD, Diabetes, GERD, High Cholesterol, Hypertension, Seizure, Other Additional Past Medical Histor: MEMO, NEUROPATHY Past Surgical History: Knee Replacement, Other Additional Past Surgical Histo: SHOULDER SURGERY X 5, PLATES IN NECK, SPINAL CORD SURGERY Alcohol Use: None Drug Use: None General Adult EDM: Chief Complaint: SEIZURE HPI: HPI: 69-year-old female with multiple comorbidities, presents to the ED with complaints of 2 episodes of shaking with associated confusion at home, concerning for seizure. EMR was reviewed and patient was discharged from the hospital January 31 after she was admitted as a PUI. Negative Covid test, required oxygen, elevated D-dimer with a negative VQ scan. Patient was discharged on doxycycline for 7 days and Keppra. Review of Systems: Review of Systems: ROS: Unobtainable due to mental status Allergies: Allergies: Allergies Coded Allergies Type Severity Reaction Last Updated Verified Iodinated Contrast Media Allergy Severe 02/13/20 Yes iodine Allergy Severe Shortness of Air 02/13/20 No adhesive Allergy Intermediate 02/13/20 Yes Physical Exam: PE: Constitutional: morbidly obese, snoring respirations, mumbled speech with me -pt has been able to speak clearly to rn, ems and radiology but goes in and out of snoring respirations and responding to pain HENT: Normocephalic, atraumatic, Eyes: PERRLA, EOMI, conjunctiva normal, no discharge. Neck: Normal range of motion, supple, Cardiovascular: S1/2 present, regular rhythm Lungs & Thorax: bilateral equal chest rise, no tachypnea or increased work of breathing, on 2L NC Abdomen: soft, no tenderness, Skin: Warm, dry, no erythema, no rash. [] Extremities: No tenderness, no cyanosis, no edema, no tremors or visable shaking Neurologic: Alert, no focal deficits noted, fails drop arm test (voluntary movement away from face) Psychologic: calm, no agitation Current Patient Data: Labs: Laboratory Tests Test 02/13/20 14:10 Glucose (Fingerstick) 64 mg/dL (70-99) L Vital Signs: Vital Signs Date Time Temp Pulse Resp B/P (MAP) Pulse Ox O2 Delivery O2 Flow Rate FiO2 02/13/20 14:02 97.6 66 18 117/50 (72) 97 Nasal Cannula 2.0 EKG: EKG: Sinus rhythm at 60 bpm, no axis deviation, normal intervals, no T wave inversions, no ST elevations or ST depressions Radiology/Procedures: Radiology/Procedures: []IMAGING REPORT Signed PATIENT: CLYDE AGUILAR ACCOUNT: [id number] : 1950 LOCATION: ER AGE: 69 SEX: F EXAM STATUS: REG ER ORD. PHYSICIAN: BILL AMOR DO REASON: seizures? PROCEDURE: CHEST AP ONLY EXAM: Chest, single view. HISTORY: Seizure. COMPARISON: 02/05/2020 FINDINGS: A frontal view of the chest is obtained. There is diffuse interstitial infiltrate. There are small pleural effusions. There is a stable cardiac silhouette. There is cervical spinal fusion instrumentation. There are bilateral shoulder arthroplasties. IMPRESSION: Diffuse interstitial infiltrate with small pleural effusions. Electronically signed by: Mis Peralta MD (02/13/2020 3:33 PM) [id number] DICTATED AND SIGNED BY: MIS PERALTA MD DATE: 02/13/20 1526 CC: WENDI ROBISON MD; BILL AMOR DO ~MTH0 0 IMAGING REPORT Signed PATIENT: CLYDE AGUILAR ACCOUNT: [id number] : 1950 LOCATION: ER AGE: 69 SEX: F EXAM STATUS: REG ER ORD. PHYSICIAN: BILL AMOR DO REASON: seizures? PROCEDURE: CT HEAD WO CONTRAST CT HEAD/BRAIN WO Date: 02/13/2020 2:40 PM Clinical Indication: Reason: seizures? / Spl. Instructions: / History: Comparison: 01/29/2020. Technique: 5 mm axial tomographic images were obtained of the head without contrast. These were viewed on brain and bone windows. One or more of the following dose reduction techniques were utilized: Automated exposure control (AEC), Adjustment of mA and/or kV according to patient size, Use of iterative reconstruction technique such as ASiR, CT scan done according to ALARA and image gently/image wisely Findings: The brain parenchyma is normal in attenuation. No intra- or extra-axial mass or fluid collection. No acute hemorrhage. The ventricles are normal in size, shape, and morphology. The merchant-white matter junction is normal. The subarachnoid ci sterns are patent. The visualized paranasal sinuses are normal. The visualized portions of the orbits and globes are normal. The mastoid air cells are clear. The air tester topogram shows no lytic lesion or fracture. Impression: No acute intracranial process. Electronically signed by: Sharona Pemberton MD (02/13/2020 3:26 PM) [facility] DICTATED AND SIGNED BY: SHARONA PEMBERTON MD DATE: 02/13/20 1525 CC: WENDI ROBISON MD; [facility] ~MTH0 0 Heart Score: Risk Factors: Risk Factors: DM, Current or recent (<one month) smoker, HTN, HLP, family history of CAD, obesity. Risk Scores: Score 0 - 3: 2.5% MACE over next 6 weeks - Discharge Home Score 4 - 6: 20.3% MACE over next 6 weeks - Admit for Clinical Observation Score 7 - 10: 72.7% MACE over next 6 weeks - Early Invasive Strategies Course & Med Decision Making: Course & Med Decision Making Pertinent Labs and Imaging studies reviewed. (See chart for details) COVID-19 CRITERIA: The patient was evaluated during the global COVID-19 pandemic, and that diagnosis was suspected/considered upon their initial presentation. Their evaluation, treatment and testing was consistent with current guidelines for patients who present with complaints or symptoms that may be related to COVID-19. Concern for intermittent brief episodes of altered mental status, ddx includes hypoglycemia, infection/sepsis, seizures, voluntary? Presentation is odd- patient has been waxing and waning and returning to normal mental status while in ED. CO2 narcosis considered but CO2 was 61 today, was 57 on February 04, no new changes. Chest x-ray is concerning for new diffuse interstitial infi ltrates. Labs shows chronic kidney disease and gradually worsening normocytic anemia. Urinalysis with no infection or blood. Drug screen positive for opiates. Patient also had episodes of hypoglycemia that resolved with IV dextrose. Will admit to ICU due to possible concern for seizure activity. Pt accepted by Dr. Robison. Covid and flu are pending. Dragon Disclaimer: Dragon Disclaimer: This electronic medical record was generated, in whole or in part, using a voice recognition dictation system. Departure Departure: Impression: Primary Impression: AMS (altered mental status) Additional Impressions: HCAP (healthcare-associated pneumonia) Seizures CKD (chronic kidney disease) Person under investigation for COVID-19 Disposition: 09 ADMITTED INPT THIS HOSP Admitting Physician: Wendi Robison Condition: GUARDED Referrals: WENDI ROBISON MD (PCP) BILL AMOR DO Feb 13, 2020 14:43
[2020-02-13] MEDS ORDERED: DEXTROSE 50% 25 GM / 50ML DISP.SYRIN. IV ONE (14:45)
[2020-02-13] MEDS ORDERED: IV NORMAL SALINE 1,000ML 1,000 ML IV ONE (14:45)
[2020-02-13] MEDS ORDERED: levETIRAcetam 500 MG/5 ML VIAL IV ONE (14:55)
[2020-02-13] MEDS ORDERED: IV NORMAL SALINE 100ML 100 ML ONE (14:55)
[2020-02-13 15:22] LABS: BASO # 0.1 x10^3/uL (0.0-0.2); BASO % 1 % (0-3); EOS # 0.7 x10^3/uL (0.0-0.7); EOS % 6 % (0-3); HEMATOCRIT 27.9 % (36.0-47.0); HEMOGLOBIN 8.7 g/dL (12.0-15.5); LYMPH # 2.6 x10^3/uL (1.0-4.8); LYMPH % 23 % (24-48); MEAN CORPUSCULAR HEMOGLOBIN 29 pg (25-35); MEAN CORPUSCULAR HGB CONC 31 g/dL (31-37); MEAN CORPUSCULAR VOLUME 93 fL (79-100); MONO # 0.8 x10^3/uL (0.0-1.1); MONO % 8 % (0-9); NEUT # 7.1 x10^3uL (1.8-7.7); NEUT % 63 % (31-73); PLATELET COUNT 252 x10^3/uL (140-400); RED CELL DISTRIBUTION WIDTH 15.1 % (11.5-14.5); WHITE BLOOD COUNT 11.2 x10^3/uL (4.0-11.0)
[2020-02-13 15:26] LABS: BARBITURATES NEG (NEG); BENZODIAZEPINES NEG (NEG); CANNABINOIDS NEG (NEG); COCAINE NEG (NEG); METHADONE NEG (NEG); OPIATES POS (NEG); PHENCYCLIDINE NEG (NEG)
[2020-02-13 15:28] LABS: AMPHETAMINE/METHAMPHETAMINE NEG (NEG)
--- NOTE | 2020-02-13 15:28 | RAD ---
CT HEAD/BRAIN WO Date: 02/13/2020 2:40 PM Clinical Indication: Reason: seizures? / Spl. Instructions: / History: Comparison: 01/29/2020. Technique: 5 mm axial tomographic images were obtained of the head without contrast. These were view ed on brain and bone windows. One or more of the following dose reduction techniques were utilized: A utomated exposure control (AEC), Adjustment of mA and/or kV according to patient size, Use of iterati ve reconstruction technique such as ASiR, CT scan done according to ALARA and image gently/image reyes ly Findings: The brain parenchyma is normal in attenuation. No intra- or extra-axial mass or fluid collection. No acute hemorrhage. The ventricles are normal in size, shape, and morphology. The merchant-white matter wilfrid ction is normal. The subarachnoid cisterns are patent. The visualized paranasal sinuses are normal. The visualized portions of the orbits and globes are no rmal. The mastoid air cells are clear. The functional analyst topogram shows no lytic lesion or fracture. Impression: No acute intracranial process. Electronically signed by: Dae Boggs MD (02/13/2020 3:26 PM) [facility]
[2020-02-13 15:29] LABS: CALCIUM 8.4 mg/dL (8.5-10.1); CREATININE 1.6 mg/dL (0.6-1.0); POTASSIUM 3.8 mmol/L (3.5-5.1)
[2020-02-13 15:31] LABS: ACETAMIN < 2.0 mcg/mL (10-30); SALIC < 2.8 mg/dL (2.8-20.0)
--- NOTE | 2020-02-13 15:35 | RAD ---
EXAM: Chest, single view. HISTORY: Seizure. COMPARISON: 02/05/2020 FINDINGS: A frontal view of the chest is obtained. There is diffuse interstitial infiltrate. There ar e small pleural effusions. There is a stable cardiac silhouette. There is cervical spinal fusion inst rumentation. There are bilateral shoulder arthroplasties. IMPRESSION: Diffuse interstitial infiltrate with small pleural effusions. Electronically signed by: Mis Travis MD (02/13/2020 3:33 PM) [id number]
[2020-02-13 15:37] LABS: ALBUMIN 2.9 g/dL (3.4-5.0); ALBUMIN/GLOBULIN RATIO 0.8 (1.0-1.7); TOTAL BILIRUBIN 0.3 mg/dL (0.2-1.0); TOTAL PROTEIN 6.5 g/dL (6.4-8.2)
[2020-02-13 15:41] LABS: BGAS PH 7.26 (7.35-7.45)
[2020-02-13 15:45] LABS: BILIRUBIN,URINE NEG (NEG); CLARITY,URINE CLEAR; COLOR,URINE YELLOW; GLUCOSE,URINE NEG (NEG)
[2020-02-13 15:46] LABS: BACTERIA,URINE 0 /HPF (0-FEW); NITRITE,URINE NEG (NEG); RBC,URINE 0 /HPF (0-2); UROBILINOGEN,URINE 0.2 mg/dL (0.2 mg/dL); WBC,URINE 0 /HPF (0-4)
[2020-02-13] MEDS ORDERED: PIPERACILLIN/TAZOBACTAM 4.5 GM in IV NORMAL SALINE 50ML 50 ML IV ONE (16:30)
[2020-02-13] MEDS ORDERED: IV NORMAL SALINE 50ML 50 ML ONE (16:52)
[2020-02-13] MEDS ORDERED: PIPERACILLIN/TAZOBACTAM 4.5 GM VIAL IV ONE (16:53)
[2020-02-13] MEDS ORDERED: VANCOMYCIN 2 GM in IV NORMAL SALINE 500ML 500 ML IV ONE (17:00)
[2020-02-13] MEDS ORDERED: VANCOMYCIN PER PHARMACY MC PRN (17:00)
[2020-02-13 17:45] LABS: INFLUENZA A PATIENT NEGATIVE (NEGATIVE); INFLUENZA B PATIENT NEGATIVE (NEGATIVE)
[2020-02-13] MEDS ORDERED: oxyCODONE/APAP 10/325 1 TAB TABLET PO PRN (18:45)
[2020-02-13] MEDS ORDERED: levoFLOXacin PER PHARMACY 1 EACH. MC PRN (18:45)
[2020-02-13] MEDS ORDERED: AZITHROMYCIN 250 MG TABLET. PO ONE (18:45)
[2020-02-13] MEDS ORDERED: PIP/TAZO PER PHARMACY MC PRN (18:45)
[2020-02-13] MEDS ORDERED: CETIRIZINE HCL 10 MG TABLET PO PRN (19:00)
[2020-02-13 19:03] VITALS: BP 119/50
--- NOTE | 2020-02-13 19:13 | NUR ---
Patient arrived to the unit via EMS patient. Patient is responsive to pain but is not verbal at this time. Patient is on 4L NC with a sat of 97% BP 113/47 HR 64 RR 11 Temp 98.4 Axillary. Shift report was given to Annabel HART.
--- NOTE | 2020-02-13 19:36 | NUR ---
Consult called to Dr. Bucio for AMS
[2020-02-13 20:00] VITALS: BP 89/52
[2020-02-13] MEDS: IPRATROPIUM/ALBUTEROL 20/100mcg/INH INHALER. INH SCH (20:00)
[2020-02-13] MEDS ORDERED: IPRATRPIUM/ALBUTEROL 0.5/2.5MG 3 ML NEBU. NEB SCH (20:00)
[2020-02-13] MEDS: VANCOMYCIN PER PHARMACY MC PRN (20:50)
[2020-02-13] MEDS: FLUTICASONE 50MCG/NASAL SPRAY 16GM BOTTLE. NS SCH (20:59)
[2020-02-13] MEDS: LACTOBACILLUS RHAMNOSUS GG 1 CAPSULE. PO SCH (20:59)
[2020-02-13] MEDS: AZELASTINE NASAL SPRAY 30ML BOTTLE. NS SCH (20:59)
[2020-02-13] MEDS: diphenhydrAMINE HCL 25 MG CAPSULE PO SCH (20:59)
[2020-02-13 21:00] VITALS: BP 102/46
[2020-02-13] MEDS ORDERED: NON FORMULARY ITEM (Budesonide/Formoterol Fumarate (Symbicort 160-4.5 Mcg Inhaler) 1 PUFF) IH SCH (21:00)
[2020-02-13] MEDS: GABAPENTIN 300 MG CAPSULE. PO SCH (21:00)
[2020-02-13] MEDS: PANTOPRAZOLE 40 MG TABLET. PO SCH (21:00)
[2020-02-13] MEDS: levETIRAcetam 500 MG TABLET PO SCH (21:00)
[2020-02-13] MEDS: TOPIRAMATE 25 MG TABLET. PO SCH (21:00)
--- NOTE | 2020-02-13 21:00 | NUR ---
Pt is lethargic and only opening eyes when shaken. Pt cannot take any PO medications or follow commands to do inhaler or nasal sprays
--- NOTE | 2020-02-13 21:45 | NUR ---
Pharmacy Vancomycin Dosing Note S:Consulted to monitor and dose vancomycin started 02/13/20. O:CLYDE AGUILAR is a 69 year old F with HCAP, . Height: 5 feet, 6 inches Weight: 145.6 kg [place] Body Weight: 59.30 Adjusted Body Weight: 93.82 Dosing Weight: Actual Other Antibiotics: ZOSYN, LEVAQUIN, AND ZITHROMAX LABS: Last BUN: 39 Last Creatinine: 1.6 Creatinine Clearance: 49.65 Last WBC: 11.2 Vancomycin Dosing: Loading Dose: 2000 mg x1 Dosing Weight: Actual Target Trough: 15-20 A: Based on: Actual weight, renal function, and indication P: 1. Begin Vancomycin 2000 mg IV q24h 2. Follow up Trough level on 02/15/20 at 1630 3. Pharmacy will continue to monitor, follow and adjust therapy as needed. LOC CHAN, 02/13/20 [id number]
[2020-02-13 22:00] VITALS: BP 101/48
[2020-02-13 23:00] VITALS: BP 107/47
[2020-02-13] MEDS: PIPERACILLIN/TAZOBACTAM 4.5 GM in IV NORMAL SALINE 50ML 50 ML IV SCH (23:29)
[2020-02-14] VITALS (21 sets, daily range): BP systolic 92–154; BP diastolic 39–72
[2020-02-14] MEDS: PIPERACILLIN/TAZOBACTAM 4.5 GM in IV NORMAL SALINE 50ML 50 ML IV SCH ×3 (05:48→18:00)
--- NOTE | 2020-02-14 06:18 | NUR ---
Shift Note: Pt more awake this am, speech is slurred (per last visit speech was slurred at that time as well so is baseline), VSS (blood pressure is a bit low 98/44 and pt is requiring oxygen to maintain sats >94%), leonard draining clear yellow urine, pt does have more tremors this morning and is taking off blood pressure cuff (pt requires reorientation to surroundings and situation).
[2020-02-14] MEDS: IPRATROPIUM/ALBUTEROL 20/100mcg/INH INHALER. INH SCH ×4 (08:00→20:48)
[2020-02-14] MEDS: GABAPENTIN 300 MG CAPSULE. PO SCH ×3 (09:00→20:49)
[2020-02-14] MEDS: CALCIUM CARB/VIT D3 500/200 TABLET PO SCH (09:00)
[2020-02-14] MEDS: DULoxetine HCL 60 MG CAPSULE.DR PO SCH (09:00)
[2020-02-14] MEDS: FLUTICASONE FUROATE 100mcg/INH ELLIPTA INHALER. INH SCH (09:00)
[2020-02-14] MEDS: GLIMEPIRIDE 2 MG TABLET PO SCH (09:00)
[2020-02-14] MEDS: PANTOPRAZOLE 40 MG TABLET. PO SCH ×2 (09:07→20:49)
[2020-02-14] MEDS: ASPIRIN CHEWABLE 81 MG TABLET. PO SCH (09:07)
[2020-02-14] MEDS: TOPIRAMATE 25 MG TABLET. PO SCH ×3 (09:07→20:49)
[2020-02-14] MEDS: LACTOBACILLUS RHAMNOSUS GG 1 CAPSULE. PO SCH ×2 (09:08→20:49)
[2020-02-14] MEDS: ALLOPURINOL 300 MG TABLET. PO SCH (09:08)
[2020-02-14] MEDS: levETIRAcetam 500 MG TABLET PO SCH ×2 (09:08→20:49)
[2020-02-14] MEDS: AZITHROMYCIN 250 MG TABLET. PO SCH (09:08)
[2020-02-14] MEDS: AZELASTINE NASAL SPRAY 30ML BOTTLE. NS SCH ×2 (09:09→20:49)
[2020-02-14] MEDS: FLUTICASONE 50MCG/NASAL SPRAY 16GM BOTTLE. NS SCH ×2 (09:09→20:49)
[2020-02-14] MEDS: ANASTROZOLE 1 MG TABLET PO SCH (09:09)
--- NOTE | 2020-02-14 10:02 | CONS ---
DATE OF CONSULTATION: REFERRING PHYSICIAN: Dr. Tejada. REASON FOR CONSULTATION: Acute mental status changes. HISTORY OF PRESENT ILLNESS: This is a 69-year-old right-handed female who was admitted through Emergency Room on account of acute mental status changes. Apparently, the patient had 2 episodes of shaking of the upper and lower extremities with confusions at home. She has had a longstanding history of seizure disorder and she is on Keppra. She was admitted to rule out breakthrough seizures. The patient is confused and disoriented and unable to provide concrete information. Initial nonenhanced head CT scan revealed no evidence of acute intracranial process. Chest x-ray revealed evidence of interstitial pneumonia with a small pleural effusion. The patient was admitted to ICU for further observation and treatment of pneumonia. In ICU, the patient has not had any seizure-like activities. In Emergency Room, blood pressure was 117/50 with oxygen saturation 97% on 2 liters by nasal cannula. PAST MEDICAL HISTORY: Significant for morbid obesity, asthma, COPD, diabetes mellitus, GERD, seizure disorder of unknown etiology, obstructive sleep apnea, peripheral neuropathy in the lower extremities, blindness of the right eye, hypertension, and hyperlipidemia. PAST SURGICAL HISTORY: Positive for total right knee replacement, shoulder surgeries x5, cervical spine surgery and fusion, breast cancer required lumpectomy, left hip fracture and left knee replacement, adenoidectomy, lumbosacral spine surgery with fusion, bilateral shoulder conversion. SOCIAL HISTORY: The patient denies smoking, alcohol drinking, or illicit drug use. FAMILY HISTORY: Unobtainable. CURRENT HOME MEDICATIONS: Albuterol inhaler and nebulizer, aspirin, Lipitor, glimepiride, duloxetine, anastrozole, allopurinol, topiramate, pantoprazole, levetiracetam, gabapentin, cetirizine, oxycodone, and acetaminophen. ALLERGIES: IODINATED CONTRAST MEDIA, ADHESIVE, AND IODINE. REVIEW OF SYSTEMS: A 14-point review of system was performed as mentioned above in history of present illness. PHYSICAL EXAMINATION: GENERAL: Obese female, not in acute distress. She weighs 145.8 kilos. VITAL SIGNS: Blood pressure 121/48, respiratory rate 15, pulse is 69, temperature 98.1, oxygen saturation was 96% on 3 liters by nasal cannula. HEENT: Normocephalic, atraumatic, otherwise unremarkable. NECK: Supple. Negative for carotid bruit, lymphadenopathy or thyromegaly. LUNGS: Clear to A and P. CARDIOVASCULAR: Regular rate and rhythm, normal S1, S2. ABDOMEN: Soft. Bowel sounds positive. EXTREMITIES: Negative for cyanosis, clubbing or edema. NEUROLOGICAL: MENTAL STATUS: The patient is alert, but disoriented to time and place. The patient recognizes me and mentioned my name. Further mental status evaluation is limited because of confusion. CRANIAL NERVES: The left pupil is enlarged and sluggishly reactive to light. She is blind in the right eye. There is no facial motor or sensory deficit. Hearing appeared to be intact. There is no nystagmus. Sternocleidomastoid muscles are powerful bilaterally. The patient shrugs her shoulders symmetrically and protrudes her tongue in the midline without fasciculation or atrophy. MOTOR EXAMINATION: No focal muscle bulk was seen. There is a decreased range of motions of the left upper extremity secondary to previous surgeries and there is no focal muscle bulk was seen. The strength was 4/5 throughout. SENSORY EXAMINATION: Revealed diminished pinprick and light touch senses in the stocking distributions. Deep tendon reflexes were symmetric and hypoactive with absent Achilles responses. GAIT: Not tested. DIAGNOSTIC DATA: Chest x-ray revealed interstitial infiltration and nonenhanced head CT scan revealed no evidence of acute intracranial process. LABORATORY DATA: CBC revealed white blood cells of 11.2, hemoglobin 8.7, hematocrit 27.9, platelet count 252,000. Chemistry revealed sodium of 145, potassium 3.8, chloride 110, BUN 39, creatinine 1.6, glucose 65, calcium 8.4. Urinalysis is negative for urinary tract infections and urine drug screen is positive for opiate. Influenza A and B is negative. IMPRESSION: 1. Acute encephalopathy, probably multifactorial including metabolic versus infectious process. 2. Longstanding history of seizure disorder of unknown etiology. 3. Multiple medical problems include interstitial pneumonia, chronic obstructive pulmonary disease, obstructive sleep apnea, hypertension, hyperlipidemia, obesity, renal insufficiency, depressions, anxiety, blindness right eye. RECOMMENDATIONS: Treat the underlying metabolic and infectious process and continue with Keppra 1000 mg twice daily. COVID-19 is pending. M Gene LOBO MD DR: CLIFTON/alberta JOB#: [id number] / [id number]
--- NOTE | 2020-02-14 11:17 | NUR ---
Pt not able to follow commands to do inhaler. WCM.
[2020-02-14] MEDS ORDERED: VANCOMYCIN 2 GM in IV NORMAL SALINE 500ML 500 ML IV SCH (17:00)
--- NOTE | 2020-02-14 18:52 | HP ---
ADMIT DATE: 02/13/2020 HISTORY OF PRESENT ILLNESS: A 69-year-old female came in through the Emergency Room with a complaint of episodes of possible seizure-like activity and confusion at home. The patient was brought in by EMS and negative for COVID; however, but the patient did have problems with possible seizure activity and as a result of that, the patient was brought in for further evaluation and treatment thereof. PAST MEDICAL HISTORY: She is blind in the right eye, cataracts, tonsillectomy, spinal cord surgery with plates in the neck, coronary artery disease, hypercholesterolemia, sleep apnea, irritable bowel, gastroesophageal reflux, lumpectomy, kidney stones. The patient has orthopedic surgery, multiple left shoulder surgeries, joint replacement, right, endocrine disorders, anemia, skin cancers. IMMUNIZATIONS: All up-to-date and neuropathy. FAMILY HISTORY: The patient has no pertinent family history. ALLERGIES: TO IODINE, CONTRAST MEDIA, ADHESIVE. SOCIAL HISTORY: The patient denies smoking, alcohol or drug use. She is a full code. REVIEW OF SYSTEMS: Outside of her seizure-like activity, the patient denies chest pain, shortness of breath and otherwise resting fairly comfortably. PHYSICAL EXAMINATION: GENERAL: This is a pleasant white female, in moderate amount of distress. VITAL SIGNS: Blood pressure 130/42, respiratory rate 16, pulse 72, afebrile. She is on 3 liters at 97% oxygen saturation. HEENT: Otherwise, the patient's head was atraumatic, normocephalic. Eyes: PERRLA without jaundice. The patient does not seem to be confused at this time, although she was confused apparently at home, LUNGS: The patient's lungs are diminished, but basically clear. CARDIOVASCULAR: Regular sinus rhythm. ABDOMEN: Soft, nontender, protuberant. EXTREMITIES: No clubbing, cyanosis, nor edema. NEUROLOGIC: The patient was alert and oriented. She is slightly confused, but really regained her cognitive sense of who I was and the year fairly quickly. Otherwise, musculoskeletal was basically unremarkable. The patient did note some deep DTRs, were hypoactive. LABORATORY DATA: White count 11.2, hemoglobin 8.7 and 27. Blood gas if valid showed an increase in CO2. The patient's sodium and potassium is 145 and 3.8, BUN and creatinine 39 and 1.6. Blood sugars 110, albumin 2.9. Influenza test for A and B negative. Creatinine 1.6. IMPRESSION: Metabolic encephalopathy with acute confusional state, possible recurrent seizure activity. The patient has multiple issues going on all at one time. The patient in turn also has chronic kidney disease stage 3B, severe protein malnutrition, anemia of unknown etiology. PLAN: The patient will continue to be monitored carefully in the ICU for any seizure activity. Consult with Neurology and make further evaluation on her as indicated. WENDI ROBISON MD DR: FAUZIA/alberta JOB#: [id number] / [id number]
[2020-02-14] MEDS: diphenhydrAMINE HCL 25 MG CAPSULE PO SCH (20:49)
[2020-02-15] VITALS (7 sets, daily range): BP systolic 133–178; BP diastolic 54–71
--- NOTE | 2020-02-15 03:24 | NUR ---
Transfer of care, Report given to Sharon HART.
--- NOTE | 2020-02-15 05:14 | NUR ---
0000 DOSE OF ZOSYN NON-ADMINISTERED DUE TO NO VENOUS ACCESS. JULIANE HART USED ULTRASOUND TO ACHIEVE IV ACCESS AT THIS TIME, 22G RIGHT HAND. VANCO NOW INFUSING.
[2020-02-15] MEDS: PIPERACILLIN/TAZOBACTAM 4.5 GM in IV NORMAL SALINE 50ML 50 ML IV SCH ×5 (06:37→23:55)
[2020-02-15] MEDS: LACTOBACILLUS RHAMNOSUS GG 1 CAPSULE. PO SCH ×2 (08:22→20:23)
[2020-02-15] MEDS: TOPIRAMATE 25 MG TABLET. PO SCH ×3 (08:23→20:22)
[2020-02-15] MEDS: levETIRAcetam 500 MG TABLET PO SCH ×2 (08:23→20:23)
[2020-02-15] MEDS: DULoxetine HCL 60 MG CAPSULE.DR PO SCH (08:23)
[2020-02-15] MEDS: ASPIRIN CHEWABLE 81 MG TABLET. PO SCH (08:23)
[2020-02-15] MEDS: CALCIUM CARB/VIT D3 500/200 TABLET PO SCH (08:24)
[2020-02-15] MEDS: GABAPENTIN 300 MG CAPSULE. PO SCH ×3 (08:24→20:22)
[2020-02-15] MEDS: GLIMEPIRIDE 2 MG TABLET PO SCH (08:24)
[2020-02-15] MEDS: AZITHROMYCIN 250 MG TABLET. PO SCH (08:24)
[2020-02-15] MEDS: PANTOPRAZOLE 40 MG TABLET. PO SCH ×2 (08:24→20:23)
[2020-02-15] MEDS: FLUTICASONE FUROATE 100mcg/INH ELLIPTA INHALER. INH SCH (08:26)
[2020-02-15] MEDS: IPRATROPIUM/ALBUTEROL 20/100mcg/INH INHALER. INH SCH ×2 (08:26→11:56)
[2020-02-15] MEDS: AZELASTINE NASAL SPRAY 30ML BOTTLE. NS SCH ×2 (08:27→20:22)
[2020-02-15] MEDS: FLUTICASONE 50MCG/NASAL SPRAY 16GM BOTTLE. NS SCH ×2 (08:27→20:22)
[2020-02-15] MEDS: ALLOPURINOL 300 MG TABLET. PO SCH (10:31)
[2020-02-15] MEDS: ANASTROZOLE 1 MG TABLET PO SCH (10:33)
[2020-02-15] MEDS ORDERED: ALBUTEROL SULFATE 8GM INHALER. INH PRN (12:00)
--- NOTE | 2020-02-15 12:58 | PN ---
DATE: SUBJECTIVE: A 69-year-old female patient brought in through the Emergency Room with some mild change in mental status, confusion, some mild shortness of breath. The patient is much more alert this morning, she is very gregarious and talking completely normal. Requesting no transfer anywhere. She says she is quite content here and has been doing markedly better. Her coronavirus test was negative. Influenza negative. OBJECTIVE: VITAL SIGNS: The patient's blood sugars are being under reasonably good control and she seems to be much more with her normal self. She is more alert. Blood pressure 160/67, respiratory rate 18, pulse 70, afebrile, 3 liters on nasal cannula 97%. GENERAL: The patient is alert and oriented, more lively than she was yesterday. LUNGS: Otherwise, lungs are diminished. CARDIOVASCULAR: Regular sinus rhythm. ABDOMEN: Soft, protuberant. EXTREMITIES: Without clubbing, cyanosis, nor edema. IMPRESSION: 1. Metabolic encephalopathy, resolved. 2. Seizure activity, none present. 3. Chronic kidney disease stage 3B. 4. Severe protein malnutrition and anemia of unknown etiology at the present time. PLAN: We will continue to monitor her accordingly on all those matters. Continue with PT/OT as well. WENDI ROBISON MD DR: FAUZIA/[place]berta JOB#: [id number] / [id number]
[2020-02-15] MEDS: IPRATRPIUM/ALBUTEROL 0.5/2.5MG 3 ML NEBU. NEB SCH ×2 (15:53→20:07)
[2020-02-15] MEDS: FERROUS SULFATE ORAL 220 MG/5 ML SOLUTION. PO SCH (17:00)
[2020-02-15] MEDS: diphenhydrAMINE HCL 25 MG CAPSULE PO SCH (20:23)
[2020-02-15 21:26] LABS: BASO # 0.1 x10^3/uL (0.0-0.2); BASO % 1 % (0-3); EOS # 0.7 x10^3/uL (0.0-0.7); EOS % 7 % (0-3); HEMATOCRIT 27.1 % (36.0-47.0); HEMOGLOBIN 8.8 g/dL (12.0-15.5); LYMPH % 20 % (24-48); MEAN CORPUSCULAR HEMOGLOBIN 30 pg (25-35); MEAN CORPUSCULAR HGB CONC 32 g/dL (31-37); MEAN CORPUSCULAR VOLUME 93 fL (79-100); MONO # 0.8 x10^3/uL (0.0-1.1); MONO % 8 % (0-9); NEUT # 6.4 x10^3uL (1.8-7.7); NEUT % 64 % (31-73); PLATELET COUNT 206 x10^3/uL (140-400); RED BLOOD COUNT 2.92 x10^6/uL (3.50-5.40); RED CELL DISTRIBUTION WIDTH 14.8 % (11.5-14.5)
[2020-02-15 21:37] LABS: ALBUMIN 2.6 g/dL (3.4-5.0); ALBUMIN/GLOBULIN RATIO 0.7 (1.0-1.7); CALCIUM 8.5 mg/dL (8.5-10.1); CREATININE 1.4 mg/dL (0.6-1.0); GFR 37.3; POTASSIUM 3.9 mmol/L (3.5-5.1); TOTAL BILIRUBIN 0.1 mg/dL (0.2-1.0); TOTAL PROTEIN 6.5 g/dL (6.4-8.2)
[2020-02-16] MEDS ORDERED: HYDROcodone/APAP 5/325MG 1 TAB TABLET PO PRN (00:30)
[2020-02-16] MEDS ORDERED: MORP30TA PO (00:38)
[2020-02-16] MEDS ORDERED: PRIM50TA24 PO (00:38)
[2020-02-16] MEDS ORDERED: HYDR-2155 PO (00:38)
--- NOTE | 2020-02-16 00:49 | NUR ---
Current medication list verified with PT's pharmacy by lois HART. telephoned about changes to currently ordered home medications. MD gave permission for changes. Changes made.
[2020-02-16] MEDS: PIPERACILLIN/TAZOBACTAM 4.5 GM in IV NORMAL SALINE 50ML 50 ML IV SCH ×3 (05:30→17:19)
[2020-02-16] MEDS: IPRATRPIUM/ALBUTEROL 0.5/2.5MG 3 ML NEBU. NEB SCH ×4 (05:40→20:33)
[2020-02-16 05:44] VITALS: BP 143/85
[2020-02-16] MEDS: VANCOMYCIN 2 GM in IV NORMAL SALINE 500ML 500 ML IV SCH (06:04)
[2020-02-16] MEDS: FERROUS SULFATE ORAL 220 MG/5 ML SOLUTION. PO SCH ×2 (08:10→17:19)
[2020-02-16] MEDS: FLUTICASONE FUROATE 100mcg/INH ELLIPTA INHALER. INH SCH (08:11)
[2020-02-16] MEDS: ASPIRIN CHEWABLE 81 MG TABLET. PO SCH (08:11)
[2020-02-16] MEDS: GABAPENTIN 300 MG CAPSULE. PO SCH ×3 (08:11→20:28)
[2020-02-16] MEDS: LACTOBACILLUS RHAMNOSUS GG 1 CAPSULE. PO SCH ×2 (08:11→20:25)
[2020-02-16] MEDS: GLIMEPIRIDE 2 MG TABLET PO SCH (08:12)
[2020-02-16] MEDS: levETIRAcetam 500 MG TABLET PO SCH ×2 (08:12→20:26)
[2020-02-16] MEDS: ALLOPURINOL 300 MG TABLET. PO SCH (08:13)
[2020-02-16] MEDS: ANASTROZOLE 1 MG TABLET PO SCH ×2 (08:13→20:25)
[2020-02-16] MEDS: DULoxetine HCL 60 MG CAPSULE.DR PO SCH (08:14)
[2020-02-16] MEDS: PANTOPRAZOLE 40 MG TABLET. PO SCH ×2 (08:14→20:28)
[2020-02-16] MEDS: CALCIUM CARB/VIT D3 500/200 TABLET PO SCH (08:14)
[2020-02-16] MEDS: AZITHROMYCIN 250 MG TABLET. PO SCH (08:14)
[2020-02-16] MEDS: MORPHINE ER 30 MG TABLET.ER PO SCH ×2 (08:14→20:27)
--- NOTE | 2020-02-16 09:59 | RAD ---
EXAM: Chest, 2 views. HISTORY: Pneumonia. COMPARISON: 02/13/2020 FINDINGS: 2 views of the chest are obtained. There has been interval decrease in lower lobe predomina nt interstitial infiltrate. There is no consolidation, pleural effusion or pneumothorax. The heart is normal in size. There is cervical spinal fusion instrumentation. There are bilateral shoulder arthro plasties. IMPRESSION: Decrease in lower lobe predominant interstitial infiltrate. Electronically signed by: Mis Travis MD (02/16/2020 9:56 AM) [id number]
[2020-02-16 10:55] VITALS: BP 87/64
[2020-02-16 15:21] VITALS: BP 132/77
--- NOTE | 2020-02-16 16:47 | PN ---
DATE: 02/15/2020 SUBJECTIVE: The patient denies any new medical or neurological complaints. She is more cooperative and oriented. She continues to have intermittent dizziness when she changes her body positions, but she denies headaches, chest pain, shortness of breath, or palpitations. OBJECTIVE: GENERAL: Obese female, not in acute distress. VITAL SIGNS: Blood pressure 161/67, respiratory rate 18, pulse is 67 and regular, temperature 97.5, oxygen saturation 97% on 3 liters by nasal cannula. HEENT: Normocephalic, atraumatic, otherwise unremarkable. NECK: Supple. Negative for carotid bruit, lymphadenopathy, or thyromegaly. LUNGS: Clear to A and P. CARDIOVASCULAR: Regular rate and rhythm, normal S1, S2. There is no S3, S4, or murmur. ABDOMEN: Soft. Bowel sounds positive. EXTREMITIES: Negative for cyanosis, clubbing, or pitting edema. NEUROLOGICAL EXAM: Mental Status: The patient is more alert and more oriented. Follows 2-step commands. Speech is more fluent. There is no language dysfunction. Memory, judgment, and abstracting thinking are fair. The patient denies hallucination or delusion. Cranial nerves are intact except for blindness of the right eye. Otherwise, unremarkable. Motor Examination: No focal muscle bulk was seen. The strength was 4/5 throughout. Sensory examination revealed diminished pinprick and light touch senses in stocking distributions. Deep tendon reflexes were symmetric and hypoactive with absent Achilles responses. Gait not tested. LABORATORY DATA: CBC revealed white blood cells of 10,000, hemoglobin 8.8, hematocrit of 27.1, platelet count 206,000. Chemistry: Sodium 142, potassium 3.9, chloride 110, CO2 of 27, BUN 29, creatinine 1.04, glucose 201. Calcium 8.5. COVID virus PCR is not detected. IMPRESSION: 1. Acute encephalopathy, probably multifactorial including metabolic derangement and possible systemic infections. 2. Multiple medical problems include interstitial pneumonia, COPD, obstructive sleep apnea, renal insufficiency or failure, depressions, anxiety, blindness of right eye, hyperlipidemia, and seizure disorder. RECOMMENDATIONS: Continue with current management initiated by Dr. Tejada and Keppra 1000 mg b.i.d. The patient is neurologically stable. M Gene LOBO MD DR: CLIFTON/[place]berta JOB#: [id number] / [id number]
--- NOTE | 2020-02-16 18:47 | PN ---
DATE: SUBJECTIVE: A 69-year-old female in with respiratory distress, possible seizure activity and change in mental status. The patient seems to be making good progress overall. Still a little bit fuzzy here and there, but has not had any further seizure activity. Blood pressure did drop down to 87/60, pulse 94, however, has come back up to 132/77. She is at 94% on 2 liters. She seems to be alert and oriented and making good progress overall. Still receiving some IV antibiotics. Repeat chest x-ray demonstrated decrease in lower lobe predominant interstitial infiltrates; however, there is improvement of her pneumonia. Otherwise, as noted. OBJECTIVE: VITAL SIGNS: Blood pressure 132/70, respiratory rate 16, pulse 75, afebrile, on 2 liters at 94%. IMPRESSION: Pneumonia of unspecified etiology and metabolic encephalopathy, seizure-like activity, chronic kidney disease stage 3, severe protein malnutrition. PLAN: Continue on IV antibiotic therapy and continue to monitor her carefully as such. WENDI ROBISON MD DR: FAUZIA/alberta JOB#: [id number] / [id number]
[2020-02-16 19:42] VITALS: BP 122/69
[2020-02-16] MEDS: diphenhydrAMINE HCL 25 MG CAPSULE PO SCH (20:25)
[2020-02-16] MEDS ORDERED: PRIMIDONE 50 MG TABLET PO SCH ×2 (21:00)
[2020-02-16] MEDS ORDERED: ATORVASTATIN CALCIUM 20 MG TABLET PO SCH (21:00)
[2020-02-16 23:30] VITALS: BP 111/50
[2020-02-17] MEDS: PIPERACILLIN/TAZOBACTAM 4.5 GM in IV NORMAL SALINE 50ML 50 ML IV SCH ×3 (00:23→12:00)
[2020-02-17] MEDS: IPRATRPIUM/ALBUTEROL 0.5/2.5MG 3 ML NEBU. NEB SCH ×2 (05:25→09:15)
[2020-02-17 05:47] VITALS: BP 174/70
[2020-02-17 06:22] LABS: CREATININE 1.3 mg/dL (0.6-1.0); GFR 40.6
[2020-02-17 06:27] LABS: VANC TR 13.5 mcg/mL (10.0-20.0)
[2020-02-17] MEDS: VANCOMYCIN 2 GM in IV NORMAL SALINE 500ML 500 ML IV SCH (06:35)
[2020-02-17] MEDS: VANCOMYCIN PER PHARMACY MC PRN ×2 (06:45→06:46)
--- NOTE | 2020-02-17 06:48 | NUR ---
Pharmacy Vancomycin Dosing Note S:Consulted to monitor and dose vancomycin started 02/13/20. O:CLYDE AGUILAR is a 69 year old F with HCAP, . Height: 5 feet, 6 inches Weight: 145.0 kg [place] Body Weight: 59.30 Adjusted Body Weight: 93.58 Dosing Weight: Actual Other Antibiotics: ZOSYN, LEVAQUIN, AND ZITHROMAX LABS: Last BUN: 29 Last Creatinine: 1.4 Creatinine Clearance: 60 Last WBC: 10 Last Procalcitonin: Tmax (past 24 hours): 99.5 Microbiology: I/O: 1929/ Drug Levels: Last Trough level: 13.5 on 02/17/20 at 0548 Last dose given at Vancomycin Dosing: Loading Dose: Dosing Weight: Actual Target Trough: 15-20 A: Based on: Trough, Actual WT and CrCl P: 1. 02/17/20 0630 Vancomycin 2000 mg IV q18h 2. Follow up Trough level on 02/18/20 at 1730 3. Pharmacy will continue to monitor, follow and adjust therapy as needed. ARMANDO NAIR RPH, 02/17/20 0648 Signed: 02/17/20 at 0649 by ARMANDO NAIR RPH PHA
[2020-02-17] MEDS: LACTOBACILLUS RHAMNOSUS GG 1 CAPSULE. PO SCH (07:54)
[2020-02-17] MEDS: ASPIRIN CHEWABLE 81 MG TABLET. PO SCH (07:55)
[2020-02-17] MEDS: levETIRAcetam 500 MG TABLET PO SCH (07:55)
[2020-02-17] MEDS: DULoxetine HCL 60 MG CAPSULE.DR PO SCH (07:55)
[2020-02-17] MEDS: GABAPENTIN 300 MG CAPSULE. PO SCH ×2 (07:55→12:49)
[2020-02-17] MEDS: CALCIUM CARB/VIT D3 500/200 TABLET PO SCH (07:56)
[2020-02-17] MEDS: PANTOPRAZOLE 40 MG TABLET. PO SCH (07:56)
[2020-02-17] MEDS: AZITHROMYCIN 250 MG TABLET. PO SCH (07:56)
[2020-02-17] MEDS: MORPHINE ER 30 MG TABLET.ER PO SCH (07:56)
[2020-02-17] MEDS: ALLOPURINOL 300 MG TABLET. PO SCH (07:56)
[2020-02-17] MEDS: GLIMEPIRIDE 2 MG TABLET PO SCH (07:56)
[2020-02-17] MEDS: FERROUS SULFATE ORAL 220 MG/5 ML SOLUTION. PO SCH (07:57)
[2020-02-17] MEDS: ANASTROZOLE 1 MG TABLET PO SCH (07:58)
[2020-02-17] MEDS: FLUTICASONE FUROATE 100mcg/INH ELLIPTA INHALER. INH SCH (07:59)
[2020-02-17 11:01] VITALS: BP 130/73
[2020-02-17] MEDS ORDERED: LACT1CAP19 PO (11:06)
[2020-02-17] MEDS ORDERED: FERR325T72 PO (11:06)
[2020-02-17] MEDS ORDERED: FLUT100B INH (11:06)
[2020-02-17] MEDS ORDERED: ASPI-630 PO (11:06)
[2020-02-17] MEDS ORDERED: GABA-586 PO (11:06)
[2020-02-17] MEDS ORDERED: AZIT250T6 PO (11:06)
[2020-02-17] MEDS ORDERED: CETI10TA16 PO (11:06)
[2020-02-17 13:19] LABS: FECAL OB PT NEGATIVE (NEG)
--- NOTE | 2020-02-17 13:20 | NUR ---
Transition Record was faxed to follow-up provider with the following elements: Reason for admission, procedures, tests, principal diagnosis, pending studies, patient instructions, 01/09 contact information for unit, phone number to obtain pending test results, plan for follow-up care, physician follow-up, advanced directive information, and medication list with dose, duration and instructions. This information was included in the following documents: History and physical, lab results, study results, progress notes, social work planning form, DC instruction form, patient visit summary, and medication reconciliation form. Date & time record faxed: 02/16/19 1000 Record faxed to: Gian Copeland Record discussed with/ report given to: Britany
[2020-02-17] MEDS ORDERED: PRIMIDONE 50 MG TABLET PO SCH (21:00)
[2020-02-18] MEDS ORDERED: VANCOMYCIN 2 GM in IV NORMAL SALINE 500ML 500 ML IV SCH
[2020-02-18] MEDS ORDERED: FERROUS SULFATE 325 MG TABLET. PO SCH (08:00)
--- NOTE | 2020-02-18 14:30 | PN ---
DATE: 02/16/2020 SUBJECTIVE: The patient denies any new medical or neurological complaints. However, tremor of the upper extremity has been worsening since admission. She continued to have intermittent dizziness when she moves her body positions quickly. She denies headaches, visual disturbances, chest pain, shortness of breath or palpitations. OBJECTIVE: GENERAL: Obese female, not in acute distress. VITAL SIGNS: Blood pressure is 143/85, respiratory rate 20, pulse is 66 and regular, temperature 97.8, oxygen saturation 99% on 2 liters by nasal cannula. HEENT: Normocephalic, atraumatic, otherwise unremarkable. NECK: Supple. Negative for carotid bruit, lymphadenopathy or thyromegaly. LUNGS: With scattered wheezing, mainly in the mid lower lungs. CARDIOVASCULAR: Regular rate and rhythm, normal S1, S2. ABDOMEN: Soft. Bowel sounds positive. EXTREMITIES: Negative for cyanosis, clubbing or pitting edema. NEUROLOGICAL EXAMINATION: Mental status: The patient is alert and oriented x 3. The speech is fluent. There is no language dysfunction. Memory, judgment, and abstracting thinking are fair. The patient denies hallucination or delusion. Cranial nerves are intact except for blindness of the right eye. Motor examination revealed no focal muscle bulk was seen. The strength is 4/5 throughout. The patient has mild resting, but more postural and kinetic tremors in both upper extremities. Sensory examination revealed diminished pinprick and light touch senses in patchy distributions in both distal lower extremities. Deep tendon reflexes were symmetric and hypoactive with absent Achilles responses. Gait: The patient is unsteady. IMPRESSION: 1. 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 The patient has not been on primidone since admission. 2. Acute encephalopathy -- improved. 3. Pneumonia. 4. Multiple medical problems include obesity, chronic obstructive pulmonary disease, obstructive sleep apnea, renal insufficiency or failure, depressions, anxiety, seizure disorder, blindness of the right eye. RECOMMENDATIONS: 1. We will start the patient on primidone at 50 mg at bedtime and increase it gradually as needed. 2. Continue with current management. M Gene LOBO MD DR: CLIFTON/[place]ta JOB#: [id number] / [id number]
--- NOTE | 2020-02-18 19:10 | PN ---
DATE: 02/17/2020 REFERRING PHYSICIAN: Dr. Tejada. SUBJECTIVE: The patient denies any new medical or neurological complaints. Her tremor of the upper extremity has somewhat improved by primidone. However, she denies any other new medical or neurological complaints. OBJECTIVE: GENERAL: Obese female, not in acute distress. VITAL SIGNS: Blood pressure 130/73, respiratory rate 20, pulse is 84, oxygen saturation is 85% on room air, and temperature 99.3. HEENT: Normocephalic, atraumatic, otherwise unremarkable. NECK: Supple. Negative for carotid bruit, lymphadenopathy, or thyromegaly. LUNGS: Clear, but she has scattered wheezing in both middle and lower lobes. CARDIOVASCULAR: Regular rate and rhythm, normal S1, S2. There is no S3, S4 or murmur. ABDOMEN: Soft. Bowel sounds positive. EXTREMITIES: Negative for cyanosis, clubbing, or edema. MOTOR EXAMINATION: The patient has more postural and kinetic tremors of both upper extremities. IMPRESSION: 1. Senile tremor. 2. Seizure disorder. No recurrent seizures since admission. 3. Multiple medical problems include obesity, obstructive sleep apnea, chronic obstructive pulmonary disease, hypertension, hyperlipidemia, and pneumonia. RECOMMENDATION: 1. Increase primidone to 100 mg at bedtime. 2. Continue with current management. The patient is going to be discharged for rehabilitation at [facility]. Marie LOBO MD DR: CLIFTON/[place]berta JOB#: [id number] / [id number]
== END 2020-02-17 13:29 | DRG 100 ==
LOC: ER 13:47 → ICU 17:21 → 1 SOUTH 02-15 03:15
PROVIDERS: ADMIT Family Medicine; ATTEND Family Medicine
DX: G40.909 Epilepsy, unspecified, not intractable, without status epilepticus (principal); E43 Unspecified severe protein-calorie malnutrition; J18.9 Pneumonia, unspecified organism; F05 Delirium due to known physiological condition; J44.0 Chronic obstructive pulmonary disease with (acute) lower respiratory infection; Z68.43 Body mass index [BMI] 50.0-59.9, adult; D64.9 Anemia, unspecified; E11.22 Type 2 diabetes mellitus with diabetic chronic kidney disease; E11.42 Type 2 diabetes mellitus with diabetic polyneuropathy; E66.9 Obesity, unspecified; E78.00 Pure hypercholesterolemia, unspecified; E78.5 Hyperlipidemia, unspecified; F41.9 Anxiety disorder, unspecified; G25.0 Essential tremor; G47.33 Obstructive sleep apnea (adult) (pediatric); H54.61 Unqualified visual loss, right eye, normal vision left eye; I12.9 Hypertensive chronic kidney disease with stage 1 through stage 4 chronic kidney disease, or unspecified chronic kidney disease; I25.10 Atherosclerotic heart disease of native coronary artery without angina pectoris; N18.32 Chronic kidney disease, stage 3b; Y95 Nosocomial condition; Z85.3 Personal history of malignant neoplasm of breast; Z85.828 Personal history of other malignant neoplasm of skin; Z87.442 Personal history of urinary calculi; Z96.653 Presence of artificial knee joint, bilateral; E66.01 Morbid (severe) obesity due to excess calories; K21.9 Gastro-esophageal reflux disease without esophagitis; Z88.8 Allergy status to other drugs, medicaments and biological substances; Z20.822 Contact with and (suspected) exposure to COVID-19
CPT/HCPCS: 36415; 36600; 70450; 71045; 71046; 80053; 80202; 80307; 80329; 81001; 82274; 82565; 82803; 82947; 83605; 85025; 87040; 87804; 93005; 94640; 96365; 96367; 96375; J1953; J1956; J2060; J2543; J3370; J7040; P9612; Q0163; U0003; 97530; 99285-25; G0480; J7030

== ENCOUNTER 2021-03-22 18:56 | Emergency (ER) | payer MEDICARE, OTHER ==
[~2021-03-22] VITALS: Ht 167.6 cm; Wt 145.0 kg
[~2021-03-22 18:56] MED LIST changes: +AZIT250T6 PO; +CETI10TA16 PO; -CYCL-331 PO; +CYCL10TA19 PO; -DOXY100C2 PO; +DOXY100C3 PO; -DULO60CA6 PO; +DULO60CA7 PO; +FERR325T72 PO; +FLUT100B INH; +LACT1CAP19 PO; +LISI10TA16 PO; -LISI10TA2 PO; -LISI1TAB23 PO; +LISI1TAB35 PO; +MORP30TA PO; -OMEP40CA45 PO; +OMEP40CA7 PO; +PRIM50TA24 PO
--- NOTE | 2021-03-22 19:18 | PHYS DOC ---
Past History Past Medical History: Asthma, Cancer, COPD, Diabetes, GERD, High Cholesterol, Hypertension, Seizure, Other Additional Past Medical Histor: MEMO, NEUROPATHY Past Surgical History: Knee Replacement, Other Additional Past Surgical Histo: SHOULDER SURGERY X 5, PLATES IN NECK, SPINAL CORD SURGERY Alcohol Use: None Drug Use: None Adult General Chief Complaint Chief Complaint: TREMORS HPI HPI Patient is a 70-year-old female with a past medical history of [id number] diabetes, COPD, hypertension and hypercholesteremia who presents with a chief complaint of tremors. States that she has a history of nonepileptic seizures but had not had a seizure in quite some time. States has been doing well but over the course of today she would have episodes where she had the shakes/tremors. States that it did not seem like a seizure, and did not lose consciousness. Denies any recent travels, traumas, illnesses, fevers, headache, changes in vision, neck pain, chest pain, shortness of breath, abdominal pain, nausea, vomiting, dysuria, hematuria, blood in the stool or diarrhea. Denies any cold/flu/cold symptoms. Review of Systems Review of Systems Review of systems otherwise unremarkable except noted in HPI Allergies Allergies Allergies Coded Allergies Type Severity Reaction Last Updated Verified Iodinated Contrast Media Allergy Severe 02/13/20 Yes iodine Allergy Severe Shortness of Air 02/13/20 No adhesive Allergy Intermediate 02/13/20 Yes green pepper Allergy Unknown 02/15/20 Yes Physical Exam Physical Exam Constitutional: Well developed, well nourished, no acute distress, non-toxic appearance. [] HENT: Normocephalic, atraumatic, bilateral external ears normal, oropharynx moist, no oral exudates, nose normal. [] Eyes: Patient blind in right eye, left eye PERRLA, EOMI, conjunctiva normal, no discharge. [] Neck: Normal range of motion, no tenderness, supple, no stridor. [] Cardiovascular:Heart rate regular rhythm, no murmur [] Lungs & Thorax: Bilateral breath sounds clear to auscultation [] Abdomen: soft, no tenderness, no masses, no pulsatile masses. [] Skin: Warm, dry, no erythema, no rash. [] Back: No tenderness, no CVA tenderness. [] Extremities: No tenderness, no cyanosis, no clubbing, ROM intact, no edema. [] Neurologic: Alert and oriented X 3, normal motor function, normal sensory function, able to sit, stand or walk without issue no focal deficits noted. [] Psychologic: Affect normal, judgement normal, mood normal. [] EKG EKG [] Radiology/Procedures Radiology/Procedures [] Heart Score C/O Chest Pain: No Risk Factors: Risk Factors: DM, Current or recent (<one month) smoker, HTN, HLP, family history of CAD, obesity. Risk Scores: Risk Factors: DM, Current or recent (<one month) smoker, HTN, HLP, family history of CAD, obesity. Course & Med Decision Making Course & Med Decision Making Patient is a 70-year-old female who presents to the emergency department with a chief complaint of intermittent tremors today Vital signs notable for intermittent tachycardia which resolved in the ED. Physical exam noted above. Blood sugar normal. Placed on the monitor with IV access established. Laboratory analysis notable for mildly elevated creatinine but otherwise unremarkable. Imaging of the head and chest unremarkable. EKG with normal rate, normal rhythm, no STEMI. Troponin normal. On reevaluation patient stating she feels well and was ready to be discharged home and was asymptomatic. States she was hungry and was ready to go home. Discussed all findings with family. Discussed diet and nutrition. Discussed fluid intake. Discussed medications. Advised to follow-up on Thursday with primary care physician to update on ED visit and set up a follow-up with soon as possible. Gave return precautions to the ED. Family grateful, verbalized u nderstanding and agreed with plan of discharge. Dragon Disclaimer Dragon Disclaimer This electronic medical record was generated, in whole or in part, using a voice recognition dictation system. Departure Departure: Impression: Primary Impression: Tremor Disposition: HOME / SELF CARE / HOMELESS Condition: GOOD Referrals: WENDI ROBISON MD (PCP) Patient Instructions: Tremor Additional Instructions: Thank you for coming into the emergency department tonight and allowing us to take care of you. Please read the attached information carefully to go over things we discussed. As we discussed please eat at least 3 nutritious meals a day and take a One-A-Day vitamin. Please stay well-hydrated. Please follow-up on Thursday with your primary care physician to discuss your ED visit and set up an appointment for reevaluation as soon as possible to discuss need for further evaluation and treatment and medication management. Please come back with new or concerning symptoms as discussed. NEEL GU MD Mar 22, 2021 19:18
[2021-03-22 19:47] LABS: BASO # 0.1 x10^3/uL (0.0-0.2); BASO % 1 % (0-3); EOS # 0.7 x10^3/uL (0.0-0.7); EOS % 7 % (0-3); HEMATOCRIT 35.5 % (36.0-47.0); HEMOGLOBIN 11.6 g/dL (12.0-15.5); LYMPH # 2.8 x10^3/uL (1.0-4.8); LYMPH % 29 % (24-48); MEAN CORPUSCULAR HEMOGLOBIN 30 pg (25-35); MEAN CORPUSCULAR HGB CONC 33 g/dL (31-37); MEAN CORPUSCULAR VOLUME 92 fL (79-100); MONO # 0.8 x10^3/uL (0.0-1.1); MONO % 9 % (0-9); NEUT # 5.4 x10^3uL (1.8-7.7); NEUT % 55 % (31-73); PLATELET COUNT 264 x10^3/uL (140-400); RED BLOOD COUNT 3.88 x10^6/uL (3.50-5.40); RED CELL DISTRIBUTION WIDTH 15.6 % (11.5-14.5); WHITE BLOOD COUNT 9.8 x10^3/uL (4.0-11.0)
[2021-03-22 19:59] LABS: CALCIUM 8.4 mg/dL (8.5-10.1); CREATININE 1.6 mg/dL (0.6-1.0); GFR 31.9; POTASSIUM 4.2 mmol/L (3.5-5.1)
[2021-03-22 20:04] LABS: ALBUMIN 3.6 g/dL (3.4-5.0); MAGNESIUM 2.1 mg/dL (1.8-2.4); TOTAL BILIRUBIN 0.3 mg/dL (0.2-1.0); TOTAL PROTEIN 7.2 g/dL (6.4-8.2)
--- NOTE | 2021-03-22 20:09 | RAD ---
Exam: Chest one view INDICATION: Cardiac workup, short of air TECHNIQUE: Frontal view of the chest Comparisons: 02/16/2020 FINDINGS: The cardiomediastinal silhouette and pulmonary vessels are within normal limits. The lung and pleural spaces are clear. IMPRESSION: No acute cardiopulmonary process. Electronically signed by: Dashawn Moreno MD (03/22/2021 8:06 PM) [facility]
[2021-03-22 20:38] LABS: BACTERIA,URINE 0 /HPF (0-FEW); BILIRUBIN,URINE NEG (NEG); CLARITY,URINE CLEAR; COLOR,URINE YELLOW; GLUCOSE,URINE NEG (NEG); NITRITE,URINE NEG (NEG); RBC,URINE 0 /HPF (0-2); SQUAMOUS EPITHELIAL CELL,UR FEW /LPF; UROBILINOGEN,URINE 0.2 mg/dL (0.2 mg/dL)
[2021-03-22 20:39] LABS: HYALINE CASTS, URINE OCC /HPF
--- NOTE | 2021-03-22 20:40 | RAD ---
CT scan of the head without contrast 03/22/2021 Clinical History: New tremors. Technique: Unenhanced, contiguous, 5 mm axial sections were obtained through the head. One or more of the following individualized dose reduction techniques were utilized for this study: 1. Automated exposure control. 2. Adjustment of the mA and/or kV according to patient size. 3. Use of iterative reconstruction technique. Findings: Comparison study is dated 02/13/2020. There is generalized parenchymal atrophy. Areas of decreased attenuation are seen within the perivent ricular and subcortical white matter of both cerebral hemispheres consistent with areas of small vess el ischemic disease. No acute parenchymal abnormality is seen. No extra-axial fluid collection is not ed. No skull fracture is seen. Impression: No acute intracranial abnormality is seen. Electronically signed by: Albert Beck MD (03/22/2021 8:38 PM) [id number]
== END 2021-03-22 21:37 | disposition home or self-care (01) ==
LOC: ER 18:56
DX: R25.1 Tremor, unspecified (principal); J44.9 Chronic obstructive pulmonary disease, unspecified; K21.9 Gastro-esophageal reflux disease without esophagitis; E78.00 Pure hypercholesterolemia, unspecified; I10 Essential (primary) hypertension; E11.40 Type 2 diabetes mellitus with diabetic neuropathy, unspecified; Z91.041 Radiographic dye allergy status; Z88.8 Allergy status to other drugs, medicaments and biological substances; Z91.018 Allergy to other foods
CPT/HCPCS: 36415; 70450; 71045; 80053; 81001; 83735; 84484; 85025; 99285; P9612

== ENCOUNTER 2021-03-30 19:25 | Emergency (ER) | payer MEDICARE ==
[~2021-03-30] VITALS: Ht 167.6 cm; Wt 145.0 kg
--- NOTE | 2021-03-30 19:27 | PHYS DOC ---
Past History Past Medical History: Asthma, Cancer, COPD, Diabetes, GERD, High Cholesterol, Hypertension, Seizure, Other Additional Past Medical Histor: EMMO, NEUROPATHY Past Surgical History: Appendectomy, Cholecystectomy, Knee Replacement, Other Additional Past Surgical Histo: SHOULDER SURGERY X 5, PLATES IN NECK, SPINAL CORD SURGERY Alcohol Use: None Drug Use: None General Adult HPI: HPI: ".. I got tremors and jerks.. I seen Dr. Robison yesterday.. he said it may be anxiety... but if it got worse come to Emergency Room.. I also see Dr. Bucio about these jerks and tremor.. ".. " I live alone.. but my daughter does not live very far away..." Patient is a 70 year old female who presents with complaints of tremor. Pt. reports she has had tremors before and has seen in Dr. Robison as well as Dr. Bucio references complaint. Was seen yesterday by Dr. Lamar. Patient complaining of tremors worse tonight. Patient has a past medical history of asthma, cancer, COPD, diabetes, high cholesterol, hypertension, atypical seizure disorder, obstructive sleep apnea, neuropathy, arthritis, and blind in left eye. Patient has had multiple surgeries knee replacement, shoulder surgery x5, cervical plates, spinal cord surgery. Review of Systems: Review of Systems: Constitutional: Denies fever or chills Eyes: Denies change in visual acuity HENT: Denies nasal congestion or sore throat Respiratory: Denies cough or shortness of breath Cardiovascular: Denies chest pain or edema GI: Denies abdominal pain, nausea, vomiting, bloody stools or diarrhea : Denies dysuria Musculoskeletal: Denies back pain or joint pain Integument: Denies rash Neurologic: Denies headache, focal weakness or sensory changes. Complaints t of increased intentional tremor Endocrine: Denies polyuria or polydipsia Lymphatic: Denies swollen glands Psychiatric: Denies depression or anxiety Family History: Family History: Noncontributory to presentation Current Medications: Current Meds: See nursing for home meds Allergies: Allergies: Allergies Coded Allergies Type Severity Reaction Last Updated Verified Iodinated Contrast Media Allergy Severe 02/13/20 Yes iodine Allergy Severe Shortness of Air 02/13/20 No adhesive Allergy Intermediate 02/13/20 Yes green pepper Allergy Unknown 02/15/20 Yes Physical Exam: PE: Constitutional:no acute distress, non-toxic appearance. [] HENT: Normocephalic, atraumatic, bilateral external ears normal, oropharynx moist, no oral exudates, nose normal. [] Eyes: PERRLA, EOMI, conjunctiva normal, no discharge. [] Neck: Normal range of motion, no tenderness, supple, no stridor. [] Cardiovascular bradycardia:Heart rate regular rhythm, no murmur [] Lungs & Thorax: Bilateral breath sounds to apex with few scattered wheezes on auscultation [] Abdomen: Bowel sounds normal, soft, no tenderness, no masses, no pulsatile masses. Obese. Old surgery scars. Skin: Warm, dry, no erythema, no rash. [] Back: No tenderness, no CVA tenderness. [] Extremities: No tenderness, no cyanosis, no clubbing, ROM intact, no edema. [] Neurologic: Alert and oriented X 3, moves all extremities On request, has distal sensory, no focal deficits noted. [] Does have an intentional tremor. Psychologic: Affect reports anxiety about her tremor , judgement normal, mood normal. [] EKG: EKG: My interpretation of EKG shows sinus rhythm at 61 bpm. No findings of the acute STEMI or contralateral changes. Time of EKG is 2032 [] Radiology/Procedures: Radiology/Procedures: [][place] [address] IMAGING REPORT Signed PATIENT: CLYDE AGUILAR ACCOUNT: [id number] : 1950 LOCATION: ER AGE: 70 SEX: F EXAM STATUS: REG ER ORD. PHYSICIAN: CARMEL WOODWARD MD REASON: Dyspnea, shakiness PROCEDURE: PORTABLE CHEST 1V EXAM: Chest, single view. HISTORY: Dyspnea. Shortness of breath. COMPARISON: 03/22/2021 FINDINGS: A frontal view of the chest is obtained. There is no infiltrate, pleural effusion or pneumothorax. The heart is normal in size. There is cervical spinal fusion is rotation. There are bilateral shoulder arthroplasties. There has been distal left clavicular resection. IMPRESSION: No acute pulmonary finding. Electronically signed by: Mis Peralta MD (03/30/2021 8:08 PM) [facility] DICTATED AND SIGNED BY: MIS PERALTA MD DATE: 03/30/212007 CC: WENDI ROBISON MD; CARMEL WOODWARD MD ~MTH0 0 Heart Score: C/O Chest Pain: N/A Risk Factors: Risk Factors: DM, Current or recent (<one month) smoker, HTN, HLP, family history of CAD, obesity. Risk Scores: Score 0 - 3: 2.5% MACE over next 6 weeks - Discharge Home Score 4 - 6: 20.3% MACE over next 6 weeks - Admit for Clinical Observation Score 7 - 10: 72.7% MACE over next 6 weeks - Early Invasive Strategies Course & Med Decision Making: Course & Med Decision Making Pertinent Labs and Imaging studies reviewed. (See chart for details) Continue current meds as directed. Follow up wiith Dr. Robison and Dr. Bucio. Presentation is similary intentional or essential tremor. This type of tremor can be exacerbated by stress or anxiety. Follow-up Terrell and review ED record. Would continue follow-up with Dr. Doe. Return if any concern. Currently pt. tremor has resolved at time discharge. Some very mild with rapid intentional movements. Impression: 1. Intentional tremor 2. Diabetes glucose 140 3. Mild dehydration BUN 34 creatinine 1.6 4. Mild anemia hemoglobin 11.2 [] Dragon Disclaimer: Dragon Disclaimer: This electronic medical record was generated, in whole or in part, using a voice recognition dictation system. Departure Departure: Referrals: WENDI ROBISON MD (PCP) Dragon Disclaimer This chart was dictated in whole or in part using Voice Recognition software in a busy, high-work load, and often noisy Emergency Department environment. It may contain unintended and wholly unrecognized errors or omissions. CARMEL WOODWARD MD Mar 30, 2021 19:27
[2021-03-30] MEDS ORDERED: IV RINGERS SOLUTION,LACTATED 1,000 ML IV SCH (20:00)
[2021-03-30] MEDS ORDERED: LORazepam 1 MG TABLET PO ONE (20:00)
--- NOTE | 2021-03-30 20:11 | RAD ---
EXAM: Chest, single view. HISTORY: Dyspnea. Shortness of breath. COMPARISON: 03/22/2021 FINDINGS: A frontal view of the chest is obtained. There is no infiltrate, pleural effusion or pneumo thorax. The heart is normal in size. There is cervical spinal fusion is rotation. There are bilateral shoulder arthroplasties. There has been distal left clavicular resection. IMPRESSION: No acute pulmonary finding. Electronically signed by: Mis Travis MD (03/30/2021 8:08 PM) [facility]
[2021-03-30 20:51] LABS: BASO # 0.1 x10^3/uL (0.0-0.2); BASO % 1 % (0-3); EOS # 0.7 x10^3/uL (0.0-0.7); EOS % 8 % (0-3); HEMATOCRIT 34.6 % (36.0-47.0); HEMOGLOBIN 11.2 g/dL (12.0-15.5); LYMPH # 2.5 x10^3/uL (1.0-4.8); LYMPH % 26 % (24-48); MEAN CORPUSCULAR HEMOGLOBIN 30 pg (25-35); MEAN CORPUSCULAR HGB CONC 33 g/dL (31-37); MEAN CORPUSCULAR VOLUME 93 fL (79-100); MONO # 0.8 x10^3/uL (0.0-1.1); MONO % 8 % (0-9); NEUT # 5.6 x10^3uL (1.8-7.7); NEUT % 58 % (31-73); PLATELET COUNT 253 x10^3/uL (140-400); RED BLOOD COUNT 3.71 x10^6/uL (3.50-5.40); RED CELL DISTRIBUTION WIDTH 16.3 % (11.5-14.5); WHITE BLOOD COUNT 9.7 x10^3/uL (4.0-11.0)
[2021-03-30 21:02] LABS: CALCIUM 8.8 mg/dL (8.5-10.1); CREATININE 1.6 mg/dL (0.6-1.0); GFR 31.9; POTASSIUM 4.8 mmol/L (3.5-5.1)
[2021-03-30 21:13] LABS: BARBITURATES POS (NEG); BENZODIAZEPINES NEG (NEG); CANNABINOIDS NEG (NEG); COCAINE NEG (NEG); METHADONE NEG (NEG); OPIATES NEG (NEG); PHENCYCLIDINE NEG (NEG)
[2021-03-30 21:14] LABS: AMPHETAMINE/METHAMPHETAMINE NEG (NEG)
[2021-03-30 21:16] LABS: ALBUMIN 3.5 g/dL (3.4-5.0); DIRECT BILIRUBIN 0.1 mg/dL (0.0-0.2); MAGNESIUM 2.3 mg/dL (1.8-2.4); TOTAL BILIRUBIN 0.4 mg/dL (0.2-1.0); TOTAL PROTEIN 7.2 g/dL (6.4-8.2)
[2021-03-30 21:20] LABS: BACTERIA,URINE 0 /HPF (0-FEW); CLARITY,URINE CLEAR; COLOR,URINE YELLOW; GLUCOSE,URINE NEG (NEG); NITRITE,URINE NEG (NEG); RBC,URINE 0 /HPF (0-2); UROBILINOGEN,URINE 0.2 mg/dL (0.2 mg/dL); WBC,URINE 0 /HPF (0-4)
--- NOTE | 2021-03-30 21:20 | EKG ---
[address] [address] Test Date: 2021-03-30 Test Time: 20:33:48 Pat Name: CLYDE AGUILAR Department: Room: Gender: F Quality Assurance Intern: RAY : 1950 Requested By: CARMEL WOODWARD Order Number: [id number] Reading MD: Franky Norwood Measurements Intervals [place] Rate: 61 P: MS: QRS: 21 QRSD: 74 T: 34 QT: 420 QTc: 424 Interpretive Statements SINUS RHYTHM Electronically Signed On 03-31-2021 13:49:26 [employer] by Franky Norwood
[2021-03-30 22:10] VITALS: BP 144/58
== END 2021-03-30 22:06 | disposition home or self-care (01) ==
LOC: ER 19:25
DX: E86.0 Dehydration (principal); D64.9 Anemia, unspecified; J44.9 Chronic obstructive pulmonary disease, unspecified; G25.2 Other specified forms of tremor; E78.00 Pure hypercholesterolemia, unspecified; I10 Essential (primary) hypertension; G40.909 Epilepsy, unspecified, not intractable, without status epilepticus; M19.90 Unspecified osteoarthritis, unspecified site; E11.40 Type 2 diabetes mellitus with diabetic neuropathy, unspecified; G47.33 Obstructive sleep apnea (adult) (pediatric); Z91.041 Radiographic dye allergy status; Z88.8 Allergy status to other drugs, medicaments and biological substances
CPT/HCPCS: 36415; 71045; 80048; 80076; 80307; 81001; 82550; 83735; 83880; 84484; 85025; 93005; 96360; 96361; 99285; J7120

== ENCOUNTER 2021-05-06 21:58 | Emergency (ER) | payer MEDICARE ==
[~2021-05-06] VITALS: Ht 167.6 cm; Wt 145.0 kg
[2021-05-06 21:58] VITALS: BP 165/82
--- NOTE | 2021-05-06 22:07 | PHYS DOC ---
Past History Past Medical History: Asthma, Cancer, COPD, Diabetes, GERD, High Cholesterol, Hypertension, Seizure, Other Additional Past Medical Histor: MEMO, NEUROPATHY Past Surgical History: Appendectomy, Cholecystectomy, Knee Replacement, Other Additional Past Surgical Histo: SHOULDER SURGERY X 5, PLATES IN NECK, SPINAL CORD SURGERY Alcohol Use: None Drug Use: None Adult General HPI HPI Patient is a 70-year-old female with multiple medical problems who presents to the emergency department with multiple complaints including feet swelling and insect bites. States she had similar problems with insects couple weeks ago and fumigated her apartment which took care of it. States that the apartment came and cleaned up the vents couple days ago and since then has small insects flying around in her apartment that a been biting her. Appear to be possibly mosquitoes. States she is had some swelling in her feet, usually towards the end of the night every night as well. Denies any new traumas, travels, illnesses, fevers, chest pain, shortness of breath, abdominal pain, nausea, vomiting, diarrhea. Denies any dysuria, hematuria or blood in the stool. States she is eating and drinking normally for her. Review of Systems Review of Systems Review of systems otherwise unremarkable except noted in HPI Allergies Allergies Allergies Coded Allergies Type Severity Reaction Last Updated Verified Iodinated Contrast Media Allergy Severe 02/13/20 Yes iodine Allergy Severe Shortness of Air 02/13/20 No adhesive Allergy Intermediate 02/13/20 Yes green pepper Allergy Unknown 02/15/20 Yes Physical Exam Physical Exam Constitutional: Well developed, well nourished, no acute distress, non-toxic ap pearance. [] HENT: Normocephalic, atraumatic, bilateral external ears normal, oropharynx moist, no oral exudates, nose normal. [] Eyes: PERRLA, EOMI, conjunctiva normal, no discharge. [] Neck: Normal range of motion, no tenderness, supple, no stridor. [] Cardiovascular:Heart rate regular rhythm, no murmur [] Lungs & Thorax: Bilateral breath sounds clear to auscultation [] Abdomen: Bowel sounds normal, soft, no tenderness, no masses, no pulsatile masses. [] Skin: Warm, dry, has several scant what appears to be insect bites on the neck and arms with a few areas that look like urticaria Back: No tenderness, no CVA tenderness. [] Extremities: No tenderness, no cyanosis, no clubbing, ROM intact, no edema. [] Neurologic: Alert and oriented X 3, normal motor function, normal sensory function, able to ambulate at baseline no focal deficits noted. [] Psychologic: Affect normal, judgement normal, mood normal. [] EKG EKG [] Radiology/Procedures Radiology/Procedures [] Heart Score C/O Chest Pain: No Risk Factors: Risk Factors: DM, Current or recent (<one month) smoker, HTN, HLP, family history of CAD, obesity. Risk Scores: Risk Factors: DM, Current or recent (<one month) smoker, HTN, HLP, family history of CAD, obesity. Course & Med Decision Making Course & Med Decision Making Patient is a 70-year-old female who presents with insect bites and bilateral feet swelling Vital signs notable for hypertension. Physical exam noted above. Given steroids and Benadryl for what appears to be insect bites and some urticaria Discussed symptom control at home. Advised to follow-up with apartment complex management first thing in the morning to update on insects. Advised to take blood pressure medicine as prescribed and if it is not controlling her blood pressure which she does not appear to be as she says she has high every day to bring this up with primary care physician as well. Advised to follow-up in the morning with primary care physician and set up an immediate follow-up visit to discuss ED visit and other issues Gave return precautions to the ED. Patient grateful, verbalized understanding and agreed with plan of discharge. [] Dragon Disclaimer Dragon Disclaimer This electronic medical record was generated, in whole or in part, using a voice recognition dictation system. Departure Departure: Impression: Primary Impression: Insect bites Additional Impressions: Urticaria Bilateral lower extremity edema Hypertension Disposition: HOME / SELF CARE / HOMELESS Condition: STABLE Referrals: WENDI ROBISON MD (PCP) Patient Instructions: DEET Insect Repellent , Edema, Hives, Insect Bite Additional Instructions: Thank you for coming into the emergency department tonight and allowing us to take care of you. Please read the attached information carefully to go back over some of the things we discussed. You can continue Benadryl every 6 hours as we discussed as needed for symptoms. Please try to use citronella candles, mosquito repellent and a large fan in your room and/or house as we discussed. Please follow-up with your apartment complex management in the morning to update them on the mosquitoes. Please call your primary care physician in the morning to update on your ED visit and set up a follow-up for reevaluation. Please come back with new or concerning symptoms as we discussed. Problem Qualifiers NEEL GU MD May 06, 2021 22:07
[2021-05-06] MEDS ORDERED: DEXAMETHASONE 4 MG TABLET PO ONE (22:30)
[2021-05-06] MEDS ORDERED: diphenhydrAMINE HCL 25 MG CAPSULE PO ONE (22:30)
== END 2021-05-06 22:38 | disposition home or self-care (01) ==
LOC: ER 21:58
DX: S10.96XA Insect bite of unspecified part of neck, initial encounter (principal); S40.862A Insect bite (nonvenomous) of left upper arm, initial encounter; S40.861A Insect bite (nonvenomous) of right upper arm, initial encounter; L50.9 Urticaria, unspecified; R60.0 Localized edema; I10 Essential (primary) hypertension; J44.9 Chronic obstructive pulmonary disease, unspecified; K21.9 Gastro-esophageal reflux disease without esophagitis; E78.00 Pure hypercholesterolemia, unspecified; E11.40 Type 2 diabetes mellitus with diabetic neuropathy, unspecified; Z91.041 Radiographic dye allergy status; Z88.8 Allergy status to other drugs, medicaments and biological substances; Z91.018 Allergy to other foods; W57.XXXA Bitten or stung by nonvenomous insect and other nonvenomous arthropods, initial encounter; Y93.89 Activity, other specified; Y92.89 Other specified places as the place of occurrence of the external cause; Y99.8 Other external cause status
CPT/HCPCS: 99283; J8540; Q0163

== ENCOUNTER 2021-06-15 11:20 | Emergency (ER) | payer MEDICARE ==
[~2021-06-15] VITALS: Ht 167.6 cm; Wt 145.0 kg
[2021-06-15 11:53] VITALS: BP 165/82
[2021-06-15] MEDS ORDERED: IV NORMAL SALINE 1,000ML 1,000 ML IV ONE (12:15)
--- NOTE | 2021-06-15 12:27 | RAD ---
CT abdomen and pelvis without contrast PQRS statement: CT scans at this facility use dose reduction including either automated exposure cont rol, iterative reconstructions, and /or weight based radiation dosing via mA and kV modification when appropriate to reduce radiation dose to as low as reasonably achievable. HISTORY: Flank pain. COMPARISON: CT abdomen January 31, 2019 Abdomen findings: Lower thoracic and lumbar disc disease and postsurgical changes lower lumbar spine. Probable spinal canal stenosis at several levels. Mild prominence of the common bile duct and left c holecystectomy this is stable. Liver, pancreas, spleen, left adrenal gland unremarkable. 2 cm right a drenal myelolipoma. Mild bilateral perinephric edema. No urinary calculi or hydronephrosis. Sigmoid c olonic diverticulosis. No obstruction or inflammation of the GI tract. Appendix not visualized presum ed surgically absent. No abdominal fluid. Pelvis findings: Pelvic phleboliths. No bladder calculi. Ovaries, uterus, rectum and bones are unrema rkable. No pelvic fluid. IMPRESSION: 1. No acute process. No urinary calculi or hydronephrosis. 2. Mild bilateral perinephric edema, this may be indicative of renal insufficiency. No hydronephrosis . 3. Sigmoid colonic diverticulosis without diverticulitis. Electronically signed by: Robinson Rudolph MD (06/15/2021 12:25 PM) [id number]
[2021-06-15 13:09] LABS: BACTERIA,URINE FEW /HPF (0-FEW); CLARITY,URINE HAZY; COLOR,URINE YELLOW; GLUCOSE,URINE NEG (NEG); NITRITE,URINE NEG (NEG); RBC,URINE 0 /HPF (0-2); SQUAMOUS EPITHELIAL CELL,UR MOD /LPF; UROBILINOGEN,URINE 0.2 mg/dL (0.2 mg/dL)
[2021-06-15 13:14] LABS: BASO # 0.2 x10^3/uL (0.0-0.2); BASO % 1 % (0-3); EOS # 0.6 x10^3/uL (0.0-0.7); EOS % 5 % (0-3); HEMATOCRIT 40.8 % (36.0-47.0); HEMOGLOBIN 13.1 g/dL (12.0-15.5); LYMPH # 2.8 x10^3/uL (1.0-4.8); LYMPH % 25 % (24-48); MEAN CORPUSCULAR HEMOGLOBIN 30 pg (25-35); MEAN CORPUSCULAR HGB CONC 32 g/dL (31-37); MEAN CORPUSCULAR VOLUME 94 fL (79-100); MONO # 0.8 x10^3/uL (0.0-1.1); MONO % 7 % (0-9); NEUT # 7.1 x10^3uL (1.8-7.7); NEUT % 62 % (31-73); PLATELET COUNT 305 x10^3/uL (140-400); RED BLOOD COUNT 4.32 x10^6/uL (3.50-5.40); RED CELL DISTRIBUTION WIDTH 15.1 % (11.5-14.5); WHITE BLOOD COUNT 11.6 x10^3/uL (4.0-11.0)
--- NOTE | 2021-06-15 13:23 | PHYS DOC ---
Past History Past Medical History: Asthma, Cancer, COPD, Diabetes, GERD, High Cholesterol, Hypertension, Seizure, Other Additional Past Medical Histor: MEMO, NEUROPATHY Past Surgical History: Appendectomy, Cholecystectomy, Knee Replacement, Other Additional Past Surgical Histo: SHOULDER SURGERY X 5, PLATES IN NECK, SPINAL CORD SURGERY Alcohol Use: None Drug Use: None General Adult EDM: Chief Complaint: BACK PAIN OR INJURY HPI: HPI: Patient is a 70-year-old female presents with left-sided flank pain. Patient is also complaining of pain with urination. Patient's that she has had a decrease in output. Patient's reporting last time she urinated was yesterday morning. Denies abdominal pain, denies fever, nausea/vomiting/diarrhea. Patient has a history of chronic back pain but states this is higher up and feels like kidney pain. History of high cholesterol, hypertension, COPD, diabetes. Review of Systems: Review of Systems: ROS At least 10 ROS systems have been reviewed and are negative except as documented in the HPI. General: Negative except as outlined in HPI above. Skin: Negative except as outlined in HPI above. HEENT: Negative except as outlined in HPI above. Neck: Negative except as outlined in HPI above. Respiratory: Negative except as outlined in HPI above.. Cardiovascular: Negative except as outlined in HPI above. Abdomen: Negative except as outlined in HPI above. : Negative except as outlined in HPI above. Back/MSK: Negative except as outlined in HPI above. Neuro: Negative except as outlined in HPI above. Psych: Negative except as outlined in HPI above. Current Medications: Current Meds: Current Medications Medications (Trade) Dose Ordered Sig/Jeison Start Time Stop Time Status Last Admin Dose Admin Sodium Chloride 1,000 ml @ 1,000 mls/hr 1X ONCE 06/15/21 12:15 06/15/21 13:14 DC 06/15/21 12:15 1,000 MLS/HR Allergies: Allergies: Allergies Coded Allergies Type Severity Reaction Last Updated Verified Iodinated Contrast Media Allergy Severe 02/13/20 Yes iodine Allergy Severe Shortness of Air 02/13/20 No adhesive Allergy Intermediate 02/13/20 Yes green pepper Allergy Unknown 02/15/20 Yes Physical Exam: PE: Constitutional: Well developed, well nourished, no acute distress, non-toxic appearance. [] HENT: Normocephalic, atraumatic, bilateral external ears normal, oropharynx moist, no oral exudates, nose normal. [] Eyes: PERRLA, EOMI, conjunctiva normal, no discharge. [] Neck: Normal range of motion, no tenderness, supple, no stridor. [] Cardiovascular:Heart rate regular rhythm, no murmur [] Lungs & Thorax: Bilateral breath sounds clear to auscultation [] Abdomen: Bowel sounds normal, soft, no tenderness, no masses Skin: Warm, dry, no erythema, no rash. [] Back: No tenderness, left CVA tenderness. [] Extremities: No tenderness, no cyanosis, no clubbing, ROM intact, no edema. [] Neurologic: Alert and oriented X 3, normal motor function, normal sensory function, no focal deficits noted. [] Psychologic: Affect normal, judgement normal, mood normal. [] Current Patient Data: Labs: Laboratory Tests Test 06/15/21 12:35 06/15/21 13:00 Urine Collection Type Unknown Urine Color Yellow Urine Clarity Hazy Urine pH 5.5 Urine Specific Mckinney >=1.030 Urine Protein 30 mg/dl (NEG-TRACE) Urine Glucose (UA) Neg mg/dL (NEG) Urine Ketones (Stick) Neg mg/dL (NEG) Urine Blood Trace (NEG) Urine Nitrite Neg (NEG) Urine Bilirubin Neg (NEG) Urine Urobilinogen Dipstick 0.2 mg/dL (0.2 mg/dL) Urine Leukocyte Esterase Small (NEG) Urine RBC 0 /HPF (0-2) Urine WBC 5-10 /HPF (0-4) Urine Squamous Epithelial Cells Mod /LPF Urine Bacteria Few /HPF (0-FEW) White Blood Count 11.6 x10^3/uL (4.0-11.0) H Red Blood Count 4.32 x10^6/uL (3.50-5.40) Hemoglobin 13.1 g/dL (12.0-15.5) Hematocrit 40.8 % (36.0-47.0) Mean Corpuscular Volume 94 fL (79-100) Mean Corpuscular Hemoglobin 30 pg (25-35) Mean Corpuscular Hemoglobin Concent 32 g/dL (31-37) Red Cell Distribution Width 15.1 % (11.5-14.5) H Platelet Count 305 x10^3/uL (140-400) Neutrophils (%) (Auto) 62 % (31-73) Lymphocytes (%) (Auto) 25 % (24-48) Monocytes (%) (Auto) 7 % (0-9) Eosinophils (%) (Auto) 5 % (0-3) H Basophils (%) (Auto) 1 % (0-3) Neutrophils # (Auto) 7.1 x10^3uL (1.8-7.7) Lymphocytes # (Auto) 2.8 x10^3/uL (1.0-4.8) Monocytes # (Auto) 0.8 x10^3/uL (0.0-1.1) Eosinophils # (Auto) 0.6 x10^3/uL (0.0-0.7) Basophils # (Auto) 0.2 x10^3/uL (0.0-0.2) Vital Signs: Vital Signs Date Time Temp Pulse Resp B/P (MAP) Pulse Ox O2 Delivery O2 Flow Rate FiO2 06/15/21 11:53 98.4 67 16 165/82 (109) 92 Room Air EKG: EKG: [] Radiology/Procedures: Radiology/Procedures: []CT abdomen and pelvis without contrast PQRS statement: CT scans at this facility use dose reduction including either automated exposure control, iterative reconstructions, and /or weight based radiation dosing via mA and kV modification when appropriate to reduce radiation dose to as low as reasonably achievable. HISTORY: Flank pain. COMPARISON: CT abdomen January 31, 2019 Abdomen findings: Lower thoracic and lumbar disc disease and postsurgical carlitos nges lower lumbar spine. Probable spinal canal stenosis at several levels. Mild prominence of the common bile duct and left cholecystectomy this is stable. Liver, pancreas, spleen, left adrenal gland unremarkable. 2 cm right adrenal myelolipoma. Mild bilateral perinephric edema. No urinary calculi or hydronephrosis. Sigmoid colonic diverticulosis. No obstruction or inflammation of the GI tract. Appendix not visualized presumed surgically absent. No abdominal fluid. Pelvis findings: Pelvic phleboliths. No bladder calculi. Ovaries, uterus, rectum and bones are unremarkable. No pelvic fluid. IMPRESSION: 1. No acute process. No urinary calculi or hydronephrosis. 2. Mild bilateral perinephric edema, this may be indicative of renal insufficiency. No hydronephrosis. 3. Sigmoid colonic diverticulosis without diverticulitis. Electronically signed by: Robinson Rudolph MD (06/15/2021 12:25 PM) [id number] Heart Score: C/O Chest Pain: No Risk Factors: Risk Factors: DM, Current or recent (<one month) smoker, HTN, HLP, family history of CAD, obesity. Risk Scores: Score 0 - 3: 2.5% MACE over next 6 weeks - Discharge Home Score 4 - 6: 20.3% MACE over next 6 weeks - Admit for Clinical Observation Score 7 - 10: 72.7% MACE over next 6 weeks - Early Invasive Strategies Course & Med Decision Making: Course & Med Decision Making Pertinent Labs and Imaging studies reviewed. (See chart for details) [] 7-year-old male presents with left-sided flank pain, dysuria. Patient states that she has not had been able to pee since yesterday morning. Patient has not taking anything for pain. Work-up in ER consisted of CBC, CMP, urinalysis, CT abdomen and pelvis. Patient given NS bolus and pain was treated. All labs unremarkable. CT abdomen and pelvis is negative for any acute findings. UA positive for infection. Discussed all results with patient. Patient's pain has improved. Sending patient home with antibiotic. Instructions to drink plenty of fluids. Discussed return precautions. Patient reports understanding of discharge instructions. Jaleesa Disclaimer: Jaleesa Disclaimer: This electronic medical record was generated, in whole or in part, using a voice recognition dictation system. Departure Departure: Impression: Primary Impression: UTI (urinary tract infection) Qualified Codes: N30.00 - Acute cystitis without hematuria Additional Impression: Flank pain Disposition: HOME / SELF CARE / HOMELESS Condition: STABLE Referrals: WENDI ROBISON MD (PCP) Patient Instructions: Urinary Tract Infection Additional Instructions: You were seen emergency room for flank pain. CT of your abdomen was unremarkable. Urine was positive for infection. Sending you home on an antibiotic to treat. Make sure you are drinking plenty of fluids. EMERGENCY DEPARTMENT GENERAL DISCHARGE INSTRUCTIONS Thank you for coming to [facility] (ED) today and trusting us with you care. We trust that you had a positivie experience in our Emergency Department. If you wish to speak to the department management, you may call the director at [phone]. YOUR FOLLOW UP INSTRUCTIONS ARE FOLLOWS: 1. Do you have a private Doctor? If you do not have a private doctor, please ask for a resource list of physicians or clinics that may be able to assist you with follow up care. 2. The Emergency Physician has interpreted your x-rays. The X-Ray specialist will also review them. If there is a change in the findings, you will be notified in 48 hours when at all possible. 3. A lab test or culture has been done, your results will be reviewed and you will be notified if you need a change in treatment. ADDITIONAL INSTRUCTIONS AND INFORMATION: 1. Your care today has been supervised by a physician who is specially trained in emergency care. Many problems require more than one evaluation for a complete diagnosis and treatment. We recommend that you schedule your follow up appointment as recommended to ensure complete treatment of you illness or injury. If you are unable to obtain follow up care and continue to have a problem, or if your condition worsens, we recommend that you return to the ED. 2. We are not able to safely determine your condition over the phone nor are we able to give sound medical advice over the phone. For these safety reasons, if you call for medical advice we will ask you to come to the ED for further evaluation. 3. If you have any questions regarding these discharge instructions please call the ED at [phone]. SAFETY INFORMATION: In the interest of safety, wellness, and injury prevention; we encourage you to wear your sealbelt, if you smoke; quite smoking, and we encourage family to use a protective helmet for bicycling and other sporting events that present an increased risk for head injury. IF YOUR SYMPTOMS WORSEN OR NEW SYMPTOMS DEVELOP, OR YOU HAVE CONCERNS ABOUT YOUR CONDITION; OR IF YOUR CONDITION WORSENS WHILE YOU ARE WAITING FOR YOUR FOLLOW UP APPOINTMENT; EITHER CONTACT YOUR PRIMARY CARE DOCTOR, THE PHYSICIAN WHOSE NAME AND NUMBER YOU WERE GIVEN, OR RETURN TO THE ED IMMEDIATELY. Scripts Cephalexin (CEPHALEXIN) 500 Mg Tablet 1 TAB PO BID for uti for 7 Days, #14 TAB Prov: ASHLEY GUTIERREZ APRN 06/15/21 ASHLEY GUTIERREZ APRN June 15, 2021 13:23
[2021-06-15 13:26] LABS: CALCIUM 8.8 mg/dL (8.5-10.1); CREATININE 1.4 mg/dL (0.6-1.0); GFR 37.2; POTASSIUM 4.5 mmol/L (3.5-5.1)
[2021-06-15 13:33] LABS: ALBUMIN 3.7 g/dL (3.4-5.0); TOTAL BILIRUBIN 0.3 mg/dL (0.2-1.0); TOTAL PROTEIN 7.3 g/dL (6.4-8.2)
[2021-06-15] MEDS ORDERED: MORPHINE SULFATE 4 MG/ML DISP.SYRIN. IV ONE (14:00)
[2021-06-15] MEDS ORDERED: CEPH500T PO (14:07)
== END 2021-06-15 14:17 | disposition home or self-care (01) ==
LOC: ER 11:20
DX: N30.00 Acute cystitis without hematuria (principal); J44.9 Chronic obstructive pulmonary disease, unspecified; K21.9 Gastro-esophageal reflux disease without esophagitis; E78.00 Pure hypercholesterolemia, unspecified; I10 Essential (primary) hypertension; E11.40 Type 2 diabetes mellitus with diabetic neuropathy, unspecified; G89.29 Other chronic pain; Z90.49 Acquired absence of other specified parts of digestive tract; Z90.89 Acquired absence of other organs; Z91.041 Radiographic dye allergy status; Z88.8 Allergy status to other drugs, medicaments and biological substances
CPT/HCPCS: 36415; 74176; 80053; 81001; 85025; 87077; 87086; 96361; 96374; 99284; J2270; J7030